=== PATIENT | female | born 1935 | race Caucasian/White ===

== ENCOUNTER 2023-09-04 08:31 | Outpatient (RCR) | payer SELFPAY | END 2023-09-04 23:59 | disposition home or self-care (01) | LOC: ROT 08:31 | PROVIDERS: ATTENDING PHYSICIAN Family Medicine | DX: G20.A1 Parkinson's disease without dyskinesia, without mention of fluctuations (principal) ==

== ENCOUNTER → 2023-11-06 13:23 | Outpatient (REF) | payer OTHER, SELFPAY | LOC: MRI 3T 13:23 | PROVIDERS: ATTENDING PHYSICIAN Physician Assistant; FAMILY PHYSICIAN Family Medicine; REFERRING PHYSICIAN Specialist | DX: G20.A1 Parkinson's disease without dyskinesia, without mention of fluctuations (principal); R26.89 Other abnormalities of gait and mobility | CPT/HCPCS: 70551 ==

== ENCOUNTER 2023-12-07 06:33 | Outpatient (RCR) | payer OTHER, SELFPAY | END 2023-12-07 23:59 | disposition home or self-care (01) | LOC: RPT 06:33 | PROVIDERS: ATTENDING PHYSICIAN Family Medicine | DX: G20.A1 Parkinson's disease without dyskinesia, without mention of fluctuations (principal); R26.89 Other abnormalities of gait and mobility; Z91.81 History of falling; Z73.6 Limitation of activities due to disability | CPT/HCPCS: 97163; 97530 ==

== ENCOUNTER 2024-01-10 12:44 | Outpatient (RCR) | payer OTHER, SELFPAY | END 2024-01-10 23:59 | disposition home or self-care (01) | LOC: RPT 12:44 | PROVIDERS: ATTENDING PHYSICIAN Family Medicine | DX: G20.A1 Parkinson's disease without dyskinesia, without mention of fluctuations (principal); Z91.81 History of falling; Z73.6 Limitation of activities due to disability | CPT/HCPCS: 97110; 97112; 97116; 97530 ==

== ENCOUNTER 2024-02-08 13:01 | Outpatient (RCR) | payer OTHER, SELFPAY | END 2024-02-08 23:59 | disposition home or self-care (01) | LOC: RPT 13:01 | PROVIDERS: ATTENDING PHYSICIAN Family Medicine | DX: G20.A1 Parkinson's disease without dyskinesia, without mention of fluctuations (principal); R26.89 Other abnormalities of gait and mobility; Z73.6 Limitation of activities due to disability; R26.2 Difficulty in walking, not elsewhere classified; Z91.81 History of falling | CPT/HCPCS: 97110; 97112; 97116; 97530 ==

== ENCOUNTER 2024-02-11 15:25 | Outpatient (RCR) | payer OTHER, SELFPAY | END 2024-02-12 07:35 | disposition home or self-care (01) | LOC: RPT 15:25 | PROVIDERS: ATTENDING PHYSICIAN Family Medicine | DX: G20.A1 Parkinson's disease without dyskinesia, without mention of fluctuations (principal); R26.89 Other abnormalities of gait and mobility; Z73.6 Limitation of activities due to disability; R26.2 Difficulty in walking, not elsewhere classified; Z91.81 History of falling | CPT/HCPCS: 97110; 97112; 97530 ==

== ENCOUNTER 2024-03-10 14:16 | Outpatient (RCR) | payer OTHER, SELFPAY | END 2024-03-10 23:59 | disposition home or self-care (01) | LOC: RST 14:16 | PROVIDERS: ATTENDING PHYSICIAN Family Medicine | DX: G20.A1 Parkinson's disease without dyskinesia, without mention of fluctuations (principal); R47.1 Dysarthria and anarthria; R49.8 Other voice and resonance disorders | CPT/HCPCS: 92507; 92522 ==

== ENCOUNTER 2024-03-17 12:04 | Outpatient (RCR) | payer OTHER, SELFPAY | END 2024-04-02 10:16 | disposition home or self-care (01) | LOC: RST 12:04 | PROVIDERS: ATTENDING PHYSICIAN Family Medicine | DX: R47.1 Dysarthria and anarthria (principal); G20.A1 Parkinson's disease without dyskinesia, without mention of fluctuations; R49.8 Other voice and resonance disorders | CPT/HCPCS: 92507 ==

== ENCOUNTER 2024-03-29 13:43 | Inpatient (IN) | payer OTHER, SELFPAY ==
[2024-03-29] VITALS (8 sets, daily range): BP systolic 101–141; BP diastolic 61–102; BMI 22.0
--- NOTE | 2024-03-29 11:00 | ED.GENMED ---
History of Present Illness
General
Chief Complaint: Swelling
Source: patient and spouse
Time Seen by Provider: 03/29/24 10:37
History of Present Illness
History of Present Illness:
This patient is an 88-year-old female who has been having progressive lower extremity edema for the last few weeks such that her notes is difficult to get her shoes on. They saw their primary care doctor this morning and were referred to
the emergency department to rule out bilateral DVT. In further review of systems, patient denies chest pain but notes she has been having mild dyspnea particularly in the morning. She does not specifically report orthopnea or PND. She is
relatively immobile. She has had slightly decreased urinary output without pain or hematuria. She denies fever, chills, abdominal pain, back pain, numbness, tingling, focal weakness, or other complaints. is unclear if she has gained
weight.
Past History
Past History
ED Past Medical History: Arrthythmia (SVT and PVC's), Cancer (Colon, Skin CA), GERD and Other (Parkinson's, Glaucoma, Anemia)
ED Past Surgical History: Bowel resection (Colon resection due to CA) and Gynecological (Hysterectomy due to CA, )
Social History
Tobacco: Non-smoker
Alcohol: None
Drug: None
Personal:
Living: with family
Employment: Retired
Family History
Family History: Negative Diabetes, Hypertension or CAD
Phy Exam
Physical Exam
Physical Exam:
GENERAL: Alert , in no apparent distress
EYE: pupils equal and reactive
NECK: Supple, no significant adenopathy.
ENT: o/p clr, mm dry
CARDIAC: Irregularly irregular
LUNGS: Equal breath sounds bilaterally, no acute respiratory distress, slight Rales noted bibasilar left greater than right
ABDOMEN: Soft, without focal tenderness, no r/g
NEUROLOGICAL: Alert and oriented, baseline Parkinson
SKIN: Warm and dry, skin intact.
MUSCULOSKELETAL: Bilateral 2+ edema lower extremity, well perfused.
PSYCH: Normal and appropriate interaction.
Scores
[id number] Score for Afib Stroke Risk
Age in Years (65=0, 65-74=1, >/=75=2): > or = 75
Sex (Female=+1): Female
Congestive Heart Failure History (Yes=+1): No
Hypertension History (Yes=+1): No
Stroke/TIA/Thromboembolism History (Yes=+2): No
Vascular Disease History (Yes=+1): No
Diabetes Mellitus (Yes=+1): No
Score: 3
Anticoagulation Recommendations: Recommend anticoagulation (as validated in nonvalvular fib)
Heart Failure Risk
Heart Failure Risk Score: Not Applicable
Course
Orders/Labs/Results
Orders:
Orders
03/29/24 10:59
Pulse Ox/cont/shift [RESP] Stat
Quantity: 1
03/29/24 11:00
Electrocardiogram (*1) Stat
Reason for Study: Other
Other Reason for Exam: chest pain
Cardiac Monitoring- Treatment ONCE
EKG- Treatment ONCE
CR Chest - 2 Views Urgent
Comment:
Reason For Exam: sob, leg swelling
03/29/24 11:27
Complete Blood Count/No Diff Urgent
Comprehensive Metabolic Panel Urgent
NT-proBNP Urgent
Troponin I Urgent
03/29/24 12:29
Furosemide [Lasix] 40 mg IV ONCE ONE
03/29/24 12:36
PTT Urgent
Comment: Obtain baseline before beginning heparin infusion if not already collected
03/29/24 12:59
Heparin 3,400 units IV NOW STA
Nursing to Place Non Medication Order As Directed
Physician Order: PTT 6 hours after initial start of Heparin infusion
Above order entered?: Yes
03/29/24 13:00
Heparin 16617 Units/250 ml 25,000 units in 250 ml IV PER PROTOCOL
Weight to be used for heparin protocol in kilograms (kg):: 56.2
Protocol:: Cardiac Tx/Acute Coronary
PTT Goal Range to be used:: PTT 73 to 111 seconds
Order type:: Initial
INITIAL Infusion Dose (UNITS/KG/hr) & then follow protocol:: 12 units/kg/hr
Infusion Dose in UNITS/hr & then follow protocol (UNITS/hr):: 650
INFUSION RATE in mL/hr & then follow protocol (mL/hr):: 6.5
PTT less than or equal to 64 seconds:: Increase rate by 200 units/hr (+ 2 mL/hr)
PTT 64.1 to 72.9 seconds:: Increase rate by 100 units/hr (+ 1 mL/hr)
PTT 73 to 111 seconds:: Target Range. No change in rate.
PTT 111.1 to 130.9 seconds:: Decrease rate by 100 units/hr (- 1 mL/hr)
PTT 131 to 199.9 seconds:: HOLD for 1 hr. Then decrease rate by 200 units/hr (- 2 mL/hr)
PTT greater than or equal to 200 seconds:: HOLD for 2 hrs & Notify Provider. Then decrease by 200 units/hr (-
2 mL/hr)
Lab follow-up:: Each change, PTT q6h until 2 consecutive are therapeutic. Then PTT
daily.
03/29/24 13:16
Metoprolol [Lopressor] 2.5 mg IV NOW STA
03/29/24 13:17
Admit/Transfer Patient As Directed
Co-Sign Provider:
Level of Care: Inpatient admission
Assign to:: Telemetry
Physician / Group: Damián
Transfer to: Telemetry
Diagnosis: CHF/Afib RVR
Patient Condition: Fair
Reason for Telemetry: Acute Heart Failure
Date to Stop Telemetry: 04/01/24
Time to Stop Telemetry: 11:00
Reason for Hospitalization: CHF exacerbation/afibrvr
Expected length of stay greater than two midnights?: Yes
ELOS- Estimated Length of Stay in days: 2
I certify the patient meets the requirements for IP care: Yes
PRN Pain Medication Management As Directed
May give lesser potent ordered pain med per pt: Yes
preference::
Protocol:: Medication orders for pain may be administered in a
manner that supports deferring to patient preference
when the pt is:
- Requesting an ordered lesser potent pain medication.
Least to most potent pain medications are defined
as: acetaminophen < NSAID < tramadol < opioids
(morphine, oxycodone, hydromorphone).
- Requesting a lesser dose of the same medication IF
ORDERED.
- Requesting a less intrusive route of administration
if both routes are prescribed by the provider (PO <
IV).
03/29/24 13:19
Code Status As Directed
Resuscitation Status: Do not resuscitate
Reached after discussion with pt or family/Healthcare POA: Yes
03/29/24 13:20
DNR Bracelet Application ONCE
03/29/24 14:23
Acetaminophen [Tylenol] 650 mg PO Q4HPRN PRN
Bisacodyl [Dulcolax] 10 mg RECTAL [id number] PRN
Docusate W/Senna [Senokot-S] 1 tablet PO BIDPRN PRN
Ondansetron Injectable [Zofran] 4 mg IV Q6HPRN PRN
Polyethylene Glycol Powder [Miralax] 17 grams PO DAILYPRN PRN
03/29/24 14:23
CARDIOLOGY CONSULT Routine
Consulting Provider: Daniel Yan
Was physician already notified: Yes
Reason for consult: chf/new afib
Activity As Directed
Activity Level: Ambulate
Intake/ Output As Directed
Frequency: Per unit guidelines
Comment: strict
Vital Signs As Directed
Frequency: Per unit guidelines
Weight As Directed
Frequency: Daily
03/29/24 Dinner
Cholesterol Lowering
At Your Request: Non-Participating
Fluid Restriction: 1200 mL/day (40 oz)
Cholesterol Lowering: Sodium, 2 Gram
03/29/24 19:58
PTT Urgent
03/29/24 20:00
Acetaminophen [Tylenol] 650 mg PO BID
Carbidopa/Levodopa Cr [Sinemet Cr 25-100 (Extended Release)] 1 tablet PO BID
Metoprolol Xl [Toprol Xl] 50 mg PO BID
03/29/24 22:00
Donepezil [Aricept] 5 mg PO HS
03/30/24 02:28
Basic Metabolic Panel IN AM
Complete Blood Count/No Diff IN AM
Magnesium IN AM
TSH Reflex To Free T4 IN AM
03/30/24 08:00
Aspirin Low Dose EC [Aspir Low (Enteric Coated)] 81 mg PO DAILY
Furosemide [Lasix] 40 mg IV DAILY
Lactobac/Bifidobac [Visbiome] 1 cap PO DAILY
Losartan [Cozaar] 25 mg PO DAILY
Timolol Maleate 0.5% [Timoptic 0.5% Ophthalmic Solution] See Dose Instructions OPHTH DAILY
04/01/24 11:00
DC Protocol for Telemetry ONCE
Abnormal Lab Results
03/29/24
11:27
WBC 3.4 L 10^3/uL
(4.8-10.8)
RBC 3.87 L 10^6/uL
(4.20-5.40)
Hgb 11.7 L g/dL
(12.0-16.0)
Hct 34.8 L %
(37.0-47.0)
Plt Count 109 L 10^3/uL
(130-400)
Sodium 134 L mmol/L
(135-145)
BUN 36 H mg/dl
(7-17)
Total Protein 5.6 L g/dl
(6.3-8.2)
03/29/24 11:27
03/29/24 11:27
Vital Signs
Initial and Last Documented VS:
Initial Vital Signs
Temp Pulse Resp BP Pulse Ox
98.1 F 102 16 113/78 98
03/29/24 10:23 03/29/24 10:23 03/29/24 10:23 03/29/24 10:23 03/29/24 10:23
Last Documented Vital Signs
Temp Pulse Resp BP Pulse Ox
97.6 F 96 16 132/93 96
03/31/24 07:30 03/31/24 08:06 03/31/24 07:30 03/31/24 08:06 03/31/24 07:30
*Critical Care Note
Total Time (30-74mins, 75-104mins- exclusive of procedures): 30
Update Note
Update Note:
Patient presents to the Emergency Department with bilateral leg swelling____
Number and Complexity of Problems Addressed at the Encounter
� Chronic conditions affecting care:
� Acute Exacerbation and/or Progression of Chronic Illness:
� Differential Diagnosis includes: But not limited to DVT, renal disease, heart failure, etc. etc.
Amount and/or Complexity of Data to be Reviewed and Analyzed
� I performed an independent evaluation of and my interpretation is:
EKG:read by me, afib with rvr (101), no acute ischemia noted
CT:
Xrays:read by me, cardiomegaly with suspected pulmonary edema.
Laboratory Studies:mild anemia, bnp elevated
Other:
� Review of other/old records reveals: echo 05/2018-EF 55%, diastolic fililng pattern suggestive of abnl relaxation
� Clinical information was obtained by an independent historian: who is bedside
� Prescriptions/Medications Considered but not given:
� Further testing considered but not performed:
Risk of Complications and/or Morbidity or Mortality of Patient Management
� Social determinants of health affecting care:
� Discussion with other providers (PCP, Hospitalists, Consultants, etc):
� Escalation of care including admission/observation vs risk of discharge considered: 88 yr old feamle with progressive leg edema, intermittent sob, found to be in new onset afib, mild rvr, and suspected assoc hf. Rate well
controlled here. CHads vasc 3 (no documented hx of htn, etc), will begin anticoagulation, lasix, admission.
ED Attending Note
-
Portions of this chart may have been created with voice recognition software.� Occasional wrong word or��sound alike� substitutions may have occurred due to the inherent limitations of voice recognition software.
Discharge Plan
Departure
Patient Disposition: Admit
Date of Disposition: 03/29/24
Time of Disposition: 12:28
Admit to: Telemetry
Presentation/result/management discussed w/ accepting MD/DO: Hospitalist
Condition: Fair
Discharge Problem:
Atrial fibrillation, Heart failure
Interventions
Interventions:
*Risk Screen - Suicide Last Done: 03/29/24 10:23
*General Assessment Last Done: 03/29/24 10:23
*Neglect/Abuse Screening Last Done: 03/29/24 10:23
ED- Fall Risk Assessment Last Done: 03/29/24 14:21
*ED COVID-19 Vaccine History Last Done: 03/29/24 14:21
*Nursing Disposition Last Done: 03/29/24 14:21
ED- Cardiac Assessment Last Done: 03/29/24 12:57
ED- Pulmonary Assessment Last Done: 03/29/24 12:57
ED-Skin Assessment Last Done: 03/29/24 14:21
Discharge Date and Time
Discharge Date/Time: 03/29/24 14:22
[2024-03-29 11:36] LABS: Hematocrit 34.8 % (37.0-47.0); Hemoglobin 11.7 g/dL (12.0-16.0); Mean Corp Hgb Conc. 33.6 g/dL (33.0-37.0); Mean Corpuscular Hgb 30.2 pg (27.0-31.0); Mean Corpuscular Volume 89.9 fL (81.0-99.0); Mean Platelet Volume 10.1 fL (7.4-10.4); Platelet Count 109 10^3/uL (130-400); Red Blood Cell Count 3.87 10^6/uL (4.20-5.40); Red Cell Dist. Width 13.8 % (11.5-14.5); White Blood Cell Count 3.4 10^3/uL (4.8-10.8)
[2024-03-29 11:49] LABS: ALT (SGPT) < 10 U/L (0-35); AST (SGOT) 36 U/L (14-36); Albumin 3.9 g/dl (3.5-5.0); Alkaline Phosphatase 64 U/L (38-126); Blood Urea Nitrogen 36 mg/dl (7-17); Calcium 9.2 mg/dl (8.4-10.2); Carbon Dioxide 24 mmol/L (22-30); Chloride 103 mmol/L (98-107); Glucose 96 mg/dl (70-99); Potassium 4.4 mmol/L (3.5-5.1); Sodium 134 mmol/L (135-145); Total Bilirubin 0.9 mg/dl (0.2-1.3); Total Protein 5.6 g/dl (6.3-8.2); eGFR > 60.00
[2024-03-29 11:59] LABS: NT-proBNP 5270 pg/ml; Troponin I < 0.012 ng/ml
[2024-03-29 12:58] LABS: APTT 24.9 Sec (23.4-35.0)
[2024-03-29] MEDS: HEPARIN 3400 UNITS IV (13:13)
[2024-03-29] MEDS: LASIX 40 MG IV (13:13)
--- NOTE | 2024-03-29 13:28 | HPS.HSE ---
Family Physician
-
Family Physician: Joni Valenzuela
Chief Complaint
-
Lower Extremity Edema x 2 weeks and SOB (sent in by PCP)
History of Present Illness
Pleasant 88yo F wt PMH SVT/PVCs (not followed by general assistant), HTN, Colon Ca s/p Resection, GERD, Chronic Anemia, Glaucoma, Parkinsons Dementia presents to ER with c/o LE edema x 2 weeks with recent SOB. Pt lives at home with her who also
aids in HPI. Reports symmetrical edema without associated chest pain or palpitations with +mild COHEN. Denies recurrence in past or ever being on diuretics/blood thinners or known hx afib. Pt states she went to see her PCP who sent her into ER for DVT
evaluation. Denies fever, chills, dizziness/LH, Palps, wheezing, cough, abd pain, n/v/d/c, dysuria, calf or leg pain/erythema. Only recent med change was donepezil from every other day to daily 2 weeks ago.
ER course: Presents HR 114->98, RR 31->21, Sat 95-98% RA, BP 149/74 with EKG demonstrating New Afib RVR @ 101bpm, PVCs, low voltage, nonspecific TWI, QTC 451ms. Na 134. BUN/Cr 36/0.9. WBC 3.4K, Hgb 11.7 g/dL. PLT 109K. BNP 5270. Trop <0.012. CXR
with left basilar opacity suspicous for small pleural effusions and atelectasis; cardiac enlargement. S/P 40mg IV lasix and heparin bolus/gtt in ER.
Medical History
Past Medical History
Past Medical History: Reports Other (SVT/PVCs (not followed by general assistant), HTN, Colon Ca s/p Resection, GERD, Chronic Anemia, Glaucoma, Parkinsons Dementia)
Past Surgical History: Reports Other (Bowel Resection, Hysterectomy)
Social History
Tobacco: Non-smoker
Alcohol: None
Drug: None
Personal:
Living: With Family
Employment: Retired
Family History
Family History: Other (Denies known pertinent family medical history)
Allergies / Home Medications
Allergies reflects when Allergies were last updated in [facility].
Home Medications with original date entered in [facility]
Allergy/Medication List:
Allergies
Allergy/AdvReac Type Severity Reaction Status Date / Time
morphine Allergy Severe slight rash Verified 03/29/24 10:21
Home Medications
aspirin 81 mg tablet,delayed release 81 mg PO DAILY 05/07/15
Lactobac no.2-Bifidobac no.1-S. thermo 112.5 billion cell capsule (Visbiome) 1 cap PO DAILY 03/29/24
acetaminophen 325 mg tablet (Tylenol) 650 mg PO BID 03/29/24
carbidopa ER 25 mg-levodopa 100 mg tablet,extended release 1 tab PO BID 03/29/24
donepezil 5 mg tablet 5 mg PO HS 03/29/24
losartan 25 mg tablet 25 mg PO DAILY 03/29/24
metoprolol succinate 50 mg tablet,extended release 24 hr (Toprol XL) 50 mg PO DAILY 03/29/24
timolol 0.5 % eye drops 1 drp BOTH EYES DAILY 03/29/24
Review of Systems
-
A 12 point ROS was completed and negative except as noted: Yes
Physical Exam
Vital Signs
Vital Signs
Temp Pulse Resp BP Pulse Ox
98.1 F 98 24 122/92 97
03/29/24 10:23 03/29/24 12:45 03/29/24 12:45 03/29/24 12:32 03/29/24 12:45
Physical Exam
General: Well Developed, Well Nourished and No Apparent Distress
HEENT: NormoCephalic, Moist mucous membranes and Atraumatic
Cardiac: S1/S2, Regular Rhythm and Irregular Rhythm; No Murmur or JVD
GI: Soft, Non Tender, Non Distended and Normal Bowel Sounds; No Organomegaly
Rectal: Deferred by Provider
Genito-urinary: No costovertebral tender; No Riley
Musculoskeletal: No Clubbing, No Cyanosis and Other (2-3+ symmetrical pitting b/l LE edema. No erythema. )
Skin: No Rash
Neuro: Awake, Alert, Oriented, AO x 3, No Motor Deficits and Nonfocal/grossly intact
Psych: Calm
Laboratory Results
-
03/29/24 11:27
03/29/24 11:27
Laboratory Results
APTT 24.9 Sec (23.4-35.0) 03/29/24 12:36
Total Bilirubin 0.9 mg/dl (0.2-1.3) 03/29/24 11:27
AST 36 U/L (14-36) 03/29/24 11:27
ALT < 10 U/L (0-35) 03/29/24 11:27
Alkaline Phosphatase 64 U/L (38-126) 03/29/24 11:27
Troponin I < 0.012 ng/ml 03/29/24 11:27
Data Reviewed
-
Diagnostic Radiology: Image Personally Visualized and interpreted
Medical Tests (Nuc Med, Echo, EKG etc): Image Personally Visualized and interpreted
Lab Data: Labs Reviewed by me
Old Records: Reviewed
Impression/Plan
-
Acute HFpEF
- Presents with 2 weeks+ of LE edema and mild SOB
- CXR with small left effusion, 2-3+ b/l pitting edema on exam. BNP 5270. Trop <0.012, no chest pain
- Last TTE 04/2020 with EF 55-60%, Mild LVH, grade I diastolic dysfunction, PaSP 28mmHg; likely consider repeat
- S/P 40mg IV lasix in ER. Patient is lasix naive, Continue 40mg IV daily with I&O/daily wts and hold parameters
- Increase Metop Succinate from 50mg Daily to 50mg BID
- Continue home ARB
- Cards consulted
New Atrial Fibrillation RVR / hx SVT and PVCs
- [id number] = Atleast 5
- S/P 2.5mg IV lopressor now. Increase Toprol XL from 50mg daily to 50mg BID
- Initiated on heparin gtt. Continue home aspirin.
Hx HTN - Stable on home losartan. Follow trends with diruesis.
Hyponatremia
- Na 134. Likely mild hypoosmotic hypervolemic etiology. Trend with diuresis.
Thrombocytopenia
- PLT 109k on admission. Previously 130-140k. Could be dilutional
- LFTs wnl. Check Coags
- Mild chronic leukopenia also noted. Consider liver ultrasound on nonurgent basis
- Above transfusion thresholds
Chronic Anemia
- Hgb 11.7 g/dL. Chronic/stable
Parkinsons Dementia - Continue home donepezil and sinemet
Glaucoma - Continue home eye drops
Diet: Cardiac, 2gm Na Diet, 1200cc fluid restriction
DVT PPx: Heparin Gtt
Code Status: DNR/DNI
[2024-03-29] MEDS: LOPRESSOR 2.5 MG IV (13:35)
[2024-03-29] MEDS: HEPARIN 25000 UNITS/250 ML IV (13:40)
--- NOTE | 2024-03-29 16:40 | PTCARENOTE ---
Pt arrived to unit via stretcher at 14:30. Pt c/o weakness in legs and difficulty ambulating. Pt pulled over from stretcher to bed w/o incident. Pt assessed, AAOx2, VSS, hep gtt running at 6.5ml/hr, next ptt to be drawn at 19:45. Pt in room,
call sandy and belongings within reach.
[2024-03-29 20:24] LABS: APTT 92.1 Sec (23.4-35.0)
[2024-03-29] MEDS: TYLENOL 650 MG PO (20:56)
[2024-03-29] MEDS: SINEMET CR 25-100 (EXTENDED RELEASE) 1 TABLET PO (20:57)
[2024-03-29] MEDS: ARICEPT 5 MG PO (20:59)
[2024-03-29] MEDS: TOPROL XL 50 MG PO (22:14)
[2024-03-30 02:42] LABS: Hematocrit 35.6 % (37.0-47.0); Mean Corp Hgb Conc. 33.7 g/dL (33.0-37.0); Mean Corpuscular Hgb 29.9 pg (27.0-31.0); Mean Corpuscular Volume 88.8 fL (81.0-99.0); Mean Platelet Volume 10.4 fL (7.4-10.4); Platelet Count 116 10^3/uL (130-400); Red Blood Cell Count 4.01 10^6/uL (4.20-5.40); Red Cell Dist. Width 13.8 % (11.5-14.5); White Blood Cell Count 3.3 10^3/uL (4.8-10.8)
[2024-03-30 02:55] LABS: APTT 72.8 Sec (23.4-35.0)
[2024-03-30 03:11] VITALS: BP 127/80
[2024-03-30 03:14] LABS: Blood Urea Nitrogen 35 mg/dl (7-17); Calcium 9.2 mg/dl (8.4-10.2); Carbon Dioxide 23 mmol/L (22-30); Chloride 105 mmol/L (98-107); Estimated Creatinine Clearance 42 ml/min; Glucose 86 mg/dl (70-99); Magnesium 1.9 mg/dl (1.6-2.3); Potassium 3.7 mmol/L (3.5-5.1); Sodium 135 mmol/L (135-145); eGFR > 60.00
[2024-03-30] MEDS: DESENEX/MITRAZOL/ZEASORB 1 APPLIC TOPICAL ×3 (03:34→20:05)
[2024-03-30 03:41] LABS: TSH Reflex To Free T4 2.26 uIU/ml (0.47-4.68)
[2024-03-30 06:00] VITALS: BMI 20.8
[2024-03-30 07:36] VITALS: BP 117/81
[2024-03-30] MEDS: LASIX 40 MG IV (07:57)
[2024-03-30] MEDS: SINEMET CR 25-100 (EXTENDED RELEASE) 1 TABLET PO ×2 (07:57→20:22)
[2024-03-30] MEDS: TOPROL XL 50 MG PO (07:57)
[2024-03-30] MEDS: COZAAR 25 MG PO (07:57)
[2024-03-30] MEDS: VISBIOME 1 CAP PO (07:57)
[2024-03-30] MEDS: ASPIR LOW (ENTERIC COATED) 81 MG PO (07:57)
[2024-03-30] MEDS: TYLENOL 650 MG PO ×2 (07:57→20:01)
[2024-03-30] MEDS: FLUSH (NSS) 2 FLUSH IV (07:59)
[2024-03-30 08:09] LABS: INR 1.21; PT 15.1 Sec (11.4-14.6)
[2024-03-30] MEDS: TIMOPTIC 0.5% OPHTHALMIC SOLUTION 1 DROP OPHTH (08:24)
[2024-03-30 09:49] LABS: APTT 78.6 Sec (23.4-35.0)
--- NOTE | 2024-03-30 11:06 | W.PN.HOSP.TC ---
Today's Communication/Plan
-
continue IV diuresis
Echo
Cards eval
Assessment / Plan
Assessment / Plan
Assessment:
Acute HFpEF
- IV Lasix - requires intensive monitoring. Monitor I/Os, weights, lytes
- update Echo
- continue BB/ARB
- Cards consulted
New Atrial Fibrillation RVR / hx SVT and PVCs
- [id number] = Atleast 5
- continue Toprol XL from 50 mg BID (from daily)
- Initiated on heparin gtt. Continue home aspirin. eventual OAC switch
Hx Essential HTN - Stable on home losartan. Follow trends with diruesis.
Hyponatremia
- Na 135. Likely mild hypoosmotic hypervolemic etiology. Trend with diuresis.
Thrombocytopenia
- PLT 116k on admission. Previously 130-140k. Could be dilutional
- LFTs wnl. normal Coags
- Mild chronic leukopenia also noted. Consider liver ultrasound on nonurgent basis
- Above transfusion thresholds
Chronic Anemia
- Hgb 11.7 g/dL. Chronic/stable
Parkinsons Dementia - Continue home donepezil and Sinemet
Glaucoma - Continue home eye drops
DVT ppx: IV Heparin
Code: DNR/DNI
Anticipated Discharge: > 48 hours
Subjective/Interval History
-
Date of Service: March 30, 2024
weight down 3kg per scale
feels less edematous, denies SOB
Objective Data
-
Labs:
Laboratory Results
03/30/24 03/30/24 03/30/24
02:28 06:00 07:09
WBC 3.3 L
Hgb 12.0
Hct 35.6 L
Plt Count 116 L
PT 15.1 H
INR 1.21
APTT 72.8 H Cancelled
Sodium 135
Potassium 3.7
Chloride 105
Carbon Dioxide 23
BUN 35 H
Creatinine 0.8
Glucose 86
Calcium 9.2
03/30/24 03/30/24
09:23 15:20
WBC
Hgb
Hct
Plt Count
PT
INR
APTT 78.6 H Pending
Sodium
Potassium
Chloride
Carbon Dioxide
BUN
Creatinine
Glucose
Calcium
Vital Signs:
Vital Signs
Temp Pulse Resp BP Pulse Ox
98.1 F 87 16 117/81 96
03/30/24 07:36 03/30/24 07:57 03/30/24 07:36 03/30/24 07:57 03/30/24 07:36
I&O
03/29/24 03/30/24 03/31/24
06:59 06:59 06:59
Intake Total 100 / 100
Balance 100 / 100
Physical Exam
-
General: No Apparent Distress
HEENT: Normocephalic and Atraumatic
Respiratory: Negative Wheezes
Cardiac: Regular Rhythm and S1/S2
GI: Soft and Nontender
Genito-urinary: No Costovertebral Tender
Musculoskeletal: Edema, Right Lower Extrem and Edema, Left Lower Extrem
Neuro: AO x 3
Hematologic / Lymphatic: No Lymphadenopathy
Psych: Calm
Data Reviewed
-
Total Time Spent with Patient (in minutes): 51
Labs: Labs Reviewed by me
[2024-03-30 11:30] VITALS: BP 141/95
--- NOTE | 2024-03-30 13:53 | CON.CAR ---
Consultation
Consultation Request
Date/Time Consultation Requested: March 30, 2024
Date/Time Consultation Performed: March 30, 2024
Requesting Provider: Hospitalist
Performing Provider: Dr. Daniel Yan
Reason for Consultation: Newly diagnosed atrial fibrillation, rapid rates, acute CHF
Medical History
-
Chief Complaint: Shortness of breath and increasing edema, palpitation
History of Present Illness:
Primary care physician is Dr. Joni Foley
Primary as400 operator is Dr. Angel Merino
Pleasant 88yo F wtih PMH notable for SVT/PVCs (not followed by as400 operator), HTN, Colon Ca s/p Resection, GERD, Chronic Anemia, Glaucoma, Parkinsons Dementia presenting to ER with c/o LE edema x 2 weeks with recent SOB.
Pt states she went to see her PCP who sent her into ER for DVT evaluation.
She reports symmetrical lower extremity edema as well as dyspnea on exertion worsening over the past 1 to 2 weeks. No chest pain.
In the emergency department she is found to be in atrial fibrillation which is a new diagnosis, rates are mildly rapid.
She is also found to be in decompensated heart failure, proBNP 5270, troponin undetectable and chest x-ray with cardiomegaly, small left pleural effusion and vascular markings with cephalization suggestive of CHF
EKG finds atrial fibrillation with ventricular rate of 101 bpm, PVCs, nonspecific ST and T wave abnormalities. Compared to an EKG from April 2015 atrial fibrillation has replaced sinus rhythm.
She was administered 40 mg of Lasix intravenously in the emergency department and she was also started on intravenous heparin. She has been maintained on oral beta-fili.
Recent cardiac testing:
-Echocardiogram April 29, 2020 finds LVEF 55 to 60% with mild LVH, mild mitral regurgitation, mild tricuspid regurgitation.
-Holter monitor from June 23, 2019 finds frequent PACs and short runs of paroxysmal atrial tachycardia. Occasional isolated PVCs.
Past medical history:
Essential hypertension
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
PVCs
Colon cancer, prior resection
Chronic anemia (baseline hemoglobin appears to be about 12
Gastroesophageal reflux disease
Parkinson's disease
Dementia
Glaucoma
Social History
Tobacco: Non-Smoker
Alcohol: None
Drug: None
Personal:
Living: With Family
Family History
Family History: Reviewed & Not Pertinent
Allergies / Home Medications
Allergy/AdvReac Type Severity Reaction Status Date / Time
morphine Allergy Severe slight rash Verified 03/29/24 10:21
�Medication �Instructions �Recorded �Confirmed �Type
aspirin 81 mg tablet,delayed 81 mg PO DAILY Blood Clot 05/07/15 03/29/24 History
release Prevention/Tx
Lactobac no.2-Bifidobac no.1-S. 1 cap PO DAILY Supplement 03/29/24 03/29/24 History
thermo 112.5 billion cell capsule
(Visbiome)
acetaminophen 325 mg tablet 650 mg PO BID Pain 03/29/24 03/29/24 History
(Tylenol)
carbidopa ER 25 mg-levodopa 100 mg 1 tab PO BID Neurological Condition 03/29/24 03/29/24 History
tablet,extended release
donepezil 5 mg tablet 5 mg PO HS Neurological Condition 03/29/24 03/29/24 History
losartan 25 mg tablet 25 mg PO DAILY Blood Pressure 03/29/24 03/29/24 History
metoprolol succinate 50 mg 50 mg PO DAILY Blood Pressure 03/29/24 03/29/24 History
tablet,extended release 24 hr
(Toprol XL)
timolol 0.5 % eye drops 1 drp BOTH EYES DAILY Eye Condition 03/29/24 03/29/24 History
Review of Systems
-
History Source: Patient
All other systems: Negative unless noted
Constitutional: Fatigue
EENT: No Symptoms
Respiratory: Trouble Breathing
Cardiac: Palpitations
Abdomen/GI: No Symptoms
: No Symptoms
Hematologic/Lymphatic: No Symptoms
Physical Exam
Vital Signs
Temp Pulse Resp BP Pulse Ox
98.1 F 87 16 117/81 96
03/30/24 07:36 03/30/24 07:57 03/30/24 07:36 03/30/24 07:57 03/30/24 07:36
Lab Results
03/30/24 02:28
03/30/24 02:28
Troponin I < 0.012 ng/ml 03/29/24 11:27
Syr-S-Tmvvaggtzsl Pept 5270 pg/ml 03/29/24 11:27
Physical Exam
General: Well Developed, Well Nourished, No Apparent Distress and Comfortable
HEENT: Normocephalic, Anicteric and Moist Mucous Membranes
Respiratory: Clear and Non Labored Respirations
Cardiac: S1/S2, Irregular Rhythm and Murmur (No S3 no S4, grade 1/6 apical holosystolic murmur, no rubs)
Breast: Deferred by me
GI: Soft, Non Tender, Non Distended and Normal Bowel Sounds
Rectal: Deferred by Provider
Musculoskeletal: No Clubbing, No Cyanosis and Edema (There is trace pretibial edema bilaterally)
Skin: Warm and Dry
Neuro: Awake, Alert and AO x 3
Psych: Calm
Impression / Plan
-
Primary care physician is Dr. Joni Foley
Primary as400 operator is Dr. Angel Merino
She presents with 1 to 2 weeks of increasing lower extremity edema and is found to be in acute congestive heart failure. She is also found to have new diagnosis of atrial fibrillation, presenting with mildly rapid ventricular rates. It is likely
that her rhythm abnormality as well as a rapid rate are contributing to her decompensated congestive heart failure symptoms.
-No contraindication to oral anticoagulation that I can see. She does have a history of dementia but seems to understand her diagnosis and treatment recommendations. I tried to calling her but could not reach him.
Will stop IV heparin and initiate Eliquis dose adjusted to her age and weight at 2.5 mg twice daily
-Her rates are mostly well-controlled but a little rapid at times. Her blood pressure should tolerate an attempt to uptitrate metoprolol XL therefore we will increase Toprol-XL from 50 mg once daily to 50 mg twice daily
-Check echocardiogram
-Given her diagnosis of dementia although this seems to be mild, we need to try to reach out to her again to discuss diagnoses and treatment recommendations
Total time spent today was 75 minutes in preparing to see the patient, seeing the patient and coordination of care. This included review of recent laboratory evaluations, cardiat testing, imaging studies, primary care records, specialty
consultations, hospital records, as well as personally interviewing and examining the patient, which included discussion of their tests, review/ordering medications, and discussing treatment planning as well as counseling.
Data Reviewed
-
EKG: Tracing Personally Visualized and interpreted and Discussed with Patient
Radiology: Image Personally Visualized and interpreted and Discussed with Patient
Medical Tests (Nuc Med, Echo etc): Report Reviewed by me
Labs: Labs Reviewed by me
Old Records: Reviewed
[2024-03-30] MEDS: LOPRESSOR 25 MG PO (15:30)
[2024-03-30 15:32] LABS: APTT 98.2 Sec (23.4-35.0)
--- NOTE | 2024-03-30 15:36 | CM ---
CM met with pt, her and son at bedside
Pt lives with her and son
Parkinson's Dementia, confused at times, assist with ADL's, ambulates with rolling walker at baseline
DME - chair lift, rolling walker
SNF - denies hx
HH - denies hx
PCP - Dr Joni Valenzuela
Pharm - [facility]
CM will follow for d/c needs
Plan - anticipate home with HH when medically stable
[2024-03-30 15:45] VITALS: BP 125/87
[2024-03-30 19:15] VITALS: BP 103/65
[2024-03-30] MEDS: TOPROL XL 75 MG PO (20:02)
[2024-03-30] MEDS: ELIQUIS 2.5 MG PO (20:04)
[2024-03-30] MEDS: ARICEPT 5 MG PO (22:35)
[2024-03-30 23:37] VITALS: BP 110/79
[2024-03-31 03:20] VITALS: BP 134/91
[2024-03-31 06:00] VITALS: BMI 20.2
[2024-03-31 07:24] LABS: Hematocrit 37.3 % (37.0-47.0); Hemoglobin 12.8 g/dL (12.0-16.0); Mean Corp Hgb Conc. 34.3 g/dL (33.0-37.0); Mean Corpuscular Hgb 30.2 pg (27.0-31.0); Mean Platelet Volume 9.9 fL (7.4-10.4); Platelet Count 128 10^3/uL (130-400); Red Blood Cell Count 4.24 10^6/uL (4.20-5.40); Red Cell Dist. Width 13.7 % (11.5-14.5); White Blood Cell Count 3.8 10^3/uL (4.8-10.8)
[2024-03-31 07:30] VITALS: BP 132/93
[2024-03-31] MEDS: TOPROL XL 75 MG PO ×2 (08:06→21:38)
[2024-03-31] MEDS: SINEMET CR 25-100 (EXTENDED RELEASE) 1 TABLET PO ×2 (08:07→21:40)
[2024-03-31] MEDS: ASPIR LOW (ENTERIC COATED) 81 MG PO (08:07)
[2024-03-31] MEDS: TYLENOL 650 MG PO ×2 (08:08→21:40)
[2024-03-31] MEDS: VISBIOME 1 CAP PO (08:08)
[2024-03-31] MEDS: ELIQUIS 2.5 MG PO ×2 (08:08→21:41)
[2024-03-31] MEDS: COZAAR 25 MG PO (08:08)
[2024-03-31] MEDS: LASIX 40 MG IV (08:08)
[2024-03-31] MEDS: TIMOPTIC 0.5% OPHTHALMIC SOLUTION 1 DROP OPHTH (08:09)
[2024-03-31] MEDS: DESENEX/MITRAZOL/ZEASORB 1 APPLIC TOPICAL ×2 (08:14→21:42)
[2024-03-31 09:06] LABS: Blood Urea Nitrogen 38 mg/dl (7-17); Calcium 9.1 mg/dl (8.4-10.2); Carbon Dioxide 25 mmol/L (22-30); Chloride 103 mmol/L (98-107); Estimated Creatinine Clearance 41 ml/min; Glucose 101 mg/dl (70-99); Potassium 3.9 mmol/L (3.5-5.1); Sodium 136 mmol/L (135-145); eGFR > 60.00
[2024-03-31 10:11] VITALS: BP 103/72; BP 97/67; PULSE 103; PULSE 120; PULSE 97; O2SAT 95
--- NOTE | 2024-03-31 11:44 | W.PN.HOSP.TC ---
Addendum entered and electronically signed by Earl Rodriguez MD 03/31/24 13:35:
Updated spouse over the phone in details.
Original Note:
Today's Communication/Plan
-
ECHO
IV lasix
trend cbc/bmp
monitor HR
Assessment / Plan
Assessment / Plan
Assessment:
Acute HFpEF
- IV Lasix - requires intensive monitoring. Monitor I/Os, weights, lytes
- update Echo
- continue BB/ARB
- Cards consulted
New Atrial Fibrillation RVR / hx SVT and PVCs
- [id number] = Atleast 5
- continue Toprol dose/frequency adjusted 75mg BID
- Heparin gtt and switched to Eliquis 2.5mg BDI
Essential HTN - Stable on home losartan. Follow trends with diuresis.
Hyponatremia
- Na 136. resolved.
Thrombocytopenia
- PLT 116k on admission. Previously 130-140k. Could be dilutional
- LFTs wnl. normal Coags
- Mild chronic leukopenia also noted. Consider liver ultrasound on nonurgent basis
- Above transfusion thresholds
Chronic Anemia
- Hgb 12.8 . Chronic/stable
Parkinsons Dementia - Continue home donepezil and Sinemet
Glaucoma - Continue home eye drops
DVT ppx: Eliquis
Code: DNR/DNI
PT/OT
Anticipated Discharge: > 48 hours
Subjective/Interval History
-
Date of Service: March 31, 2024
remains slight tachy
denies cp or sob
Objective Data
-
Labs:
Laboratory Results
03/31/24
06:56
WBC 3.8 L
Hgb 12.8
Hct 37.3
Plt Count 128 L
Sodium 136
Potassium 3.9
Chloride 103
Carbon Dioxide 25
BUN 38 H
Creatinine 0.8
Glucose 101 H
Calcium 9.1
Vital Signs:
Vital Signs
Temp Pulse Resp BP Pulse Ox
97.6 F 96 16 132/93 96
03/31/24 07:30 03/31/24 08:06 03/31/24 07:30 03/31/24 08:06 03/31/24 07:30
I&O
03/30/24 03/31/24 04/01/24
06:59 06:59 06:59
Intake Total 100 / 100 520 / 520
Balance 100 / 100 520 / 520
Physical Exam
-
General: No Apparent Distress
HEENT: Normocephalic and Atraumatic
Respiratory: Negative Wheezes
Cardiac: S1/S2 and Irregular Rhythm
GI: Soft, Nontender, Nondistended and Normal Bowel Sounds
Genito-urinary: No Costovertebral Tender
Musculoskeletal: Edema, Right Lower Extrem and Edema, Left Lower Extrem
Neuro: Awake
Hematologic / Lymphatic: No Lymphadenopathy
Psych: Calm
Data Reviewed
-
Total Time Spent with Patient (in minutes): 56
--- NOTE | 2024-03-31 12:07 | W.PN.CARDCBS ---
Addendum entered and electronically signed by Torres Wasserman MD 03/31/24 16:40:
I saw and examined the patient.
The CAPPING MACHINE OPERATOR or PA's note was reviewed and I agree with the note.
Comment: General: Well developed, well nourished in NAD.
Neck: Supple, no JVD, HJR, carotids +2 B/L, no bruits bilaterally.
Heart: Non displaced PMI, Irreg, no murmurs, No S3, S4, no rubs.
Lungs: Scattered rhonchi
Extremities: No clubbing, cyanosis or edema bilaterally.
Neuro: Grossly nonfocal, awake, alert and oriented x3.
Remains in rate controlled atrial fibrillation. Appears comfortable on room air. Difficult historian with dementia. Discussed with family in detail who agree with continuing on Eliquis now that she will be a supervised setting on discharge.
Consider change to Lasix po in a.m.
Original Note:
Today's Communication / Plan
-
Check on cost of Eliquis
Cont higher dose Toprol XL
Impression / Plan
-
PCP: Dr. Joni Foley
Primary associate professor of library science: Dr. Angel Merino
Impression:
Acute HFpEF
Newly diagnosed Afib with RVR
New start to chronic Eliquis OAC
Thrombocytopenia
Dementia
Parkinson's disease
Hyponatremia
Hyperglycemia
Echo 04/29/20: EF 55 to 60%, mild concentric LVH, mild MR, aortic sclerosis with mild eccentric aortic regurgitation, mild TR with PAP 28 mmHg
Echo 03/31/24: Report pending
Plan:
-Weight is down 9 lbs this admission with Lasix 40 mg IV daily. Patient was not taking a diuretic prior to admission.
-Echo pending. EF was preserved in 2019
-Afib is a new diagnosis. HRs rapid initially and outpatient dose of Toprol XL increased to 75 mg BID. BP tolerating.
-New to Eliquis 2.5 mg BID (age 88, Cre 0.8 and wt 51.8 kg). Will ask CM for help on checking cost, Rx e-scribed to her local pharmacy to help check cost.
-Pending response to rate control and diuresis plus tolerance of OAC can consider rate control strategy vs rhythm control strategy.
-Platelet count is lower this admission, but has been stable.
Progress Note - Data Entry Technician
Subjective
Date of Service: March 31, 2024
Feeling a bit better
Objective
Labs:
03/31/24 06:56
03/31/24 06:56
Labs
Hgb 12.8 g/dL (12.0-16.0) 03/31/24 06:56
Hct 37.3 % (37.0-47.0) 03/31/24 06:56
Plt Count 128 10^3/uL (130-400) L 03/31/24 06:56
PT 15.1 Sec (11.4-14.6) H 03/30/24 07:09
INR 1.21 03/30/24 07:09
APTT 98.2 Sec (23.4-35.0) H 03/30/24 15:12
Sodium 136 mmol/L (135-145) 03/31/24 06:56
Potassium 3.9 mmol/L (3.5-5.1) 03/31/24 06:56
BUN 38 mg/dl (7-17) H 03/31/24 06:56
Creatinine 0.8 mg/dL (0.6-1.0) 03/31/24 06:56
Glucose 101 mg/dl (70-99) H 03/31/24 06:56
Troponins
03/29/24
11:27
Troponin I < 0.012
Vital Signs and I&O:
Vital Signs
Temp Pulse Resp BP Pulse Ox
97.6 F 96 16 132/93 96
03/31/24 07:30 03/31/24 08:06 03/31/24 07:30 03/31/24 08:06 03/31/24 07:30
Vital Signs
Temp Pulse Resp BP Pulse Ox
97.6 F 96 16 132/93 96
03/31/24 07:30 03/31/24 08:06 03/31/24 07:30 03/31/24 08:06 03/31/24 07:30
Intake & Output
03/29/24 03/30/24 03/31/24 04/01/24
06:59 06:59 06:59 06:59
Intake Total 100 / 100 520 / 520
Balance 100 / 100 520 / 520
Physical Exam
Physical Exam
GEN: NAD
HEENT: mmm
LUNGS: No audible wheeze
CV: Afib on tele
ABD: ND
EXT: No edema
NEURO: Gross non-focal
SKIN: No rash
--- NOTE | 2024-03-31 14:54 | CM ---
Addendum entered by LAZARUS Veras 04/01/24 14:04:
Received notification from Akua at [facility] that patient has a bed.
For obtaining auth NPI: Dr. Kieran Vargas [id number] Facility [id number]
Updated patient's spouse and patient. They would like to explore [facility] and [facility] as well. Will send referral to [facility].
Original Note:
Reviewed chart, spoke with patient's sons and spouse who stated that they feel that patient would benefit from some custodial prior to transition back to home. Patient's spouse was agreeable to referrals being sent to: [facility],
[facility], [facility], [facility]. Will make referrals.
Plan: Case management will continue to follow and assist with discharge planning. SNF when stable. Will make referrals.
[2024-03-31 16:00] VITALS: BP 99/63
[2024-03-31 19:55] VITALS: BP 104/70
[2024-03-31] MEDS: ARICEPT 5 MG PO (21:41)
[2024-03-31 23:12] VITALS: BP 97/65
[2024-04-01] VITALS (7 sets, daily range): BP systolic 103–116; BP diastolic 70–79; O2SAT 94
[2024-04-01 06:58] LABS: Hemoglobin 12.1 g/dL (12.0-16.0); Mean Corp Hgb Conc. 33.6 g/dL (33.0-37.0); Mean Corpuscular Volume 89.1 fL (81.0-99.0); Mean Platelet Volume 9.8 fL (7.4-10.4); Platelet Count 131 10^3/uL (130-400); Red Blood Cell Count 4.04 10^6/uL (4.20-5.40); Red Cell Dist. Width 13.8 % (11.5-14.5); White Blood Cell Count 3.1 10^3/uL (4.8-10.8)
[2024-04-01 07:18] LABS: Blood Urea Nitrogen 38 mg/dl (7-17); Carbon Dioxide 29 mmol/L (22-30); Chloride 101 mmol/L (98-107); Estimated Creatinine Clearance 37 ml/min; Glucose 96 mg/dl (70-99); Potassium 3.6 mmol/L (3.5-5.1); Sodium 134 mmol/L (135-145); eGFR > 60.00
[2024-04-01] MEDS: COZAAR 25 MG PO (07:49)
[2024-04-01] MEDS: TYLENOL 650 MG PO ×2 (07:49→20:02)
[2024-04-01] MEDS: ASPIR LOW (ENTERIC COATED) 81 MG PO (07:50)
[2024-04-01] MEDS: SINEMET CR 25-100 (EXTENDED RELEASE) 1 TABLET PO ×2 (07:50→20:01)
[2024-04-01] MEDS: ELIQUIS 2.5 MG PO ×2 (07:50→20:01)
[2024-04-01] MEDS: VISBIOME 1 CAP PO (07:50)
[2024-04-01] MEDS: TOPROL XL 75 MG PO ×2 (07:50→20:01)
[2024-04-01] MEDS: TIMOPTIC 0.5% OPHTHALMIC SOLUTION 1 DROP OPHTH (07:51)
[2024-04-01] MEDS: LASIX 40 MG IV (07:51)
[2024-04-01] MEDS: DESENEX/MITRAZOL/ZEASORB 1 APPLIC TOPICAL (07:52)
--- NOTE | 2024-04-01 09:29 | W.PN.CARDCBS ---
Addendum entered and electronically signed by Torres Wasserman MD 04/01/24 10:52:
I saw and examined the patient.
The TRAVEL MONEY ADVISOR or PA's note was reviewed and I agree with the note.
Comment: General: Well developed, well nourished in NAD.
Neck: Supple, no JVD, HJR, carotids +2 B/L, no bruits bilaterally.
Heart: Non displaced PMI, Irreg, no murmurs, No S3, S4, no rubs.
Lungs: Scattered rhonchi
Extremities: No clubbing, cyanosis or edema bilaterally.
Neuro: Grossly nonfocal, awake, alert and oriented x3.
Stable cardiology status for discharge to rehab. Changed to p.o. Lasix. Will sign off
Addendum entered and electronically signed by Zo Roberts PA-C 04/01/24 10:40:
aspirin stopped as now on eliquis to reduce bleeding risks.
Addendum entered and electronically signed by Zo Roberts PA-C 04/01/24 09:41:
continue OP losartan. not ideal candidate for SGLT 2 inhibitor given memory issues.
Original Note:
Today's Communication / Plan
-
transition to po lasix 40mg daily
BMP in 1 week
continue toprol 75mg BID and eliquis 2.5mg BID
will arrange OP cardiac follow up
Impression / Plan
-
PCP: Dr. Joni Foley
Primary bank vault clerk: Dr. Angel Merino
Impression:
Acute HFpEF
Newly diagnosed Afib with RVR
New start to chronic Eliquis OAC
Thrombocytopenia
Dementia
Parkinson's disease
Hyponatremia
Hyperglycemia
Echo 04/29/20: EF 55 to 60%, mild concentric LVH, mild MR, aortic sclerosis with mild eccentric aortic regurgitation, mild TR with PAP 28 mmHg
Echo 03/31/24: EF 55%, MAC, moderate MR, mild AR, moderate TR, PAP 30 mmHg, severely dilated right atrium, enlarged RV size, patient now in A-fib with slightly worsened MR
Plan:
-Patient reports she is feeling well
-Weight down additional 3 pounds overnight for total of 12 pounds since admission if accurate. She was not taking diuretic prior to admission. Would plan to transition to p.o. Lasix 40 mg daily for DC
-Creatinine stable. BMP in 1 week upon discharge
-Remains in rate controlled atrial fibrillation on review of telemetry overnight, which is new diagnosis for patient this admission. Continue rate control strategy with Toprol 75 mg twice daily
-Continue Eliquis 2.5 mg twice daily
-platelet count normalized.
-will arrange OP cardiac follow up
Progress Note - Customer Experience Leader
Subjective
Date of Service: April 01, 2024
Feeling well. Slept well overnight. No chest discomfort or shortness of breath
Objective
Labs:
04/01/24 06:25
04/01/24 06:25
Labs
Hgb 12.1 g/dL (12.0-16.0) 04/01/24 06:25
Hct 36.0 % (37.0-47.0) L 04/01/24 06:25
Plt Count 131 10^3/uL (130-400) 04/01/24 06:25
PT 15.1 Sec (11.4-14.6) H 03/30/24 07:09
INR 1.21 03/30/24 07:09
APTT 98.2 Sec (23.4-35.0) H 03/30/24 15:12
Sodium 134 mmol/L (135-145) L 04/01/24 06:25
Potassium 3.6 mmol/L (3.5-5.1) 04/01/24 06:25
BUN 38 mg/dl (7-17) H 04/01/24 06:25
Creatinine 0.9 mg/dL (0.6-1.0) 04/01/24 06:25
Glucose 96 mg/dl (70-99) 04/01/24 06:25
Troponins
03/29/24
11:27
Troponin I < 0.012
Vital Signs and I&O:
Vital Signs
Temp Pulse Resp BP Pulse Ox
97.7 F 90 12 117/79 95
04/01/24 07:00 04/01/24 07:51 04/01/24 07:00 04/01/24 07:51 04/01/24 07:00
Vital Signs
Temp Pulse Resp BP Pulse Ox
97.7 F 90 12 117/79 95
04/01/24 07:00 04/01/24 07:51 04/01/24 07:00 04/01/24 07:51 04/01/24 07:00
Intake & Output
03/30/24 03/31/24 04/01/24 04/02/24
07:59 07:59 07:59 07:59
Intake Total 100 / 100 520 / 520 600 / 600
Balance 100 / 100 520 / 520 600 / 600
Physical Exam
Physical Exam
GEN: No distress, awake, alert, oriented x2
HEENT: supple, anicteric, mmm, eomi
LUNGS: CTA B/L, no wheezes/rales
CV: Irreg, S1/S2, 1/6 murmur
ABD: soft, BS+, NT/ND
EXT: No cyanosis, clubbing, edema
NEURO: Gross non-focal
SKIN: Warm, pink, dry. No rash
--- NOTE | 2024-04-01 09:56 | CM ---
Reviewed chart, received consult for med check on Eliquis. Per patient's plan, Eliquis will be 116.97 for 60 pills. (One month BID).
Plan: Case management will continue to follow and assist with discharge planning. Transfer to SNF when stable.
--- NOTE | 2024-04-01 10:53 | CM ---
Addendum entered by Mariaelena Cook, [facility] 04/01/24 16:55:
Spoke with patient's spouse who stated that he would like to consider [facility] and [facility] as well as [facility], however subsequently stated that he would go with [facility] if patient is medically cleared and that is the only option. Will start auth.
Addendum entered by Mariaelena Cook, [facility] 04/01/24 14:30:
Spoke with Akua from [facility] who stated that she can take patient. NPIs Dr. Kieran Vargas [phone] [facility] [phone].
Updated patient's spouse who requested that [facility] have a referral sent and f/u with [facility].
Original Note:
Kaylynis 2.5 BID-116.97
--- NOTE | 2024-04-01 11:34 | W.PN.HOSP.TC ---
Today's Communication/Plan
-
Continue with p.o. Lasix
P.o. Toprol increased dose
Await placement to SNF
Assessment / Plan
Assessment / Plan
Assessment:
Acute HFpEF
-IV Lasix transition to p.o. 40 mg daily.
- update Echo noted
- continue BB/ARB
- Cards consulted
New Atrial Fibrillation RVR / hx SVT and PVCs
- [id number] = Atleast 5
- continue Toprol dose/frequency adjusted 75mg BID
- Heparin gtt and switched to Eliquis 2.5mg BDI
Essential HTN - Stable on home losartan. Follow trends with diuresis.
Hyponatremia
- Na 136. resolved.
Thrombocytopenia
- PLT 116k on admission. Previously 130-140k. Could be dilutional
- LFTs wnl. normal Coags
- Mild chronic leukopenia also noted. Consider liver ultrasound on nonurgent basis
- Above transfusion thresholds
Chronic Anemia
- Hgb 12.8 . Chronic/stable
Parkinsons Dementia - Continue home donepezil and Sinemet
Glaucoma - Continue home eye drops
DVT ppx: Eliquis
Code: DNR/DNI
Discussed with cardiology
Updated patient spouse of the phone in detail on 03/31
PT/OT rec SNF. Case management aware. Medically stable. Await placement.
Anticipated Discharge: Today
Subjective/Interval History
-
Date of Service: April 01, 2024
Denies chest pain or shortness of breath
Objective Data
-
Labs:
Laboratory Results
04/01/24
06:25
WBC 3.1 L
Hgb 12.1
Hct 36.0 L
Plt Count 131
Sodium 134 L
Potassium 3.6
Chloride 101
Carbon Dioxide 29
BUN 38 H
Creatinine 0.9
Glucose 96
Calcium 9.0
Vital Signs:
Vital Signs
Temp Pulse Resp BP Pulse Ox
97.7 F 93 14 108/79 97
04/01/24 11:00 04/01/24 11:00 04/01/24 11:00 04/01/24 11:00 04/01/24 11:00
I&O
03/31/24 04/01/24 04/02/24
06:59 06:59 06:59
Intake Total 520 / 520 600 / 600
Balance 520 / 520 600 / 600
Physical Exam
-
General: No Apparent Distress
HEENT: Normocephalic and Atraumatic
Respiratory: Negative Wheezes
Cardiac: S1/S2
GI: Soft, Nontender, Nondistended and Normal Bowel Sounds
Genito-urinary: No Costovertebral Tender
Musculoskeletal: Edema, Right Lower Extrem and Edema, Left Lower Extrem
Neuro: Awake
Hematologic / Lymphatic: No Lymphadenopathy
Psych: Calm
[2024-04-01] MEDS: ARICEPT 5 MG PO (22:14)
--- NOTE | 2024-04-02 03:52 | DOWNTIME ---
There was a [employer] Client Guide Downtime on 04/02/2024 from 0100 to 04/02/2024 at 0252. Downtime documentation of patient's care, including medication administrations, has been reconciled in the electronic record per guidelines. Refer to the
patient's paper chart under the miscellaneous tab to see printed paper medication records and downtime forms.
[2024-04-02 03:59] VITALS: BP 124/68
[2024-04-02 04:01] VITALS: BMI 20.8
[2024-04-02] MEDS: DESENEX/MITRAZOL/ZEASORB TOPICAL (06:09)
[2024-04-02 07:00] VITALS: BP 131/96
[2024-04-02 07:23] LABS: Hematocrit 39.3 % (37.0-47.0); Hemoglobin 13.1 g/dL (12.0-16.0); Mean Corp Hgb Conc. 33.3 g/dL (33.0-37.0); Mean Corpuscular Hgb 29.7 pg (27.0-31.0); Mean Corpuscular Volume 89.1 fL (81.0-99.0); Mean Platelet Volume 9.9 fL (7.4-10.4); Platelet Count 149 10^3/uL (130-400); Red Blood Cell Count 4.41 10^6/uL (4.20-5.40); Red Cell Dist. Width 13.8 % (11.5-14.5); White Blood Cell Count 4.2 10^3/uL (4.8-10.8)
[2024-04-02 07:29] LABS: Blood Urea Nitrogen 43 mg/dl (7-17); Calcium 9.4 mg/dl (8.4-10.2); Carbon Dioxide 33 mmol/L (22-30); Chloride 100 mmol/L (98-107); Estimated Creatinine Clearance 37 ml/min; Glucose 106 mg/dl (70-99); Potassium 3.6 mmol/L (3.5-5.1); Sodium 136 mmol/L (135-145); eGFR > 60.00
[2024-04-02] MEDS: SINEMET CR 25-100 (EXTENDED RELEASE) 1 TABLET PO ×2 (07:37→21:01)
[2024-04-02] MEDS: TIMOPTIC 0.5% OPHTHALMIC SOLUTION 1 DROP OPHTH (07:37)
[2024-04-02] MEDS: VISBIOME 1 CAP PO (07:37)
[2024-04-02] MEDS: TYLENOL 650 MG PO ×2 (07:37→20:58)
[2024-04-02] MEDS: ELIQUIS 2.5 MG PO ×2 (07:37→20:59)
[2024-04-02] MEDS: LASIX 40 MG PO (07:41)
[2024-04-02] MEDS: TOPROL XL 75 MG PO ×2 (07:41→21:00)
[2024-04-02] MEDS: COZAAR 25 MG PO (07:41)
[2024-04-02] MEDS: DESENEX/MITRAZOL/ZEASORB 1 APPLIC TOPICAL ×2 (07:42→21:03)
--- NOTE | 2024-04-02 09:50 | CM ---
Addendum entered by LAZARUS Veras 04/02/24 14:40:
Spouse updated that auth is pending. Attending updated as well.
Original Note:
Reviewed chart, provided all clinical to Myesha Mack at [facility]. She provided reference # [id number]. She asked that all clinical be faxed to, .
All clinical faxed to number above. Will await determination.
Plan: Case management will continue to follow and assist with discharge planning. Transfer to [facility] upon obtaining authorization. Patient medically ready for discharge per attending notes.
[2024-04-02 11:00] VITALS: BP 107/74
--- NOTE | 2024-04-02 12:10 | W.PN.HOSP.TC ---
Today's Communication/Plan
-
Pending placement
Assessment / Plan
Assessment / Plan
#Acute HFpEF
-Echocardiogram showed preserved EF, no severe valve abnormality
-Suspect this is related to new A-fib with RVR causing reduced cardiac filling times
-Home regimen includes beta-fili and ARB, remains on those medications
-Plan for possible GDMT with MRA and SGLT2 as outpatient
#New Atrial Fibrillation RVR
#H/O SVT
-[id number] score was high, 5 or greater; nonvalvular origin
-Home medications did include metoprolol, has since been increased to 75 mg twice daily
-Status post heparin drip, now on reduced dose Eliquis 2.5 mg twice daily
-Heart rate WNL this morning
#Essential HTN
-Home medications include beta-fili and ARB
-No known history of hypertensive systemic disease
-BP this morning 131/96 mmHg
#Thrombocytopenia
-Resolved
#Chronic Anemia
-Hgb 12.8
-Chronic/stable
#Parkinsons Dementia
-Continue home donepezil and Sinemet
#Glaucoma
-Continue home eye drops
DVT ppx: Eliquis
Code: DNR/DNI
Discussed with cardiology
Anticipated Discharge: Today
Subjective/Interval History
-
Date of Service: April 02, 2024
Seen and examined at the bedside, no acute events overnight.
She was sleeping though denied any acute complaints at the time of my evaluation. She denies chest pain, shortness of breath, fevers or chills, nausea/vomiting/diarrhea, abnormal bleeding or bruising, urinary issues.
Objective Data
-
Labs:
Laboratory Results
04/02/24
06:44
WBC 4.2 L
Hgb 13.1
Hct 39.3
Plt Count 149
Sodium 136
Potassium 3.6
Chloride 100
Carbon Dioxide 33 H
BUN 43 H
Creatinine 0.9
Glucose 106 H
Calcium 9.4
Vital Signs:
Vital Signs
Temp Pulse Resp BP Pulse Ox
97.3 F 99 17 131/96 95
04/02/24 07:00 04/02/24 07:41 04/02/24 07:00 04/02/24 07:41 04/02/24 07:00
I&O
04/01/24 04/02/24 04/03/24
06:59 06:59 06:59
Intake Total 600 / 600
Balance 600 / 600
Review of Systems
-
History Source: Patient
All other systems: Reviewed and negative
Physical Exam
-
General: No Apparent Distress and Comfortable
HEENT: Normocephalic, Atraumatic and Moist Mucous Membranes
Respiratory: Clear to Auscultation and Non Labored Respirations; Negative Wheezes, Rales or Rhonchi
Cardiac: Regular Rhythm and S1/S2; Negative Murmur, Rub, JVD or Gallop
GI: Soft, Nontender, Nondistended and Normal Bowel Sounds
Musculoskeletal: No Clubbing, No Cyanosis and No Edema
Skin: Warm and Dry; Negative Rash
Neuro: AO x 3, Nonfocal/Grossly Intact and Central Nerve's Intact; Negative Tremors
Data Reviewed
-
Labs: Labs Reviewed by me
[2024-04-02 15:00] VITALS: BP 116/85
[2024-04-02 16:56] VITALS: BP 126/79; PULSE 88; O2SAT 98
[2024-04-02] MEDS: ARICEPT 5 MG PO (20:58)
[2024-04-02 23:34] VITALS: BP 101/61
[2024-04-03 00:58] VITALS: BMI 20.8
[2024-04-03 03:32] VITALS: BP 108/75
[2024-04-03 06:00] VITALS: BMI 19.0
[2024-04-03 07:00] VITALS: BP 126/92
[2024-04-03] MEDS: VISBIOME 1 CAP PO (08:51)
[2024-04-03] MEDS: SINEMET CR 25-100 (EXTENDED RELEASE) 1 TABLET PO (08:51)
[2024-04-03] MEDS: TYLENOL 650 MG PO (08:51)
[2024-04-03] MEDS: ELIQUIS 2.5 MG PO (08:51)
[2024-04-03] MEDS: COZAAR 25 MG PO (08:52)
[2024-04-03] MEDS: TOPROL XL 75 MG PO (08:54)
[2024-04-03] MEDS: LASIX 40 MG PO (08:55)
[2024-04-03] MEDS: TIMOPTIC 0.5% OPHTHALMIC SOLUTION 1 DROP OPHTH (08:55)
[2024-04-03] MEDS: DESENEX/MITRAZOL/ZEASORB 1 APPLIC TOPICAL (08:55)
--- NOTE | 2024-04-03 11:28 | CM ---
Addendum entered by LAZARUS Veras 04/03/24 15:44:
Will have to review IMM as soon as spouse returns call or comes to see patient.
Addendum entered by CLEMENTINA VerasW 04/03/24 15:20:
Called patient's spouse x2. Had to leave a voice mail message. Updated him that patient will be going to [facility] today by ambulance due to her confusion and encouraged him to call with any concerns. Left # for CM dept.
Patient will leave at 18:15 per 3 olivia equal opportunity officer.
Admissions at [facility] updated.
Left message on patient's cell regarding discharge as well.
Addendum entered by LAZARUS Veras 04/03/24 15:08:
Received authorization from Paula at [facility]-[id number] 04/03-04/15 NRD 04/15 Fax clinical to, Paula's number is [phone].
Placed a call to Akua at [facility] who provided # for report [phone] and
Medical necessity and transfer sheet completed for 3olivia equal opportunity officer.
IMM will be reviewed with spouse.
Addendum entered by CLEMENTINA VerasW 04/03/24 13:59:
Clinical uploaded to [employer].
Will await determination. Patient's spouse updated.
Original Note:
Reviewed chart, placed a call to [facility] and spoke with a desk representative named, Chito Guadarrama, who stated that she never received clinical. Clinical was faxed yesterday (verified fax number), received receipt that call went through.
Attempting to use [employer] with computer systems security administrator to determine if clinical can be uploaded that way and possibility of determination can be sent faster.
Plan: Case management will continue to follow and assist with discharge planning. SNF as soon as auth is hopefully approved.
--- NOTE | 2024-04-03 11:43 | W.PN.HOSP.TC ---
Today's Communication/Plan
-
Discharge to SNF
Assessment / Plan
Assessment / Plan
#Acute HFpEF
-Echocardiogram showed preserved EF, no severe valve abnormality
-Suspect this is related to new A-fib with RVR causing reduced cardiac filling times
-Home regimen includes beta-fili and ARB, remains on those medications
-Plan for possible GDMT with MRA and SGLT2 as outpatient
#New Atrial Fibrillation RVR
#H/O SVT
-[id number] score was high, 5 or greater; nonvalvular origin
-Home medications did include metoprolol, has since been increased to 75 mg twice daily
-Status post heparin drip, now on reduced dose Eliquis 2.5 mg twice daily
-Heart rate WNL this morning
#Essential HTN
-Home medications include beta-fili and ARB
-No known history of hypertensive systemic disease
-BP this morning 131/96 mmHg
#Thrombocytopenia
-Resolved
#Chronic Anemia
-Hgb 12.8
-Chronic/stable
#Parkinsons Dementia
-Continue home donepezil and Sinemet
#Glaucoma
-Continue home eye drops
DVT ppx: Eliquis
Code: DNR/DNI
Disposition: Pending insurance authorization for SNF
Anticipated Discharge: Today
Subjective/Interval History
-
Date of Service: April 03, 2024
Seen and examined at the bedside. No acute complaints. No acute events overnight. History limited by dementia
Objective Data
-
Vital Signs:
Vital Signs
Temp Pulse Resp BP Pulse Ox
97.7 F 96 16 126/92 98
04/03/24 07:00 04/03/24 08:55 04/03/24 07:00 04/03/24 08:55 04/03/24 07:00
I&O
04/02/24 04/03/24 04/04/24
06:59 06:59 06:59
Intake Total 660 / 660
Balance 660 / 660
Review of Systems
-
Unable to obtain full review of systems at this time due to: Dementia
Physical Exam
-
General: No Apparent Distress and Comfortable
Respiratory: Clear to Auscultation and Non Labored Respirations; Negative Wheezes, Rales or Rhonchi
Cardiac: Regular Rhythm and S1/S2; Negative Murmur, Rub, JVD or Gallop
GI: Soft, Nontender, Nondistended and Normal Bowel Sounds
Musculoskeletal: No Clubbing, No Cyanosis and No Edema
Skin: Warm and Dry; Negative Rash
Neuro: AO x 3, Nonfocal/Grossly Intact and Central Nerve's Intact; Negative Tremors
Psych: Other (Flat affect)
Data Reviewed
-
Labs: Labs Reviewed by me
[2024-04-03 12:14] VITALS: BMI 18.5
[2024-04-03] MEDS: DULCOLAX 10 MG PO (12:24)
[2024-04-03] MEDS: SENOKOT-S 1 TABLET PO (12:24)
[2024-04-03] MEDS: MIRALAX 17 GRAMS PO (12:25)
[2024-04-03 15:41] VITALS: BP 98/68
--- NOTE | 2024-04-03 17:22 | W.DCSUMMARY ---
Discharge Summary
Discharge Data
Date of Admission: 03/29/24
Date of Discharge: 04/03/24
-
Pending Results: No
Hospital Course
Presented to the hospital with new onset atrial fibrillation with RVR, complicated by decreased filling times and new onset HFpEF. She was uptitrated on her home beta-fili for rate control of atrial fibrillation which was achieved over the first
day of hospitalization. She was then started on DOAC for anticoagulation with Eliquis 2.5 mg twice daily, had no signs or symptoms of bleeding events while in the hospital. Her atrial fibrillation improved and heart rate was persistently with
average normal ventricular response.
She was given IV diuretics for volume overload due to heart failure in the context of rapid atrial fibrillation. Quickly improved from volume standpoint and was transition from IV to oral Lasix at 40 mg daily. Should have BMP taken in 5 days to
assess renal function on new Lasix dose. Will be discharged to SNF where she can be monitored clinically and with labs
Discharge Plan
-
Patient Disposition: Halfway/SNF
Discharge Diagnosis/Procedures: Acute atrial fibrillation with RVR
Acute HFpEF
Condition: Good
Diet: 2 Gram Sodium and Restrict fluids to 48 oz
Activity: As tolerated
Driving Restrictions: No driving
Blood Work: BMP in 1 week
Other Services: PT and OT
Specialty Instructions: Weigh Daily- Call MD for wt gain/loss 3 lbs overnight/5 lbs in 1 week
Instructions: *DCA Heart Failure Instructions
Referrals:
Cheryl Lopes PA-C [Specified Professional Personl] - 04/29/24 2:40 pm (You have a cardiology follow-up appointment at the [place] office. Please call with questions)
Joni Valenzuela MD [Family Provider] -
Additional Discharge Medication Instructions: STOP aspirin
Start Eliquis 2.5 mg twice daily
Start Lasix 40 mg daily
Increased metoprolol succinate to 75 mg twice daily
Start bisacodyl as needed for constipation
Prescriptions:
New
Eliquis 2.5 mg Tablet
2.5 mg PO BID Qty: 60 11RF
bisacodyl 10 mg Suppository
10 mg HI [id number] PRN (Reason: constipation) 30 Days Qty: 30 0RF
metoprolol succinate 50 mg Tablet Extended Release 24 Hr
75 mg PO BID 30 Days Qty: 90 0RF
furosemide 40 mg Tablet
40 mg PO DAILY 30 Days Qty: 30 0RF
Continued
acetaminophen [Tylenol] 325 mg Tablet
650 mg PO BID
donepezil 5 mg Tablet
5 mg PO HS
carbidopa-levodopa 25-100 mg Tablet Extended Release
1 tab PO BID
timolol 0.5 % Drops
1 drp BOTH EYES DAILY
losartan 25 mg Tablet
25 mg PO DAILY
Visbiome 112.5 billion cell Capsule
1 cap PO DAILY
Discontinued
aspirin 81 MG tablet,delayed release (DR/EC)
81 mg PO DAILY
metoprolol succinate [Toprol XL] 50 mg Tablet Extended Release 24 Hr
50 mg PO DAILY
Discharge Orders:
Discharge Patient (As Directed); Ordered 04/03/24
Ordered By: Torres Araujo
Discharge Date and Time
Print Language: VIETNAMESE
== END 2024-04-03 19:01 | DRG 291 ==
LOC: 3 WEST ACU 13:43
PROVIDERS: Internal Medicine; ADMITTING PHYSICIAN Internal Medicine; ATTENDING PHYSICIAN Internal Medicine; CONSULT PHYSICIAN Internal Medicine Cardiovascular Disease; EMERGENCY PHYSICIAN Emergency Medicine; FAMILY PHYSICIAN Family Medicine
DX: I11.0 Hypertensive heart disease with heart failure (principal); I50.31 Acute diastolic (congestive) heart failure; J98.11 Atelectasis; E87.1 Hypo-osmolality and hyponatremia; I48.91 Unspecified atrial fibrillation; D69.6 Thrombocytopenia, unspecified; D64.9 Anemia, unspecified; K21.9 Gastro-esophageal reflux disease without esophagitis; G20.A1 Parkinson's disease without dyskinesia, without mention of fluctuations; R73.9 Hyperglycemia, unspecified; H40.9 Unspecified glaucoma; F02.80 Dementia in other diseases classified elsewhere, unspecified severity, without behavioral disturbance, psychotic disturbance, mood disturbance, and anxiety; I49.3 Ventricular premature depolarization; Z66 Do not resuscitate; Z79.82 Long term (current) use of aspirin; Z90.710 Acquired absence of both cervix and uterus; Z88.5 Allergy status to narcotic agent; Z85.038 Personal history of other malignant neoplasm of large intestine; Z85.828 Personal history of other malignant neoplasm of skin; Z75.1 Person awaiting admission to adequate facility elsewhere
CPT/HCPCS: 71046; 80048; 80053; 83735; 83880; 84443; 84484; 85027; 85610; 85730; 93005; 93306; 93970; 94760; 96365; 96375; 97163; 97167; 97530; 99285

== ENCOUNTER → 2024-04-09 10:05 | Outpatient (REF) | payer OTHER, SELFPAY ==
[2024-04-09 11:40] LABS: Hematocrit 34.8 % (37.0-47.0); Hemoglobin 11.7 g/dL (12.0-16.0); Mean Corp Hgb Conc. 33.6 g/dL (33.0-37.0); Mean Corpuscular Hgb 29.3 pg (27.0-31.0); Mean Corpuscular Volume 87.2 fL (81.0-99.0); Mean Platelet Volume 10.4 fL (7.4-10.4); Platelet Count 174 10^3/uL (130-400); Red Blood Cell Count 3.99 10^6/uL (4.20-5.40); Red Cell Dist. Width 13.9 % (11.5-14.5); White Blood Cell Count 4.2 10^3/uL (4.8-10.8)
[2024-04-09 11:46] LABS: Blood Urea Nitrogen 46 mg/dl (7-17); Calcium 9.1 mg/dl (8.4-10.2); Carbon Dioxide 29 mmol/L (22-30); Chloride 103 mmol/L (98-107); Glucose 98 mg/dl (70-99); Potassium 3.8 mmol/L (3.5-5.1); Sodium 141 mmol/L (135-145); eGFR > 60.00
== END ==
LOC: OLABWHC 10:05
PROVIDERS: ATTENDING PHYSICIAN Internal Medicine
DX: I50.31 Acute diastolic (congestive) heart failure (principal); Z79.01 Long term (current) use of anticoagulants; G20.A1 Parkinson's disease without dyskinesia, without mention of fluctuations
CPT/HCPCS: 36415; 80048; 85027

== ENCOUNTER → 2024-04-17 09:44 | Outpatient (REF) | payer OTHER, SELFPAY ==
[2024-04-17 11:54] LABS: Blood Urea Nitrogen 35 mg/dl (7-17); Calcium 9.1 mg/dl (8.4-10.2); Carbon Dioxide 22 mmol/L (22-30); Chloride 105 mmol/L (98-107); Glucose 94 mg/dl (70-99); Potassium 3.7 mmol/L (3.5-5.1); Sodium 142 mmol/L (135-145); eGFR > 60.00
== END ==
LOC: OLABWHC 09:44
PROVIDERS: ATTENDING PHYSICIAN Internal Medicine
DX: I10 Essential (primary) hypertension (principal); I50.31 Acute diastolic (congestive) heart failure
CPT/HCPCS: 36415; 80048

== ENCOUNTER 2024-06-04 23:13 | Inpatient (IN) | payer OTHER, SELFPAY ==
[2024-06-04 19:17] VITALS: BP 126/81
[2024-06-04 19:21] VITALS: BP 126/81
[2024-06-04 19:37] VITALS: BMI 19.1
[2024-06-04 19:50] LABS: % Basophils 0.1 % (0-2); % Eosinophils 0.1 % (0-6); % Immature Granulocytes 1.6 % (0-0.5); % Monocytes 16.7 % (1.7-9.3); % Neutrophils 71.5 % (42.2-75.2); Absolute Immature Granulocytes 0.2 10^3/uL (0-0.05); Absolute Monocytes 1.7 10^3/uL (0.1-0.6); Absolute Neutrophils 7.2 10^3/uL (1.4-6.5); Hematocrit 37.4 % (37.0-47.0); Hemoglobin 12.6 g/dL (12.0-16.0); Mean Corp Hgb Conc. 33.7 g/dL (33.0-37.0); Mean Corpuscular Hgb 28.9 pg (27.0-31.0); Mean Corpuscular Volume 85.8 fL (81.0-99.0); Mean Platelet Volume 9.7 fL (7.4-10.4); Nucleated Red Blood Cells % 0 %; Platelet Count 146 10^3/uL (130-400); Red Blood Cell Count 4.36 10^6/uL (4.20-5.40); Red Cell Dist. Width 15.1 % (11.5-14.5)
--- NOTE | 2024-06-04 19:51 | ED.GENMED ---
History of Present Illness
General
Chief Complaint: Fever
Source: patient
Time Seen by Provider: 06/04/24 19:38
History of Present Illness
History of Present Illness:
88-year-old female presents to the emergency room due to confusion and weakness. Patient's states that when she awoke this morning she seemed to be at her baseline. He had to go out and run errands so at a aid came to the house to stay
with her. She has an aide with her because she has Parkinson's disease and ambulatory dysfunction. She is not typically confused. At the returned the patient seemed to be very weak and not wanting to ambulate around the house. He was
having difficulty having understand how to get back into the bed and into the bed. Therefore they decided to have her checked out here in the emergency room. Paramedics found the patient be febrile. states the patient has been of a
chronic cough which seems unchanged. No other complaints.
Past History
Past History
ED Past Medical History: Arrthythmia (SVT and PVC's), Cancer (Colon, Skin CA), GERD and Other (Parkinson's, Glaucoma, Anemia)
ED Past Surgical History: Bowel resection (Colon resection due to CA) and Gynecological (Hysterectomy due to CA, )
Social History
Tobacco: Non-smoker
Alcohol: None
Drug: None
Personal:
Living: with family
Employment: Retired
Family History
Family History: Negative Diabetes, Hypertension or CAD
Phy Exam
Physical Exam
Physical Exam:
General: Awake, sleepy but arousable. Patient peers chronically ill
Vitals: Febrile, tachycardic
Head: Atraumatic
Eyes: Pupils equal, EOMI
Throat: Airway intact, no exudates
Neck: Trachea midline
Lungs: Clear and equal b/l
Heart: Regular rate, no murmurs
Abd: Soft, Nontender, No pulsatile mass
Neuro:
Weak but no focal weakness
Skin: Warm, dry, no rash
Extremities: pulses equal b/l, no edema
Sepsis
Sepsis Screening
Sepsis Assessment: Sepsis
Sepsis Screen
Sepsis Screen: Sepsis
Date: 06/05/24
Time: 00:55
Course
Orders/Labs/Results
Orders:
Orders
06/04/24 19:25
Electrocardiogram (*1) Urgent
Reason for Study: Other
Other Reason for Exam: Possible Sepsis
Cardiac Monitoring- Treatment ONCE
EKG- Treatment ONCE
IV Insert/Care/Rem.- Treatment PRN
Straight cath- Treatment ONCE
06/04/24 19:30
Complete Blood Count/With Diff Urgent
Comprehensive Metabolic Panel Urgent
Lactic Acid Q4H
Comment: ON ICE, CANCEL 2ND ORDER IF FIRST LACTIC ACID LEVEL <2
06/04/24 19:50
0.9% Sodium Chloride 500 ml [Nss] 500 ml IV BOLUS
Acetaminophen [Tylenol] 650 mg PO NOW STA
CR Chest - 2 Views Urgent
Comment:
Reason For Exam: fever, cough
06/04/24 19:51
Straight cath- Treatment ONCE
06/04/24 19:58
Urinalysis Reflex To Culture Urgent
Date Specimen was Collected: 06/04/24
Time Specimen was Collected: 19:25
Urine Microscopic Reflex Cult Urgent
Blood Culture Urgent
JOSELUIS Source: Blood/Venous
Specimen Description:
Urine Culture Urgent
JOSELUIS Source: U
Specimen Description:
Date Specimen was Collected: 06/04/24
Time Specimen was Collected: 19:25
06/04/24 20:10
COVID-19 Antigen Urgent
Source: Nasal Swab
Influenza A+B Rapid Molecular Urgent
JOSELUIS Source: Nasal Swab
Specimen Description:
06/04/24 21:48
Azithromycin [Zithromax] 500 mg PO NOW STA
CefTRIAXone [Rocephin] 1,000 mg IV NOW STA
Metoprolol [Lopressor] 5 mg IV NOW STA
06/04/24 22:01
Blood Culture Routine
JOSELUIS Source: Blood/Venous
Specimen Description:
06/04/24 22:44
Admit/Transfer Patient As Directed
Co-Sign Provider:
Level of Care: Inpatient admission
Assign to:: Telemetry
Physician / Group: Ana Mims
Diagnosis: Pneumonia
Reason for Telemetry: Arrhythmia
Date to Stop Telemetry: 06/07/24
Time to Stop Telemetry: 11:00
Reason for Hospitalization: Pneumonia
Expected length of stay greater than two midnights?: Yes
ELOS- Estimated Length of Stay in days: 3
I certify the patient meets the requirements for IP care: Yes
06/04/24 22:45
PRN Pain Medication Management As Directed
May give lesser potent ordered pain med per pt: Yes
preference::
Protocol:: Medication orders for pain may be administered in a
manner that supports deferring to patient preference
when the pt is:
- Requesting an ordered lesser potent pain medication.
Least to most potent pain medications are defined
as: acetaminophen < NSAID < tramadol < opioids
(morphine, oxycodone, hydromorphone).
- Requesting a lesser dose of the same medication IF
ORDERED.
- Requesting a less intrusive route of administration
if both routes are prescribed by the provider (PO <
IV).
06/04/24 22:46
Code Status As Directed
Resuscitation Status: Do not resuscitate
Reached after discussion with pt or family/Healthcare POA: Yes
Decision communicated with: family at bedside
DNR Bracelet Application ONCE
06/05/24 00:19
Bisacodyl [Dulcolax] 10 mg RECTAL [id number] PRN
CefTRIAXone [Rocephin] 1,000 mg IV Q24H
Docusate W/Senna [Senokot-S] 1 tablet PO BIDPRN PRN
Polyethylene Glycol Powder [Miralax] 17 grams PO DAILYPRN PRN
06/05/24 00:19
Activity As Directed
Activity Level: With Assistance
Pneumatic Compression Sleeves As Directed
Type: Knee high
Vital Signs As Directed
Frequency: Per unit guidelines
OT Consult [Ot Eval And Treat] Routine
PT Consult [Pt Eval And Treat] Routine
Activity Level: With Assistance
DX Deep Vein Thrombosis Video Routine
06/05/24 06:00
Basic Metabolic Panel IN AM
Complete Blood Count/No Diff IN AM
06/05/24 08:00
Apixaban [Eliquis] 2.5 mg PO BID@0800,1800
Azithromycin [Zithromax] 500 mg PO DAILY
Carbidopa/Levodopa Cr [Sinemet Cr 25-100 (Extended Release)] 1 tablet PO BID@0800,1800
Docusate Sodium [Colace] 100 mg PO BID@0800,1800
Lactobac/Bifidobac [Visbiome] 1 cap PO DAILY
Metoprolol Xl [Toprol Xl] 50 mg PO BID@0800,1800
timolol 1 drop BOTH EYES DAILY
06/05/24 Dinner
Sodium, 2 Gram
06/05/24 22:00
Donepezil [Aricept] 5 mg PO HS
06/06/24 06:00
Basic Metabolic Panel IN AM
Complete Blood Count/No Diff IN AM
06/07/24 06:00
Basic Metabolic Panel IN AM
Complete Blood Count/No Diff IN AM
06/07/24 11:00
DC Protocol for Telemetry ONCE
Abnormal Lab Results
06/04/24 06/04/24
19:30 19:58
RDW 15.1 H %
(11.5-14.5)
Abs Immat Gran (auto) 0.2 H 10^3/uL
(0-0.05)
Absolute Neuts (auto) 7.2 H 10^3/uL
(1.4-6.5)
Absolute Lymphs (auto) 1.0 L 10^3/uL
(1.2-3.4)
Absolute Monos (auto) 1.7 H 10^3/uL
(0.1-0.6)
Immature Gran % 1.6 H %
(0-0.5)
Lymphocytes % 10.0 L %
(20.5-51.1)
Monocytes % 16.7 H %
(1.7-9.3)
Sodium 134 L mmol/L
(135-145)
Chloride 97 L mmol/L
(98-107)
BUN 37 H mg/dl
(7-17)
Creatinine 1.2 H mg/dL
(0.6-1.0)
Glucose 128 H mg/dl
(70-99)
AST 52 H U/L
(14-36)
Total Protein 6.1 L g/dl
(6.3-8.2)
Urine Ketones Trace A
(Negative)
Urine Nitrite (Reflex) Positive A
(Negative)
Leukocyte Esterase Rfl Trace A
(Negative)
Urine Bacteria (Reflex) Many A
(Negative)
06/04/24 19:30
06/04/24 19:30
Vital Signs
Initial and Last Documented VS:
Initial Vital Signs
Temp Pulse Resp BP Pulse Ox
101.7 F H 76 21 126/81 98
06/04/24 19:17 06/04/24 19:17 06/04/24 19:17 06/04/24 19:17 06/04/24 19:17
Last Documented Vital Signs
Temp Pulse Resp BP Pulse Ox
98.3 F 99 17 115/86 93
06/04/24 23:34 06/05/24 00:15 06/05/24 00:15 06/05/24 00:01 06/04/24 23:45
MDM/Problems Addressed
Differential Diagnosis Includes:
Pneumonia, urinary tract infection, influenza, other viral illness such as COVID, electrolyte abnormality
MDM/Problems Addressed:
Patient presents with weakness and confusion. She had to be febrile. Blood pressure and heart rate have remained essentially normal. Patient treated with a small bolus of normal saline. He does have a history of heart failure so judicious use is
of IV fluids. Chest x-ray shows a right lower lobe infiltrate. Antibiotics started for community-acquired pneumonia. Patient will require hospitalization due to her age, comorbidities, hypoxia and to significant weakness and inability to ambulate.
*Radiology
Radiology exam reviewed: preliminary read by ED provider (Right lower infiltrate)
*Pulse Oximetry
Patient hypoxic: yes
Comment: 87% on room air
*EKG
Interpreted by ED Provider?: Yes
Interpretation: abnormal
Heart Rate: 133
Rate: tachycardiac
Rhythm: a-fib
[place]aly: normal axis
Interval: normal interval
QRS Pattern: normal QRS
Ischemia: non-specific ST changes
*Soaker Hides Interpretation
Rate: tachycardiac
Interpretation: abnormal
Heart Rate: 133
Rhythm: a-fib
*Critical Care Note
Total Time (30-74mins, 75-104mins- exclusive of procedures): Not Applicable
Data Reviewed
Review of Other/Old Records Reveals: Discharge Summary (From April 03, 2024)
ED Attending Note
-
Portions of this chart may have been created with voice recognition software.� Occasional wrong word or��sound alike� substitutions may have occurred due to the inherent limitations of voice recognition software.
Discharge Plan
Departure
Patient Disposition: Admit
Date of Disposition: 06/04/24
Time of Disposition: 21:54
Admit to: Telemetry
Presentation/result/management discussed w/ accepting MD/DO: Hospitalist
Condition: Fair
Discharge Problem:
Pneumonia, Atrial fibrillation with RVR
Interventions
Interventions:
*Risk Screen - Suicide Last Done: 06/04/24 19:39
*General Assessment Last Done: 06/04/24 19:39
*Neglect/Abuse Screening Last Done: 06/04/24 19:39
*ED COVID-19 Vaccine History Last Done: 06/04/24 19:39
ED- Neurological Assessment Last Done: 06/04/24 19:39
ED-Skin Assessment Last Done: 06/04/24 19:39
[2024-06-04 19:55] LABS: ALT (SGPT) 25 U/L (0-35); AST (SGOT) 52 U/L (14-36); Albumin 4.3 g/dl (3.5-5.0); Alkaline Phosphatase 72 U/L (38-126); Blood Urea Nitrogen 37 mg/dl (7-17); Calcium 9.5 mg/dl (8.4-10.2); Carbon Dioxide 25 mmol/L (22-30); Chloride 97 mmol/L (98-107); Estimated Creatinine Clearance 27 ml/min; Glucose 128 mg/dl (70-99); Potassium 4.3 mmol/L (3.5-5.1); Sodium 134 mmol/L (135-145); Total Bilirubin 0.9 mg/dl (0.2-1.3); Total Protein 6.1 g/dl (6.3-8.2); eGFR 44.08
[2024-06-04 20:00] VITALS: BP 99/63
[2024-06-04] MEDS: TYLENOL 650 MG PO (20:03)
[2024-06-04] MEDS: NSS 500 IV (20:07)
[2024-06-04 20:14] LABS: Urine Albumin Trace (Neg - Trace); Urine Bilirubin Negative (Negative); Urine Character Clear (Clear); Urine Color Yellow; Urine Glucose Negative (Negative); Urine Ketone Trace (Negative); Urine Leukocyte Trace (Negative); Urine Nitrite Positive (Negative); Urine Occult Blood Negative (Negative); Urine Urobilinogen Negative (Neg - 1+)
[2024-06-04 20:32] LABS: Urine Bacteria Many (Negative); Urine White Cell 0-2 /HPF (0-5)
[2024-06-04 20:47] LABS: COVID-19 Antigen Negative (Negative)
[2024-06-04 21:00] VITALS: BP 110/80
[2024-06-04] MEDS: LOPRESSOR 5 MG IV (22:01)
[2024-06-04] MEDS: ROCEPHIN 1000 MG IV (22:05)
[2024-06-04] MEDS: ZITHROMAX 500 MG PO (22:07)
[2024-06-04 22:16] VITALS: BP 108/79
--- NOTE | 2024-06-04 22:25 | HPS.HSE ---
Family Physician
-
Family Physician: Joni Valenzuela
Chief Complaint
-
Generalized weakness/change in mental status
History of Present Illness
Patient is a 88-year-old female with past medical history of atrial fibrillation with RVR, hypertension, chronic anemia, Parkinson's dementia who presented to [facility] ED today for evaluation of acute onset confusion and generalized weakness.
Patient and family assisted in providing HPI. Patient woke this morning and seemed to be at baseline, he left the home to do some errands while the patients had an aide present to assist with any needs. After returning to the home the patients
went to get patient up off the couch to walk some like he normally does and patient was too weak to stand up and was significantly confused. Patients and son attempted to get her up and was ineffective related to weakness.
Medical History
Past Medical History
Past Medical History: Reports Other
Additional Past Medical History:
atrial fibrillation with RVR
hypertension
HFpEF
Parkinson's dementia
chronic anemia
Past Surgical History: Reports Other
Additional Past Surgical History:
colon ca with surgery in
Social History
Unable to obtain full social history at this time due to: Dementia (Parkinson's Dementia)
Tobacco: Non-smoker
Alcohol: None
Drug: None
Personal:
Living: With Family
Employment: Retired
Family History
Family History: Not pertinent
Allergies / Home Medications
Allergies reflects when Allergies were last updated in [employer].
Home Medications with original date entered in [employer]
Allergy/Medication List:
Allergies
Allergy/AdvReac Type Severity Reaction Status Date / Time
morphine Allergy Severe slight rash Verified 03/29/24 10:21
Home Medications
carbidopa ER 25 mg-levodopa 100 mg tablet,extended release 1 tab PO BID@0800,1800 Neurological Condition 03/29/24
donepezil 5 mg tablet 5 mg PO HS Neurological Condition 03/29/24
timolol 0.5 % eye drops 1 drp BOTH EYES DAILY Eye Condition 03/29/24
furosemide 40 mg tablet 40 mg PO DAILY Heart Failure 1 month #30 tabs 04/03/24
Bifidobacterium infantis 4 mg capsule (Align) 4 mg PO DAILY 06/04/24
acetaminophen 650 mg tablet,extended release 650 mg PO BID@0800,1800 06/04/24
apixaban 2.5 mg tablet (Eliquis) 2.5 mg PO BID@0800,1800 Blood clot prevention/tx 06/04/24
docusate sodium 100 mg capsule (Colace) 100 mg PO BID@0800,1800 06/04/24
metoprolol succinate 50 mg tablet,extended release 24 hr 50 mg PO BID@0800,1800 06/04/24
Review of Systems
-
History Source: Patient and Family
Constitutional: Reports No Symptoms
EENT: Reports No Symptoms
Respiratory: Reports No Symptoms
Cardiac: Reports No Symptoms
Abdomen/GI: Reports No Symptoms
: Reports No Symptoms
Musculoskeletal: Reports No Symptoms
Skin: Reports No Symptoms
Neurological: Reports Headache, Weakness and Other (acute onset of confusion)
Endocrine: Reports No Symptoms
Hematologic/Lymphatic: Reports No Symptoms
Psych: Reports No Symptoms
Physical Exam
Vital Signs
Vital Signs
Temp Pulse Resp BP Pulse Ox
101.7 F H 120 21 110/80 93
06/04/24 19:17 06/04/24 22:01 06/04/24 21:30 06/04/24 22:01 06/04/24 21:30
Physical Exam
General: Well Developed, No Apparent Distress, Comfortable and Fever
HEENT: NormoCephalic, Moist mucous membranes, Atraumatic and [place] Conjunctivae
Respiratory: Clear, Non Labored Respirations and Decreased Breath Sounds; No Wheezes, Rales, Rhonchi or Crackles
Cardiac: S1/S2 and Regular Rhythm; No Murmur, Rub or Gallop
Breast: Deferred by me
GI: Soft, Non Tender, Non Distended and Normal Bowel Sounds; No Organomegaly
Rectal: Deferred by Provider
Genito-urinary: Deferred by me
Musculoskeletal: No Clubbing, No Cyanosis and No Edema
Skin: Warm, Dry and IV/Catheter Site; No Rash
Neuro: Awake, Alert, AO x 3 and Nonfocal/grossly intact
Hematologic/Lymphatic: No Lymphadenopathy
Psych: Calm
Laboratory Results
-
06/04/24 19:30
06/04/24 19:30
Laboratory Results
Lactic Acid Cancelled 06/04/24 23:30
Total Bilirubin 0.9 mg/dl (0.2-1.3) 06/04/24 19:30
AST 52 U/L (14-36) H 06/04/24 19:30
ALT 25 U/L (0-35) 06/04/24 19:30
Alkaline Phosphatase 72 U/L (38-126) 06/04/24 19:30
Data Reviewed
-
Diagnostic Radiology: Report Reviewed by me (CXR: Right lower lobe pneumonia. Cardiomegaly, similar to prior.)
Lab Data: Labs Reviewed by me (BUN 37, Creat 1.2)
Impression/Plan
-
IMPRESSION/PLAN:
#Sepsis secondary to Right lower lobe pneumonia
- CXR: Right lower lobe pneumonia.
- febrile, T-max: 101.7
- hypotension improvement with IVF bolus
- Admit to telemetry
- continue ceftriaxone and Zithromax
- Consult PT/OT
#Atrial fibrillation with RVR
- monitor telemetry
- continue metoprolol and Eliquis
#Hypertension
- continue metoprolol
#HFpEF
- Last TTE 04/2020 with EF 55-60%, Mild LVH, grade I diastolic dysfunction, PaSP 28mmHg; likely consider repeat
- hold lasix
#Parkinson's dementia
- continue carbidopa-levodopa and donepezil
#chronic anemia
- stable Hgb 12.6
DNR/DNI
DVT Px: SCDs/Eliquis
[2024-06-04 23:00] VITALS: BP 108/75
--- NOTE | 2024-06-04 23:01 | W.PN.UPDATE ---
Update Note
Progress Note Update
This is an addendum to the H&P written by Saniya Reddy on 06/04/2024. Patient seen and examined independently with RENTAL CLERK.
88-year-old female past medical history of paroxysmal atrial fibrillation with RVR, HFpEF, hypertension, Parkinson disease, dementia, glucoma, presenting with confusion and weakness. She is found to be septic with fever of 101, tachycardic with
atrial fibrillation with heart rate up to 140. Source is right lower lobe pneumonia.
COVID and influenza negative. Labs show ANDRES.
Check blood culture. IV fluids. Ceftriaxone/azithromycin. IV metoprolol given for atrial fibrillation. Continue p.o. metoprolol. Hold Lasix.
[2024-06-04 23:13] VITALS: BMI 19.1
[2024-06-05] VITALS (21 sets, daily range): BP systolic 92–135; BP diastolic 51–93; PULSE 94–96; O2SAT 98; BMI 19.2
[2024-06-05 06:44] LABS: Hematocrit 33.6 % (37.0-47.0); Hemoglobin 11.3 g/dL (12.0-16.0); Mean Corp Hgb Conc. 33.6 g/dL (33.0-37.0); Mean Corpuscular Hgb 29.5 pg (27.0-31.0); Mean Corpuscular Volume 87.7 fL (81.0-99.0); Mean Platelet Volume 9.8 fL (7.4-10.4); Platelet Count 106 10^3/uL (130-400); Red Blood Cell Count 3.83 10^6/uL (4.20-5.40); Red Cell Dist. Width 15.2 % (11.5-14.5); White Blood Cell Count 7.3 10^3/uL (4.8-10.8)
[2024-06-05 06:50] LABS: Blood Urea Nitrogen 31 mg/dl (7-17); Carbon Dioxide 26 mmol/L (22-30); Chloride 99 mmol/L (98-107); Estimated Creatinine Clearance 40 ml/min; Glucose 90 mg/dl (70-99); Sodium 137 mmol/L (135-145); eGFR > 60.00
--- NOTE | 2024-06-05 08:12 | VNURNOTE ---
Chart reviewed. [facility], NEWS CLERK, OT. Will continue to follow hospital course and DC plans.
[2024-06-05] MEDS: SINEMET CR 25-100 (EXTENDED RELEASE) 1 TABLET PO ×2 (08:36→17:40)
[2024-06-05] MEDS: ELIQUIS 2.5 MG PO ×2 (08:36→17:40)
[2024-06-05] MEDS: COLACE 100 MG PO ×2 (08:36→17:40)
[2024-06-05] MEDS: TIMOPTIC 0.5% OPHTHALMIC SOLUTION 1 DROP BOTH EYES (08:37)
[2024-06-05] MEDS: TOPROL XL 50 MG PO ×2 (08:37→17:40)
[2024-06-05] MEDS: VISBIOME 1 CAP PO (08:37)
--- NOTE | 2024-06-05 08:41 | W.PN.HOSP.TC ---
Today's Communication/Plan
-
OOB to chair
Continue AB
Sputum Cx
Assessment / Plan
Assessment / Plan
88-year-old female with acute onset of confusion and generalized weakness
EKG-atrial fibrillation with rapid regular rate. Left axis deviation
CVS: S1 S2 irregular
Chest: rales right base
Abdomen: Soft, NT Bowel sounds present
Extremities: No edema
ELECTRICIAN SECOND: Non focal exam
# Right lower lobe pneumonia meets criteria for sepsis
Chest x-ray reviewed by me-right lower lobe pneumonia
Continue ceftriaxone and Zithromax
Check sputum cultures if possible
Speech eval once to R/O Aspiration.
# Atrial fibrillation -continue metoprolol and Eliquis. Rates under goal
# Thrombocytopenia-likely secondary to infection-follow
# Mild uremia-resolved
# Mild ANDRES-resolved
# Hypertension-continue metoprolol
# Chronic heart failure with preserved ejection fraction-continue Lasix, metoprolol
# Parkinson disease-continue Sinemet
# Dementia-continue Aricept
# Chronic anemia
# Glaucoma-continue timolol eyedrops
# History of colon cancer with colon resection
# History of endometrial cancer with hysterectomy
# DVT prophylaxis-Eliquis
# DNR
Spoke to patient's and updated
Discussed with nursing
Anticipated Discharge: Within 24 hours
Subjective/Interval History
-
Date of Service: June 05, 2024
Objective Data
-
Labs:
Laboratory Results
06/05/24
05:39
WBC 7.3
Hgb 11.3 L
Hct 33.6 L
Plt Count 106 L D
Sodium 137
Potassium 4.0
Chloride 99
Carbon Dioxide 26
BUN 31 H
Creatinine 0.8
Glucose 90
Calcium 9.0
Vital Signs:
Vital Signs
Temp Pulse Resp BP Pulse Ox
98.9 F 85 16 119/72 94
06/05/24 05:41 06/05/24 08:37 06/05/24 06:15 06/05/24 08:37 06/05/24 05:41
--- NOTE | 2024-06-05 11:33 | CM ---
CM reviewed medical records. CM lives with and son in a two story home. [facility] with [facility]. Patient has a history of placement at [facility]. Patient is active with her PCP. Patient uses [facility] for medication services.
PLAN: Home with VN vs. SNF
[2024-06-05] MEDS: LIDOCAINE 4% PATCH 1 PATCH TOPICAL (14:28)
[2024-06-05] MEDS: TYLENOL 650 MG PO (14:31)
--- NOTE | 2024-06-05 15:22 | PTOTSP ---
Speech Therapy Evaluation:
Pt presents with mild oral stage dysphagia and suspected mild pharyngeal stage dysphagia as characterized by prolonged mastication/bolus formation, decreased oral coordination, and oral residue. Pt with no overt s/sx of aspiration on evaluation with
thin liquids or regular solids, however pt remains at an increased risk for aspiration due to Parkinson's and Dementia.
Recommend:
1. IDDSI Level 7 (regular) and thin liquid
2. Medications whole in puree
3. General aspiration precautions
4. VSE given right lower lobe PNA and history of Parkinson's/Dementia
5. ST to follow and provide treatment as indicated.
--- NOTE | 2024-06-05 17:09 | PTCARENOTE ---
Patient admitted into room 412-02 from ER. Vital signs stable. Oriented patient and family to room, use of call sandy and bed and TV controls. Reviewed plan of care with family as patient has baseline confusion. Verbalize understanding of teaching.
[2024-06-05] MEDS: ZITHROMAX 500 MG PO (21:14)
[2024-06-05] MEDS: ARICEPT 5 MG PO (21:15)
[2024-06-05] MEDS: ROCEPHIN 1000 MG IV (21:21)
[2024-06-05] MEDS: STERILE WATER FOR INJECTION 10 ML IV (21:21)
[2024-06-06] VITALS (7 sets, daily range): BP systolic 101–125; BP diastolic 60–88; BMI 18.6
[2024-06-06 08:14] LABS: Hematocrit 34.5 % (37.0-47.0); Hemoglobin 11.7 g/dL (12.0-16.0); Mean Corp Hgb Conc. 33.9 g/dL (33.0-37.0); Mean Corpuscular Hgb 30.4 pg (27.0-31.0); Mean Corpuscular Volume 89.6 fL (81.0-99.0); Mean Platelet Volume 9.9 fL (7.4-10.4); Platelet Count 116 10^3/uL (130-400); Red Blood Cell Count 3.85 10^6/uL (4.20-5.40); Red Cell Dist. Width 15.2 % (11.5-14.5); White Blood Cell Count 5.5 10^3/uL (4.8-10.8)
[2024-06-06] MEDS: COLACE 100 MG PO (09:11)
[2024-06-06] MEDS: TOPROL XL 50 MG PO ×2 (09:11→18:40)
[2024-06-06] MEDS: ELIQUIS 2.5 MG PO ×2 (09:11→18:40)
[2024-06-06] MEDS: LIDOCAINE 4% PATCH 1 PATCH TOPICAL (09:11)
[2024-06-06] MEDS: VISBIOME 1 CAP PO (09:11)
[2024-06-06] MEDS: SINEMET CR 25-100 (EXTENDED RELEASE) 1 TABLET PO ×2 (09:11→18:40)
[2024-06-06 09:18] LABS: Blood Urea Nitrogen 29 mg/dl (7-17); Calcium 8.9 mg/dl (8.4-10.2); Carbon Dioxide 23 mmol/L (22-30); Chloride 101 mmol/L (98-107); Estimated Creatinine Clearance 43 ml/min; Glucose 98 mg/dl (70-99); Magnesium 2.2 mg/dl (1.6-2.3); Potassium 4.4 mmol/L (3.5-5.1); Sodium 135 mmol/L (135-145); eGFR > 60.00
[2024-06-06] MEDS: TIMOPTIC 0.5% OPHTHALMIC SOLUTION 1 DROP BOTH EYES (10:10)
--- NOTE | 2024-06-06 10:15 | PTOTSP ---
Speech Language Pathology
VIDEOFLUOROSCOPIC SWALLOWING EXAMINATION (VSE) completed. Overall, mild oral and mild-mod pharyngeal dysphagia noted. Silent aspiration noted with thin liquids. No penetration/aspiration noted with any other textures trialed. Moderate vallecular
residue noted with all consistencies.
Recommend:
(1) Regular solids/mildly thick liquids
(2) Aspiration precautions: sit upright, slow rate
(3) Meds whole in puree or whole with mildly thick liquids
(4) Allow sips of water between meals after oral care given supervision per Aspiration Risk Hydration Protocol (ARHP)
(5) SMALL PRODUCTS I ASSEMBLER to continue to follow
--- NOTE | 2024-06-06 11:07 | CM ---
Addendum entered by Tyler Milton 06/06/24 12:36:
Return call from spouse.
CM discussed SNF rec. Spouse declines SNF at this time and says pt can return home w/ [facility]
Hopsitalist made aware
Original Note:
Chart reviewed. Per PT/OT eval, pt rec. SNF at this time
CM attempted TC to spouse to discuss SNF need, no answer, left VM
CM will cont to f/u w/ spouse re SNF choices as pt is confused
Plan: SNF at d/c
--- NOTE | 2024-06-06 12:44 | PN.CDI ---
CDI
- -
CDI:
Physician Documentation Request
Admit Date: 06/04/24 23:13
Dear Doctor Malina,
Please review the following and provide your response in the progress notes.
Clinical Indicators:
- 06/04 ER Physician 'presents to the emergency room due to confusion...She is not typically confused'
- 06/04 H&P 'sepsis secondary to right lower lobe pneumonia'
- 'Parkinson's dementia'
- Nursing shift assessments indicate disoriented to time and confused
Please clarify in the Progress Notes which, if any of the following, is the most likely etiology of the confusion/altered mental status.
Encephalopathy - indicate type, such as metabolic, toxic, septic, alcoholic, anoxic, hypertensive etc. due to a specific condition such as UTI, CVA, hyponatremia etc.
Dementia with acute delirium - indicate type fo dementia, such as Alzheimer's, senile, vascular, Lewy body etc.
Acute Delirium - indicate known or suspected etiology such as postoperative, due to opioids or other drugs etc. Can also indicate unknown or mixed etiologies.
Acute or subacute confusional state due to __sepsis_ (specify known or suspected etiology)
Other
Use of terms such as suspected, likely, concern for, or probable (associated with a specific diagnosis that is being evaluated, monitored, or treated as if it exists) are acceptable and can be coded in the inpatient setting, when documented at the
time of discharge.
Thank you,
Abdirahman Beard RN
CDI Specialist
Please use your independent medical judgment in providing your response.
--- NOTE | 2024-06-06 12:48 | PN.CDI ---
Addendum entered and electronically signed by Angela Radford MD 06/06/24 17:09:
Documentation is complete at this time.
Original Note:
CDI
- -
CDI:
Physician Documentation Request
Admit Date: 06/04/24 23:13
Dear Doctor Malina,
Please review the following and provide your response in the progress notes.
Clinical Indicators:
Height: 5'3
Weight: 105lbs
BMI: 18.6
If possible, please provide an associated diagnosis related to the abnormal BMI, such as:
Underweight
Cachectic
Other (please specify)
Use of terms such as suspected, likely, concern for, or probable (associated with a specific diagnosis that is being evaluated, monitored, or treated as if it exists) are acceptable and can be coded in the inpatient setting, when documented at the
time of discharge.
Thank you,
Abdirahman Beard RN
CDI Specialist
Please use your independent medical judgment in providing your response.
--- NOTE | 2024-06-06 14:13 | W.PN.HOSP.TC ---
Addendum entered and electronically signed by Angela Radford MD 06/06/24 17:08:
TME from pneumonia resolving. Patient also has date baseline dementia.
Original Note:
Today's Communication/Plan
-
No more fevers
Encourage OOB
Home O2 eval in am and if stable discharge
Assessment / Plan
Assessment / Plan
88-year-old female with acute onset of confusion and generalized weakness
EKG-atrial fibrillation with rapid regular rate. Left axis deviation
CVS: S1 S2 irregular
Chest: rales right base
Abdomen: Soft, NT Bowel sounds present
Extremities: No edema
SHOW WORKER: Non focal exam
# Right lower lobe pneumonia meets criteria for sepsis
Chest x-ray reviewed by me-right lower lobe pneumonia
Continue ceftriaxone and Zithromax
Check sputum cultures if possible
Speech eval noted and video swallow noted. Recommending regular solids with mildly thick liquids
# Atrial fibrillation -continue metoprolol and Eliquis. Rates under goal
# Thrombocytopenia-likely secondary to infection-better.
# Mild uremia-resolved
# Mild ANDRES-resolved
# Hypertension-continue metoprolol
# Chronic heart failure with preserved ejection fraction-continue Lasix, metoprolol
# Parkinson disease-continue Sinemet
# Dementia-continue Aricept
# Chronic anemia
# Glaucoma-continue timolol eyedrops
# History of colon cancer with colon resection
# History of endometrial cancer with hysterectomy
# DVT prophylaxis-Eliquis
# DNR
Spoke to patient's and updated. He does not want her to go to rehab. He would rather have visiting nurses.
Discussed with case management
Discussed with nursing
Anticipated Discharge: Within 24 hours
Subjective/Interval History
-
Date of Service: June 06, 2024
Objective Data
-
Labs:
Laboratory Results
06/06/24
07:31
WBC 5.5
Hgb 11.7 L
Hct 34.5 L
Plt Count 116 L
Sodium 135
Potassium 4.4
Chloride 101
Carbon Dioxide 23
BUN 29 H
Creatinine 0.7
Glucose 98
Calcium 8.9
Vital Signs:
Vital Signs
Temp Pulse Resp BP Pulse Ox
97.7 F 90 16 101/60 98
06/06/24 11:09 06/06/24 11:09 06/06/24 11:09 06/06/24 11:09 06/06/24 11:09
I&O
06/05/24 06/06/24 06/07/24
06:59 06:59 06:59
Intake Total 400 / 400
Output Total 150 / 150
Balance 250 / 250
--- NOTE | 2024-06-06 16:54 | CM ---
[facility] referral via [facility].
[2024-06-06] MEDS: COLACE PO (19:35)
--- NOTE | 2024-06-06 19:40 | PTCARENOTE ---
Patient placed on aspiration risk protocol. Reviewed with and son (Mckinley). Family verbalize understanding of teaching. and son concerned over potential discharge tomorrow. Son (Mckinley) would like a phone call from MD tomorrow to review
updates and plan.
[2024-06-06] MEDS: ARICEPT 5 MG PO (21:45)
[2024-06-06] MEDS: ZITHROMAX 500 MG PO (21:45)
[2024-06-06] MEDS: STERILE WATER FOR INJECTION 10 ML IV (21:46)
[2024-06-06] MEDS: ROCEPHIN 1000 MG IV (21:46)
[2024-06-07 03:45] VITALS: BP 136/81
[2024-06-07 06:00] VITALS: BMI 20.1
--- NOTE | 2024-06-07 06:25 | W.PN.HOSP.TC ---
Today's Communication/Plan
-
cont abx
azithromycin completed
PT/OT
Ok to discontinue case monitor
Assessment / Plan
Assessment / Plan
Physical Exam
General: No acute distress appears comfortable at this time
HEENT: normocephalic atraumatic hard of hearing
CVS: S1 S2 irregular
Chest: rales right base
Abdomen: Soft, NT Bowel sounds present
Extremities: No edema
TECHNICAL SERVICES MANAGER: AOx2 disoriented to time, slow mentation, mild confusion noted, flat affect
Psych: calm
88-year-old female with acute onset of confusion and generalized weakness
EKG-atrial fibrillation with rapid regular rate. Left axis deviation
# Right lower lobe pneumonia meets criteria for sepsis
Chest x-ray appreciated right lower lobe pneumonia
Continue ceftriaxone day 3, completed 3 days Zithromax
Check sputum cultures if possible
Speech eval and video swallow noted. Recommended regular solids with mildly thick liquids
# Atrial fibrillation -continue metoprolol and Eliquis. Rates relatively controlled at this time
# Thrombocytopenia-likely secondary to infection- resolved
# Mild uremia-resolving
# Mild ANDRES-resolved
# Hypertension-continue Lasix metoprolol
# Chronic heart failure with preserved ejection fraction-continue Lasix, metoprolol
# Parkinson disease-continue Sinemet
# Dementia-continue Aricept
# Chronic anemia
# Glaucoma-continue timolol eyedrops
# History of colon cancer with colon resection
# History of endometrial cancer with hysterectomy
# DVT prophylaxis-Eliquis
# DNR
discussed with patient, patient's son Mckinley, and patient's Mika
I spent a total of 40 minutes with the patient or on the floor. More than 50% of this time involved counseling and coordination of care.
Anticipated Discharge: 24 - 48 hours
Subjective/Interval History
-
Date of Service: June 07, 2024
Objective Data
-
Labs:
Laboratory Results
06/07/24
06:00
WBC Pending
Hgb Pending
Hct Pending
Plt Count Pending
Sodium Pending
Potassium Pending
Chloride Pending
Carbon Dioxide Pending
BUN Pending
Creatinine Pending
Glucose Pending
Calcium Pending
Vital Signs:
Vital Signs
Temp Pulse Resp BP Pulse Ox
98.1 F 91 18 136/81 98
06/07/24 03:45 06/07/24 03:45 06/07/24 03:45 06/07/24 03:45 06/07/24 03:45
I&O
06/05/24 06/06/24 06/07/24
06:59 06:59 06:59
Intake Total 400 / 400 600 / 600
Output Total 150 / 150
Balance 250 / 250 600 / 600
[2024-06-07 07:55] VITALS: BP 116/59
[2024-06-07 09:15] LABS: Hemoglobin 12.1 g/dL (12.0-16.0); Mean Corp Hgb Conc. 33.6 g/dL (33.0-37.0); Mean Corpuscular Hgb 30.4 pg (27.0-31.0); Mean Corpuscular Volume 90.5 fL (81.0-99.0); Red Blood Cell Count 3.98 10^6/uL (4.20-5.40); White Blood Cell Count 5.4 10^3/uL (4.8-10.8)
[2024-06-07 09:45] LABS: Blood Urea Nitrogen 27 mg/dl (7-17); Calcium 8.8 mg/dl (8.4-10.2); Carbon Dioxide 26 mmol/L (22-30); Chloride 101 mmol/L (98-107); Estimated Creatinine Clearance 47 ml/min; Glucose 90 mg/dl (70-99); Potassium 4.6 mmol/L (3.5-5.1); Sodium 138 mmol/L (135-145); eGFR > 60.00
[2024-06-07] MEDS: COLACE 100 MG PO ×2 (09:57→18:00)
[2024-06-07] MEDS: SINEMET CR 25-100 (EXTENDED RELEASE) 1 TABLET PO ×2 (09:57→18:00)
[2024-06-07] MEDS: LASIX 40 MG PO (09:57)
[2024-06-07] MEDS: ELIQUIS 2.5 MG PO ×2 (09:57→18:00)
[2024-06-07] MEDS: VISBIOME 1 CAP PO (09:58)
[2024-06-07] MEDS: TIMOPTIC 0.5% OPHTHALMIC SOLUTION 1 DROP BOTH EYES (09:58)
[2024-06-07] MEDS: TOPROL XL 50 MG PO ×2 (09:58→18:00)
[2024-06-07] MEDS: LIDOCAINE 4% PATCH 1 PATCH TOPICAL (09:58)
[2024-06-07] MEDS: FLUSH (NSS) 1 FLUSH IV (09:59)
[2024-06-07 10:06] LABS: Platelet Count 133 10^3/uL (130-400)
[2024-06-07 11:45] VITALS: BP 104/71
[2024-06-07 15:00] VITALS: BP 102/79
--- NOTE | 2024-06-07 16:37 | PTCARENOTE ---
Pt AAO x3, forgetful. KRUEGER weakly; assists with positioning. VSS. HR irreg; no c/o CP/palpitations. On room air- pulse ox97%; no SOB/cough noted. Abd soft, elena PO, appetite fair. Incont urine. Resting in bed at [facility]; no c/o. Will continue
to monitor.
[2024-06-07] MEDS: ROCEPHIN 1000 MG IV (20:56)
[2024-06-07] MEDS: ARICEPT 5 MG PO (20:56)
[2024-06-07] MEDS: STERILE WATER FOR INJECTION 10 ML IV (20:57)
[2024-06-07 23:49] VITALS: BP 130/86
[2024-06-08 06:00] VITALS: BMI 20.2
--- NOTE | 2024-06-08 07:12 | W.PN.HOSP.TC ---
Today's Communication/Plan
-
cont abx
PT/OT
Assessment / Plan
Assessment / Plan
Physical Exam
General: No acute distress appears comfortable at this time
HEENT: normocephalic atraumatic hard of hearing
CVS: S1 S2 irregular
Chest: rales right base
Abdomen: Soft, NT Bowel sounds present
Extremities: No edema
IRRIGATION EQUIPMENT INSTALLER: AOx2 disoriented to time, slow mentation, mild confusion noted, flat affect
Psych: calm
88-year-old female with acute onset of confusion and generalized weakness
EKG-atrial fibrillation with rapid regular rate. Left axis deviation
# Right lower lobe pneumonia meets criteria for sepsis
Chest x-ray appreciated right lower lobe pneumonia
Continue ceftriaxone day 4, completed 3 days Zithromax
Check sputum cultures if possible
Speech eval and video swallow noted. Recommended regular solids with mildly thick liquids
# Atrial fibrillation -continue metoprolol and Eliquis. Rates relatively controlled at this time
# Thrombocytopenia-likely secondary to infection- resolved
# Mild uremia-resolving
# Mild ANDRES-resolved
# Hypertension-continue Lasix metoprolol
# Chronic heart failure with preserved ejection fraction-continue Lasix, metoprolol
# Parkinson disease-continue Sinemet
# Dementia-continue Aricept
# Chronic anemia
# Glaucoma-continue timolol eyedrops
# History of colon cancer with colon resection
# History of endometrial cancer with hysterectomy
# DVT prophylaxis-Eliquis
# DNR
discussed with patient, patient's son Mckinley, and patient's Mika
I spent a total of 40 minutes with the patient or on the floor. More than 50% of this time involved counseling and coordination of care.
Anticipated Discharge: 24 - 48 hours
Subjective/Interval History
-
Date of Service: June 08, 2024
No acute distress appears comfortable. more awake alert conversant coherent compared to yesterday.
Objective Data
-
Labs:
Laboratory Results
06/08/24
06:54
WBC Pending
Hgb Pending
Hct Pending
Plt Count Pending
Sodium Pending
Potassium Pending
Chloride Pending
Carbon Dioxide Pending
BUN Pending
Creatinine Pending
Glucose Pending
Calcium Pending
Vital Signs:
Vital Signs
Temp Pulse Resp BP Pulse Ox
98.6 F 110 18 130/86 96
06/07/24 23:49 06/07/24 23:49 06/07/24 23:49 06/07/24 23:49 06/07/24 23:49
I&O
06/07/24 06/08/24 06/09/24
06:59 06:59 06:59
Intake Total 600 / 600 390 / 390
Balance 600 / 600 390 / 390
[2024-06-08 07:39] LABS: Hematocrit 36.2 % (37.0-47.0); Hemoglobin 12.5 g/dL (12.0-16.0); Mean Corp Hgb Conc. 34.5 g/dL (33.0-37.0); Mean Corpuscular Hgb 30.4 pg (27.0-31.0); Mean Corpuscular Volume 88.1 fL (81.0-99.0); Mean Platelet Volume 9.6 fL (7.4-10.4); Platelet Count 134 10^3/uL (130-400); Red Blood Cell Count 4.11 10^6/uL (4.20-5.40); Red Cell Dist. Width 14.6 % (11.5-14.5); White Blood Cell Count 4.8 10^3/uL (4.8-10.8)
[2024-06-08 07:55] VITALS: BP 115/80
[2024-06-08 08:02] LABS: Blood Urea Nitrogen 22 mg/dl (7-17); Calcium 8.8 mg/dl (8.4-10.2); Carbon Dioxide 28 mmol/L (22-30); Chloride 100 mmol/L (98-107); Estimated Creatinine Clearance 47 ml/min; Glucose 94 mg/dl (70-99); Magnesium 2.2 mg/dl (1.6-2.3); Phosphorus 3.1 mg/dl (2.5-4.5); Potassium 4.2 mmol/L (3.5-5.1); Sodium 135 mmol/L (135-145); eGFR > 60.00
[2024-06-08] MEDS: TOPROL XL 50 MG PO ×2 (10:20→18:00)
[2024-06-08] MEDS: TIMOPTIC 0.5% OPHTHALMIC SOLUTION 1 DROP BOTH EYES (10:20)
[2024-06-08] MEDS: COLACE 100 MG PO ×2 (10:21→17:57)
[2024-06-08] MEDS: SINEMET CR 25-100 (EXTENDED RELEASE) 1 TABLET PO ×2 (10:21→17:56)
[2024-06-08] MEDS: LIDOCAINE 4% PATCH 1 PATCH TOPICAL (10:21)
[2024-06-08] MEDS: LASIX 40 MG PO (10:21)
[2024-06-08] MEDS: ELIQUIS 2.5 MG PO ×2 (10:21→17:56)
[2024-06-08] MEDS: VISBIOME 1 CAP PO (10:21)
--- NOTE | 2024-06-08 14:30 | CM ---
Met with patient and .
now would like SNF as recommended by PT
Options reviewed
Referrals placed in [facility] for [facility] & [facility]
CM willl need to obtain insurance authorization
PLAN: SNF, pending bed availability, ins authorization neeeded
[2024-06-08 15:52] VITALS: BP 108/72
[2024-06-08] MEDS: ARICEPT 5 MG PO (23:09)
[2024-06-08] MEDS: ROCEPHIN 1000 MG IV (23:09)
[2024-06-08] MEDS: STERILE WATER FOR INJECTION 10 ML IV (23:09)
[2024-06-08 23:45] VITALS: BP 116/79
[2024-06-09 06:00] VITALS: BMI 19.9
--- NOTE | 2024-06-09 06:28 | W.PN.HOSP.TC ---
Addendum entered and electronically signed by Rachael Aguirre MD 06/10/24 08:28:
possible aspiration pna
Original Note:
Today's Communication/Plan
-
transitioned ceftriaxone to Augmentin
treatment for Pneumonia completed, continuing w/ 2 more days Augmentin for possible UTI
fluctuating mental status throughout day likely , checking CT head
avoid antipsychotics given Parkinson
can consider prn Ativan if develops significant Agitation but otherwise would manage confusion conservatively
Assessment / Plan
Assessment / Plan
Physical Exam
General: No acute distress appears comfortable at this time
HEENT: normocephalic atraumatic hard of hearing
CVS: S1 S2 irregular
Chest: rales right base
Abdomen: Soft, NT Bowel sounds present
Extremities: No edema
VALUE STREAM COACH: AOx1 oriented to person only though appears more alert conversant less flat affect
Psych: calm
88-year-old female with acute onset of confusion and generalized weakness
EKG-atrial fibrillation with rapid regular rate. Left axis deviation
#RLL PNA meets criteria for sepsis
Chest x-ray appreciated right lower lobe pneumonia
completed 5 days ceftriaxone, completed 3 days Zithromax
Check sputum cultures if possible
Speech eval and video swallow noted. Recommended regular solids with mildly thick liquids
#Possible UTI
Denies dysuria
Urine culture appreciated E. coli pansensitive covered by ceftriaxone as above
will continue with Augmentin for 2 more days to plan total 7 days of abx
#Acute Metabolic Encephalopathy 2/2 infection(s) as above vs Dementia Delirium ing
# Parkinson disease-continue Sinemet
# Dementia-continue Aricept
check CT head for possible alternate etiology
otherwise would manage conservatively
avoid antipsychotics given Parkinson
can consider low dose ativan as needed if develops significant agitation
# Atrial fibrillation -continue metoprolol and Eliquis. Rates relatively controlled at this time
# Thrombocytopenia-likely secondary to infection- resolved
# Mild uremia-resolving
# Mild ANDRES-resolved
# Hypertension-continue Lasix metoprolol
# Chronic heart failure with preserved ejection fraction-continue Lasix, metoprolol
# Chronic anemia
# Glaucoma-continue timolol eyedrops
# History of colon cancer with colon resection
# History of endometrial cancer with hysterectomy
# DVT prophylaxis-Eliquis
# DNR
Discharge planning SNF rehab tomorrow.
discussed with patient, patient's son Mckinley, and patient's Mika
I spent a total of 40 minutes with the patient or on the floor. More than 50% of this time involved counseling and coordination of care.
Anticipated Discharge: Within 24 hours
Subjective/Interval History
-
Date of Service: June 09, 2024
Awake alert conversant. Fluctuating mental status noted throughout day, suspect . Confused regarding location. Otherwise vital signs stable afebrile.
Objective Data
-
Labs:
Laboratory Results
06/09/24
06:00
WBC Pending
Hgb Pending
Hct Pending
Plt Count Pending
Sodium Pending
Potassium Pending
Chloride Pending
Carbon Dioxide Pending
BUN Pending
Creatinine Pending
Glucose Pending
Calcium Pending
Vital Signs:
Vital Signs
Temp Pulse Resp BP Pulse Ox
98.5 F 101 20 116/79 96
06/08/24 23:45 06/08/24 23:45 06/08/24 23:45 06/08/24 23:45 06/08/24 23:45
I&O
06/07/24 06/08/24 06/09/24
06:59 06:59 06:59
Intake Total 600 / 600 390 / 390 720 / 720
Balance 600 / 600 390 / 390 720 / 720
[2024-06-09 07:45] VITALS: BP 108/64
--- NOTE | 2024-06-09 07:58 | PN.CDI ---
CDI
- -
CDI:
Physician Documentation Request
Admit Date: 06/04/24 23:13
Dear Doctor Timothy,
Please review the following and provide your response in the progress notes.
Clinical Indicators:
- 06/08 PN 'Right lower lobe pneumonia meets criteria for sepsis'
- 'Chest x-ray appreciated right lower lobe pneumonia'
- 'Speech eval and video swallow noted. Recommended regular solids with mildly thick liquids'
- 06/06 Swallow study with airway aspiration with thin liquids
- IV abx Azithromycin, Ceftriaxone
Please clarify in the Progress Notes further specificity regarding the known, suspected or likely type of pneumonia you are treating (recognizing the specific organism may not be known)?
Aspiration Pneumonia - indicate substance such as food or vomitus, oils or other solids or liquids
Staph Pneumonia - indicate if MRSA or MSSA
Gram negative Pneumonia - indicate if Pseudomonas, Klebsiella or other
Other organism - specify known or suspected type
Other type (please specify)
Use of terms such as suspected, likely, concern for, or probable (associated with a specific diagnosis that is being evaluated, monitored, or treated as if it exists) are acceptable and can be coded in the inpatient setting, when documented at the
time of discharge.
Thank you,
Abdirahman Beard RN
CDI Specialist
Please use your independent medical judgment in providing your response.
[2024-06-09 08:42] LABS: Hematocrit 35.3 % (37.0-47.0); Hemoglobin 12.4 g/dL (12.0-16.0); Mean Corp Hgb Conc. 35.1 g/dL (33.0-37.0); Mean Corpuscular Hgb 30.7 pg (27.0-31.0); Mean Corpuscular Volume 87.4 fL (81.0-99.0); Mean Platelet Volume 9.9 fL (7.4-10.4); Platelet Count 149 10^3/uL (130-400); Red Blood Cell Count 4.04 10^6/uL (4.20-5.40); Red Cell Dist. Width 14.6 % (11.5-14.5); White Blood Cell Count 4.9 10^3/uL (4.8-10.8)
[2024-06-09] MEDS: COLACE 100 MG PO (08:50)
[2024-06-09] MEDS: LASIX 40 MG PO (08:50)
[2024-06-09] MEDS: ELIQUIS 2.5 MG PO ×2 (08:50→17:03)
[2024-06-09] MEDS: TOPROL XL 50 MG PO ×2 (08:50→17:03)
[2024-06-09] MEDS: SINEMET CR 25-100 (EXTENDED RELEASE) 1 TABLET PO ×2 (08:50→17:03)
[2024-06-09] MEDS: TIMOPTIC 0.5% OPHTHALMIC SOLUTION 1 DROP BOTH EYES (08:51)
[2024-06-09] MEDS: VISBIOME 1 CAP PO (08:51)
[2024-06-09] MEDS: LIDOCAINE 4% PATCH 1 PATCH TOPICAL (08:51)
[2024-06-09 09:11] LABS: Blood Urea Nitrogen 22 mg/dl (7-17); Calcium 8.9 mg/dl (8.4-10.2); Carbon Dioxide 27 mmol/L (22-30); Chloride 97 mmol/L (98-107); Estimated Creatinine Clearance 46 ml/min; Glucose 99 mg/dl (70-99); Magnesium 2.1 mg/dl (1.6-2.3); Phosphorus 3.3 mg/dl (2.5-4.5); Potassium 4.3 mmol/L (3.5-5.1); Sodium 132 mmol/L (135-145); eGFR > 60.00
[2024-06-09 12:04] VITALS: BP 97/60
--- NOTE | 2024-06-09 12:50 | CM ---
CM spoke with Inna' via telephone to discuss SNF options. [facility] is unable to admit due to insurance does not have out of network benefits. [facility] in [place] is able to accept. Will arrange transport in AM via ambulance due to
confusion, need for mod-max assist with transfers and weakness.
[employer] authorization submitted and approved:
Certification Number
[id number]
CERTIFIED IN TOTAL 2024-06-10 - 2024-06-16
Service Type Code 1
[facility] - Assisted Care
[2024-06-09 13:14] VITALS: BP 97/60; PULSE 68
[2024-06-09 15:50] VITALS: BP 118/65
[2024-06-09] MEDS: COLACE PO (17:03)
--- NOTE | 2024-06-09 17:46 | PTCARENOTE ---
pt unable to state where she is at or what year/month. pt more confused than yesterday but calm and cooperative. made aware. non-urgent head CT ordered at this time.
[2024-06-09] MEDS: ARICEPT 5 MG PO (20:14)
[2024-06-09] MEDS: AUGMENTIN 875 MG/125 MG 1 TABLET PO (20:15)
[2024-06-09 23:55] VITALS: BP 118/73
[2024-06-10 06:00] VITALS: BMI 19.5
[2024-06-10 07:30] VITALS: BP 129/88
--- NOTE | 2024-06-10 07:45 | W.PN.HOSP.TC ---
Today's Communication/Plan
-
cont monitoring confusion likely sundowning vs hospital associate delirium
cont abx
if remains stable/improves, discharge to SNF rehab tomorrow.
Assessment / Plan
Assessment / Plan
Physical Exam
General: No acute distress appears comfortable at this time
HEENT: normocephalic atraumatic hard of hearing
CVS: S1 S2 irregular
Chest: rales right base
Abdomen: Soft, NT Bowel sounds present
Extremities: No edema
RODEO CLOWN: AOx1 oriented to person only though appears more alert conversant less flat affect
Psych: calm
88-year-old female with acute onset of confusion and generalized weakness
EKG-atrial fibrillation with rapid regular rate. Left axis deviation
#RLL PNA meets criteria for sepsis
Chest x-ray appreciated right lower lobe pneumonia
completed 5 days ceftriaxone, completed 3 days Zithromax
Check sputum cultures if possible
Speech eval and video swallow noted. Recommended regular solids with mildly thick liquids
#Possible UTI
Denies dysuria
Urine culture appreciated E. coli pansensitive covered by ceftriaxone as above
will continue with Augmentin for 2 more days for total 7 days of abx
#Acute Metabolic Encephalopathy 2/2 infection(s) as above vs Dementia Delirium Sundowning
# Parkinson disease-continue Sinemet
# Dementia-continue Aricept
CT head appreciated no acute abn's
otherwise would manage conservatively
avoid antipsychotics given Parkinson
can consider low dose ativan as needed if develops significant agitation
# Atrial fibrillation -continue metoprolol and Eliquis. Rates relatively controlled at this time
# Thrombocytopenia-likely secondary to infection- resolved
# Mild uremia-resolving
# Mild ANDRES-resolved
# Hypertension-continue Lasix metoprolol
# Chronic heart failure with preserved ejection fraction-continue Lasix, metoprolol
# Chronic anemia
# Glaucoma-continue timolol eyedrops
# History of colon cancer with colon resection
# History of endometrial cancer with hysterectomy
# DVT prophylaxis-Eliquis
# DNR
Hold discharge for now ongoing confusion, discharge SNF rehab tomorrow if remains stable/improves
discussed with patient, patient's son Mckinley, and patient's Jameson (correction to prior documentation)
I spent a total of 40 minutes with the patient or on the floor. More than 50% of this time involved counseling and coordination of care.
Anticipated Discharge: Within 24 hours
Subjective/Interval History
-
Date of Service: June 10, 2024
remains confused lethargic though arousable. no acute distress. Respiratory status remains stable on room air.
Objective Data
-
Labs:
Laboratory Results
06/10/24
07:02
WBC Pending
Hgb Pending
Hct Pending
Plt Count Pending
Sodium Pending
Potassium Pending
Chloride Pending
Carbon Dioxide Pending
BUN Pending
Creatinine Pending
Glucose Pending
Calcium Pending
Vital Signs:
Vital Signs
Temp Pulse Resp BP Pulse Ox
98.4 F 81 17 118/73 96
06/09/24 23:55 06/09/24 23:55 06/09/24 23:55 06/09/24 23:55 06/09/24 23:55
I&O
06/09/24 06/10/24 06/11/24
06:59 06:59 06:59
Intake Total 720 / 720 420 / 420
Balance 720 / 720 420 / 420
[2024-06-10 08:17] LABS: Hematocrit 37.2 % (37.0-47.0); Hemoglobin 12.8 g/dL (12.0-16.0); Mean Corp Hgb Conc. 34.4 g/dL (33.0-37.0); Mean Corpuscular Hgb 30.4 pg (27.0-31.0); Mean Corpuscular Volume 88.4 fL (81.0-99.0); Platelet Count 150 10^3/uL (130-400); Red Blood Cell Count 4.21 10^6/uL (4.20-5.40); Red Cell Dist. Width 14.6 % (11.5-14.5); White Blood Cell Count 6.6 10^3/uL (4.8-10.8)
[2024-06-10 09:10] LABS: Blood Urea Nitrogen 28 mg/dl (7-17); Calcium 8.8 mg/dl (8.4-10.2); Carbon Dioxide 29 mmol/L (22-30); Chloride 94 mmol/L (98-107); Estimated Creatinine Clearance 35 ml/min; Glucose 97 mg/dl (70-99); Magnesium 2.2 mg/dl (1.6-2.3); Phosphorus 3.8 mg/dl (2.5-4.5); Sodium 134 mmol/L (135-145); eGFR > 60.00
[2024-06-10] MEDS: SINEMET CR 25-100 (EXTENDED RELEASE) 1 TABLET PO ×2 (10:02→17:57)
[2024-06-10] MEDS: TOPROL XL 50 MG PO ×2 (10:02→17:57)
[2024-06-10] MEDS: LASIX 40 MG PO (10:02)
[2024-06-10] MEDS: COLACE 100 MG PO ×2 (10:02→17:57)
[2024-06-10] MEDS: AUGMENTIN 875 MG/125 MG 1 TABLET PO ×2 (10:02→20:54)
[2024-06-10] MEDS: VISBIOME 1 CAP PO (10:02)
[2024-06-10] MEDS: LIDOCAINE 4% PATCH 1 PATCH TOPICAL (10:02)
[2024-06-10] MEDS: ELIQUIS 2.5 MG PO ×2 (10:02→17:57)
[2024-06-10] MEDS: TIMOPTIC 0.5% OPHTHALMIC SOLUTION 1 DROP BOTH EYES (10:03)
--- NOTE | 2024-06-10 11:36 | CM ---
CM following for discharge to [facility] at discharge. Authorization obtained yesterday for transfer today. Dr. Aguirre is holding discharge due to confusion. [facility] ([facility]) notified of change in plan for transfer today. CM to follow up tomorrow
for readiness for transfer to [facility].
Plan: Pt approved for SNF at [facility], [place] authorization approved: Certification Number [id number] CERTIFIED IN TOTAL for SNF dates of service 2024-06-10 - 2024-06-16
CM to continue to follow for transfer when medically ready.
[2024-06-10 11:45] LABS: Venous Blood Gas B.E. 4.6 mmol/L (-4 to +4); Venous Blood Gas HCO3 30.4 mmol/L (22-27); Venous Blood Gas O2 Sat % 81.1 %; Venous Blood Gas pCO2 49 mmHg (35-48); Venous Blood Gas pO2 49 mmHg (30-50)
[2024-06-10 15:20] VITALS: BP 105/66
--- NOTE | 2024-06-10 18:29 | PTCARENOTE ---
Patient assisted x2 OOB-chair after dinner. Family at bedside.
[2024-06-10] MEDS: ARICEPT 5 MG PO (21:00)
[2024-06-10 23:00] VITALS: BP 96/59
[2024-06-11 06:00] VITALS: BMI 18.1
[2024-06-11 07:35] VITALS: BP 127/91
[2024-06-11] MEDS: AUGMENTIN 875 MG/125 MG 1 TABLET PO (08:21)
[2024-06-11] MEDS: SINEMET CR 25-100 (EXTENDED RELEASE) 1 TABLET PO ×2 (08:21→17:26)
[2024-06-11] MEDS: COLACE 100 MG PO ×2 (08:22→17:27)
[2024-06-11] MEDS: ELIQUIS 2.5 MG PO ×2 (08:22→17:26)
[2024-06-11] MEDS: LASIX 40 MG PO (08:22)
[2024-06-11] MEDS: TOPROL XL 50 MG PO ×2 (08:22→17:26)
[2024-06-11] MEDS: LIDOCAINE 4% PATCH 1 PATCH TOPICAL (08:23)
[2024-06-11] MEDS: VISBIOME 1 CAP PO (08:23)
[2024-06-11] MEDS: TIMOPTIC 0.5% OPHTHALMIC SOLUTION 1 DROP BOTH EYES (08:32)
--- NOTE | 2024-06-11 09:20 | W.PN.HOSP.TC ---
Today's Communication/Plan
-
discharge
Assessment / Plan
Assessment / Plan
Physical Exam
General: No acute distress appears comfortable at this time
HEENT: normocephalic atraumatic hard of hearing
CVS: S1 S2 irregular
Chest: rales right base
Abdomen: Soft, NT Bowel sounds present
Extremities: No edema
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
Psych: calm
88-year-old female with acute onset of confusion and generalized weakness
EKG-atrial fibrillation with rapid regular rate. Left axis deviation
#RLL PNA meets criteria for sepsis
Chest x-ray appreciated right lower lobe pneumonia
completed 5 days ceftriaxone, completed 3 days Zithromax
Speech eval and video swallow noted. Recommended regular solids with mildly thick liquids
Follow up CXR in 1 month recommended
#Possible UTI
Denies dysuria
Urine culture appreciated E. coli pansensitive covered by ceftriaxone as above
will continue with Augmentin for 2 more days for total 7 days of abx 06/11/24 last day for abx
#Acute Metabolic Encephalopathy 2/2 infection(s) as above vs Dementia Delirium
# Parkinson disease-continue Sinemet
# Dementia-continue Aricept
CT head appreciated no acute abn's
otherwise would manage conservatively
avoid antipsychotics given Parkinson
can consider low dose ativan as needed if develops significant agitation
Patient otherwise appears relatively well, mental status since improved to AOx3, consistently calm and cooperative
# Atrial fibrillation -continue metoprolol and Eliquis. Rates relatively controlled at this time
# Thrombocytopenia-likely secondary to infection- resolved
# Mild uremia-resolving
# Mild ANDRES-resolved
# Hypertension-continue Lasix metoprolol
# Chronic heart failure with preserved ejection fraction-continue Lasix, metoprolol
# Chronic anemia
# Glaucoma-continue timolol eyedrops
# History of colon cancer with colon resection
# History of endometrial cancer with hysterectomy
# DVT prophylaxis-Eliquis
# DNR
Medically stable for discharge SNF rehab with outpatient follow up recommendations
discussed with patient and patient's son Mckinley. Patient's Jameson also called but no answer received, voicemail with brief update regarding plan for discharge and call back number left.
Total Time Preparing Discharge __40 minutes including examination of the patient, summary of the hospital stay, instructions for continuing care to all relevant caregivers; and preparation of discharge records, prescriptions, and referral
forms if necessary.
Anticipated Discharge: Today
Subjective/Interval History
-
Date of Service: June 11, 2024
Seen and examined at bedside in no acute distress sitting up comfortably in chair. Denies new acute issues at this time. AOx3 but still seems mildly confused, low mentation, flat affect.
Objective Data
-
Vital Signs:
Vital Signs
Temp Pulse Resp BP Pulse Ox
98.4 F 84 22 96/59 96
06/11/24 07:35 06/11/24 08:22 06/11/24 07:35 06/11/24 08:22 06/11/24 07:35
I&O
06/10/24 06/11/24 06/12/24
06:59 06:59 06:59
Intake Total 420 / 420 360 / 360
Balance 420 / 420 360 / 360
[2024-06-11 10:50] VITALS: BMI 18.1
--- NOTE | 2024-06-11 13:37 | W.DCSUMMARY ---
Discharge Summary
Discharge Data
Date of Admission: 06/04/24
Date of Discharge: 06/11/24
-
Pending Results: No
Discharge Plan
-
Patient Disposition: Usp/SNF
Discharge Diagnosis/Procedures: Right lower lobe pneumonia
Atrial fibrillation
Acute kidney injury
Hypertension
Chronic heart failure
Parkinson disease
Dementia
Glaucoma
Condition: Fair
Diet: 2 Gram Sodium
Additional Diets:
(1) Regular solids/mildly thick liquids
(2) Aspiration precautions: sit upright, slow rate
(3) Meds whole in puree or whole with mildly thick liquids
(4) Allow sips of water between meals after oral care given supervision
Activity: With assistance and With Walker
Driving Restrictions: No driving
Bathing Restrictions: None
Blood Work: repeat CBC and BMP in 1 week of discharge.
Others Tests: Chest x-ray 4 to 6 weeks.
Other Services: PT, OT and ST
Specialty Instructions: Weigh Daily- Call MD for wt gain/loss 3 lbs overnight/5 lbs in 1 week
Activity Restrictions/Additional Instructions:
Follow up with primary care provider in 1 week of discharge.
Augmentin prescribed for 1 more dose Evening 06/11/24 to complete treatment for suspected urinary tract infection.
Please take medications as prescribed/recommended and follow up with primary care provider and/or other healthcare provider involved in your care for refills and/or further adjustment to your medication regimen as necessary.
Referrals:
Joni Valenzuela MD [Family Provider] - in one week
Prescriptions:
New
amoxicillin-pot clavulanate 875-125 mg Tablet
1 tab PO Q12 Qty: 1 0RF
Rx Instructions:
Last dose evening 06/11 for UTI
lidocaine 4 % Adhesive Patch,Medicated
1 patch topical DAILY 5 Days Qty: 5 0RF
Rx Instructions:
back of neck
Continued
donepezil 5 mg Tablet
5 mg PO HS
carbidopa-levodopa 25-100 mg Tablet Extended Release
1 tab PO BID@0800,1800
timolol 0.5 % Drops
1 drp BOTH EYES DAILY
furosemide 40 mg Tablet
40 mg PO DAILY 30 Days Qty: 30 0RF
acetaminophen 650 mg Tablet Extended Release
650 mg PO BID@0800,1800
Align 4 mg Capsule
4 mg PO DAILY
metoprolol succinate 50 mg tablet extended release 24 hr
50 mg PO BID@0800,1800
Eliquis 2.5 mg tablet
2.5 mg PO BID@0800,1800
docusate sodium [Colace] 100 mg Capsule
100 mg PO BID@0800,1800
Discharge Orders:
Discharge Patient (As Directed); Ordered 06/11/24
Ordered By: Rachael Aguirre
Discharge Date and Time
Print Language: NAURUAN
[2024-06-11 14:00] VITALS: BP 110/62
--- NOTE | 2024-06-11 14:27 | PTCARENOTE ---
Report attempted to be called to [facility]. Left voicemail message with contact information to return call. Ambulance transport set for 1800 today.
[2024-06-11 15:00] VITALS: BP 105/63
--- NOTE | 2024-06-11 15:12 | PTCARENOTE ---
Addendum entered by Ashley Benson RN 06/11/24 19:23:
Patient left via ambulance on stretcher. Discharge packet given to ambulance crew.
Original Note:
Report called to TAMARA Wood at [facility]. Peripheral IV removed. 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
--- NOTE | 2024-06-11 15:57 | CM ---
Inna is cleared for discharge to [facility] today. 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
contacted Inna' to make him aware. IMM reviewed via telephone, as he will be meeting Inna at [facility], rather than coming to the hospital.
Plan: Discharge to [facility] via ambulance today at 6PM.
[place] Report:[phone]
[place]
== END 2024-06-11 18:46 | DRG 871 ==
LOC: 4 EAST ACU 23:13
PROVIDERS: Emergency Medicine; Nurse Practitioner Family; ADMITTING PHYSICIAN Hospitalist; ATTENDING PHYSICIAN Internal Medicine; EMERGENCY PHYSICIAN Emergency Medicine; FAMILY PHYSICIAN Family Medicine
DX: A41.9 Sepsis, unspecified organism (principal); G92.8 Other toxic encephalopathy; J18.9 Pneumonia, unspecified organism; J69.0 Pneumonitis due to inhalation of food and vomit; I50.32 Chronic diastolic (congestive) heart failure; N17.9 Acute kidney failure, unspecified; N39.0 Urinary tract infection, site not specified; I11.0 Hypertensive heart disease with heart failure; G20.A1 Parkinson's disease without dyskinesia, without mention of fluctuations; D64.9 Anemia, unspecified; F02.80 Dementia in other diseases classified elsewhere, unspecified severity, without behavioral disturbance, psychotic disturbance, mood disturbance, and anxiety; B96.20 Unspecified Escherichia coli [E. coli] as the cause of diseases classified elsewhere; H40.9 Unspecified glaucoma; I25.10 Atherosclerotic heart disease of native coronary artery without angina pectoris; I48.91 Unspecified atrial fibrillation; K21.9 Gastro-esophageal reflux disease without esophagitis; Z79.01 Long term (current) use of anticoagulants; Z79.899 Other long term (current) drug therapy; Z86.79 Personal history of other diseases of the circulatory system; Z85.038 Personal history of other malignant neoplasm of large intestine; Z90.710 Acquired absence of both cervix and uterus
CPT/HCPCS: 70450; 71046; 74230; 80048; 80053; 81003; 81015; 82805; 83605; 83735; 84100; 85025; 85027; 87040; 87070; 87077; 87086; 87186; 87502; 87811; 92526; 92610; 92611; 93005; 96374; 96375; 97166; 97530; 97535; 99285

== ENCOUNTER → 2024-07-08 13:39 | Outpatient (REF) | payer OTHER, SELFPAY | LOC: RAD 13:39 | PROVIDERS: ATTENDING PHYSICIAN Family Medicine; FAMILY PHYSICIAN Family Medicine | DX: J18.9 Pneumonia, unspecified organism (principal) | CPT/HCPCS: 71046 ==

== ENCOUNTER 2024-08-26 18:39 | Inpatient (IN) | payer OTHER, SELFPAY ==
[2024-08-26] VITALS (9 sets, daily range): BP systolic 89–139; BP diastolic 59–91; BMI 16.8; BMI 17.9
--- NOTE | 2024-08-26 15:48 | ED.GENMED ---
ED Provider Triage
<Mariaelena Reyes PA-C - Last Filed: 08/26/24 15:51>
-
Patient seen by provider in Triage?: Seen in Triage
A medical screening examination has been initiated by a qualified medical provider. Based on the assessment performed at this time, it has been determined that an emergent medical condition may exist and the patient has been informed that further
medical evaluation and possible additional diagnostic testing may be needed.
HPI: This is a medical evaluation conducted in person to initiate diagnostic evaluation and provide initial therapeutics. Please see further documentation by the treating clinician.
GENERAL: Alert , in no apparent distress
Parkinson's facies
No signs of head trauma
No cervical tenderness
ENT: No visible abnormalities
LUNGS: No acute respiratory distress
NEUROLOGICAL: Alert and oriented
SKIN: Skin intact. No visible changes.
MUSCULOSKELETAL: Patient's left femur is nontender and there is no deformity but she seemingly has difficulty actively flexing her left knee and had some pain in her femur when I passively range the hip
PSYCH: Parkinson's
88-year-old female with history of A-fib on Eliquis, history of Parkinson's, uses a cane or walker at baseline had a fall that was unwitnessed by her . Patient says she got up from seated position and turned and landed on the ground. She
says that she does not believe that she got dizzy but she cannot be sure. She denies that she hit her head. She was complaining of left femur pain and was unable to get up from the floor so her called 911 and they came via EMS. She has no
change to her baseline mental status, no complaints of a headache and no signs of head trauma. She does have some limited painful range of motion of her left hip and complains of pain in her femur but there is no deformity. Will place her in for
labs, head CT, and x-rays
But I do anticipate this fall was mechanical as she did not have her cane with her when she fell
History of Present Illness
<Mariaelena Reyes PA-C - Last Filed: 08/26/24 15:51>
General
Chief Complaint: Fall
Time Seen by Provider: 08/26/24 16:21
<Nader Santiago MD - Last Filed: 08/26/24 20:46>
General
Source: patient, spouse and family
Exam Limitations: none
Nursing documentation reviewed up to this point in time: agreed with
History of Present Illness
History of Present Illness:
88-year-old female with a past medical history of Parkinson's, atrial fibrillation on Eliquis, GERD who presents to the ER with her and son for evaluation after fall. Patient was apparently walking around at home and lost her balance and
fell down and injured her left leg. She has significant pain in her left hip. She is unsure whether she hit her head. She says she did not lose consciousness. She says she has chronic neck pain unchanged. She denies any back pain. She denies
any chest/rib pain or abdominal pain. She denies any pain in her upper extremities. No nausea or vomiting. She is on Eliquis as above.
Past History
<Mariaelena Reyes PA-C - Last Filed: 08/26/24 15:51>
Past History
ED Past Medical History: Arrthythmia (SVT and PVC's), Cancer (Colon, Skin CA), GERD and Other (Parkinson's, Glaucoma, Anemia)
ED Past Surgical History: Bowel resection (Colon resection due to CA) and Gynecological (Hysterectomy due to CA, )
Social History
Tobacco: Non-smoker
Alcohol: None
Drug: None
Personal:
Living: with family
Employment: Retired
Family History
Family History: Negative Diabetes, Hypertension or CAD
Review of Systems
<Nader Santiago MD - Last Filed: 08/26/24 20:46>
Review of Systems
All Other Systems: ROS reviewed and negative except as documented in HPI and ROS
Constitutional: Denies fever
Respiratory: Denies cough or trouble breathing
Cardiac: Denies chest pain
ABD/GI: Denies abdominal pain, nausea or vomiting
: Denies flank pain
Musculoskeletal: Reports joint pain and neck pain (Chronic); Denies back pain
Neurological: Denies dizzy or headache
Phy Exam
<Nader Santiago MD - Last Filed: 08/26/24 20:46>
Physical Exam
Physical Exam:
General: Awake, alert, chronically ill-appearing and cachectic/frail; no acute distress
Head: Normocephalic, atraumatic
Eyes: Conjunctiva normal, pupils equal round and reactive to light bilaterally
Throat: Airway intact, handling secretions
Neck: Trachea midline, no midline cervical spine tender
Back: No signs of trauma to the back or flank, no tenderness in the thoracic or lumbar spine
Lungs: Clear to auscultation bilaterally, no wheezing, rales, rhonchi
Heart: Regular rate and rhythm, no murmurs, gallops, or rubs; no chest wall tenderness
Abd: Soft, non distended, nontender
Neuro: No gross deficit
Skin: no rash
Extremities: Left lower extremity is somewhat shortened, pain with attempts at passive internal/external rotation of the hip; right lower extremity atraumatic, upper extremities atraumatic; she has good pulses in all extremities
Scores
<Nader Santiago MD - Last Filed: 08/26/24 20:46>
Heart Failure Risk
Heart Failure Risk Score: Not Applicable
Heart Score for Chest Pain Patients
STEMI patient?: Not applicable
Withdrawal Assessment of Alcohol
Withdrawal Assessment Completed?: Not applicable
Course
<Mariaelena Reyes PA-C - Last Filed: 08/26/24 15:51>
Orders/Labs/Results
Orders:
Orders
08/26/24 Dinner
Cholesterol Lowering
Cholesterol Lowering: Sodium, 2 Gram
08/26/24 15:44
CR Femur - Left Min 2 Vw Urgent
Comment:
Reason For Exam: left femur pain
Hip, Left 2-3 Views [CR Hip - LT w/wo Pel 2-3 Vw*] Urgent
Comment:
Reason For Exam: left hip pain, fall
Include a pelvis x-ray?: Yes
08/26/24 15:45
CT Head W/o Iv Contrast Urgent
Comment:
Reason For Exam: fall on eliquis,
08/26/24 15:46
Electrocardiogram (*1) Urgent
Reason for Study: Fatigue / Weakness
EKG- Treatment ONCE
08/26/24 16:00
Complete Blood Count/With Diff Urgent
Comprehensive Metabolic Panel Urgent
08/26/24 16:46
CT Cervical Spine W/o Iv Contr Urgent
Comment:
Reason For Exam: unwitnessed fall,neck pain
08/26/24 16:47
Acetaminophen 1000MG/100Ml [Ofirmev] 1,000 mg in 100 ml IV ONCE
Acetaminophen IV Indication:: ED Narcotic Naive Pt-ONCE
08/26/24 16:49
ORTHOPEDIC CONSULT Urgent
Consulting Provider: Samir Somers
Was physician already notified: Yes
08/26/24 17:[address] Pelvis W/o Iv Contrast IN AM
Comment:
Reason For Exam: hip fx, left
08/26/24 18:15
Admit/Transfer Patient As Directed
Co-Sign Provider:
Level of Care: Inpatient admission
Assign to:: Telemetry
Physician / Group: dhaval
Diagnosis: hip fracture
Reason for Telemetry: Arrhythmia
Date to Stop Telemetry: 08/29/24
Time to Stop Telemetry: 11:00
Reason for Hospitalization: hip fracture
Expected length of stay greater than two midnights?: Yes
ELOS- Estimated Length of Stay in days: 2
I certify the patient meets the requirements for IP care: Yes
08/26/24 18:16
Code Status As Directed
Resuscitation Status: Do not resuscitate
Reached after discussion with pt or family/Healthcare POA: Yes
PRN Pain Medication Management As Directed
May give lesser potent ordered pain med per pt: Yes
preference::
Protocol:: Medication orders for pain may be administered in a
manner that supports deferring to patient preference
when the pt is:
- Requesting an ordered lesser potent pain medication.
Least to most potent pain medications are defined
as: acetaminophen < NSAID < tramadol < opioids
(morphine, oxycodone, hydromorphone).
- Requesting a lesser dose of the same medication IF
ORDERED.
- Requesting a less intrusive route of administration
if both routes are prescribed by the provider (PO <
IV).
08/26/24 18:17
DNR Bracelet Application ONCE
08/26/24 20:26
Docusate Sodium [Colace] 100 mg PO BIDPRN PRN
Metoprolol Xl [Toprol Xl] 50 mg PO BID
08/26/24 20:26
Activity As Directed
Activity Level: As Tolerated
Pneumatic Compression Sleeves As Directed
Type: Knee high
Vital Signs As Directed
Frequency: Per unit guidelines
DX Deep Vein Thrombosis Video Routine
08/26/24 22:00
Donepezil [Aricept] 5 mg PO HS
08/26/24 23:00
Acetaminophen [Tylenol] 650 mg PO Q4HPRN PRN
08/27/24 Breakfast
NPO
Allow oral meds: Yes
Allow clear liquids: Sips of Clears
Complete Blood Count/With Diff IN AM
Comprehensive Metabolic Panel IN AM
08/27/24 08:00
Carbidopa/Levodopa Cr [Sinemet Cr 25-100 (Extended Release)] 1 tablet PO BID@0800,1800
Furosemide [Lasix] 40 mg PO DAILY
Lactobac/Bifidobac [Visbiome] 1 cap PO DAILY
Timolol Maleate 0.5% [Timoptic 0.5% Ophthalmic Solution] See Dose Instructions BOTH EYES DAILY
08/29/24 11:00
DC Protocol for Telemetry ONCE
Abnormal Lab Results
08/26/24
16:00
WBC 3.7 L 10^3/uL
(4.8-10.8)
MCHC 32.7 L g/dL
(33.0-37.0)
Abs Immat Gran (auto) 0.1 H 10^3/uL
(0-0.05)
Absolute Lymphs (auto) 1.0 L 10^3/uL
(1.2-3.4)
Immature Gran % 2.2 H %
(0-0.5)
Monocytes % 12.2 H %
(1.7-9.3)
Chloride 97 L mmol/L
(98-107)
Carbon Dioxide 31 H mmol/L
(22-30)
BUN 31 H mg/dl
(7-17)
Glucose 185 H mg/dl
(70-99)
AST 49 H U/L
(14-36)
ALT 39 H U/L
(0-35)
08/26/24 16:00
08/26/24 16:00
Vital Signs
Initial and Last Documented VS:
Initial Vital Signs
Temp Pulse Resp BP Pulse Ox
37.1 C 73 20 91/66 95
08/26/24 15:39 08/26/24 15:39 08/26/24 15:39 08/26/24 15:39 08/26/24 15:39
Last Documented Vital Signs
Temp Pulse Resp BP Pulse Ox
37.1 C 112 22 92/59 96
08/26/24 15:39 08/26/24 19:49 08/26/24 19:45 08/26/24 19:49 08/26/24 19:45
<Nader Santiago MD - Last Filed: 08/26/24 20:46>
Orders/Labs/Results
Orders:
Orders
08/26/24 Dinner
Cholesterol Lowering
Cholesterol Lowering: Sodium, 2 Gram
08/26/24 15:44
CR Femur - Left Min 2 Vw Urgent
Comment:
Reason For Exam: left femur pain
Hip, Left 2-3 Views [CR Hip - LT w/wo Pel 2-3 Vw*] Urgent
Comment:
Reason For Exam: left hip pain, fall
Include a pelvis x-ray?: Yes
08/26/24 15:45
CT Head W/o Iv Contrast Urgent
Comment:
Reason For Exam: fall on eliquis,
08/26/24 15:46
Electrocardiogram (*1) Urgent
Reason for Study: Fatigue / Weakness
EKG- Treatment ONCE
08/26/24 16:00
Complete Blood Count/With Diff Urgent
Comprehensive Metabolic Panel Urgent
08/26/24 16:46
[address] Cervical Spine W/o Iv Contr Urgent
Comment:
Reason For Exam: unwitnessed fall,neck pain
08/26/24 16:47
Acetaminophen 1000MG/100Ml [Ofirmev] 1,000 mg in 100 ml IV ONCE
Acetaminophen IV Indication:: ED Narcotic Naive Pt-ONCE
08/26/24 16:49
ORTHOPEDIC CONSULT Urgent
Consulting Provider: Samir Somers
Was physician already notified: Yes
08/26/24 17:02
CT Pelvis W/o Iv Contrast IN AM
Comment:
Reason For Exam: hip fx, left
08/26/24 18:15
Admit/Transfer Patient As Directed
Co-Sign Provider:
Level of Care: Inpatient admission
Assign to:: Telemetry
Physician / Group: dhaval
Diagnosis: hip fracture
Reason for Telemetry: Arrhythmia
Date to Stop Telemetry: 08/29/24
Time to Stop Telemetry: 11:00
Reason for Hospitalization: hip fracture
Expected length of stay greater than two midnights?: Yes
ELOS- Estimated Length of Stay in days: 2
I certify the patient meets the requirements for IP care: Yes
08/26/24 18:16
Code Status As Directed
Resuscitation Status: Do not resuscitate
Reached after discussion with pt or family/Healthcare POA: Yes
PRN Pain Medication Management As Directed
May give lesser potent ordered pain med per pt: Yes
preference::
Protocol:: Medication orders for pain may be administered in a
manner that supports deferring to patient preference
when the pt is:
- Requesting an ordered lesser potent pain medication.
Least to most potent pain medications are defined
as: acetaminophen < NSAID < tramadol < opioids
(morphine, oxycodone, hydromorphone).
- Requesting a lesser dose of the same medication IF
ORDERED.
- Requesting a less intrusive route of administration
if both routes are prescribed by the provider (PO <
IV).
08/26/24 18:17
DNR Bracelet Application ONCE
08/26/24 20:26
Docusate Sodium [Colace] 100 mg PO BIDPRN PRN
Metoprolol Xl [Toprol Xl] 50 mg PO BID
08/26/24 20:26
Activity As Directed
Activity Level: As Tolerated
Pneumatic Compression Sleeves As Directed
Type: Knee high
Vital Signs As Directed
Frequency: Per unit guidelines
DX Deep Vein Thrombosis Video Routine
08/26/24 22:00
Donepezil [Aricept] 5 mg PO HS
08/26/24 23:00
Acetaminophen [Tylenol] 650 mg PO Q4HPRN PRN
08/27/24 Breakfast
NPO
Allow oral meds: Yes
Allow clear liquids: Sips of Clears
Complete Blood Count/With Diff IN AM
Comprehensive Metabolic Panel IN AM
08/27/24 08:00
Carbidopa/Levodopa Cr [Sinemet Cr 25-100 (Extended Release)] 1 tablet PO BID@0800,1800
Furosemide [Lasix] 40 mg PO DAILY
Lactobac/Bifidobac [Visbiome] 1 cap PO DAILY
Timolol Maleate 0.5% [Timoptic 0.5% Ophthalmic Solution] See Dose Instructions BOTH EYES DAILY
08/29/24 11:00
DC Protocol for Telemetry ONCE
Abnormal Lab Results
08/26/24
16:00
WBC 3.7 L 10^3/uL
(4.8-10.8)
MCHC 32.7 L g/dL
(33.0-37.0)
Abs Immat Gran (auto) 0.1 H 10^3/uL
(0-0.05)
Absolute Lymphs (auto) 1.0 L 10^3/uL
(1.2-3.4)
Immature Gran % 2.2 H %
(0-0.5)
Monocytes % 12.2 H %
(1.7-9.3)
Chloride 97 L mmol/L
(98-107)
Carbon Dioxide 31 H mmol/L
(22-30)
BUN 31 H mg/dl
(7-17)
Glucose 185 H mg/dl
(70-99)
AST 49 H U/L
(14-36)
ALT 39 H U/L
(0-35)
08/26/24 16:00
08/26/24 16:00
Vital Signs
Initial and Last Documented VS:
Initial Vital Signs
Temp Pulse Resp BP Pulse Ox
37.1 C 73 20 91/66 95
08/26/24 15:39 08/26/24 15:39 08/26/24 15:39 08/26/24 15:39 08/26/24 15:39
Last Documented Vital Signs
Temp Pulse Resp BP Pulse Ox
37.1 C 112 22 92/59 96
08/26/24 15:39 08/26/24 19:49 08/26/24 19:45 08/26/24 19:49 08/26/24 19:45
<Nader Santiago MD - Last Filed: 08/26/24 20:46>
MDM/Problems Addressed
Differential Diagnosis Includes:
Hip fracture, hip dislocation; must rule out traumatic head and cervical spine injury as well (C-spine fracture, subdural, subarachnoid, etc)
MDM/Problems Addressed:
88-year-old female presents to the ER after mechanical fall. She said she had minor head strike no LOC. Chronic neck pain unchanged. Main complaint is left hip pain. Vitals and exam as above. Concern based on exam for hip fracture. Will send
labs including a CBC and a CMP. Check x-ray of the hip. Check CT head and cervical spine. Reassess after the above.
Labs reviewed: CBC and CMP show only marginally elevated BUN to creatinine ratio but otherwise unremarkable. X-ray of the hip reviewed by me shows fracture subcapital. CT head and cervical spine negative for any acute pathology. Case discussed
with orthopedics for consultation. Case discussed with hospitalist for admission.
After initial admission I was called by the nurse to check on the patient because her heart rate increased to the 120s and her pulse ox was low normal. Lungs sound clear. She is awake and alert asymptomatic. Called for an EKG which shows A-fib
with RVR rate of 120. Order placed by me for chest x-ray which shows no acute pathology on my review. Blood pressure somewhat soft we will treat with Lopressor and provide some supplemental fluids. Updated hospitalist.
Chronic conditions affecting care:
Atrial fibrillation on Eliquis, Parkinson's and chronic gait dysfunction
Acute Exacerbation and/or Progression of Chronic Illness:
Acute exacerbation of chronic A-fib managed as above
Acute Exacerbation and/or Progression of Chronic Illness: Arrhythmia
<Nader Santiago MD - Last Filed: 08/26/24 20:46>
*Radiology
Radiology exam reviewed: preliminary read by ED provider and radiology read reviewed
*Pulse Oximetry
Patient hypoxic: no
*EKG
Interpreted by ED Provider?: Yes
Heart Rate: 132
Rate: tachycardiac
Rhythm: a-fib
[place]: left axis deviation
QRS Pattern: right bundle branch block (Incomplete)
Ischemia: non-specific ST changes
*Critical Care Note
Total Time (30-74mins, 75-104mins- exclusive of procedures): Not Applicable
Data Reviewed
Review of Other/Old Records Reveals: Labs and Records
Source: patient, records, spouse and family
<Nader Santiago MD - Last Filed: 08/26/24 20:46>
Patient Management
Discussion with other providers: Hospitalist (Discussed with hospitalist), Security System Engineer (Discussed with orthopedist) and Radiologist ( discussed with radiologist)
Escalation/DeEscalation of care consider admission/obs:
Admission indicated
ED Attending Note
<Mariaelena Reyes PA-C - Last Filed: 08/26/24 15:51>
-
Portions of this chart may have been created with voice recognition software.� Occasional wrong word or��sound alike� substitutions may have occurred due to the inherent limitations of voice recognition software.
Discharge Plan
Departure
Patient Disposition: Admit
Date of Disposition: 08/26/24
Time of Disposition: 17:38
Admit to doctor: Dhaval
Presentation/result/management discussed w/ accepting MD/DO: Hospitalist
Discharge Problem:
Fracture of left hip, Atrial fibrillation with RVR
Interventions
Interventions:
*Risk Screen - Suicide Last Done: 08/26/24 15:39
*General Assessment Last Done: 08/26/24 15:39
*Neglect/Abuse Screening Last Done: 08/26/24 15:39
*ED COVID-19 Vaccine History Last Done: 08/26/24 16:47
*Nursing Disposition Last Done: 08/26/24 20:31
ED-Musculoskeletal Assessment Last Done: 08/26/24 17:25
ED- Neurological Assessment Last Done: 08/26/24 17:25
Discharge Date and Time
Discharge Date/Time: 08/26/24 20:32
[2024-08-26 16:20] LABS: % Basophils 0.3 % (0-2); % Immature Granulocytes 2.2 % (0-0.5); % Lymphocytes 27.8 % (20.5-51.1); % Monocytes 12.2 % (1.7-9.3); % Neutrophils 57.5 % (42.2-75.2); Absolute Immature Granulocytes 0.1 10^3/uL (0-0.05); Absolute Monocytes 0.5 10^3/uL (0.1-0.6); Absolute Neutrophils 2.1 10^3/uL (1.4-6.5); Hematocrit 41.3 % (37.0-47.0); Hemoglobin 13.5 g/dL (12.0-16.0); Mean Corp Hgb Conc. 32.7 g/dL (33.0-37.0); Mean Corpuscular Hgb 30.5 pg (27.0-31.0); Mean Corpuscular Volume 93.4 fL (81.0-99.0); Mean Platelet Volume 10.4 fL (7.4-10.4); Nucleated Red Blood Cells % 0 %; Platelet Count 152 10^3/uL (130-400); Red Blood Cell Count 4.42 10^6/uL (4.20-5.40); Red Cell Dist. Width 14.2 % (11.5-14.5); White Blood Cell Count 3.7 10^3/uL (4.8-10.8)
[2024-08-26 16:34] LABS: ALT (SGPT) 39 U/L (0-35); AST (SGOT) 49 U/L (14-36); Albumin 4.5 g/dl (3.5-5.0); Alkaline Phosphatase 77 U/L (38-126); Blood Urea Nitrogen 31 mg/dl (7-17); Calcium 9.6 mg/dl (8.4-10.2); Carbon Dioxide 31 mmol/L (22-30); Chloride 97 mmol/L (98-107); Glucose 185 mg/dl (70-99); Potassium 4.1 mmol/L (3.5-5.1); Sodium 136 mmol/L (135-145); Total Protein 6.5 g/dl (6.3-8.2); eGFR > 60.00
[2024-08-26] MEDS: OFIRMEV 100 IV (17:19)
--- NOTE | 2024-08-26 18:21 | HPS.HSE ---
Addendum entered and electronically signed by Ana Mims MD 08/26/24 20:58:
Checked CXR and EKG due to Hypotension and Afib with RVR.
Chest x-ray shows cardiomegaly. EKG shows atrial fibrillation with heart rate of 123.
Patient given IV fluid bolus and Lopressor dose with improvement in blood pressure 113/74 heart rate down to 107.
Original Note:
Family Physician
-
Family Physician: Joni Valenzuela
Chief Complaint
-
fall
History of Present Illness
88-year-old female past medical history of atrial fibrillation on Eliquis, Parkinson's disease, dementia, hypertension, chronic HFpEF, chronic anemia, glucoma, colon cancer status post colon resection, endometrial cancer status post hysterectomy,
presenting with fall. She uses a cane and walker at baseline and had a fall that was unwitnessed by her . She got up from a seated position turned and landed on the ground. She denies dizziness but not sure. She denies hitting head. She
complains of left hip pain and was unable to get up from the floor. No change in mental status. No headache or head trauma.
Patient saw her security strategist Dr. Merino this morning.
No fevers or chills or cough or urinary symptoms or nausea vomiting or diarrhea at this time. She has recently been in good health.
Her blood pressure normally runs low sometimes below 100 systolic. She denies any recent chest pain or shortness of breath or dizziness. She has been quite functional recently.
Denies smoking or alcohol use.
She last took Eliquis this morning.
Medical History
Past Medical History
Past Medical History: Reports Other (atrial fibrillation on Eliquis, Parkinson's disease, dementia, hypertension, chronic HFpEF, chronic anemia, glucoma, colon cancer status post colon resection, endometrial cancer status post hysterectomy,)
Past Surgical History: Reports Other (owel resection (Colon resection due to CA) and Gynecological (Hysterectomy due to CA, ))
Social History
Tobacco: Non-smoker
Alcohol: None
Drug: None
Family History
Family History: Not pertinent
Allergies / Home Medications
Allergies reflects when Allergies were last updated in [facility].
Home Medications with original date entered in [facility]
Allergy/Medication List:
Allergies
Allergy/AdvReac Type Severity Reaction Status Date / Time
morphine Allergy Severe slight rash Verified 08/26/24 15:44
Home Medications
carbidopa ER 25 mg-levodopa 100 mg tablet,extended release 1 tab PO BID@0800,1800 parkinsons disease 03/29/24
donepezil 5 mg tablet 5 mg PO HS Neurological Condition 03/29/24
timolol 0.5 % eye drops 1 drp BOTH EYES DAILY Eye Condition 03/29/24
furosemide 40 mg tablet 40 mg PO DAILY Heart Failure 1 month #30 tabs 04/03/24
Bifidobacterium infantis 4 mg capsule (Align (B.infantis)) 4 mg PO DAILY probiotic 06/04/24
acetaminophen 650 mg tablet,extended release 650 mg PO BID@0800,1800 pain 06/04/24
apixaban 2.5 mg tablet (Eliquis) 2.5 mg PO BID@0800,1800 Blood clot prevention/tx 06/04/24
docusate sodium 100 mg capsule (Colace) 100 mg PO BIDPRN PRN constipation 06/04/24
metoprolol succinate 50 mg tablet,extended release 24 hr 50 mg PO BID Blood Pressure 06/04/24
Review of Systems
-
History Source: Patient
A 12 point ROS was completed and negative except as noted: Yes
Constitutional: Reports No Symptoms
EENT: Reports No Symptoms
Respiratory: Reports No Symptoms
Cardiac: Reports No Symptoms
Abdomen/GI: Reports No Symptoms
: Reports No Symptoms
Musculoskeletal: Reports No Symptoms
Skin: Reports No Symptoms
Neurological: Reports No Symptoms
Endocrine: Reports No Symptoms
Hematologic/Lymphatic: Reports No Symptoms
Psych: Reports No Symptoms
Physical Exam
Vital Signs
Vital Signs
Temp Pulse Resp BP Pulse Ox
98.7 F 73 20 91/66 95
08/26/24 15:39 08/26/24 15:39 08/26/24 15:39 08/26/24 15:39 08/26/24 15:39
Physical Exam
General: Well Developed, Well Nourished and No Apparent Distress
HEENT: NormoCephalic, Moist mucous membranes and Atraumatic
Respiratory: Clear
Cardiac: S1/S2 and Regular Rhythm; No Murmur or Rub
GI: Soft, Non Tender, Non Distended and Normal Bowel Sounds; No Organomegaly
Rectal: Deferred by Provider
Musculoskeletal: No Clubbing, No Cyanosis and No Edema
Skin: No Rash
Neuro: Nonfocal/grossly intact
Laboratory Results
-
08/26/24 16:00
08/26/24 16:00
Laboratory Results
Total Bilirubin 1.0 mg/dl (0.2-1.3) 08/26/24 16:00
AST 49 U/L (14-36) H 08/26/24 16:00
ALT 39 U/L (0-35) H 08/26/24 16:00
Alkaline Phosphatase 77 U/L (38-126) 08/26/24 16:00
Data Reviewed
-
Lab Data: Labs Reviewed by me
Old Records: Reviewed
Impression/Plan
-
IMPRESSION:
PLAN:
# Mechanical fall resulting in left hip fracture
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
-Patient has neck collar
-Pelvic CT scan pending
-Hold Eliquis
-Ortho consulted
-Tylenol
-Avoid Dilaudid for now given chronic low blood pressure
-N.p.o. past midnight
Permanent atrial fibrillation
-Hold Eliquis
-Continue metoprolol
Chronic hypotension
-Blood pressure 90s
-Monitor blood pressure
Parkinson's disease
-Continue carbidopa-levodopa
Dementia
-Continue donepezil
Essential hypertension
Chronic HFpEF
-Continue Lasix and metoprolol if systolic blood pressure greater than 100
Chronic anemia
Glaucoma
-Continue eyedrops
Colon cancer status post colon resection
Endometrial cancer status post hysterectomy
Chronic mild transaminitis
-Stable
DNR/DNI
DVT prophylaxis-SCDs
N.p.o. past midnight
[2024-08-26] MEDS: LOPRESSOR 5 MG IV (19:49)
[2024-08-26] MEDS: NSS 500 IV (19:50)
[2024-08-26] MEDS: TOPROL XL 50 MG PO (22:04)
[2024-08-26] MEDS: ARICEPT 5 MG PO (22:04)
[2024-08-27 03:00] VITALS: BP 132/89
[2024-08-27 06:00] VITALS: BMI 17.9
[2024-08-27 06:55] LABS: ALT (SGPT) 64 U/L (0-35); AST (SGOT) 58 U/L (14-36); Albumin 3.9 g/dl (3.5-5.0); Alkaline Phosphatase 78 U/L (38-126); Blood Urea Nitrogen 32 mg/dl (7-17); Calcium 9.2 mg/dl (8.4-10.2); Carbon Dioxide 24 mmol/L (22-30); Chloride 102 mmol/L (98-107); Estimated Creatinine Clearance 42 ml/min; Glucose 111 mg/dl (70-99); Sodium 137 mmol/L (135-145); Total Protein 5.8 g/dl (6.3-8.2); eGFR > 60.00
[2024-08-27 06:57] VITALS: BP 128/84
--- NOTE | 2024-08-27 07:21 | CON.CAR ---
Addendum entered and electronically signed by Jamee Yan MD 08/27/24 14:30:
I saw and examined the patient.
The Day Care Attendant's note was reviewed and I agree with the note.
Comment: No complaints. Patient with dementia. Appears comfortable in the bed. Remains with rapid atrial fibrillation. To try to improve rate control Toprol was changed to Lopressor 25 every 6 hours. Continue to follow heart rate and watch
blood pressure which remains on the low side without symptoms. Eliquis 2.5 mg twice daily remains on hold until surgical intervention and then would resume postprocedure once hemostasis is achieved.
-Continue to monitor telemetry
-Lopressor started and Toprol-XL held for now.
-Follow blood pressure and heart rate
-Eliquis on hold, resume postop
-Continue usual care per orthopedics awaiting surgery for fall and left hip fracture
-EKG otherwise without acute abnormality.
Patient is at moderate but acceptable cardiovascular risk to proceed with upcoming hip surgery.
Original Note:
Consultation
Consultation Request
Date/Time Consultation Requested: 08/26/24 at 2341
Date/Time Consultation Performed: 08/27/24 at 0723
Requesting Provider: Dr. Armas
Performing Provider: Dr. Jamee Yan
Reason for Consultation: Permanent Afib with RVR, pre-operative risk factor stratification
Medical History
-
History of Present Illness:
Patient came to ER yesterday after an unwitnessed fall at home while admitted with left hip fracture and cardiology has been consulted for rapid A-fib and preoperative cardiovascular risk factor stratification. Patient knows that she is in and
that she has a broken hip from a fall last night, but cannot remember if she tripped, lost her balance or passed out. The fall was unwitnessed. Patient was found to have a left hip fracture and is now recommended operative repair. Patient was
admitted 03/29/24 until 04/03/24 with new Afib and acute HF. Patient is managed as permanent Afib and HR controlled with Toprol XL 50 mg BID. There was discussion with patient's family during the 03/2024 admission about appropriateness of OAC and it
was felt that patient was in a monitored setting so patient was started on Eliquis Eliquis 2.5 mg BID (age 88, Cre 0.7 and wt 45.8 kg). Patient was seen in the office yesterday, 08/26/2024, and overall appears well and there were no reported falls
at home. There was concern at the OV however that the HRs were not optimally controlled and HR in the office was 114. Her dose of Toprol-XL was not increased due to reported history of difficulty with higher dose of beta-fili, but it is not
clear what that difficulty was. No reports of chest pain at home.
PMH:
Permanent Afib
Chronic Eliquis OAC
Chronic HFpEF
Thrombocytopenia
Dementia
Parkinson's disease
Past Medical History
Past Medical History: Other (in HPI)
Past Surgical History: Bowel Resection (colon cancer) and Gynecological (hysterectomy for endometrial cancer)
Social History
Tobacco: Non-Smoker
Alcohol: None
Drug: None
Personal:
Living: With Family
Family History
Family History: Reviewed & Not Pertinent
Allergies / Home Medications
Allergy/AdvReac Type Severity Reaction Status Date / Time
morphine Allergy Severe slight rash Verified 08/26/24 15:44
�Medication �Instructions �Recorded �Confirmed �Type
carbidopa ER 25 mg-levodopa 100 mg 1 tab PO BID@0800,1800 parkinsons 03/29/24 08/26/24 History
tablet,extended release disease
donepezil 5 mg tablet 5 mg PO HS Neurological Condition 03/29/24 08/26/24 History
timolol 0.5 % eye drops 1 drp BOTH EYES DAILY Eye Condition 03/29/24 08/26/24 History
furosemide 40 mg tablet 40 mg PO DAILY Heart Failure 1 04/03/24 08/26/24 Rx
month #30 tabs
Bifidobacterium infantis 4 mg 4 mg PO DAILY probiotic 06/04/24 08/26/24 History
capsule (Align (B.infantis))
acetaminophen 650 mg 650 mg PO BID@0800,1800 pain 06/04/24 08/26/24 History
tablet,extended release
apixaban 2.5 mg tablet (Eliquis) 2.5 mg PO BID@0800,1800 Blood clot 06/04/24 08/26/24 History
prevention/tx
docusate sodium 100 mg capsule 100 mg PO BIDPRN PRN constipation 06/04/24 08/26/24 History
(Colace)
metoprolol succinate 50 mg 50 mg PO BID Blood Pressure 06/04/24 08/26/24 History
tablet,extended release 24 hr
Review of Systems
-
History Source: Patient
All other systems: Negative unless noted
Physical Exam
Vital Signs
Temp Pulse Resp BP Pulse Ox
98 F 133 16 128/84 96
08/27/24 06:57 08/27/24 06:57 08/27/24 06:57 08/27/24 06:57 08/27/24 06:57
GEN: NAD. AAO to person, place and situation
HEENT: EOMI, MMM
LUNGS: RA. Clear anterolaterally without wheeze
CV: Afib on tele with increased rate. Irreg irreg, 08/18 [facility]
ABD: +BS, ND, NT, soft
EXT: Trace B/L LE edema. No clubbing, cyanosis or lesions B/L
NEURO: Gross non-focal
SKIN: Warm, dry and pink. No rash
Lab Results
08/27/24 04:31
Impression / Plan
-
PCP: Dr. Joni Foley
Primary flattening machine operator: Dr. Angel Merino
Impression:
Admitted with fall and left hip fracture 08/26/24
Unwitnessed fall
Left hip fracture
Afib with RVR
Permanent Afib
Chronic Eliquis OAC
Chronic HFpEF
Thrombocytopenia
Dementia
Parkinson's disease
Hyperglycemia
Echo 04/29/20: EF 55 to 60%, mild concentric LVH, mild MR, aortic sclerosis with mild eccentric aortic regurgitation, mild TR with PAP 28 mmHg
Echo 03/31/24: EF 55%, MAC, moderate MR, mild AR, moderate TR, PAP 30 mmHg, severely dilated right atrium, enlarged RV size, patient now in A-fib with slightly worsened MR
Plan:
-Patient came to ER yesterday after an unwitnessed fall at home while admitted with left hip fracture and cardiology has been consulted for rapid A-fib and preoperative cardiovascular risk factor stratification. Patient knows that she is in
and that she has a broken hip from a fall last night, but cannot remember if she tripped, lost her balance or passed out. The fall was unwitnessed. Patient was found to have a left hip fracture and is now recommended operative repair. Patient was
admitted 03/29/24 until 04/03/24 with new Afib and acute HF. Patient is managed as permanent Afib and HR controlled with Toprol XL 50 mg BID. There was discussion with patient's family during the 03/2024 admission about appropriateness of OAC and it
was felt that patient was in a monitored setting so patient was started on Eliquis Eliquis 2.5 mg BID (age 88, Cre 0.7 and wt 45.8 kg). Patient was seen in the office yesterday, 08/26/2024, and overall appears well and there were no reported falls
at home. There was concern at the OV however that the HRs were not optimally controlled and HR in the office was 114. Her dose of Toprol-XL was not increased due to reported history of difficulty with higher dose of beta-fili, but it is not
clear what that difficulty was. No reports of chest pain at home.
-ECG reviewed by me shows Afib with RVR and no acute ischemic changes.
-Patient needs hip repair surgery to regain mobility. No unstable symptoms. EF was preserved at echo 03/31/24 and no acute ischemic changes on ECG.
-Afib is permanent and HRs were uncontrolled in the office yesterday and worse now in the setting of hip fracture and pain. Change to Lopressor 25 mg q 6 hours and increase dose as needed for better HR control.
-Eliquis on hold, last dose 08/26/24 AM. Resume Eliquis 2.5 mg BID (age 88, Cre 0.7 and wt 45.8 kg) when safe from a surgical standpoint post-op.
-Plt count 119 today, was 152 yesterday. Patient with h/o thrombocytopenia.
-Patient with h/o chronic HFpEF. Patient was not taking a daily diuretic prior to admission. No evidence of acute HF on CXR. Supine in bed on RA without distress. Watch IVFs and check daily weight.
[2024-08-27 07:32] LABS: % Basophils 0.2 % (0-2); % Eosinophils 0.4 % (0-6); % Immature Granulocytes 1.7 % (0-0.5); % Lymphocytes 15.7 % (20.5-51.1); % Monocytes 17.4 % (1.7-9.3); % Neutrophils 64.6 % (42.2-75.2); Absolute Immature Granulocytes 0.1 10^3/uL (0-0.05); Absolute Lymphocytes 0.8 10^3/uL (1.2-3.4); Absolute Monocytes 0.9 10^3/uL (0.1-0.6); Absolute Neutrophils 3.4 10^3/uL (1.4-6.5); Hemoglobin 12.7 g/dL (12.0-16.0); Mean Corp Hgb Conc. 32.6 g/dL (33.0-37.0); Mean Corpuscular Hgb 29.7 pg (27.0-31.0); Mean Corpuscular Volume 91.1 fL (81.0-99.0); Mean Platelet Volume 10.7 fL (7.4-10.4); Nucleated Red Blood Cells % 0 %; Platelet Count 119 10^3/uL (130-400); Red Blood Cell Count 4.28 10^6/uL (4.20-5.40); Red Cell Dist. Width 14.5 % (11.5-14.5); White Blood Cell Count 5.3 10^3/uL (4.8-10.8)
--- NOTE | 2024-08-27 08:07 | W.PN.UPDATE ---
Documented by User: Slime [place] PA-C 08/27/24 08:12
Update Note
Progress Note Update
Full consult to be dictated.
Patient with left hip femoral neck fracture.
-On Eliquis, so recommend 72 hour wash out.
-Scheduled for CT scan for better surgical planning.
-Plan will be for CRPP vs. hemiarthroplasty vs. VIJAY. Earliest time for OR would be Sunday as last dose of Eliquis yesterday.
-May eat today.
-Cardiology consult pending.

Documented by User: Samir Somers MD 08/27/24 08:40
Update Note
Progress Note Update
Patient seen and evaluated by me. Patient with a impacted left hip femoral neck fracture. CT scan pending. Patient is tentatively for left hip pinning possible prosthesis on September 05 or September 08 pending Eliquis washout and
medical/cardiac clearance. Surgical site has been marked.Full consult to be dictated.
Patient with left hip femoral neck fracture.
-On Eliquis, so recommend 72 hour wash out.
-Scheduled for CT scan for better surgical planning.
-Plan will be for CRPP vs. hemiarthroplasty vs. VIJAY. Earliest time for OR would be Sunday as last dose of Eliquis yesterday.
-May eat today.
-Cardiology consult pending.
[2024-08-27] MEDS: TIMOPTIC 0.5% OPHTHALMIC SOLUTION 1 DROP BOTH EYES (09:28)
[2024-08-27] MEDS: SINEMET CR 25-100 (EXTENDED RELEASE) 1 TABLET PO ×2 (09:30→17:00)
[2024-08-27] MEDS: TOPROL XL 50 MG PO (09:30)
[2024-08-27] MEDS: VISBIOME 1 CAP PO (09:30)
[2024-08-27] MEDS: LASIX 40 MG PO (09:32)
--- NOTE | 2024-08-27 09:51 | CON.ORTHO ---
Consultation
-
Date/Time Consultation Requested: 08/26/2024
Date/Time Consultation Performed: 08/27/2024
Performing Provider: Slime Hill PA-C, for Dr. Samir Somers
Reason for Consultation: Left hip femoral neck fracture
Consultation - Orthopedics
History
HPI: Inna is an 88-year-old female who was brought to [facility] emergency department after sustaining a fall onto her left hip while attempting to stand up from a chair. She landed directly on her left hip and was unable to ambulate
following this. X-rays taken in the emergency department showed evidence of an impacted femoral neck fracture. She does have a history of Parkinson's and dementia, so her history was obtained through chart review and in speaking with her ,
who is also her medical power of business attorney. He reports her baseline confusion has been worsening recently. She does endorse some pain in her left hip at this time, but all appeared comfortable on my examination.
Past medical history: Significant for atrial fibrillation, SVT, PVCs, colon cancer, skin cancer, GERD, Parkinson's, glaucoma, anemia, dementia.
Surgical history: Colon resection secondary to colon cancer, hysterectomy.
Social history: Denies tobacco or alcohol use. Lives with family at home.
Family history: Noncontributory.
Review of systems: Unable to be obtained secondary to dementia
Allergies / Home Medications
Allergy/AdvReac Type Severity Reaction Status Date / Time
morphine Allergy Severe slight rash Verified 08/26/24 15:44
�Medication �Instructions �Recorded
carbidopa ER 25 mg-levodopa 100 mg 1 tab PO BID@0800,1800 parkinsons 03/29/24
tablet,extended release disease
donepezil 5 mg tablet 5 mg PO HS Neurological Condition 03/29/24
timolol 0.5 % eye drops 1 drp BOTH EYES DAILY Eye Condition 03/29/24
furosemide 40 mg tablet 40 mg PO DAILY Heart Failure 1 04/03/24
month #30 tabs
Bifidobacterium infantis 4 mg 4 mg PO DAILY probiotic 06/04/24
capsule (Align (B.infantis))
acetaminophen 650 mg 650 mg PO BID@0800,1800 pain 06/04/24
tablet,extended release
apixaban 2.5 mg tablet (Eliquis) 2.5 mg PO BID@0800,1800 Blood clot 06/04/24
prevention/tx
docusate sodium 100 mg capsule 100 mg PO BIDPRN PRN constipation 06/04/24
(Colace)
metoprolol succinate 50 mg 50 mg PO BID Blood Pressure 06/04/24
tablet,extended release 24 hr
Vital Signs / Lab Results
Temp Pulse Resp BP Pulse Ox
98 F 133 16 128/84 96
08/27/24 06:57 08/27/24 09:30 08/27/24 06:57 08/27/24 06:57 08/27/24 06:57
08/27/24 04:31
08/27/24 04:31
Physical examination:
General: Well-developed, well-nourished female in no acute distress at rest. Alert to self.
HEENT: Atraumatic, normocephalic, neck supple.
Heart: Irregular heartbeat.
Lungs: Nonlabored breathing on room air. No audible wheezing.
Left hip: Tenderness to palpation about the hip. Range of motion not tested due to known fracture. Calf is soft and nontender to palpation. Neurovascular intact distally.
X-rays of the left hip from 08/26/2024 shows evidence of an impacted femoral neck/head fracture.
Assessment / Plan
Assessment: Left femoral neck fracture.
Plan: Unfortunately, Ms. Dawson sustained an impacted femoral neck fracture of her left hip during her fall last night. I reached out to her , Dennis, who is her medical power of business attorney to discuss treatment recommendations going forward.
We discussed both surgical and nonsurgical interventions. At this time, recommendation is to proceed with a left hip CRPP versus hemiarthroplasty. We will proceed with the left hip CT scan as ordered through the emergency department for surgical
planning. Tentatively, the plan is to proceed with surgery on 08/29/2024, under the direction of Dr. Leal, pending medical optimization. Cardiology consult is currently pending due to her history of atrial fibrillation. She will remain
nonweightbearing on the left lower extremity. She will be n.p.o. after midnight in preparation for the OR on Sunday. IV antibiotics and irrigation on-call to the OR. Surgical site marked. Mr. Dawson was in agreement with treatment
recommendations going forward. All questions were answered.
*Patient evaluated with Dr. Somers*
[2024-08-27 10:57] VITALS: BP 110/69
[2024-08-27 11:42] VITALS: BMI 17.9
[2024-08-27] MEDS: LOPRESSOR 25 MG PO ×3 (12:20→23:41)
--- NOTE | 2024-08-27 16:03 | CM ---
Patient seen at bedside with physicians. Patient sons and also present. Patient lives with her and has diagnosis of Parkinson and per her they live in a 2 story home with a walker, stair lift and rails for supports. Patient
PCP is Dr. Valenzuela and she uses the [facility] in [place]. Patient has had short stays at [facility] several times and after discussion of options patient indicated that they wanted to have patient go to SNF at [facility] following surgery
currently scheduled for Sunday or Sunday. Patient has also had [facility] for home health in the past. CM will continue to follow for discharge planning needs.
Plan; pending surgery and then SNF as needed.
[2024-08-27 16:14] VITALS: BP 115/80
--- NOTE | 2024-08-27 17:19 | W.PN.HOSP.TC ---
Addendum entered and electronically signed by Elena Armas MD 08/27/24 18:03:
I saw and evaluated the patient independently. I reviewed the resident�s note and agree with findings and plan as documented by Dr. Mendez.
GENERAL: elderly frail female in no apparent distress
HEENT: NC/AT--no O2 requirements
HEART: irreg irreg, tachycardic
LUNGS : clear to auscultation bilaterally
ABDOM: soft, nontender, nondistended, + bowel sounds
EXT: no cyanosis, clubbing, or edema--left leg shortened and externally rotated
NEUROLOGIC: apparent Parkinson's findings, slow to respond
Mechanical fall resulting in left hip fracture--no prodrome--family thinks she was reaching for her cane and fell--head and spine CT neg for fracture--hold Eliquis for washout for surgery Sunday--pain control
Permanent atrial fibrillation--Hold Eliquis--Continue metoprolol--apprec cards
Chronic hypotension--Blood pressure 90s
Parkinson's disease--Continue carbidopa-levodopa
Dementia--Continue donepezil
Essential hypertension--meds with parameters
Chronic HFpEF--Continue Lasix and metoprolol if systolic blood pressure greater than 100--no exacerbation
Chronic anemia
Glaucoma--Continue eyedrops
Chronic mild transaminitis--Stable
DNR/DNI
DVT prophylaxis-SCDs
Original Note:
Today's Communication/Plan
-
Cont. holding Eliquis, pain control as tolerated. pending orthopedic surgery sunday08/29/23
Assessment / Plan
Assessment / Plan
88 year old female with a past medical history of atrial fibrillation (on Eliquis), Parkinson's disease, dementia, HFrEF, hypertension, chronic anemia, glaucoma, colon cancer s/p colon resection, endometrial cancer s/p post hysterectomy who
presented to [facility] room after a mechanical fall
#Mechanical fall with resulting L hip fracture
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 Ortho consulted.
- Planning for left hip CRPP vs. hemiarthroplasty (discussion had between orthopedic surgeon and patient's POA). Patient to remain non-weight bearing, npo after midnight on as Surgery planed for sunday08/29/2023.
- Cardiology consulted for clearance - patient cleared, now on Toprol XL 25 q6
#Afib with RVR
#Permanent Afib
- has been in Afib since arrival, rate still elevated, appreciate card reccs.
#HFpEF - not volume overloaded at this time. Will monitor I/Os and continue with PO lasix
#Essential hypertension - pressures stable
#Parkinson's - stable, continue with home carbidopa-levodopa
#Dementia - stable, continue with donepezil
#Glaucoma - c/w timolol drops qd
Diet - cholesterol lowering diet
DVT Ppx - holding Eliquis for surgery
Code Status - DNR
Anticipated Discharge: > 48 hours
Subjective/Interval History
-
Somnolent this morning but arousable. Says she is having minimal pain in the hip, worse with movement, but otherwise has no symptoms. She speaks softly and is hard of hearing but will respond and answer questions.
Objective Data
-
Labs:
Laboratory Results
08/27/24
04:31
WBC 5.3
Hgb 12.7
Hct 39.0
Plt Count 119 L D
Sodium 137
Potassium 4.0
Chloride 102
Carbon Dioxide 24
BUN 32 H
Creatinine 0.7
Glucose 111 H
Calcium 9.2
Total Bilirubin 1.0
AST 58 H
ALT 64 H
Alkaline Phosphatase 78
Vital Signs:
Vital Signs
Temp Pulse Resp BP Pulse Ox
97.3 F 115 22 115/80 95
08/27/24 16:14 08/27/24 17:01 08/27/24 16:14 08/27/24 17:01 08/27/24 16:14
I&O
08/26/24 08/27/24 08/28/24
06:59 06:59 06:59
Intake Total 120 / 120
Balance 120 / 120
Physical Exam
-
General: Well Developed, Well Nourished and No Apparent Distress
HEENT: Normocephalic, Atraumatic, A[place] Conjunctivae and PERRLA
Respiratory: Clear to Auscultation and Non Labored Respirations; Negative Wheezes, Rales or Rhonchi
Cardiac: S1/S2, Irregular Rhythm and Tachycardic; Negative Murmur or Rub
Breast: Deferred by me
GI: Soft, Nontender, Nondistended and Normal Bowel Sounds
Genito-urinary: Deferred by me
Musculoskeletal: No Clubbing, No Cyanosis, No Edema and Other (Pain in the hip on internal rotation of the leg, palpation of the lateral hip/thigh and passive movement of the leg. Movements kept small so as not to disturb fracture.)
Neuro: Awake; Negative Alert
[2024-08-27 19:10] VITALS: BP 96/61
[2024-08-27] MEDS: ARICEPT 5 MG PO (21:20)
[2024-08-27 23:12] VITALS: BP 118/82
[2024-08-28 03:19] VITALS: BP 111/74
[2024-08-28] MEDS: TYLENOL 650 MG PO (04:06)
[2024-08-28] MEDS: LOPRESSOR 25 MG PO ×4 (05:24→23:26)
[2024-08-28 06:00] VITALS: BMI 18.2
[2024-08-28 06:48] LABS: Hematocrit 38.2 % (37.0-47.0); Hemoglobin 12.7 g/dL (12.0-16.0); Mean Corp Hgb Conc. 33.2 g/dL (33.0-37.0); Mean Corpuscular Hgb 30.1 pg (27.0-31.0); Mean Corpuscular Volume 90.5 fL (81.0-99.0); Mean Platelet Volume 11.2 fL (7.4-10.4); Platelet Count 105 10^3/uL (130-400); Red Blood Cell Count 4.22 10^6/uL (4.20-5.40); Red Cell Dist. Width 14.3 % (11.5-14.5); White Blood Cell Count 5.6 10^3/uL (4.8-10.8)
--- NOTE | 2024-08-28 06:58 | W.PN.UPDATE ---
Update Note
Progress Note Update
Orthopedic update:
Patient to undergo left hip cannulated screws versus hemiarthroplasty likely tomorrow after Eliquis washout (possibly Sunday if operating room too busy tomorrow and cannot accommodate her surgical procedure). I will contact patient (because
of patient's dementia) later this morning to discuss surgical options and obtain consent. Surgical location has been marked. Cleared by medicine and cardiology. NPO after midnight, Yemi on-call to operating room, TXA/antibiotic irrigation to be
sent to the operating room.
[2024-08-28 07:05] VITALS: BP 123/82
[2024-08-28 07:09] LABS: ALT (SGPT) 50 U/L (0-35); AST (SGOT) 53 U/L (14-36); Albumin 3.7 g/dl (3.5-5.0); Alkaline Phosphatase 102 U/L (38-126); Blood Urea Nitrogen 33 mg/dl (7-17); Calcium 8.8 mg/dl (8.4-10.2); Carbon Dioxide 24 mmol/L (22-30); Chloride 100 mmol/L (98-107); Estimated Creatinine Clearance 37 ml/min; Glucose 101 mg/dl (70-99); Potassium 3.8 mmol/L (3.5-5.1); Sodium 136 mmol/L (135-145); Total Bilirubin 1.6 mg/dl (0.2-1.3); Total Protein 5.4 g/dl (6.3-8.2); eGFR > 60.00
[2024-08-28 07:54] LABS: Absolute Neutrophils -Man Diff 3.2 10^3/uL (1.4-6.5); Atypical Lymphocytes 2 %; Band Neutrophils 1 % (0-3); Eosinophils 1 % (0-6); Lymphocytes 22 % (20-51); Monocytes 17 % (2-9); Platelets Checked Yes; Segmented Neutrophils 57 % (42-75)
[2024-08-28 07:55] LABS: Normal RBC Morphology Yes
[2024-08-28 07:56] LABS: Total Cells Counted 100
[2024-08-28] MEDS: VISBIOME 1 CAP PO (09:43)
[2024-08-28] MEDS: TIMOPTIC 0.5% OPHTHALMIC SOLUTION 1 DROP BOTH EYES (09:43)
[2024-08-28] MEDS: LASIX 40 MG PO (09:43)
[2024-08-28] MEDS: SINEMET CR 25-100 (EXTENDED RELEASE) 1 TABLET PO ×2 (09:43→18:16)
--- NOTE | 2024-08-28 10:40 | W.PN.HOSP.TC ---
Addendum entered and electronically signed by Elena Armas MD 08/28/24 18:27:
I saw and evaluated the patient independently. I reviewed the resident�s note and agree with findings and plan as documented by Dr. Mendez.
GENERAL: elderly frail female in no apparent distress
HEENT: NC/AT--no O2 requirements
HEART: irreg irreg, tachycardic
LUNGS : clear to auscultation bilaterally
ABDOM: soft, nontender, nondistended, + bowel sounds
EXT: no cyanosis, clubbing, or edema--left leg shortened and externally rotated
NEUROLOGIC: apparent Parkinson's findings, slow to respond
Mechanical fall resulting in left hip fracture--no prodrome--family thinks she was reaching for her cane and fell--head and spine CT neg for fracture--hold Eliquis for washout for surgery Sunday--pain control
Permanent atrial fibrillation--Hold Eliquis--Continue metoprolol--apprec cards
Chronic hypotension--Blood pressure 90s
Parkinson's disease--Continue carbidopa-levodopa
Dementia--Continue donepezil
Essential hypertension--meds with parameters
Chronic HFpEF--Continue Lasix and metoprolol if systolic blood pressure greater than 100--no exacerbation
Chronic anemia
Glaucoma--Continue eyedrops
Chronic mild transaminitis--Stable
DNR/DNI
DVT prophylaxis-SCDs
Original Note:
Today's Communication/Plan
-
C/w Eliquis washout. Surgery for sunday/sunday. Follow urine output.
Assessment / Plan
Assessment / Plan
88 year old female with a past medical history of atrial fibrillation (on Eliquis), Parkinson's disease, dementia, HFrEF, hypertension, chronic anemia, glaucoma, colon cancer s/p colon resection, endometrial cancer s/p post hysterectomy who
presented to [facility] ER room after a mechanical fall
#Mechanical fall with resulting L hip fracture
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 Ortho consulted.
- Planning for left hip CRPP vs. hemiarthroplasty (discussion had between orthopedic surgeon and patient's POA). Patient to remain non-weight bearing, npo after midnight on as Surgery planed for sunday08/29/2023.
- Cardiology consulted for clearance - patient cleared
- Tylenol ordered for pain, but she has only needed one dose so far.
#Thrombocytopenia - plt on admission 152, now 105. No overt signs of bleeding; on Eliquis washout. Not on heparin. Will go for surgery sunday/sunday. Will monitor plts.
#Afib with RVR
#Permanent Afib
- has been in Afib since arrival, rate still elevated, appreciate card reccs. Now on Toprol XL 25 q6 for rate control
#Urinary incontinence
- Bladder scan for decreased urine output showed residual 331cc. Will follow and observe, can consider straight cath if remains unable to void.
#HFpEF - not volume overloaded at this time. Will monitor I/Os and continue with PO Lasix
#Essential hypertension - pressures stable
#Parkinson's - stable, continue with home carbidopa-levodopa
#Dementia - stable, continue with donepezil
#Glaucoma - c/w timolol drops qd
Diet - cholesterol lowering diet
DVT Ppx - holding Eliquis for surgery
Code Status - DNR
Anticipated Discharge: 24 - 48 hours
Subjective/Interval History
-
Had decreased urine output over night despite being on lasix. Bladder scan showed 319cc; did not urinate overnight and repeat scan showed 331. Otherwise, has not needed pain medication and has no acute complaints.
Objective Data
-
Labs:
Laboratory Results
08/28/24
04:27
WBC 5.6
Hgb 12.7
Hct 38.2
Plt Count 105 L
Sodium 136
Potassium 3.8
Chloride 100
Carbon Dioxide 24
BUN 33 H
Creatinine 0.8
Glucose 101 H
Calcium 8.8
Total Bilirubin 1.6 H
AST 53 H
ALT 50 H
Alkaline Phosphatase 102
Vital Signs:
Vital Signs
Temp Pulse Resp BP Pulse Ox
97.5 F 101 16 123/82 94
08/28/24 07:05 08/28/24 07:05 08/28/24 07:05 08/28/24 07:05 08/28/24 09:30
I&O
08/27/24 08/28/24 08/29/24
06:59 06:59 06:59
Intake Total 120 / 120 310 / 310 240 / 240
Balance 120 / 120 310 / 310 240 / 240
Review of Systems
-
Unable to obtain full review of systems at this time due to: Dementia
History Source: Patient
Constitutional: Reports No Symptoms
EENT: Reports No Symptoms Reported
Respiratory: Reports No Symptoms
Cardiac: Reports No Symptoms
Abdomen/GI: Reports No Symptoms
Genitourinary: Reports No Symptoms
Musculoskeletal: Reports No Symptoms
Neuro: Reports No Symptoms
Physical Exam
-
General: Well Developed, No Apparent Distress and Comfortable; Negative Pain
HEENT: Normocephalic, Atraumatic, Moist Mucous Membranes, Anicteric, [place] Conjunctivae and PERRLA
Respiratory: Non Labored Respirations and Decreased Breath Sounds; Negative Wheezes, Rales or Rhonchi
Cardiac: S1/S2 and Irregular Rhythm; Negative Murmur
GI: Soft, Nontender, Nondistended and Normal Bowel Sounds
Musculoskeletal: No Clubbing, No Cyanosis and No Edema
Neuro: Awake, Alert and Oriented
--- NOTE | 2024-08-28 11:17 | CM ---
Chart reviewed
Eliquis washout - for surgery tomorrow or Sunday for repair of hip fracture
Family requesting [facility] for SNF
Plan - SNF when medically ready
[2024-08-28 12:02] VITALS: BP 97/57
[2024-08-28 15:00] VITALS: BP 130/81
--- NOTE | 2024-08-28 16:35 | PN.CDI ---
CDI
- -
CDI:
Physician Documentation Request
Admit Date: 08/26/24 18:39
Dear Doctor Pawel/Resident,
Please review the following and provide your response in the progress notes.
Clinical Indicators:
Pt admitted with impacted fracture of the neck/head of proximal Left femur
Documented in the record is Cachexia/BMI 18.2
Nutrition consult 08/27, ' Current BW: (08/27) 100 lbs 15.547 oz BMI: 17.9 (underweight). History shows on 06/04/24 she weighed 111 lbs. This is a 10% BW loss over 3 months (significant)Patient meets AND and ASPEN criteria for moderate protein
calorie malnutrition of chronic disease due to >7.5% BW loss over 3 months and moderate loss of muscle in her clavicle region. RD ordered fortified pudding BID to be added to her trays..muscle loss over clavicle Moderate ...'
Based on the above information and your assessment, which of the following most accurately represents the patient's nutritional status?
Moderate Protein Calorie Malnutrition
Other ( please specify)
[place] Criteria (ACP Hospitalist 2017)
2 or more criteria must be present for either
non severe or severe malnutrition
Note that the criteria differs related to the
presence of an acute or chronic illness
Acute Illness Chronic Illness
Energy Intake Non Severe: <75% for >7 days Non Severe: <75% for >1 month
Severe: <50% for >5 days Severe: <75% for >1 month
Weight Loss Non Severe: 1-2% over 1 week Non Severe: 5% over 1 month
5% over 1 month 7.5% over 3 months
7.5% over 3 months 10% over 6 months
1 year N/A 20% over 1 year
Severe: >2% over 1 week Severe: >5% over 1 month
>5% over 1 month >7.5% over 3 months
>7.5% over 3 months >10% over 6 months
1 year N/A >20% over 1 year
Body Fat Non Severe: Mild Decrease Non Severe: Mild Loss
Severe: Moderate Decrease Severe: Severe Loss
Muscle Mass Non Severe: Mild Decrease Non Severe: Mild Loss
Severe: Moderate Decrease Severe: Severe Loss
Fluid Accumulation Non Severe: Mild Accumulation Non Severe: Mild Accumulation
Severe: Moderate to severe Severe: Moderate to severe
accumulation accumulation
Reduced Network Technician Strength Non Severe: N/A Non Severe: N/A
Severe: Measurably reduced Severe: Measurably reduced
Use of terms such as suspected, likely, concern for, or probable (associated with a specific diagnosis that is being evaluated, monitored, or treated as if it exists) are acceptable and can be coded in the inpatient setting, when documented at the
time of discharge.
Thank you,
Telma Caba RN
CDI Specialist
[place] [facility]
Please use your independent medical judgment in providing your response.
--- NOTE | 2024-08-28 17:07 | W.PN.CARDCBS ---
Today's Communication / Plan
-
OR tomorrow with orthopedics for left hip fracture; moderate but stable cardiovascular
Monitor on telemetry; rate controlled permanent atrial fibrillation
Eliquis on hold for OR
Impression / Plan
-
PCP: Dr. Joni Foley
Primary outsole compressor: Dr. Angel Merino
Impression:
Admitted with fall and left hip fracture 08/26/24
Unwitnessed fall
Left hip fracture
Afib with RVR
Permanent Afib
Chronic Eliquis OAC
Chronic HFpEF
Thrombocytopenia
Dementia
Parkinson's disease
Hyperglycemia
Echo 04/29/20: EF 55 to 60%, mild concentric LVH, mild MR, aortic sclerosis with mild eccentric aortic regurgitation, mild TR with PAP 28 mmHg
Echo 03/31/24: EF 55%, MAC, moderate MR, mild AR, moderate TR, PAP 30 mmHg, severely dilated right atrium, enlarged RV size, patient now in A-fib with slightly worsened MR
Plan:
Unwitnessed fall at home while admitted with left hip fracture and cardiology has been consulted for rapid A-fib and preoperative cardiovascular risk factor stratification.
-ORIF left hip with orthopedics tomorrow
-Moderate cardiovascular risk but stable may proceed with surgery as planned
-Continue telemetry monitoring and check postop EKG
Permanent atrial fibrillation
-Continue Lopressor for rate control
-Resume anticoagulation when able. Eliquis 2.5mg BID held as of 08/26/24 in am
History of thrombocytopenia
-Platelet count continues to drift down, today 105
-Monitor closely
Patient with h/o chronic HFpEF.
-Patient was not taking a daily diuretic prior to admission. No evidence of acute HF on CXR. Supine in bed on RA without distress. Watch IVFs and check daily weight.
History of dementia/Parkinson's disease�noted
Progress Note - Clinical Psychology Teacher
Subjective
Date of Service: August 28, 2024
Seen and examined. Patient's recall poor but aware that she is in the hospital. Offers no complaints
Objective
Labs:
08/28/24 04:27
08/28/24 04:27
Labs
Hgb 12.7 g/dL (12.0-16.0) 08/28/24 04:27
Hct 38.2 % (37.0-47.0) 08/28/24 04:27
Plt Count 105 10^3/uL (130-400) L 08/28/24 04:27
Sodium 136 mmol/L (135-145) 08/28/24 04:27
Potassium 3.8 mmol/L (3.5-5.1) 08/28/24 04:27
BUN 33 mg/dl (7-17) H 08/28/24 04:27
Creatinine 0.8 mg/dL (0.6-1.0) 08/28/24 04:27
Glucose 101 mg/dl (70-99) H 08/28/24 04:27
Vital Signs and I&O:
Vital Signs
Temp Pulse Resp BP Pulse Ox
97.7 F 80 20 130/81 94
08/28/24 15:00 08/28/24 15:00 08/28/24 15:00 08/28/24 15:00 08/28/24 09:30
Vital Signs
Temp Pulse Resp BP Pulse Ox
97.7 F 80 20 130/81 94
08/28/24 15:00 08/28/24 15:00 08/28/24 15:00 08/28/24 15:00 08/28/24 09:30
Intake & Output
08/26/24 08/27/24 08/28/24 08/29/24
06:59 06:59 06:59 06:59
Intake Total 120 / 120 310 / 310 240 / 240
Balance 120 / 120 310 / 310 240 / 240
Physical Exam
Physical Exam
GEN: NAD on RA
HEENT: mmm
LUNGS: CTA B/L, no wheezes/rales
CV: Irreg, S1/S2, 1/6 murmur
ABD: soft, BS+, NT/ND
ext- no edema. + left hip fracture
--- NOTE | 2024-08-28 18:10 | W.DCSUMMARY ---
Documented by User: Lisandro Mendez MD, Resident 09/05/24 18:32
Discharge Summary
Discharge Data
Date of Admission: 08/26/24
Date of Discharge: 09/05/24
Total time spent discharging patient (in min): >30min
-
Pending Results: No
Hospital Course
Discharging Physician : Dr. Lisandro Mendez, Dr. Adriana Lucas
Disposition :
Primary care physician : Maycol Ng
Principal Discharge diagnosis : Acute Hypoxic Respiratory Failure secondary to Aspiration Pneumonia, Shock Liver, Hypokalemia, Mechanical Fall
Chronic Discharge diagnosis : ANDRES on CKD, Afib w/ RVR, HFrEF
Hospital Course :
89 year old female who presented to the [facility] after a mechanical fall. She was found to have a hip fracture and was sent for left hip hemiarthroplasty. She became hemodynamically unstable perioperatively and was eventually extubated with difficulty.
She remained hypoxic with increasing oxygen requirements. She remained unresponsive and was put on tube feeding, after which she developed likely aspiration pneumonia. Her prognosis after several days was very poor, and the decision was eventually
made to transition her to comfort care. She passed soon thereafter.
Discharge Plan
-
Patient Disposition:
Date/Time
Date/Time: 09/05/24 15:40
Discharge Date and Time
Discharge Date/Time: 09/05/24 15:40
Print Language: JORDANIAN

Documented by User: Adriana Lucas MD 09/05/24 19:04
Discharge Summary
Discharge Data
Date of Admission: 08/26/24
Date of Discharge: 09/05/24
Hospital Course
Discharging Physician : Dr. Lisandro Mendez, Dr. Adriana Lucas
Disposition :
Primary care physician : Maycol Ng
Principal Discharge diagnosis : Acute Hypoxic Respiratory Failure secondary to Aspiration Pneumonia, Shock Liver, Hypokalemia, Mechanical Fall
Chronic Discharge diagnosis : ANDRES on CKD, Afib w/ RVR, HFrEF
Hospital Course :
89 year old female who presented to the ED after a mechanical fall. She was found to have a hip fracture and was sent for left hip hemiarthroplasty. She became hemodynamically unstable perioperatively and was eventually extubated with
difficulty. She remained hypoxic with increasing oxygen requirements. She remained unresponsive and was put on tube feeding, after which she developed likely aspiration pneumonia. Her prognosis after several days was very poor, and goals of care was
discussed with the family. The decision was eventually made to transition her to comfort care and she passed soon thereafter.
She on 09/05/2024, time of expiration at 15:40. Family was notified in person.
Discharge Plan
-
Patient Disposition:
Date/Time
Date/Time: 09/05/24 15:40
Discharge Date and Time
Discharge Date/Time: 09/05/24 15:40
Print Language: JORDANIAN
[2024-08-28 19:26] VITALS: BP 107/69
[2024-08-28] MEDS: ARICEPT 5 MG PO (22:53)
[2024-08-28 23:12] VITALS: BP 108/59
[2024-08-29] VITALS (18 sets, daily range): BP systolic 96–128; BP diastolic 59–104; BMI 18.3
--- NOTE | 2024-08-29 05:44 | W.PN.UPDATE ---
Update Note
Progress Note Update
88F left impacted femoral neck fx
-planned for OR today hemiarthroplasty
-consent checked, needs signature with POA; no answer; will continue to contact POA given baseline dementia
-ABX OCTOR
-T&S on file
-irrigation products ordered
-NPO
[2024-08-29] MEDS: LOPRESSOR PO (06:03)
[2024-08-29] MEDS: LOPRESSOR 5 MG IV ×2 (06:05→12:26)
--- NOTE | 2024-08-29 06:33 | W.PN.HOSP.TC ---
Addendum entered and electronically signed by Elena Armas MD 08/29/24 17:41:
moderate protein calorie malnutrition--apprec dietary
Addendum entered and electronically signed by Elena Armas MD 08/29/24 17:22:
I saw and evaluated the patient independently. I reviewed the resident�s note and agree with findings and plan as documented by Dr. Mendez.
GENERAL: elderly frail female in no apparent distress
HEENT: NC/AT--no O2 requirements
HEART: irreg irreg, tachycardic
LUNGS : clear to auscultation bilaterally
ABDOM: soft, nontender, nondistended, + bowel sounds
EXT: no cyanosis, clubbing, or edema--left leg shortened and externally rotated
NEUROLOGIC: apparent Parkinson's findings, slow to respond
no changes--waiting for surgery today--likely will need SNF
Mechanical fall resulting in left hip fracture--no prodrome--family thinks she was reaching for her cane and fell--head and spine CT neg for fracture--hold Eliquis for washout for surgery Sunday--spoke with ortho PA, going to resume Eliquis 2.5 mg
daily x 3 dyas then back to 2.5 mg BID thereafter-- due to pt thrombocytopenia prefer not to use asa--pain control
Permanent atrial fibrillation--Hold Eliquis--Continue metoprolol--apprec cards
Chronic hypotension--Blood pressure 90s
Parkinson's disease--Continue carbidopa-levodopa
Dementia--Continue donepezil
Essential hypertension--meds with parameters
Chronic HFpEF--Continue Lasix and metoprolol if systolic blood pressure greater than 100--no exacerbation
Chronic anemia
Glaucoma--Continue eyedrops
Chronic mild transaminitis--Stable
DNR/DNI
DVT prophylaxis-SCDs
Original Note:
Today's Communication/Plan
-
C/w holding Eliquis. Orthopedic surgery planned for either Today or Sunday.
Assessment / Plan
Assessment / Plan
88 year old female with a past medical history of atrial fibrillation (on Eliquis), Parkinson's disease, dementia, HFrEF, hypertension, chronic anemia, glaucoma, colon cancer s/p colon resection, endometrial cancer s/p post hysterectomy who
presented to [place] ER room after a mechanical fall
#Mechanical fall with resulting L hip fracture
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 Ortho consulted.
- Planning for left hip CRPP vs. hemiarthroplasty (discussion had between orthopedic surgeon and patient's POA). Patient to remain non-weight bearing, npo after midnight on as Surgery planed for either Sunday or Sunday.
- Cardiology consulted for clearance - patient cleared
- Tylenol ordered for pain, but she has only needed one dose so far.
#Head pain - nontender on exam, though subjectively painful in R occipital region. CT head ruled out fracture. Likely secondary to fall. Pain meds prn if needed.
#Thrombocytopenia - plt 152, 105, now 128. No overt signs of bleeding; on Eliquis washout. Will go for surgery Sunday/Sunday.
#Afib with RVR
#Permanent Afib
- has been in Afib since arrival, rate still elevated, appreciate card reccs. Now on Toprol XL 25 q6 for rate control; improved to 60s-110s, but still elevated
#Urinary incontinence
- Will follow and observe. Consider cath if PVR volumes >300ccs
#HFpEF - not volume overloaded at this time. Will monitor I/Os and continue with PO Lasix
#Moderate Protein Calorie Malnutrition
- Patient meets AND and ORENEN criteria for moderate protein calorie malnutrition of chronic disease due to >7.5% BW loss over 3 months and moderate loss of muscle in her clavicle region.
#Essential hypertension - pressures stable
#Parkinson's - stable, continue with home carbidopa-levodopa
#Dementia - stable, continue with donepezil
#Glaucoma - c/w timolol drops qd
Diet - cholesterol lowering diet
DVT Ppx - holding Eliquis for surgery
Code Status - DNR
Anticipated Discharge: 24 - 48 hours
Subjective/Interval History
-
Feeling well this morning. She has some head pain, she says due to the fall. She has no hip pain. She has no chest pain, shortness of breath, palpitations or abdominal pain. No fevers or chills.
Objective Data
-
Vital Signs:
Vital Signs
Temp Pulse Resp BP Pulse Ox
98.4 F 74 18 123/74 98
08/29/24 03:16 08/29/24 06:05 08/29/24 03:16 08/29/24 06:05 08/29/24 03:16
I&O
08/27/24 08/28/24 08/29/24
06:59 06:59 06:59
Intake Total 120 / 120 310 / 310 810 / 810
Output Total 200 / 200
Balance 120 / 120 310 / 310 610 / 610
Review of Systems
-
Unable to obtain full review of systems at this time due to: Dementia
History Source: Patient
All other systems: Reviewed and negative
Constitutional: Reports No Symptoms
EENT: Reports No Symptoms Reported
Respiratory: Reports No Symptoms
Cardiac: Reports No Symptoms
Abdomen/GI: Reports No Symptoms
Breast: Reports N/A
Genitourinary: Reports No Symptoms
Musculoskeletal: Reports Other (Pain on the R occipital region of her skull)
Skin: Reports No Symptoms
Neuro: Reports No Symptoms
Physical Exam
-
General: Well Developed, No Apparent Distress, Comfortable, Cachectic and Other (Somnolent); Negative Pain or Fever
HEENT: Normocephalic, Atraumatic, Moist Mucous Membranes, Anicteric, [place] Conjunctivae and PERRLA
Respiratory: Clear to Auscultation; Negative Wheezes, Rales or Rhonchi
Cardiac: S1/S2, Irregular Rhythm and Tachycardic; Negative Murmur
Breast: Deferred by me
GI: Soft, Nontender, Nondistended and Normal Bowel Sounds
Musculoskeletal: No Clubbing, No Cyanosis and No Edema
Skin: Warm and Dry
Neuro: Other (Somnolent, slow to respond, aware she is in the hospital. Fell asleep during exam. )
[2024-08-29 07:09] LABS: Hematocrit 40.9 % (37.0-47.0); Hemoglobin 13.5 g/dL (12.0-16.0); Mean Corpuscular Hgb 29.8 pg (27.0-31.0); Mean Corpuscular Volume 90.3 fL (81.0-99.0); Mean Platelet Volume 10.2 fL (7.4-10.4); Platelet Count 128 10^3/uL (130-400); Red Blood Cell Count 4.53 10^6/uL (4.20-5.40); Red Cell Dist. Width 14.4 % (11.5-14.5); White Blood Cell Count 6.7 10^3/uL (4.8-10.8)
[2024-08-29 07:21] LABS: ALT (SGPT) 38 U/L (0-35); AST (SGOT) 37 U/L (14-36); Albumin 3.8 g/dl (3.5-5.0); Alkaline Phosphatase 118 U/L (38-126); Blood Urea Nitrogen 37 mg/dl (7-17); Calcium 8.9 mg/dl (8.4-10.2); Carbon Dioxide 28 mmol/L (22-30); Chloride 99 mmol/L (98-107); Estimated Creatinine Clearance 30 ml/min; Glucose 112 mg/dl (70-99); Potassium 4.1 mmol/L (3.5-5.1); Sodium 139 mmol/L (135-145); Total Bilirubin 1.3 mg/dl (0.2-1.3); Total Protein 5.7 g/dl (6.3-8.2); eGFR 54.87
[2024-08-29 07:48] LABS: Absolute Neutrophils -Man Diff 4.9 10^3/uL (1.4-6.5); Band Neutrophils 1 % (0-3); Lymphocytes 10 % (20-51); Monocytes 16 % (2-9); Segmented Neutrophils 73 % (42-75)
[2024-08-29 07:49] LABS: Normal RBC Morphology Yes; Platelets Checked Yes; Total Cells Counted 100
[2024-08-29] MEDS: SINEMET CR 25-100 (EXTENDED RELEASE) 1 TABLET PO (08:08)
[2024-08-29] MEDS: VISBIOME 1 CAP PO (08:08)
[2024-08-29] MEDS: LASIX 40 MG PO (08:08)
[2024-08-29] MEDS: TIMOPTIC 0.5% OPHTHALMIC SOLUTION 1 DROP BOTH EYES (08:09)
--- NOTE | 2024-08-29 09:14 | W.PN.CARDCBS ---
Today's Communication / Plan
-
IV Lopressor while NPO
OR today with ortho
Impression / Plan
-
PCP: Dr. Joni Foley
Primary forest fire prevention specialist: Dr. Angel Merino
Impression:
Admitted with fall and left hip fracture 08/26/24
Unwitnessed fall
Left hip fracture
Afib with RVR
Permanent Afib
Chronic Eliquis OAC
Chronic HFpEF
Thrombocytopenia
Dementia
Parkinson's disease
Hyperglycemia
Echo 04/29/20: EF 55 to 60%, mild concentric LVH, mild MR, aortic sclerosis with mild eccentric aortic regurgitation, mild TR with PAP 28 mmHg
Echo 03/31/24: EF 55%, MAC, moderate MR, mild AR, moderate TR, PAP 30 mmHg, severely dilated right atrium, enlarged RV size, patient now in A-fib with slightly worsened MR
Plan:
Unwitnessed fall at home while admitted with left hip fracture
-ORIF left hip with orthopedics today
-Moderate cardiovascular risk but stable may proceed with surgery as planned
-Continue telemetry monitoring and check postop EKG
Permanent atrial fibrillation with rapid rates
-Continue Lopressor for rate control- will change to IV lopressor 5mg IV q6 with hold parameters while NPO
-Resume anticoagulation when able. Eliquis 2.5mg BID held as of 08/26/24 in am
History of thrombocytopenia
-Platelet count stable, preop 128,000 today; Hb 13.5g/dL preop today
-Monitor closely
Patient with h/o chronic HFpEF.
-Appears dry today
-Hold oral Lasix today and monitor post op (was on Lasix 40mg daily)
-Monitor I/O, weights
History of dementia/Parkinson's disease�noted
-Aspiration precautions
Will follow with you post op
Progress Note - Manager [employer]almer Fun[employer] Director
Subjective
Date of Service: August 29, 2024
Seen and examined; reviewed labs/tele and discussed OP plan with staff internist office based only. Patient awake and alert but sleepy- offers no complaints. NPO for OR today
Objective
Labs:
08/29/24 06:47
08/29/24 06:47
Labs
Hgb 13.5 g/dL (12.0-16.0) 08/29/24 06:47
Hct 40.9 % (37.0-47.0) 08/29/24 06:47
Plt Count 128 10^3/uL (130-400) L D 08/29/24 06:47
Sodium 139 mmol/L (135-145) 08/29/24 06:47
Potassium 4.1 mmol/L (3.5-5.1) 08/29/24 06:47
BUN 37 mg/dl (7-17) H 08/29/24 06:47
Creatinine 1.0 mg/dL (0.6-1.0) 08/29/24 06:47
Glucose 112 mg/dl (70-99) H 08/29/24 06:47
Vital Signs and I&O:
Vital Signs
Temp Pulse Resp BP Pulse Ox
97.6 F 112 20 116/79 93
08/29/24 06:55 08/29/24 06:55 08/29/24 06:55 08/29/24 08:08 08/29/24 06:55
Vital Signs
Temp Pulse Resp BP Pulse Ox
97.6 F 112 20 116/79 93
08/29/24 06:55 08/29/24 06:55 08/29/24 06:55 08/29/24 08:08 08/29/24 06:55
Intake & Output
08/27/24 08/28/24 08/29/24 08/30/24
06:59 06:59 06:59 06:59
Intake Total 120 / 120 310 / 310 810 / 810
Output Total 200 / 200
Balance 120 / 120 310 / 310 610 / 610
Physical Exam
Physical Exam
GEN: NAD on RA
HEENT: mouth dry- mouth breather
LUNGS: CTA B/L, no wheezes/rales
CV: Irreg, S1/S2, 1/6 murmur
ABD: soft, BS+, NT/ND
ext- no edema. warm distal feet. + left hip fracture
[2024-08-29] MEDS: FLUSH (NSS) 1 FLUSH IV (12:26)
[2024-08-29] MEDS: LEVOPHED 250 IV (20:00)
[2024-08-29 20:30] LABS: HCO3 20.4 mmol/L (21-28); Ionized Calcium 1.07 mMOL/L (1.15-1.33); O2 Saturation % 99.7 % (94-98); PCO2 25 mmHg (32-35); PO2 147 mmHg (83-108); Potassium 3.6 mMOL/L (3.5-5.1); Sodium 135 mMOL/L (136-145); pH 7.52 (7.35-7.45)
[2024-08-29] MEDS: NEO-SYNEPHRINE 250 IV (20:33)
[2024-08-29] MEDS: CORDARONE 103 MG IV (20:35)
[2024-08-29 20:36] LABS: Hemoglobin 12.8 g/dL (12.0-16.0); Mean Corp Hgb Conc. 33.7 g/dL (33.0-37.0); Mean Corpuscular Hgb 30.1 pg (27.0-31.0); Mean Corpuscular Volume 89.4 fL (81.0-99.0); Mean Platelet Volume 10.5 fL (7.4-10.4); Platelet Count 135 10^3/uL (130-400); Red Blood Cell Count 4.25 10^6/uL (4.20-5.40); Red Cell Dist. Width 14.4 % (11.5-14.5); White Blood Cell Count 7.7 10^3/uL (4.8-10.8)
[2024-08-29 20:42] LABS: APTT 36.2 Sec (23.4-35.0); INR 1.44; PT 17.8 Sec (11.4-14.6)
[2024-08-29 20:43] LABS: Lactic Acid 2.5 mmol/L (0.7-2.0)
[2024-08-29] MEDS: CORDARONE 518 MG IV (20:47)
[2024-08-29 20:49] LABS: Phosphorus 4.9 mg/dl (2.5-4.5)
[2024-08-29 20:50] LABS: Magnesium 2.4 mg/dl (1.6-2.3)
[2024-08-29 20:51] LABS: Blood Urea Nitrogen 40 mg/dl (7-17); Calcium 8.2 mg/dl (8.4-10.2); Carbon Dioxide 20 mmol/L (22-30); Chloride 100 mmol/L (98-107); Estimated Creatinine Clearance 33 ml/min; Glucose 135 mg/dl (70-99); Sodium 133 mmol/L (135-145); eGFR > 60.00
[2024-08-29] MEDS: SUBLIMAZE 50 MCG IV (21:03)
[2024-08-29] MEDS: SUBLIMAZE 100 IV (21:04)
[2024-08-29] MEDS: LOPRESSOR IV (21:55)
[2024-08-29] MEDS: SINEMET CR 25-100 (EXTENDED RELEASE) PO (21:55)
[2024-08-29] MEDS: CALCIUM CHLORIDE 10% SYRINGE 60 MG IV (21:56)
[2024-08-29] MEDS: ARICEPT PO (23:18)
[2024-08-30] VITALS (53 sets, daily range): BP systolic 69–137; BP diastolic 32–91; BMI 18.8
[2024-08-30] MEDS: ANCEF 5 IV ×2 (00:23→07:56)
[2024-08-30] MEDS: NSS 1000 IV ×2 (00:26→12:49)
[2024-08-30] MEDS: LOPRESSOR IV (00:26)
--- NOTE | 2024-08-30 03:03 | PTCARENOTE ---
1999 patient arrived from OR s/p hip repair. vtach runs in OR, epi and chris started. patient arrives in ICU on vent, barely arrousable, blood pressure decreased, on two pressors. patient on CHRIS/LEVO, HR 190, amio started, amio bolus given,
mota placed, R NG inserted, xray verified placement.
fentanyl gtt started as well patient able to open eyes, follow commands, (prior to startiing fent gtt)
levo titrated off, chris remains on at 40, HR remains 90-110 at this time
family all at bedside, stayed until midnight.
--- NOTE | 2024-08-30 03:08 | PTCARENOTE ---
patient stable, 2nd pressor remains off, HR 85-110. Amio decreased to 0.5 at 0300 will run for 180 hrs at this rate. NG clamped , left hip incision has original post op dressing, no increased drainage noted, patient tolerating vent, A line
correlates with cuff pressure, patient remains in restraints for protective intervention
--- NOTE | 2024-08-30 03:21 | W.PN.UPDATE ---
Update Note
Progress Note Update
Transfer to ICU for runs of VT and hypotension during procedure. �Patient arrived on Epi @ 2, Levo @ 10, intubated,�and rapid AFIB 180 Bpm. � In ICU: Amiodarone started for rate control. Eligio ordered, patient weaned off EPI and levophed. �Fentanyl
drip ordered for sedation. �Patient did wake up and followed commands and was moving all extremities.�
[2024-08-30 03:41] LABS: B.E. 0.9 mmol/L; HCO3 22.2 mmol/L (21-28); Ionized Calcium 1.17 mMOL/L (1.15-1.33); O2 Saturation % 99.8 % (94-98); PCO2 26 mmHg (32-35); PO2 164 mmHg (83-108); Potassium 3.3 mMOL/L (3.5-5.1); Sodium 134 mMOL/L (136-145); pH 7.54 (7.35-7.45)
[2024-08-30 03:49] LABS: Hematocrit 36.8 % (37.0-47.0); Hemoglobin 12.6 g/dL (12.0-16.0)
[2024-08-30 03:55] LABS: O2 Therapy 40%
[2024-08-30 04:27] LABS: Blood Urea Nitrogen 39 mg/dl (7-17); Calcium 8.9 mg/dl (8.4-10.2); Carbon Dioxide 21 mmol/L (22-30); Chloride 103 mmol/L (98-107); Estimated Creatinine Clearance 37 ml/min; Glucose 135 mg/dl (70-99); Potassium 3.6 mmol/L (3.5-5.1); Sodium 136 mmol/L (135-145); eGFR > 60.00
[2024-08-30] MEDS: KCL 50 IV (04:55)
--- NOTE | 2024-08-30 06:31 | PTCARENOTE ---
0600 significan drop in bp <70 , electric relay tester at bedside, elevated HR 15, amio back to 1
oliverio increased to 200
--- NOTE | 2024-08-30 07:50 | W.PN.ORTHO ---
Today's Communication / Plan
-
88-year-old female POD #1 Left Hip Hemiarthroplasty 08/29/[address] Leal.
- Appreciate all teams involved with care of this patient.
- When medically stable, patient may be WBAT to LLE with use of assistive device. PT/OT as tolerated when stable.
- Posterior hip precautions.
- Eliquis 2.5mg daily x 3 days, then back to 2.5mg BID thereafter.
- Hemoglobin this AM 12.6. Continue to monitor.
- Skin clip removal at 2 weeks post-op.
- Follow-up Orthopedics 4 weeks post-op.
- Orthopedic surgery will continue to follow.
Assessment
.
Distal Motor Intact: Yes
Dressing:
Aquacel dressing with scant contained bloody drainage.
Assessment:
POD #1 Left Hip Hemiarthroplasty with Dr. Leal
Plan
.
Surgery / Date: 08/29/2024 Left Hip Hemiarthroplasty
DVT Prophylaxis: Other (Eliquis )
Activity:
Out of bed.
PT/OT when medically stable.
WBAT LLE.
Posterior Hip Precautions.
Discharge Plan: SNF
Discharge Information:
Appreciate CM.
Subjective
.
.:
Patient resting comfortably. Transferred to ICU for runs of VT and hypotension during procedure. Currently intubated.
Vital Signs and Labs
.
Vital Signs and Labs:
Lab Results
08/30/24 03:33
Temp Pulse Resp BP Pulse Ox
97.7 F 97 12 113/86 100
08/30/24 03:30 08/30/24 04:45 08/30/24 04:45 08/30/24 04:45 08/30/24 04:24
PT 17.8 Sec (11.4-14.6) H 08/29/24 20:21
INR 1.44 08/29/24 20:21
[2024-08-30] MEDS: NEO-SYNEPHRINE 250 IV ×2 (07:53→12:50)
[2024-08-30 07:54] LABS: B.E. -4.4 mmol/L; HCO3 18.8 mmol/L (21-28); O2 Saturation % 99.9 % (94-98); PCO2 29 mmHg (32-35); PO2 145 mmHg (83-108); pH 7.42 (7.35-7.45)
[2024-08-30] MEDS: NSS (PRESERVATIVE FREE) 10 ML IV (07:55)
[2024-08-30] MEDS: PROTONIX IV 40 MG IV (07:55)
[2024-08-30] MEDS: SINEMET CR 25-100 (EXTENDED RELEASE) PO (07:55)
[2024-08-30] MEDS: VISBIOME PO (07:56)
[2024-08-30] MEDS: TIMOPTIC 0.5% OPHTHALMIC SOLUTION 1 DROP BOTH EYES (08:02)
[2024-08-30 08:18] LABS: Blood Urea Nitrogen 40 mg/dl (7-17); Calcium 8.4 mg/dl (8.4-10.2); Carbon Dioxide 17 mmol/L (22-30); Chloride 104 mmol/L (98-107); Estimated Creatinine Clearance 34 ml/min; Glucose 158 mg/dl (70-99); Potassium 4.9 mmol/L (3.5-5.1); Sodium 136 mmol/L (135-145); eGFR > 60.00
--- NOTE | 2024-08-30 08:26 | W.PN.HOSP.TC ---
Today's Communication/Plan
-
renew pressors
start midodrine
d/w pharmacy Parkinson's meds
Eliquis 2.5 mg daily if able to give through NGT
wean pressors as able (pt with chronic hypotension)
await cards input--cont IV amio
Assessment / Plan
Assessment / Plan
pt is an 88 year old female
permanent afib with RVR and V.tach intraoperatively with post op hypotension--suspect some contribution from Parkinson's and baseline autonomic insufficiency (neurogenic shock)--do not believe septic shock, hemorrhagic, or cardiogenic shock--plan
was for Eliquis 2.5 mg daily x 3 days then 2.5 mg BID, can continue if can give through NGT--now on amio IV--wean pressors--on IV amio drip--await cards--keep K > 4 and Mg > 2--needs better HR control--consider vasopressin as pressor of choice
VDRF--intubated for surgery--pt is DNR but not in perioperative phase--apprec health tech--wean from vent as able
Mechanical fall resulting in left hip fracture--no prodrome--family thinks she was reaching for her cane and fell--head and spine CT neg for fracture--held Eliquis in prep for surgery 08/29/24-- due to pt thrombocytopenia prefer not to use asa--pain
control
Chronic hypotension--Blood pressure 90s at baseline--will add midodrine
Parkinson's disease--Continue carbidopa-levodopa--will discuss with pharmacy best way to get Parkinson's med through NGT
Dementia--Continue donepezil
Essential hypertension--hold meds for now
Chronic HFpEF--Continue Lasix and metoprolol if systolic blood pressure greater than 100--no exacerbation
Chronic anemia--HGB stable mid 12s
Glaucoma--Continue eyedrops
Chronic mild transaminitis--Stable
moderate protein calorie malnutrition--affects healing and rehab potential
code status--DNR/DNI
DVT prophylaxis-SCDs
Total Critical Care Time 35 minutes. I was immediately available to the patient and staff. I personally examined, reviewed labs, diagnostic images/reports, interpretations, treatment plans, discussed patient care with other providers and family
or caregivers (if patient is unable to make decisions), entered orders as appropriate and documented the medical record.
Anticipated Discharge: > 48 hours
Subjective/Interval History
-
Date of Service: August 30, 2024
pt intubated on pressors after surgery with runs of V.tach during surgery
Objective Data
-
Labs:
Laboratory Results
08/29/24 08/30/24 08/30/24
20:21 03:33 07:43
WBC 7.7
Hgb 12.8 12.6
Hct 38.0 36.8 L
Plt Count 135
PT 17.8 H
INR 1.44
APTT 36.2 H
HCO3 20.4 L 22.2 18.8 L
Sodium 133 L 136
Potassium 4.0 3.6
Chloride 100 103
Carbon Dioxide 20 L 21 L
BUN 40 H 39 H
Creatinine 0.9 0.8
Glucose 135 H 135 H
Calcium 8.2 L 8.9
08/30/24
07:44
WBC
Hgb
Hct
Plt Count
PT
INR
APTT
HCO3
Sodium 136
Potassium 4.9 D
Chloride 104
Carbon Dioxide 17 L
BUN 40 H
Creatinine 0.9
Glucose 158 H
Calcium 8.4
Vital Signs:
max temp for 24 hours
08/29/24
14:50
Temp 98.1 F
Vital Signs
Temp Pulse Resp BP Pulse Ox
97.7 F 129 12 104/70 99
08/30/24 03:30 08/30/24 08:15 08/30/24 08:15 08/30/24 08:00 08/30/24 08:00
I&O
08/29/24 08/30/24 08/31/24
06:59 06:59 06:59
Intake Total 810 / 810 1456.5 / 1632.3 356.6 / 356.6
Output Total 200 / 200 420 / 435
Balance 610 / 610 1036.5 / 1197.3 326.6 / 326.6
Review of Systems
-
Unable to obtain full review of systems at this time due to: Patient Intubation
Physical Exam
-
General: Intubated and Appears Chronically Ill (elderly frail female )
HEENT: Normocephalic, Atraumatic and Other (NGT in place)
Respiratory: Clear to Auscultation; Negative Wheezes, Rales, Rhonchi or Crackles
Cardiac: Irregular Rhythm and Tachycardic
GI: Soft, Nontender, Nondistended and Normal Bowel Sounds
Musculoskeletal: No Clubbing, No Edema and Cyanosis (cold bilateral bluish feet/toes)
Neuro: Negative Awake or Alert
Psych: Calm
--- NOTE | 2024-08-30 08:37 | W.PN.CARDCBS ---
Today's Communication / Plan
-
Maintain amiodarone
Will add intravenous digoxin to obtain some better rate control as blood pressure will not tolerate beta-fili or calcium channel fili
Hold diuretic for now
Continue BP support as you are doing
Impression / Plan
-
PCP: Dr. Joni Foley
Primary shellfish sorter: Dr. Angel Merino
Impression:
Admitted with fall and left hip fracture 08/26/24
Unwitnessed fall
Left hip fracture
Afib with RVR
Permanent Afib
Chronic Eliquis OAC
Chronic HFpEF
Thrombocytopenia
Dementia
Parkinson's disease
Hyperglycemia
Echo 04/29/20: EF 55 to 60%, mild concentric LVH, mild MR, aortic sclerosis with mild eccentric aortic regurgitation, mild TR with PAP 28 mmHg
Echo 03/31/24: EF 55%, MAC, moderate MR, mild AR, moderate TR, PAP 30 mmHg, severely dilated right atrium, enlarged RV size, patient now in A-fib with slightly worsened MR
Plan:
Remains critically ill
Unwitnessed fall at home while admitted with left hip fracture (by report, she has end-stage Parkinson's disease)
-ORIF left hip 08/29/24
Postoperative hypotension
-Transferred to ICU for runs of what is described as VT (aberrancy? , ECG AF and VR 180bpm, no ECG documentation of VT), as well as postprocedural hypotension and AF with RVRs.
-Still requiring IV pressors for blood pressure support
-Will order echocardiogram for Sunday
Permanent atrial fibrillation, rapid rates
-IV amiodarone, continue
-Hypotension is limiting beta-fili use, she has order for IV lopressor 5mg IV q6 with hold parameters while NPO then can transition to oral as BP tolerates
-We will add intravenous digoxin at least until we can obtain better rate control
-Resume anticoagulation when able. Eliquis 2.5mg BID held as of 08/26/24 in am
-Ortho recommends: Eliquis 2.5mg daily x 3 days, then back to 2.5mg BID thereafter.
History of thrombocytopenia
-Platelet count stable, preop 128,000 today; Hb 13.5g/dL preop today
-Monitor closely
Patient with h/o chronic HFpEF.
-Appears dry today
-Hold Lasix today and monitor post op (was on Lasix 40mg daily)
-Monitor I/O, weights
History of dementia/Parkinson's disease�noted
-Aspiration precautions
Discussed with ICU nursing
Critical care time 35 minutes
Progress Note - Director Business
Subjective
Date of Service: August 30, 2024
She is intubated and sedated.
Objective
Labs:
08/30/24 03:33
08/30/24 07:44
Labs
Hgb 12.6 g/dL (12.0-16.0) 08/30/24 03:33
Hct 36.8 % (37.0-47.0) L 08/30/24 03:33
Plt Count 135 10^3/uL (130-400) 08/29/24 20:21
PT 17.8 Sec (11.4-14.6) H 08/29/24 20:21
INR 1.44 08/29/24 20:21
APTT 36.2 Sec (23.4-35.0) H 08/29/24 20:21
Sodium 136 mmol/L (135-145) 08/30/24 07:44
Potassium 4.9 mmol/L (3.5-5.1) D 08/30/24 07:44
BUN 40 mg/dl (7-17) H 08/30/24 07:44
Creatinine 0.9 mg/dL (0.6-1.0) 08/30/24 07:44
Glucose 158 mg/dl (70-99) H 08/30/24 07:44
Vital Signs and I&O:
Vital Signs
Temp Pulse Resp BP Pulse Ox
97.7 F 129 12 104/70 99
08/30/24 03:30 08/30/24 08:15 08/30/24 08:15 08/30/24 08:00 08/30/24 08:00
Vital Signs
Temp Pulse Resp BP Pulse Ox
97.7 F 129 12 104/70 99
08/30/24 03:30 08/30/24 08:15 08/30/24 08:15 08/30/24 08:00 08/30/24 08:00
Intake & Output
08/28/24 08/29/24 08/30/24 08/31/24
06:59 06:59 06:59 06:59
Intake Total 310 / 310 810 / 810 1456.5 / 1632.3 356.6 / 356.6
Output Total 200 / 200 420 / 435
Balance 310 / 310 610 / 610 1036.5 / 1197.3 326.6 / 326.6
Physical Exam
Physical Exam
She is intubated and sedated
Appears comfortable
Heart is regular and tachycardic normal S1 and S2, no S3 no S4 there is a grade 1/6 basal systolic and 1/6 apical holosystolic murmur PMI is normally placed
Lungs coarse breath sounds bilaterally anteriorly
Abdomen is soft and nondistended
There is trace pretibial edema bilaterally
--- NOTE | 2024-08-30 08:41 | CON.INTV ---
Consultation
Consultation Request
Date/Time Consultation Requested: 08/29/2024 - 193
Date/Time Consultation Performed: 08/30/2024824
Requesting Provider: ОЛЬГА Henriquez
Performing Provider: Dr. Ponce
Reason for Consultation: Intubated/Shock
Medical History
-
Chief Complaint: Fall
History of Present Illness:
88-year-old female with a past medical history of Parkinson disease, history of SVT, colon cancer s/p right hemicolectomy (1990), history of endometrial carcinoma s/p total hysterectomy, IBS, and mitral valve regurgitation who presents with a trip
and fall. She is complaining of left-sided hip/leg pain. She is on Eliquis for a history of A-fib. She says she got up from a seated position and tripped and fell onto the ground with no head trauma. Her blood pressure usually runs low sometimes
with SBP <100. Initial femur/hip XR showed impacted fracture involving the neck/head of the proximal left femur. CT head/CT C-spine showed no acute osseous abnormalities and no acute intracranial pathology. She was given Ofirmev in the ER and
admitted to telemetry for further management. Of note she is in rate controlled permanent A-fib and cardiology was consulted. Orthopedics also consulted and on the evening of 08/29/2024 she underwent a left hip hemiarthroplasty. During the
procedure she had suspected runs of VT with hypotension. She had remained intubated and arrived to the ICU in rapid A-fib in the 180s and on Levophed at 10mcg/min and epinephrine at 2mcg/min. [employer] Support Worker services consulted for additional
management/recommendations.
Patient was seen and evaluated today at bedside. She remains intubated on AC/CMV at 12/400/40%/5 with PIP: 21 cmH2O, breathing at 12 breaths/minute and VTe 391 mL. Currently sedated on fentanyl 25mcg/hr, and BP supported with Eligio-Synephrine at
120mcg/min and vasopressin at 0.03 units/min. Also on amiodarone at 1 mg/min. Current heart rate 93, BP via A-line: 134/80 and BP via NIBP: 123/45. She does respond to verbal and tactile stimuli. She is in no acute distress.
PMHx: History of skin cancer s/p resection, Parkinson disease, history of SVT, A-fib on Eliquis, dementia, chronic HFpEF, chronic anemia, colon cancer, glaucoma, history of endometrial cancer, IBS, acne rosacea, mitral valve regurgitation
PSHx: Bilateral laser eye surgery, total hysterectomy, cataract extraction, right hemicolectomy (1990)
Past Medical History
Past Medical History: Other (Above as per HPI)
Past Surgical History: Other (Above as per HPI)
Social History
Tobacco: Non-smoker
Alcohol: None
Drug: None
Family History
Family History: Cancer (Mother + paternal aunt: Breast cancer) and Other (Father + brother: Pacemaker; mother: Alzheimer's disease)
Allergies / Home Medications
Allergies
Allergy/AdvReac Type Severity Reaction Status Date / Time
morphine Allergy Severe slight rash Verified 08/26/24 15:44
Home Medications
�Medication �Instructions �Recorded �Confirmed �Last Taken �Type
carbidopa ER 25 mg-levodopa 100 mg 1 tab PO BID@0800,1800 parkinsons 03/29/24 08/26/24 06/04/24 History
tablet,extended release disease
donepezil 5 mg tablet 5 mg PO HS Neurological Condition 03/29/24 08/26/24 06/03/24 History
timolol 0.5 % eye drops 1 drp BOTH EYES DAILY Eye Condition 03/29/24 08/26/24 06/04/24 History
furosemide 40 mg tablet 40 mg PO DAILY Heart Failure 1 04/03/24 08/26/24 06/04/24 Rx
month #30 tabs
Bifidobacterium infantis 4 mg 4 mg PO DAILY probiotic 06/04/24 08/26/24 06/04/24 History
capsule (Align (B.infantis))
acetaminophen 650 mg 650 mg PO BID@0800,1800 pain 06/04/24 08/26/24 06/04/24 History
tablet,extended release
apixaban 2.5 mg tablet (Eliquis) 2.5 mg PO BID@0800,1800 Blood clot 06/04/24 08/26/24 06/04/24 History
prevention/tx
docusate sodium 100 mg capsule 100 mg PO BIDPRN PRN constipation 06/04/24 08/26/24 06/04/24 History
(Colace)
metoprolol succinate 50 mg 50 mg PO BID Blood Pressure 06/04/24 08/26/24 06/04/24 History
tablet,extended release 24 hr
Review of Systems
-
Unable to Obtain full review of systems at this time due to: Patient Intubation
Vitals / Labs / Diagnostic Testing
Vital Signs
Temp Pulse Resp BP Pulse Ox
97.7 F 129 12 104/70 99
08/30/24 03:30 08/30/24 08:15 08/30/24 08:15 08/30/24 08:00 08/30/24 08:00
Lab Data
08/30/24 03:33
08/30/24 07:44
Laboratory Results
08/29/24 08/30/24 08/30/24
20:21 03:33 07:43
PT 17.8 H
INR 1.44
APTT 36.2 H
pH 7.52 H 7.54 H 7.42
pCO2 25 L 26 L 29 L
pO2 147 H 164 H 145 H
HCO3 20.4 L 22.2 18.8 L
O2 Delivery Level 40%
Diagnostic Testing:
Physical Exam
-
HEENT: Normocephalic, Anicteric and Other (ETT in place)
Cardiovascular: Irregular Rhythm, Peripheral Edema (negative) and Other (rate controlled)
Respiratory: Wheeze (n), Rales (n), Rhonchi (n), Accessory Resp Muscle Use (n) and Other (Mechanical breath sounds heard bilaterally)
GI: Soft, Non Distended, Non Tender and Normal Bowel Sounds
Neurology: Tremors (n) and Other (sedated but awakening to verbal and tactile stimuli)
Skin: Other (cool, cyanotic toes bilaterally (R>L))
General: Comfortable, Fever (n) and Chills (n)
Assessment
-
Assessment: 88-year-old female with a past medical history of Parkinson disease, history of SVT, colon cancer s/p right hemicolectomy (1990), history of endometrial carcinoma s/p total hysterectomy, IBS, and mitral valve regurgitation who presents
with a trip and fall. She is complaining of left-sided hip/leg pain. She is on Eliquis for a history of A-fib. She says she got up from a seated position and tripped and fell onto the ground with no head trauma. Her blood pressure usually runs
low sometimes with SBP <100. Initial femur/hip XR showed impacted fracture involving the neck/head of the proximal left femur. CT head/CT C-spine showed no acute osseous abnormalities and no acute intracranial pathology. She was given Ofirmev in
the ER and admitted to telemetry for further management. Of note she is in rate controlled permanent A-fib and cardiology was consulted. Orthopedics also consulted and on the evening of 08/29/2024 she underwent a left hip hemiarthroplasty. During
the procedure she had suspected runs of VT with hypotension. She had remained intubated and arrived to the ICU in rapid A-fib in the 180s and on Levophed at 10mcg/min and epinephrine at 2mcg/min. [employer] Support Worker services consulted for additional
management/recommendations.
Chronic conditions MANAGER MEDIA: History of skin cancer s/p resection, Parkinson disease, history of SVT, A-fib on Eliquis, dementia, chronic HFpEF, chronic anemia, colon cancer, glaucoma, history of endometrial cancer, IBS, acne rosacea, mitral valve
regurgitation
Impression:
#Ventilator dependent respiratory failure
#Shock state likely due to A-fib with RVR in the setting of chronically low BP
#Postoperative hypotension with suspected NSVT (?A-fib with aberrancy)
#A-fib with RVR
#Fall with left hip fracture s/p left hip hemiarthroplasty (08/29/2024)
#Retrocardiac opacification likely due to atelectasis
#Chronic thrombocytopenia
#Metabolic acidosis with increased anion gap likely due to lactic acidosis in the setting of shock
#Chronic hypotension not on midodrine
#Chronic anemia
#History of colon cancer s/p right hemicolectomy (1990)
#History of IBS
#Chronic HFpEF with RV enlargement and mild pulmonary hypertension (per TTE from March 2024)
Plan:
- Continue with mechanical ventilation with daily SAT/SBT if clinically appropriate
- Titrate FiO2 + PEEP to keep SpO2 >90-94%
- Aspiration precautions keeping HOB >30-45�
- Frequent suctioning as needed
- Maintain plateau pressure <30
- prn nebulized bronchodilators - not currently bronchospastic
- Heart rate control is [place] with goal HR <110
- Continue with amiodarone
- Cardiology on board and recommendations appreciated
- Avoid beta agonist as this will only worsen heart rate
- Currently on Eligio-Synephrine + vasopressin ---> titrate to keep MAP >65
- Patient is on Lasix at home, however given her shock state on vasopressors we will continue to hold this for now and resume once her BP normalizes and vasopressors were stopped
- Check echo on Sunday
- Continue telemetry to monitor for any recurrence of VT
- Although CXR shows retrocardiac opacification, this is likely due to atelectasis. Patient has no evidence of leukocytosis and has been afebrile, also nontoxic-appearing. Observe off antibiotics
- Postoperative management as per orthopedic surgery
- Pain control
- Replete electrolytes with K>4, Mg>2
- Maintain euglycemia with goal BG 140-180
- Trend H/H and transfuse if needed to keep Hb>7g/dL; keep plt>50k (given post-operative status)
- DVT ppx: Eliquis
Critical care statement: A total of 40 minutes of critical care time was provided for this patient today. This includes management of unstable vital signs, evaluation of the patient at bedside, reviewing the patient's pertinent medical records
including radiographs, microbiology, laboratory evaluations, and discussion with primary team, consultants, pharmacy, nutrition, physical therapy, case management, charge nurse, critical care nursing, and respiratory therapy.
[2024-08-30] MEDS: LANOXIN 500 MCG IV (10:07)
[2024-08-30] MEDS: SINEMET 25-100 1 TABLET TUBE ×2 (10:08→21:00)
[2024-08-30] MEDS: PITRESSIN 100 IV (10:15)
--- NOTE | 2024-08-30 10:54 | CM ---
Postop 08/29/24 left hemiarthroplasty.
Titrating Neosynephrine and Vasopressors.
PT OT ordered will need evals for dc planning .
NG placed.
Soft limb restraints as needed.
PLAN Will need PT OT evals for dc planning
--- NOTE | 2024-08-30 11:51 | PTCARENOTE ---
pulse ox has been intermittent all day due to cool extremities. when good wave form is obtained, it is 95-96%
[2024-08-30] MEDS: CORDARONE 518 MG IV (12:50)
--- NOTE | 2024-08-30 12:58 | PTCARENOTE ---
Patient back in sinus rhythm. Texted felicitas Waller to titrade amio gtt to 0.5.
--- NOTE | 2024-08-30 13:51 | W.PN.ANS.POP ---
Anesthesia Post Operative
- Anesthesia Post Op Note
Vital Signs Stable-See Nursing Note: Yes (remains on phenylephrine and vasopressin gtts for BP support/ amio gtt)
Airway Patent: Yes (pt remains intubated)
Adequate Pain Control: Yes
Change in Mental Status: No (awake )
Current Postoperative Nausea & Vomiting: No
Anesthesia Complications: No
General Anesthetic Recall: No
Unplanned Admission: No
Post Op Hydration Adequate: Yes
[2024-08-30] MEDS: ARICEPT 5 MG TUBE (21:20)
[2024-08-31] VITALS (17 sets, daily range): BP systolic 81–130; BP diastolic 57–83; BMI 19.6
--- NOTE | 2024-08-31 00:30 | PTCARENOTE ---
Feet remain cool with purple appearance around toes/top of posterior foot bilaterally. Weak palpable pulses. Cap refill <2. Assessment remains unchanged. Will monitor.
[2024-08-31] MEDS: NSS 1000 IV (01:30)
[2024-08-31 04:36] LABS: Hematocrit 37.1 % (37.0-47.0); Hemoglobin 11.8 g/dL (12.0-16.0); Mean Corp Hgb Conc. 31.8 g/dL (33.0-37.0); Mean Corpuscular Hgb 29.6 pg (27.0-31.0); Mean Platelet Volume 10.4 fL (7.4-10.4); Platelet Count 124 10^3/uL (130-400); Red Blood Cell Count 3.99 10^6/uL (4.20-5.40); Red Cell Dist. Width 14.2 % (11.5-14.5); White Blood Cell Count 11.9 10^3/uL (4.8-10.8)
[2024-08-31 05:10] LABS: ALT (SGPT) 285 U/L (0-35); Albumin 2.8 g/dl (3.5-5.0); Alkaline Phosphatase 97 U/L (38-126); Blood Urea Nitrogen 44 mg/dl (7-17); Calcium 8.3 mg/dl (8.4-10.2); Carbon Dioxide 24 mmol/L (22-30); Chloride 105 mmol/L (98-107); Estimated Creatinine Clearance 28 ml/min; Glucose 109 mg/dl (70-99); Magnesium 2.2 mg/dl (1.6-2.3); Sodium 137 mmol/L (135-145); Total Bilirubin 1.1 mg/dl (0.2-1.3); Total Protein 4.6 g/dl (6.3-8.2); eGFR 48.94
[2024-08-31 05:27] LABS: AST (SGOT) 1303 U/L (14-36)
[2024-08-31] MEDS: SUBLIMAZE 100 IV (06:58)
[2024-08-31] MEDS: ELIQUIS 2.5 MG TUBE (07:35)
[2024-08-31] MEDS: NSS (PRESERVATIVE FREE) 10 ML IV (07:35)
[2024-08-31] MEDS: SINEMET 25-100 1 TABLET TUBE ×2 (07:35→21:00)
[2024-08-31] MEDS: PROTONIX IV 40 MG IV (07:35)
--- NOTE | 2024-08-31 07:48 | W.PN.ORTHO ---
Today's Communication / Plan
-
88-year-old female POD #2 Left Hip Hemiarthroplasty 08/29/[address] Leal.
- Appreciate all teams involved with care of this patient.
- When medically stable, patient may be WBAT to LLE with use of assistive device. PT/OT as tolerated when stable.
- Posterior hip precautions.
- Eliquis 2.5mg daily x 3 days, then back to 2.5mg BID thereafter.
- Hemoglobin this AM 11.8. Continue to monitor.
- Skin clip removal at 2 weeks post-op.
- Follow-up Orthopedics 4 weeks post-op.
- Orthopedic surgery will continue to follow.
Assessment
.
Distal Motor Intact: Yes
Dressing:
Aquacel dressing with contained bloody drainage.
Assessment:
POD #2 Left Hip Hemiarthroplasty with Dr. Leal
Plan
.
Surgery / Date: 08/29/2024 Left Hip Hemiarthroplasty
DVT Prophylaxis: Other (Eliquis)
Activity:
Out of bed.
PT/OT when medically stable.
WBAT LLE.
Posterior Hip Precautions.
Discharge Plan: SNF
Discharge Information:
Appreciate CM.
Subjective
.
.:
Patient resting comfortably. Remains intubated. Per nursing staff, signs of improvement overnight.
Vital Signs and Labs
.
Vital Signs and Labs:
Lab Results
08/31/24 04:10
08/31/24 04:10
Temp Pulse Resp BP Pulse Ox
98.7 F 110 12 99/70 100
08/31/24 04:39 08/31/24 04:30 08/31/24 04:30 08/31/24 04:00 08/31/24 04:30
PT 17.8 Sec (11.4-14.6) H 08/29/24 20:21
INR 1.44 08/29/24 20:21
[2024-08-31] MEDS: TIMOPTIC 0.5% OPHTHALMIC SOLUTION 1 DROP BOTH EYES (07:59)
--- NOTE | 2024-08-31 08:18 | W.PN.INTV ---
Today's Communication / Plan
Recommendations
Continue with mechanical ventilation, with daily SAT/SBT
Hopefully can extubate by tomorrow
Avoid sedation to help minimize any additional weakness that may ensue, as she is already physically deconditioned
Maintain MAP >65; currently off pressors today
Heart rate control with goal HR <110; she is in and out of A-fib
Remains on amiodarone drip and now on IV digoxin q48hrs; trend sCr as dig may need to be adjusted if ANDRES worsens
PPI
Trial of IV diuresis today
Recheck CXR tomorrow
Echo tomorrow
Continue ICU level care for this critically ill patient
Assessment
-
Assessment: 88-year-old female with a past medical history of Parkinson disease, history of SVT, colon cancer s/p right hemicolectomy (1990), history of endometrial carcinoma s/p total hysterectomy, IBS, and mitral valve regurgitation who presents
with a trip and fall. She is complaining of left-sided hip/leg pain. She is on Eliquis for a history of A-fib. She says she got up from a seated position and tripped and fell onto the ground with no head trauma. Her blood pressure usually runs
low sometimes with SBP <100. Initial femur/hip XR showed impacted fracture involving the neck/head of the proximal left femur. CT head/CT C-spine showed no acute osseous abnormalities and no acute intracranial pathology. She was given Ofirmev in
the ER and admitted to telemetry for further management. Of note she is in rate controlled permanent A-fib and cardiology was consulted. Orthopedics also consulted and on the evening of 08/29/2024 she underwent a left hip hemiarthroplasty. During
the procedure she had suspected runs of VT with hypotension. She had remained intubated and arrived to the ICU in rapid A-fib in the 180s and on Levophed at 10mcg/min and epinephrine at 2mcg/min. After School Counselor services consulted for additional
management/recommendations.
Chronic conditions MEDICAL NURSE: History of skin cancer s/p resection, Parkinson disease, history of SVT, A-fib on Eliquis, dementia, chronic HFpEF, chronic anemia, colon cancer, glaucoma, history of endometrial cancer, IBS, acne rosacea, mitral valve
regurgitation
Impression:
#Ventilator dependent respiratory failure
#Shock state likely due to A-fib with RVR in the setting of chronically low BP
#Postoperative hypotension with suspected NSVT (?A-fib with aberrancy)
#A-fib with RVR
#Fall with left hip fracture s/p left hip hemiarthroplasty (08/29/2024)
#Retrocardiac opacification likely due to atelectasis
#Chronic thrombocytopenia
#Metabolic acidosis with increased anion gap likely due to lactic acidosis in the setting of shock � acidosis now resolved
#ANDRES
#Chronic hypotension not on midodrine
#Chronic anemia
#History of colon cancer s/p right hemicolectomy (1990)
#History of IBS
#Chronic HFpEF with RV enlargement and mild pulmonary hypertension (per TTE from March 2024)
Plan:
- Continue with mechanical ventilation with daily SAT/SBT if clinically appropriate
- Ideally I would like to extubate her today as blood gas on pressure support looks adequate, however she is very weak, unable to lift head up off pillow, was in rapid A-fib earlier requiring digoxin, and she is not following all commands --> will
keep on pressure support throughout the day to exercise her and then will flip back to AC/CMV tonight and then retry SBT tomorrow morning
- Titrate FiO2 + PEEP to keep SpO2 >90-94%
- Aspiration precautions keeping HOB >30-45�
- Frequent suctioning as needed
- Maintain plateau pressure <30
- prn nebulized bronchodilators - not currently bronchospastic
- Heart rate control is [place] with goal HR <110
- Continue with amiodarone gtt and digoxin started today by cardiology (may need to adjust if sCr continues to rise)
- Cardiology on board and recommendations appreciated
- Avoid beta agonist as this will only worsen heart rate
- Currently off both Eligio-Synephrine + vasopressin ---> keep MAP >65
- Patient is on Lasix at home which was held yesterday (08/30) due to her shock state. Shock state now resolved, and cardiology gave trial of 20 mg IV Lasix today. Continue to diurese based on volume status --> do not feel that she will require
much IV diuresis based on her last CXR from 08/29/2024; re-check CXR tomorrow
- Check echo on Sunday
- Continue telemetry to monitor for any recurrence of VT
- Although CXR shows retrocardiac opacification, this is likely due to atelectasis. Patient has no evidence of leukocytosis and has been afebrile, also nontoxic-appearing. Observe off antibiotics
- Postoperative management as per orthopedic surgery
- Pain control
- Replete electrolytes with K>4, Mg>2
- Maintain euglycemia with goal BG 140-180
- Trend H/H and transfuse if needed to keep Hb>7g/dL; keep plt>50k (given post-operative status)
- Stress ulcer ppx: PPI (can stop by tomorrow if she remains off pressors)
- DVT ppx: Eliquis
Critical care statement: A total of 44 minutes of critical care time was provided for this patient today. This includes management of unstable vital signs, evaluation of the patient at bedside, reviewing the patient's pertinent medical records
including radiographs, microbiology, laboratory evaluations, and discussion with primary team, consultants, pharmacy, nutrition, physical therapy, case management, charge nurse, critical care nursing, and respiratory therapy.
Subjective Dataa
Subjective Data
Date of Service:
Date of Service: August 31, 2024
Chief Complaint: After School Counselor Follow Up
Subjective:
Patient seen and evaluated today at bedside. Currently on pressure support of 8 with PEEP of 5. PIP is 14 cmH2O, VTe 330 and breathing at 15 breaths/minute. She does follow commands intermittently. She does not lift her head up off the pillow
and does not nod her head yes or no for me to my questions. Multiple family members at bedside, including the , and all questions were answered. Patient's heart rate is 82, BP 84/54 (via A-line), and BP via NIBP: 124/37, and saturating 98%
on FiO2 40%. Currently on amiodarone at 0.5mg/min.
Review of Systems
General: Other (Unable to obtain given patient is intubated)
Objective Data
Data Reviewed
Vital Signs / I&O / Oxygen:
Vital Signs
Temp Pulse Resp BP Pulse Ox
100.0 F 111 12 124/77 99
08/31/24 08:17 08/31/24 08:30 08/31/24 08:30 08/31/24 08:00 08/31/24 08:50
Intake and Output
08/30/24 08/31/24 09/01/24
06:59 06:59 06:59
Intake Total 1456.5 / 1632.3 3032.4 / 3143.6 322.6 / 322.6
Output Total 420 / 435 631 / 651 60 / 60
Balance 1036.5 / 1197.3 2401.4 / 2492.6 262.6 / 262.6
SaO2 [A/C] 99
SaO2 99
Nasal Cannula flow liters per 4
minute
Physical Exam
General: Respiratory Distress (negative), Comfortable, Chills (negative) and Sweats (negative)
HEENT: Normocephalic, Anicteric and Other (ETT in place)
Cardiovascular: Irregular Rhythm, Rub (negative) and Peripheral Edema (negative)
Respiratory: Wheeze (negative), Crackles (Left base), Rhonchi (negative), Non-Labored Respirations and ET Tube (Mechanical breath sounds heard bilaterally)
GI: Soft, Non Distended, Non Tender and Normal Bowel Sounds
Neurology: Awake, Tremors (negative) and Other (Slow to respond, generalized weakness, unable to lift head off pillow, occasionally follows commands)
Skin: Dry and Cyanosis (In the toes bilaterally)
Labs/Micro/Reports
Lab Data
08/31/24 04:10
08/31/24 04:10
--- NOTE | 2024-08-31 08:24 | W.PN.HOSP.TC ---
Today's Communication/Plan
-
SBT with possible extubation
HR control
wean pressors to off
follow and replete lytes
renew drips
will need PT/OT/speech (after extubation)
Assessment / Plan
Assessment / Plan
pt is an 88 year old female
drips: amio, fentanyl, phenylephrine
permanent afib with RVR and V.tach intraoperatively with post op hypotension--suspect some contribution from Parkinson's and baseline autonomic insufficiency (neurogenic shock)--do not believe septic shock, hemorrhagic, or cardiogenic shock--plan
was for Eliquis 2.5 mg daily x 3 days then 2.5 BID
VDRF--intubated for surgery--pt is DNR but not in perioperative phase--apprec instructor of spanish--wean from vent as per pulm/instructor of spanish
Mechanical fall resulting in left hip fracture--no prodrome--family thinks she was reaching for her cane and fell--head and spine CT neg for fracture--held Eliquis in prep for surgery 08/29/24-- due to pt thrombocytopenia prefer not to use asa--pain
control--s/p surgical repair 08/29/24--will need PT/OT--staple removal in 2 weeks, ortho f/u at 4 weeks
Chronic hypotension--Blood pressure 90s at baseline--will add midodrine
leukocytosis--likely reactive--no suspicion for infection
ANDRES/elevated AST/ALT--baseline creat 0.8--now 1.1--follow--most likely due to hypotension--AST 1300, ALT 285--also likely due to hypotension
Parkinson's disease--Continue carbidopa-levodopa
Dementia--Continue donepezil
Essential hypertension--hold meds for now
Chronic HFpEF--Continue Lasix and metoprolol if systolic blood pressure greater than 100--no exacerbation
Chronic anemia--HGB stable mid 12s
Glaucoma--Continue eyedrops
Chronic mild transaminitis--Stable
moderate protein calorie malnutrition--affects healing and rehab potential
code status--DNR/DNI
DVT prophylaxis-SCDs
Total Critical Care Time 31 minutes. I was immediately available to the patient and staff. I personally examined, reviewed labs, diagnostic images/reports, interpretations, treatment plans, discussed patient care with other providers and family
or caregivers (if patient is unable to make decisions), entered orders as appropriate and documented the medical record.
Anticipated Discharge: > 48 hours
Subjective/Interval History
-
Date of Service: August 31, 2024
pt awake and nods yes/no
Objective Data
-
Labs:
Laboratory Results
08/31/24
04:10
WBC 11.9 H
Hgb 11.8 L
Hct 37.1
Plt Count 124 L
Sodium 137
Potassium 4.0
Chloride 105
Carbon Dioxide 24
BUN 44 H
Creatinine 1.1 H
Glucose 109 H
Calcium 8.3 L
Total Bilirubin 1.1
AST 1303 H*
ALT 285 H
Alkaline Phosphatase 97
Vital Signs:
max temp for 24 hours
08/30/24
21:00
Temp 99.9 F
Vital Signs
Temp Pulse Resp BP Pulse Ox
100.0 F 110 12 99/70 100
08/31/24 08:17 08/31/24 04:30 08/31/24 04:30 08/31/24 04:00 08/31/24 04:30
I&O
08/30/24 08/31/24 09/01/24
06:59 06:59 06:59
Intake Total 1456.5 / 1632.3 3032.4 / 3143.6 214.4 / 214.4
Output Total 420 / 435 631 / 651 40 / 40
Balance 1036.5 / 1197.3 2401.4 / 2492.6 174.4 / 174.4
Review of Systems
-
Unable to obtain full review of systems at this time due to: Patient Intubation
Physical Exam
-
General: Intubated and Appears Chronically Ill
HEENT: Normocephalic and Atraumatic
Respiratory: Clear to Auscultation; Negative Wheezes or Rhonchi
Cardiac: Irregular Rhythm and Tachycardic
GI: Soft, Nontender, Nondistended and Normal Bowel Sounds
Musculoskeletal: No Clubbing, No Cyanosis and No Edema
Neuro: Awake
Psych: Calm
--- NOTE | 2024-08-31 08:52 | PTCARENOTE ---
Assumed care of pt. Assessment performed-see worklist. Awakens easily to voice, nods y/n. Afib 110-130s with BP supported by oliverio-synephrine gtt. Amio gtt continues. Ventillated on AC12/400/5/40% with SpO2 99%. Night RN stopped fentanyl gtt for SAT
however HR to 130s sustained and fentanyl restarted d/t concerns for pain. Rhonchi throughout with small amt of clear/white sputum oral/ETT. NGT clamped after AM meds. Riley draining clear yellow urine. L hip dressing intact-Ortho to bedside, see
note.
--- NOTE | 2024-08-31 09:04 | W.PN.CARDCBS ---
Today's Communication / Plan
-
Rebolus with digoxin today
IV Lasix today
Agree with primary service recommendation to initiate midodrine
Wean IV pressors as tolerated
Impression / Plan
-
PCP: Dr. Joni Foley
Primary director of cath lab: Dr. Angel Merino
Impression:
Admitted with fall and left hip fracture 08/26/24
Unwitnessed fall
Left hip fracture
Afib with RVR
Permanent Afib
Chronic Eliquis OAC
Chronic HFpEF
Thrombocytopenia
Dementia
Parkinson's disease
Hyperglycemia
Echo 04/29/20: EF 55 to 60%, mild concentric LVH, mild MR, aortic sclerosis with mild eccentric aortic regurgitation, mild TR with PAP 28 mmHg
Echo 03/31/24: EF 55%, MAC, moderate MR, mild AR, moderate TR, PAP 30 mmHg, severely dilated right atrium, enlarged RV size, patient now in A-fib with slightly worsened MR
Plan:
Remains critically ill
Unwitnessed fall at home while admitted with left hip fracture (by report, she has end-stage Parkinson's disease)
-ORIF left hip 08/29/24
Postoperative hypotension
-Transferred to ICU for runs of what is described as VT (aberrancy? , ECG AF and VR 180bpm, no ECG documentation of VT), as well as postprocedural hypotension and AF with RVRs.
-Still requiring IV pressors for blood pressure support but weaning (vasopressin weaned off yesterday, still requiring phenylephrine)
-h/o Chronic hypotension--Blood pressure 90s at baseline
midodrine is planned to be initiated 08/31/2024 by primary service
-Echocardiogram for Sunday
Permanent atrial fibrillation, rapid rates
-IV amiodarone, continue
-Hypotension is limiting beta-fili use, she has order for IV lopressor 5mg IV q6 with hold parameters while NPO then can transition to oral as BP tolerates
-Added digoxin 08/29/24, at least until we can obtain better rate control, will re-bolus today and then maintain 0.125 mg starting tomorrow
Check digoxin level later this week
-She is back on Eliquis 2.5mg BID, continue
History of thrombocytopenia
-Platelet count stable, preop 128,000 today; Hb 13.5g/dL
-Monitor closely
Patient with h/o chronic HFpEF.
-Lasix was held yesterday over concern she was dry and this was contributing to hypotension, but weight is up 4 pounds, fluid balance is +2.2 L and she did not do well with weaning trial for extubation
Will give IV Lasix today, 20 mg for volume overload and dose on an as-needed basis
Keep K between 4 and 5 and magnesium between 2 and 3 particular given use of digoxin
History of dementia/Parkinson's disease�noted
-Aspiration precautions
Discussed with ICU nursing
Also discussed with her and her son who are at bedside
Critical care time 35 minutes
Progress Note - Automotive Metalsmith
Subjective
Date of Service: August 31, 2024
Still intubated, sedated appears comfortable
Objective
Labs:
08/31/24 04:10
08/31/24 04:10
Labs
Hgb 11.8 g/dL (12.0-16.0) L 08/31/24 04:10
Hct 37.1 % (37.0-47.0) 08/31/24 04:10
Plt Count 124 10^3/uL (130-400) L 08/31/24 04:10
PT 17.8 Sec (11.4-14.6) H 08/29/24 20:21
INR 1.44 08/29/24 20:21
APTT 36.2 Sec (23.4-35.0) H 08/29/24 20:21
Sodium 137 mmol/L (135-145) 08/31/24 04:10
Potassium 4.0 mmol/L (3.5-5.1) 08/31/24 04:10
BUN 44 mg/dl (7-17) H 08/31/24 04:10
Creatinine 1.1 mg/dL (0.6-1.0) H 08/31/24 04:10
Glucose 109 mg/dl (70-99) H 08/31/24 04:10
Vital Signs and I&O:
Vital Signs
Temp Pulse Resp BP Pulse Ox
100.0 F 111 12 124/77 99
08/31/24 08:17 08/31/24 08:30 08/31/24 08:30 08/31/24 08:00 08/31/24 08:30
Vital Signs
Temp Pulse Resp BP Pulse Ox
100.0 F 111 12 124/77 99
08/31/24 08:17 08/31/24 08:30 08/31/24 08:30 08/31/24 08:00 08/31/24 08:30
Intake & Output
08/29/24 08/30/24 08/31/24 09/01/24
06:59 06:59 06:59 06:59
Intake Total 810 / 810 1456.5 / 1632.3 3032.4 / 3143.6 214.4 / 214.4
Output Total 200 / 200 420 / 435 631 / 651 40 / 40
Balance 610 / 610 1036.5 / 1197.3 2401.4 / 2492.6 174.4 / 174.4
Physical Exam
Physical Exam
She is intubated and sedated
Appears comfortable
Heart is regular and tachycardic normal S1 and S2, no S3 no S4 there is a grade 1/6 basal systolic and 1/6 apical holosystolic murmur PMI is normally placed
Lungs coarse breath sounds bilaterally anteriorly
Abdomen is soft and nondistended
There is trace pretibial edema bilaterally
[2024-08-31] MEDS: NEO-SYNEPHRINE 250 IV (09:59)
[2024-08-31] MEDS: LANOXIN 500 MCG IV (10:00)
[2024-08-31] MEDS: LASIX 20 MG IV (10:00)
--- NOTE | 2024-08-31 10:10 | PTCARENOTE ---
SBT ongoing. Pt is currently in sinus rhythm. Family at bedside.
[2024-08-31 11:07] LABS: B.E. -1.2 mmol/L; HCO3 22.4 mmol/L (21-28); O2 Saturation % 99.8 % (94-98); PCO2 33 mmHg (32-35); PO2 194 mmHg (83-108); pH 7.44 (7.35-7.45)
--- NOTE | 2024-08-31 11:36 | PTCARENOTE ---
SBT continues. ABG drawn and WNL. However, pt not following commands regularly and unable to lift head. Correspondent inclined to continue on Spont setting and return to A/C tonight. Will reevaluate tomorrow.
--- NOTE | 2024-08-31 14:07 | PTCARENOTE ---
Tube feeding started as ordered with water flushes. IVF stopped. Eligio-synephrine and fentanyl remains off.
[2024-08-31] MEDS: CORDARONE 518 MG IV (17:24)
[2024-08-31] MEDS: ProAmatine 10 MG TUBE (17:24)
--- NOTE | 2024-08-31 20:54 | PTCARENOTE ---
Pt received at 19:00. Opens eyes to voice and tracks, did not follow any commands or nod appropriately. + corneal/cough/gag. #7 ETT @ 23cm, repositioned from center to L. Received on wean, 8/5 40%. Placed back on AC by BENEFITS CONSULTANT, 12/400/40%/+5. Scattered
rhonchi, suctions for thick clear secretions via ETT & orally. R nare NGT in place @ 55cm. TF infusing as ordered, to be increased to goal at 22:00. Riley in place, 30-60ml/hr of clear yellow urine. L hip dressing remains intact, shadowing noted,
unchanged. R brachial a-line correlating with cuff pressure. Safe environment maintained, call sandy within reach, pt repositioned.
[2024-08-31] MEDS: ARICEPT 5 MG TUBE (21:01)
[2024-09-01] VITALS (16 sets, daily range): BP systolic 84–159; BP diastolic 64–98; PULSE 2–103; BMI 19.6
--- NOTE | 2024-09-01 00:43 | PTCARENOTE ---
Pt assessment unchanged. Remains off of sedation and vasopressors. Safe environment maintained, repositioned q2h.
[2024-09-01 03:22] LABS: B.E. 0.2 mmol/L; HCO3 23.3 mmol/L (21-28); O2 Saturation % 99.1 % (94-98); PCO2 32 mmHg (32-35); PO2 95 mmHg (83-108); pH 7.47 (7.35-7.45)
[2024-09-01 03:27] LABS: O2 Therapy 40%
[2024-09-01 03:40] LABS: Hematocrit 36.5 % (37.0-47.0); Hemoglobin 11.9 g/dL (12.0-16.0); Mean Corp Hgb Conc. 32.6 g/dL (33.0-37.0); Mean Corpuscular Hgb 30.3 pg (27.0-31.0); Mean Corpuscular Volume 92.9 fL (81.0-99.0); Mean Platelet Volume 11.4 fL (7.4-10.4); Platelet Count 114 10^3/uL (130-400); Red Blood Cell Count 3.93 10^6/uL (4.20-5.40); Red Cell Dist. Width 14.5 % (11.5-14.5); White Blood Cell Count 11.1 10^3/uL (4.8-10.8)
[2024-09-01 04:06] LABS: ALT (SGPT) 333 U/L (0-35); AST (SGOT) 377 U/L (14-36); Albumin 2.7 g/dl (3.5-5.0); Alkaline Phosphatase 117 U/L (38-126); Blood Urea Nitrogen 46 mg/dl (7-17); Calcium 8.3 mg/dl (8.4-10.2); Carbon Dioxide 24 mmol/L (22-30); Chloride 104 mmol/L (98-107); Estimated Creatinine Clearance 29 ml/min; Glucose 184 mg/dl (70-99); Magnesium 2.2 mg/dl (1.6-2.3); Phosphorus 2.2 mg/dl (2.5-4.5); Potassium 4.2 mmol/L (3.5-5.1); Sodium 136 mmol/L (135-145); Total Bilirubin 1.1 mg/dl (0.2-1.3); Total Protein 4.6 g/dl (6.3-8.2); eGFR 48.94
--- NOTE | 2024-09-01 04:38 | PTCARENOTE ---
Addendum entered by Gilma Harley RN 09/01/24 06:20:
Orthopedics made aware, no further others at this time.
Original Note:
L hip aquacell with moderate amount of serosanguineous drainage, lower portion of dressing saturated and no longer intact. Dressing replaced. Fuentes intact, some small blood clots noted along incision. No further drainage noted.
--- NOTE | 2024-09-01 07:09 | W.PN.HOSP.TC ---
Addendum entered and electronically signed by Elena Armas MD 09/03/24 06:55:
elevated LFTs due to hypotension and shock liver
VDRF due to acute hypoxic resp failure
Addendum entered and electronically signed by Elena Armas MD 09/01/24 17:56:
I saw and evaluated the patient independently . I reviewed the resident�s note and agree with findings and plan as documented by Dr. Mendez.
GENERAL: elderly frail appearing female in no apparent distress
HEENT: NC/AT intubated
HEART: regular rate and rhythm, +S1, +S2
LUNGS : clear to auscultation bilaterally
ABDOM: soft, nontender, nondistended, + bowel sounds
EXT: no cyanosis, clubbing, or edema--left hip post op
NEUROLOGIC: features c/w Parkinson's
permanent afib with RVR and V.tach intraoperatively with post op hypotension--suspect some contribution from Parkinson's and baseline autonomic insufficiency (neurogenic shock)--do not believe septic shock, hemorrhagic, or cardiogenic shock--plan
was for Eliquis 2.5 mg daily x 3 days then 2.5 BID--apprec cards--amio drip/digoxin
VDRF--intubated for surgery--pt is DNR but not in perioperative phase--apprec arborer--extubated with decision not to re-intubate
Mechanical fall resulting in left hip fracture--no prodrome--family thinks she was reaching for her cane and fell--head and spine CT neg for fracture--held Eliquis in prep for surgery 08/29/24-- due to pt thrombocytopenia prefer not to use asa--pain
control--s/p surgical repair 08/29/24--will need PT/OT--staple removal in 2 weeks, ortho f/u at 4 weeks
Chronic hypotension--Blood pressure 90s at baseline--cont midodrine
leukocytosis--likely reactive--no suspicion for infection
ANDRES/elevated AST/ALT--baseline creat 0.8--now 1.1--follow--most likely due to hypotension--AST 1300, ALT 285--also likely due to hypotension
hypophosphatemia--replete as needed--can use neutraphos
Parkinson's disease--Continue carbidopa-levodopa
Dementia--Continue donepezil
Essential hypertension--hold meds for now
Chronic HFpEF--Continue Lasix and metoprolol if systolic blood pressure greater than 100--no exacerbation
Chronic anemia--HGB stable mid 12s
Glaucoma--Continue eyedrops
Chronic mild transaminitis--Stable
moderate protein calorie malnutrition--affects healing and rehab potential
code status--DNR/DNI
DVT prophylaxis-SCDs
Total Critical Care Time 32 minutes. I was immediately available to the patient and staff. I personally examined, reviewed labs, diagnostic images/reports, interpretations, treatment plans, discussed patient care with other providers and family
or caregivers (if patient is unable to make decisions), entered orders as appropriate and documented the medical record.
Original Note:
Today's Communication/Plan
-
C/w midodrine, Extubation per Automation Sales Manager team, rate control per cardio team. Wound care and pain control as needed. Appreciate integration of care teams for this patient.
Assessment / Plan
Assessment / Plan
88 year old female with a past medical history of atrial fibrillation (on Eliquis), Parkinson's disease, dementia, HFrEF, hypertension, chronic anemia, glaucoma, colon cancer s/p colon resection, endometrial cancer s/p post hysterectomy who
presented to [place] ER room after a mechanical fall
#Ventilator Dependent Respiratory Failure - intubated for surgery, still requiring mechanical ventilation post op. Will wean from vent per arborer; likely attempt at extubation today. Discussion to be had with family on details and next steps
should intubation fail as patient is DNR/DNI.
#Chronic Hypotension - Now off pressors, on midodrine 10 TID with map goal >65.
#Vtach
#Afib with RVR
#Permanent Afib
- has been in Afib since arrival, rates persistently elevated. Had episodes of Vtach during surgery and was hypotensive post op. Holding Lopressor in setting of hypotension. On Amiodarone ggt & Digoxin q48. Appreciate cardiology recs
#Mechanical fall with resulting L hip fx. POD3 from Left Hip Hemiarthroplasty
- Currently intubated, off sedation. Will proceed with PT/OT and WBAT per ortho once patient is medically stable.
#HFpEF - Given one 20mg dose IV Lasix yesterday, will reassess today, though patient does not seem volume overloaded. Appreciate cards
#Thrombocytopenia, chronic - plt low but stable. No overt signs of bleeding. Will continue to monitor post op.
#Head pain - nontender on exam, though subjectively painful in R occipital region. CT head ruled out fracture. Likely secondary to fall. Pain meds prn if needed.
#Moderate Protein Calorie Malnutrition - Patient meets AND and ASPEN criteria for moderate protein calorie malnutrition of chronic disease due to >7.5% BW loss over 3 months and moderate loss of muscle in her clavicle region.
#Urinary incontinence
#Parkinson's - stable, continue with home carbidopa-levodopa
#Dementia - stable, continue with donepezil
#Glaucoma - c/w timolol drops qd
Diet - cholesterol lowering diet
DVT Ppx - holding Eliquis for surgery
Code Status - DNR
Anticipated Discharge: > 48 hours
Subjective/Interval History
-
Patient off pressors and off sedation. She does not seem to move her head as I talk, but she attempts to squeeze my hand when asked. She is intubated and has an NG tube placed.
Objective Data
-
Labs:
Laboratory Results
09/01/24
03:15
WBC 11.1 H
Hgb 11.9 L
Hct 36.5 L
Plt Count 114 L
HCO3 23.3
Sodium 136
Potassium 4.2
Chloride 104
Carbon Dioxide 24
BUN 46 H
Creatinine 1.1 H
Glucose 184 H
Calcium 8.3 L
Total Bilirubin 1.1
AST 377 H
ALT 333 H
Alkaline Phosphatase 117
Vital Signs:
Vital Signs
Temp Pulse Resp BP Pulse Ox
98.7 F 111 15 121/73 98
09/01/24 07:07 09/01/24 05:45 09/01/24 05:45 09/01/24 00:00 09/01/24 05:30
I&O
08/31/24 09/01/24 09/02/24
06:59 06:59 06:59
Intake Total 3032.4 / 3143.6 1763.3 / 1763.3
Output Total 631 / 651 1365 / 1365
Balance 2401.4 / 2492.6 398.3 / 398.3
Review of Systems
-
Unable to obtain full review of systems at this time due to: Dementia and Patient Intubation
Physical Exam
-
General: No Apparent Distress and Cachectic
HEENT: Normocephalic, Atraumatic, Moist Mucous Membranes, Anicteric and [place] Conjunctivae
Respiratory: Clear to Auscultation and Chest Tubes (On Mechanical Ventilation); Negative Wheezes, Rales or Rhonchi
Cardiac: S1/S2, Irregular Rhythm and Other; Negative Murmur
Breast: Deferred by me
GI: Soft, Nontender, Nondistended and Other (NG tube w/ tube feeding )
Genito-urinary: Clear Urine and Riley
Musculoskeletal: No Clubbing, No Cyanosis, No Edema and Other (Relative warmth in the L leg compared to R. BL DP pulses 2+ and symmetric. )
Skin: IV Access / Catheter Site (Arterial line, RUE)
Neuro: Awake
--- NOTE | 2024-09-01 08:17 | W.PN.INTV ---
Today's Communication / Plan
Recommendations
Extubated today to nasal cannula
prn fentanyl for dyspnea
NRB vs ventimask for hypoxia
Avoid sedation to help minimize any additional weakness that may ensue, as she is already physically deconditioned
Maintain MAP >65; currently off pressors since 08/31
Heart rate control with goal HR <110; she is in and out of A-fib
Remains on amiodarone drip and now on IV digoxin q48hrs; trend sCr as dig may need to be adjusted if ANDRES worsens
PPI can be stopped now that extubated and off pressors
Echo today
DNR/DNI
Continue ICU level care for this critically ill patient
Assessment
-
Assessment: 88-year-old female with a past medical history of Parkinson disease, history of SVT, colon cancer s/p right hemicolectomy (1990), history of endometrial carcinoma s/p total hysterectomy, IBS, and mitral valve regurgitation who presents
with a trip and fall. She is complaining of left-sided hip/leg pain. She is on Eliquis for a history of A-fib. She says she got up from a seated position and tripped and fell onto the ground with no head trauma. Her blood pressure usually runs
low sometimes with SBP <100. Initial femur/hip XR showed impacted fracture involving the neck/head of the proximal left femur. CT head/CT C-spine showed no acute osseous abnormalities and no acute intracranial pathology. She was given Ofirmev in
the ER and admitted to telemetry for further management. Of note she is in rate controlled permanent A-fib and cardiology was consulted. Orthopedics also consulted and on the evening of 08/29/2024 she underwent a left hip hemiarthroplasty. During
the procedure she had suspected runs of VT with hypotension. She had remained intubated and arrived to the ICU in rapid A-fib in the 180s and on Levophed at 10mcg/min and epinephrine at 2mcg/min. [employer] Cook Head services consulted for additional
management/recommendations.
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
regurgitation
Impression:
#Ventilator dependent respiratory failure - extubated today (09/01/2024)
#Shock state likely due to A-fib with RVR in the setting of chronically low BP - off pressors since 08/31
#Postoperative hypotension with suspected NSVT (?A-fib with aberrancy)
#A-fib with RVR - now rate controlled
#Fall with left hip fracture s/p left hip hemiarthroplasty (08/29/2024)
#Retrocardiac opacification likely due to atelectasis
#Chronic thrombocytopenia
#Metabolic acidosis with increased anion gap likely due to lactic acidosis in the setting of shock � acidosis now resolved
#ANDRES
#Chronic hypotension not on midodrine
#Chronic anemia
#History of colon cancer s/p right hemicolectomy (1990)
#History of IBS
#Chronic HFpEF with RV enlargement and mild pulmonary hypertension (per TTE from March 2024)
Plan:
- Continue with mechanical ventilation with daily SAT/SBT if clinically appropriate --> tolerating SBT this morning and patient extubated to nasal cannula
- She was tachypneic following extubation with mouth breathing, and her work of breathing improved after placing her onto a nonrebreather
- BiPAP as needed with +/- prn fentanyl for work of breathing/dyspnea (apparently patient has a allergy to morphine)
- Keep SpO2 >90-94%
- Aspiration precautions keeping HOB >30-45�
- Frequent suctioning as needed
- prn nebulized bronchodilators - not currently bronchospastic
- Heart rate control is [place] with goal HR <110
- Continue with amiodarone gtt and digoxin started 08/31/2024 by cardiology (may need to adjust if sCr continues to rise) - continue IV dig q48hrs
- Cardiology on board and recommendations appreciated
- Avoid beta agonist as this will only worsen heart rate
- Currently off both Eligio-Synephrine + vasopressin ---> keep MAP >65
- Patient is on Lasix at home which was held on 08/30 due to her shock state. Shock state now resolved, and cardiology gave trial of 20 mg IV Lasix on 08/31. Continue to diurese based on volume status --> do not feel that she will require much IV
diuresis based on her last CXR from 08/29/2024; CXR today shows no evidence of volume overload
- Check echo today
- Continue telemetry to monitor for any recurrence of VT
- Although CXR shows retrocardiac opacification, this is likely due to atelectasis. Patient has no evidence of leukocytosis and has been afebrile, also nontoxic-appearing. Observe off antibiotics
- CXR today shows improvement in retrocardiac opacification
- Postoperative management as per orthopedic surgery
- Pain control
- Replete electrolytes with K>4, Mg>2
- Maintain euglycemia with goal BG 140-180
- Trend H/H and transfuse if needed to keep Hb>7g/dL; keep plt>50k (given post-operative status)
- Continue tube feeds through NGT
- Stress ulcer ppx: PPI can be stopped today given she is now extubated and off pressors
- DVT ppx: Eliquis (through NGT)
GOC discussion: I discussed at bedside patient's clinical status with multiple family numbers, including , Jameson, and answered all of their questions. Patient does have an advanced directive being DNR/DNI. She was extubated today and this
advanced directive will remain in place. She remains exquisitely weak, lethargic and minimally responsive after extubation. I did ask if she did become more short of breath would it be ok to give morphine vs other opiate to make her more
comfortable and they agreed. does not want to transition now to comfort care but if things do not head in the right direction then he would want to discuss this again with his children.
Critical care statement: A total of 41 minutes of critical care time was provided for this patient today. This includes management of unstable vital signs, evaluation of the patient at bedside, reviewing the patient's pertinent medical records
including radiographs, microbiology, laboratory evaluations, and discussion with primary team, consultants, pharmacy, nutrition, physical therapy, case management, charge nurse, critical care nursing, and respiratory therapy.
Subjective Dataa
Subjective Data
Date of Service:
Date of Service: September 01, 2024
Chief Complaint: [employer] Cook [employer] Follow Up
Subjective:
Patient seen and evaluated today at bedside. Remains intubated on pressure support 5/5 at 40% FiO2, with PIP: 12 cmH2O, VTe to 87 mL and breathing at 24 breaths/min.. Afebrile overnight. Minimally responsive which apparently is not her baseline.
CXR this morning shows improved aeration in the left lower lobe with appropriately placed ETT + OGT. Currently her heart rate is 89, BP 121/75 and SpO2 98% on 40% FiO2. Minimal secretions. Off sedation since yesterday. Remains on amiodarone at
0.5 mg/min.
Review of Systems
General: Unobtainable - Pat Unresp
Objective Data
Data Reviewed
Vital Signs / I&O / Oxygen:
Vital Signs
Temp Pulse Resp BP Pulse Ox
99.9 F 109 23 117/69 99
09/01/24 07:07 09/01/24 08:24 09/01/24 08:15 09/01/24 08:27 09/01/24 08:30
Intake and Output
08/31/24 09/01/24 09/02/24
06:59 06:59 06:59
Intake Total 3032.4 / 3143.6 1763.3 / 1780.0 33.4 / 33.4
Output Total 631 / 651 1365 / 1415 100 / 100
Balance 2401.4 / 2492.6 398.3 / 365.0 -66.6 / -66.6
SaO2 [CPAP] 98
SaO2 [A/C] 98
SaO2 99
Nasal Cannula flow liters per 4
minute
Physical Exam
General: Respiratory Distress (negative), Comfortable, Chills (negative) and Sweats (negative)
HEENT: Normocephalic, Anicteric and Other (ETT in place)
Cardiovascular: Irregular Rhythm, Rub (negative) and Peripheral Edema (negative)
Respiratory: Wheeze (negative), Crackles (negative), Rhonchi (negative), Non-Labored Respirations and ET Tube (Mechanical breath sounds heard bilaterally)
GI: Soft, Non Distended, Non Tender and Normal Bowel Sounds
Neurology: Tremors (negative), Unresponsive and Other (Slow to respond with eye opening, generalized weakness, unable to lift head off pillow, not following commands)
Skin: Warm, Dry, Cyanosis (now negative) and Jaundice (negative)
Labs/Micro/Reports
Lab Data
09/01/24 03:15
09/01/24 03:15
Laboratory Results
08/31/24 09/01/24
10:51 03:15
pH 7.44 7.47 H
pCO2 33 32
pO2 194 H 95
HCO3 22.4 23.3
O2 Delivery Level 40%
[2024-09-01] MEDS: PROTONIX IV 40 MG IV (08:23)
[2024-09-01] MEDS: NSS (PRESERVATIVE FREE) 10 ML IV (08:23)
[2024-09-01] MEDS: SINEMET 25-100 1 TABLET TUBE ×2 (08:23→20:29)
[2024-09-01] MEDS: ELIQUIS 2.5 MG TUBE ×2 (08:23→20:29)
[2024-09-01] MEDS: ProAmatine 10 MG TUBE (08:24)
[2024-09-01] MEDS: TIMOPTIC 0.5% OPHTHALMIC SOLUTION 1 DROP BOTH EYES (08:25)
--- NOTE | 2024-09-01 09:02 | W.PN.UPDATE ---
Update Note
Progress Note Update
Ms. Dawson is POD3 following her left hip hemiarthroplasty. She remains intubated on exam today. She is not responsive to questioning at present.
Directed exam of the left lower extremity reveals surgical dressing with blood on the bandage. Thigh soft and compressible. Calf soft and nontender. Patient does wiggle toes. Palpable dp and pt pulses.
Hgb 11.9 this AM.
88-year-old female POD #3 Left Hip Hemiarthroplasty 08/29/[address] Leal.
- Appreciate all teams involved with care of this patient.
- When medically stable, patient may be WBAT to LLE with use of assistive device. PT/OT as tolerated when stable. Posterior hip precautions.
- Eliquis 2.5mg daily x 3 days, then back to 2.5mg BID thereafter.
- Hemoglobin this AM 11.9 Continue to monitor.
- Skin clip removal at 2 weeks post-op. Maintain surgical dressing until 7-10 days post-op. Reinforce or change dressing as needed.
- Follow-up Orthopedics 4 weeks post-op.
- Orthopedic surgery will continue to follow.
--- NOTE | 2024-09-01 09:30 | PTCARENOTE ---
Rec'd care of patient at 0700. Patient lethargic. RASS -2. Briefly opens eyes to verbal and tactile stimuli. Does not follow commands. Sedation off since yesterday. Trace movement in all extremities. Afib on tele monitor. Rate 80-110's. Amio gtt
infusing through RIJ. #7 ett @ 23cm. A/C 12/400/5/40%. Placed on CPAP 8/5 40% by RT around 0715. Lung sounds diminished throughout. +BS. TFs at goal through right henny Riley for critical I/O. Output 30 cc/hr. Left hip aquacell dressing
intact; drainage. Ortho at bedside to assess. VSS. Right brachial juan leveled and zeroed.
--- NOTE | 2024-09-01 10:28 | W.PN.CARDCBS ---
Today's Communication / Plan
-
Observe post extubation
Prognosis very guarded
Impression / Plan
-
PCP: Dr. Joni Foley
Primary heating and refrigeration inspector: Dr. Angel Merino
Impression:
Admitted with fall and left hip fracture 08/26/24
Unwitnessed fall
Left hip fracture
Afib with RVR
Permanent Afib
Chronic Eliquis OAC
Chronic HFpEF
Thrombocytopenia
Dementia
Parkinson's disease
Hyperglycemia
Echo 04/29/20: EF 55 to 60%, mild concentric LVH, mild MR, aortic sclerosis with mild eccentric aortic regurgitation, mild TR with PAP 28 mmHg
Echo 03/31/24: EF 55%, MAC, moderate MR, mild AR, moderate TR, PAP 30 mmHg, severely dilated right atrium, enlarged RV size, patient now in A-fib with slightly worsened MR
Plan:
Patient just extubated, is tachypneic, does not appear to be in distress, a decision has been made not to reintubate.
Heart rate has been well-controlled.
She appears very tenuous, it is unclear whether or not she will again develop respiratory failure and transition to comfort care.
Currently rate in atrial fibrillation is adequately controlled even though she is receiving neither oral or intravenous metoprolol. Phenylephrine is still an active medication as it is fentanyl. She continues to receive digoxin and midodrine.
Would not make any changes at this time, will observe postextubation. Prognosis very guarded.
Progress Note - Mechanical Planner
Subjective
Date of Service: September 01, 2024:
88-year-old woman with hip fracture August 26 with ORIF, now with rapid ventricular response to permanent AF.
PMH/PSH/FH/SH: Reviewed-HFpEF, dementia, Parkinson's
Current meds: Furosemide 40 mg a day on hold, timolol eyedrops, metoprolol tartrate 25 every 6 on hold, 5 mg IV every 6 on hold, Eligio-Synephrine, IV fentanyl, pantoprazole, IV amiodarone, donepezil 5 mg at bedtime, apixaban 2.5 twice daily, Sinemet,
digoxin 0.125 mg every 48 hours, midodrine, insulin, tube in place
121/79, pulse 80, respirate 24, afebrile, O2 sats 98, weight is 50.3 kg, unchanged, tachypneic, borderline responsive, rhonchi, irregular rate and rhythm without obvious murmurs, JVD okay
White count 11.1, hemoglobin 11.9, platelets 114, BUN and creatinine 46 and 1.1, potassium 4.2,
Objective
Labs:
09/01/24 03:15
09/01/24 03:15
Labs
Hgb 11.9 g/dL (12.0-16.0) L 09/01/24 03:15
Hct 36.5 % (37.0-47.0) L 09/01/24 03:15
Plt Count 114 10^3/uL (130-400) L 09/01/24 03:15
PT 17.8 Sec (11.4-14.6) H 08/29/24 20:21
INR 1.44 08/29/24 20:21
APTT 36.2 Sec (23.4-35.0) H 08/29/24 20:21
Sodium 136 mmol/L (135-145) 09/01/24 03:15
Potassium 4.2 mmol/L (3.5-5.1) 09/01/24 03:15
BUN 46 mg/dl (7-17) H 09/01/24 03:15
Creatinine 1.1 mg/dL (0.6-1.0) H 09/01/24 03:15
Glucose 184 mg/dl (70-99) H 09/01/24 03:15
Vital Signs and I&O:
Vital Signs
Temp Pulse Resp BP Pulse Ox
37.7 C 80 24 121/75 98
09/01/24 07:07 09/01/24 10:00 09/01/24 10:00 09/01/24 09:52 09/01/24 09:52
Vital Signs
Temp Pulse Resp BP Pulse Ox
37.7 C 80 24 121/75 98
09/01/24 07:07 09/01/24 10:00 09/01/24 10:00 09/01/24 09:52 09/01/24 09:52
Intake & Output
08/30/24 08/31/24 09/01/24 09/02/24
07:59 07:59 07:59 07:59
Intake Total 1632.3 / 1813.1 2967.8 / 3071.0 1788.8 / 1865.5 230.1 / 230.1
Output Total 435 / 450 636 / 656 1395 / 1445 130 / 130
Balance 1197.3 / 1363.1 2331.8 / 2415.0 393.8 / 420.5 100.1 / 100.1
Physical Exam
Physical Exam
See above
[2024-09-01 11:00] LABS: B.E. 0 mmol/L; HCO3 23.6 mmol/L (21-28); O2 Saturation % 99.6 % (94-98); O2 Therapy 40% SBT; PCO2 34 mmHg (32-35); PO2 117 mmHg (83-108); pH 7.45 (7.35-7.45)
[2024-09-01] MEDS: LANOXIN 125 MCG IV (12:16)
[2024-09-01 12:29] LABS: Glucose - Point of Care 195 mg/dl (70-99)
[2024-09-01] MEDS: NOVOLOG FLEXPEN-MODERATE RESISTANCE 1 UNITS SC (12:42)
[2024-09-01] MEDS: ProAmatine TUBE ×2 (12:49→18:04)
--- NOTE | 2024-09-01 13:00 | PTCARENOTE ---
Patient extubated at 1143 to 4L nc. Pulse ox initially 92-93%. Breathing labored. Around 1200, pulse ox down to 88-90%. Edge Finisher and RT at bedside. Attempted to transition patient to Venti mask. Pulse ox continuing to drop to 85%. Switched to NRB
by RT. Pulse ox up to 97-98%. Patient hypertensive and tachypneic. 0.25mg mcg of Fentanyl administered. Mental status slightly improved post extubation. Opening eyes and tracking. Does not follow commands. Remains in afib on tele monitor. Lung
sounds coarse throughout. TFs remain off d/t respiratory status. No other changes.
[2024-09-01] MEDS: SUBLIMAZE 25 MCG IV ×2 (13:17→20:28)
--- NOTE | 2024-09-01 15:24 | CM ---
Patient seen at bedside, Patient continues intubated this am and patient plan is for SNF when medically appropriate. Family asking for [place] referral when medically appropriate. CM will continue to follow for discharge planning needs.
Plan; SNF when medically appropriate.
--- NOTE | 2024-09-01 16:17 | PTCARENOTE ---
Addendum entered by Julianne Whitehead RN 09/01/24 16:22:
Preparation Supervisor Canning at bedside to remove right brachial juan. Updated on mottled knees and cyanotic toes.
Original Note:
Patient reassessed. Remains nonverbal. Drowsy. Afib on tele. Trace anasarca. Pulses palpable. B/l knee mottled. Pulse ox 94% on NRB. Tachypneic. Lung sounds coarse, audible crackles. Urine output 25-30 cc/hr. No BM. No other changes.
--- NOTE | 2024-09-01 16:37 | PTCARENOTE ---
r brachial juan removed by Dr Ponce at bedside. Pressure held. Good peripheral pulses post removal
--- NOTE | 2024-09-01 17:21 | PTCARENOTE ---
Patient's pulse ox 85-86% on NRB. Licensed Bondsman and RT notified. BiPAP ordered. Pulse ox remains 85% on BiPAP. Plan made to place patient on NIV. Attempted to call patient's and son, no answer.
[2024-09-01 17:24] LABS: Glucose - Point of Care 109 mg/dl (70-99)
[2024-09-01] MEDS: NOVOLOG FLEXPEN-MODERATE RESISTANCE SC ×2 (17:26→23:09)
--- NOTE | 2024-09-01 18:37 | PTCARENOTE ---
Patient's and sons at bedside. Discussing possible transition to comfort care.
[2024-09-01] MEDS: ARICEPT 5 MG TUBE (20:29)
--- NOTE | 2024-09-01 20:48 | PTCARENOTE ---
Received pt from previous RN. Pt is lethargic/drowsy, [place]. neurovascular checks. Afib on the monitor w/ PVCs. Pt on NIV rate 24, IPAP 12, peep 5, FiO2 100%, O2 sat 94%, lungs diminished/coarse/rhonchi. PRN Fentanyl given for dyspnea (see MAR). R
henny curry sump @ 55 cm. TFs off due to respiratory status. Riley in place. SCDs in place. Amio gtt @ 0.5 mg/min 16.7 ml/hr. Family @ bedside. Safe environment maintained.
[2024-09-01] MEDS: LR 500 IV (22:58)
--- NOTE | 2024-09-01 23:04 | PTCARENOTE ---
ICU BIOTECH PRODUCTION SPECIALIST Tk notified about pts decreased urine output, LR ordered 100 ml x 5 hours (see MAR). Systems reviewed. CHG bath provided, mota care provided and mouth care provided. Safe environment maintained.
[2024-09-01 23:21] LABS: Glucose - Point of Care 115 mg/dl (70-99)
[2024-09-02] VITALS (29 sets, daily range): BP systolic 70–128; BP diastolic 40–92; BMI 19.4
[2024-09-02] MEDS: SUBLIMAZE 25 MCG IV ×2 (00:18→04:13)
[2024-09-02] MEDS: CORDARONE 518 MG IV (00:39)
--- NOTE | 2024-09-02 01:59 | PTCARENOTE ---
Pt bladder scanned for decreased urine output. Pt scanned for 14 mls.
--- NOTE | 2024-09-02 04:25 | PTCARENOTE ---
Systems reviewed, no new changes in assessment. AM labs provided. Q2T maintained. Safe environment maintained.
[2024-09-02 04:31] LABS: Hematocrit 37.7 % (37.0-47.0); Hemoglobin 12.2 g/dL (12.0-16.0); Mean Corp Hgb Conc. 32.4 g/dL (33.0-37.0); Mean Corpuscular Hgb 29.8 pg (27.0-31.0); Mean Corpuscular Volume 92.2 fL (81.0-99.0); Mean Platelet Volume 10.7 fL (7.4-10.4); Platelet Count 113 10^3/uL (130-400); Red Blood Cell Count 4.09 10^6/uL (4.20-5.40); Red Cell Dist. Width 14.7 % (11.5-14.5); White Blood Cell Count 11.3 10^3/uL (4.8-10.8)
[2024-09-02 04:59] LABS: ALT (SGPT) 159 U/L (0-35); AST (SGOT) 192 U/L (14-36); Albumin 2.9 g/dl (3.5-5.0); Alkaline Phosphatase 119 U/L (38-126); Blood Urea Nitrogen 50 mg/dl (7-17); Calcium 8.7 mg/dl (8.4-10.2); Carbon Dioxide 24 mmol/L (22-30); Chloride 103 mmol/L (98-107); Estimated Creatinine Clearance 26 ml/min; Glucose 133 mg/dl (70-99); Potassium 4.6 mmol/L (3.5-5.1); Sodium 136 mmol/L (135-145); Total Bilirubin 2.2 mg/dl (0.2-1.3); eGFR 43.81
[2024-09-02] MEDS: NOVOLOG FLEXPEN-MODERATE RESISTANCE SC ×3 (05:22→17:23)
[2024-09-02 05:34] LABS: Glucose - Point of Care 142 mg/dl (70-99)
--- NOTE | 2024-09-02 06:44 | W.PN.ORTHO ---
Today's Communication / Plan
-
89-year-old female POD #4 Left Hip Hemiarthroplasty 08/29/[address] Leal.
- Appreciate all teams involved with care of this patient. Extubated yesterday. Now on NIV.
- When medically stable, patient may be WBAT to LLE with use of assistive device. PT/OT as tolerated when stable.
- Posterior hip precautions.
- Eliquis 2.5mg BID resumed.
- Hemoglobin this AM 12.2.
- Skin clip removal at 2 weeks post-op. Maintain surgical dressing until 7-10 days post-op. Reinforce or change dressing as needed.
- Follow-up Orthopedics 4 weeks post-op.
- Orthopedic surgery will continue to follow.
Assessment
.
Distal Motor Intact: Yes
Dressing:
Aquacel dressing with contained bloody drainage.
Thigh soft and compressible. Calf soft and nontender. Palpable DP and PT pulses.
Assessment:
POD #4 Left Hip Hemiarthroplasty with Dr. Leal
Plan
.
Surgery / Date: 08/29/2024 Left Hip Hemiarthroplasty
DVT Prophylaxis: Other (Eliquis )
Activity:
Out of bed.
PT/OT when medically stable.
WBAT LLE.
Posterior Hip Precautions.
Subjective
.
.:
Patient resting comfortably in bed. Extubated yesterday. Now on NIV.
Vital Signs and Labs
.
Vital Signs and Labs:
Lab Results
09/02/24 04:07
09/02/24 04:07
Temp Pulse Resp BP Pulse Ox
99.3 F 133 31 117/75 97
09/02/24 04:10 09/02/24 06:30 09/02/24 06:30 09/02/24 06:00 09/02/24 06:30
PT 17.8 Sec (11.4-14.6) H 08/29/24 20:21
INR 1.44 08/29/24 20:21
--- NOTE | 2024-09-02 06:57 | W.PN.HOSP.TC ---
Addendum entered and electronically signed by Adriana Lucas MD 09/02/24 13:33:
I personally performed a history and physical exam of the patient and discussed management with the resident. I reviewed the resident's note and agree with the documented findings and plan of care HPI/CC.
A/P:
# Mechanical fall resulting in left hip fracture
head and spine CT neg for fracture
s/p surgery repair 08/29/24
resumed MOLDING CUTTER Eliquis 2.5 mg BID
pain control
PT/OT for SNF dispo
staple removal in 2 weeks, ortho f/u at 4 weeks
# Acute hypoxic resp failure
# intubated for surgery, pt extubated with decision not to re-intubate (code status DNR)
Cont O2 support with BIPAP FIO2 70%
# permanent afib with RVR and V. tach intraoperatively with post op hypotension, suspect 2/2 Parkinson autonomic insufficiency (neurogenic shock)
do not believe septic shock, hemorrhagic, or cardiogenic shock
Off amiodarone drip -> PO amiodarone 400 mg TID
cont Dig per card
Started Lopressor 25 mg Q6H
resumed MOLDING CUTTER Eliquis 2.5 mg BID
apprec cards
# Chronic hypotension
Blood pressure 90s at baseline
cont midodrine 10 mg TID
# Mild leukocytosis likely reactive
no suspicion for infection
# ANDRES, most likely prerenal 2/2 hypotension
SCr 1.2 from baseline 0.8
Monitor SCr
Off lasix
# elevated AST/ALT, improving
most likely due to hypotension
Trend LFT
# hypophosphatemia
replete as needed, can use neutraphos
expect to improve when diet liberalized
# Parkinson's disease
Continue carbidopa-levodopa
# Dementia
Continue donepezil
# Chronic HFpEF
Holding Lasix with increased SCr
cont metoprolol as tolerated
# Chronic anemia
# Glaucoma
Continue eyedrops
code status--DNR/DNI
DVT prophylaxis-SCDs
Prognosis guarded with current clinical deconditioning
Original Note:
Today's Communication/Plan
-
Continue to wean on bipap per tyre finisher and examiner. Appreciate all care teams involved.
Assessment / Plan
Assessment / Plan
88 year old female with a past medical history of atrial fibrillation (on Eliquis), Parkinson's disease, dementia, HFrEF, hypertension, chronic anemia, glaucoma, colon cancer s/p colon resection, endometrial cancer s/p post hysterectomy who
presented to [place] ER room after a mechanical fall
#Ventilator Dependent Acute Hypoxic Respiratory Failure - Extubated, still BIPAP @90% O2. Weaning as tolerated. Family aware and at bedside; possible comfort care depending on how she fares as she is weaned from BIPAP. Appreciate tyre finisher and examiner.
#Chronic Hypotension - Off pressors, on midodrine 10 TID with map goal >65.
#Vtach
#Afib with RVR
#Permanent Afib
- has been in Afib since arrival, rates persistently elevated. Had episodes of Vtach during surgery and was hypotensive post op. Holding Lopressor in setting of hypotension. On Amiodarone ggt & Digoxin q48. Appreciate cardiology recs
#Mechanical fall with resulting L hip fx. POD4 from Left Hip Hemiarthroplasty - Will proceed with PT/OT and WBAT per ortho when/if patient is medically stable.
#HFpEF - s/p one 20mg dose IV Lasix 08/31/2024. Patient does not seem volume overloaded. Holding Lasix for now due concerns for hypotension.
#Thrombocytopenia, chronic - plt low but stable. No overt signs of bleeding. Will continue to monitor post op.
#Shock Liver, likely secondary to hypotension (resolved?)- Elevated liver enzymes post surgery where she was requiring pressors to maintain cardiac output. AST/ALT trending down. Will continue to monitor, seems to have a baseline elevated liver
enzymes as they were elevated-yet stable for several days after admission and prior to surgery.
#Head pain - nontender on exam, though subjectively painful in R occipital region. CT head ruled out fracture. Likely secondary to fall. Pain meds prn if needed.
#Moderate Protein Calorie Malnutrition - Patient meets AND and ORENEN criteria for moderate protein calorie malnutrition of chronic disease due to >7.5% BW loss over 3 months and moderate loss of muscle in her clavicle region.
#Urinary incontinence - Riley
#Parkinson's - stable, continue with home carbidopa-levodopa
#Dementia - stable, continue with donepezil
#Glaucoma - c/w timolol drops qd
Diet - cholesterol lowering diet
DVT Ppx - holding Eliquis for surgery
Code Status - DNR
Anticipated Discharge: 24 - 48 hours
Subjective/Interval History
-
Patient on bipap, minimally responsive, very sleepy, not responding verbally.
Objective Data
-
Labs:
Laboratory Results
09/02/24
04:07
WBC 11.3 H
Hgb 12.2
Hct 37.7
Plt Count 113 L
Sodium 136
Potassium 4.6
Chloride 103
Carbon Dioxide 24
BUN 50 H
Creatinine 1.2 H
Glucose 133 H
Calcium 8.7
Total Bilirubin 2.2 H D
AST 192 H
ALT 159 H
Alkaline Phosphatase 119
Vital Signs:
Vital Signs
Temp Pulse Resp BP Pulse Ox
99.3 F 133 31 117/75 97
09/02/24 04:10 09/02/24 06:30 09/02/24 06:30 09/02/24 06:00 09/02/24 06:30
I&O
08/31/24 09/01/24 09/02/24
06:59 06:59 06:59
Intake Total 3032.4 / 3143.6 1763.3 / 1900.0 1320.8 / 1320.8
Output Total 631 / 651 1365 / 1415 587 / 587
Balance 2401.4 / 2492.6 398.3 / 485.0 733.8 / 733.8
Review of Systems
-
Unable to obtain full review of systems at this time due to: Dementia
Physical Exam
-
General: Well Developed, Appears Chronically Ill and Other
HEENT: Normocephalic, Atraumatic, Moist Mucous Membranes, Nose Appears Normal and Ears Appear Normal
Respiratory: Clear to Auscultation and Other (on BIPAP); Negative Wheezes or Rales
Cardiac: S1/S2, Irregular Rhythm and Tachycardic; Negative Murmur
Breast: N/A
GI: Soft, Nontender, Nondistended and Normal Bowel Sounds
Genito-urinary: Clear Urine and Riley
Musculoskeletal: No Clubbing, No Cyanosis and No Edema
Skin: IV Access / Catheter Site (RIJ, x2 peripheral lines)
Neuro: Awake; Negative Alert or Oriented
Psych: Apparent Dementia
--- NOTE | 2024-09-02 08:20 | W.PN.INTV ---
Today's Communication / Plan
Recommendations
Extubated yesterday to nasal cannula, but became hypoxic ultimately requiring NIV
Wean down FiO2 as tolerated while keeping SpO2 >90%
Avoid sedation to help minimize any additional weakness that may ensue, as she is already physically deconditioned
Maintain MAP >65; currently off pressors since 08/31
Heart rate control with goal HR <110; she is in and out of A-fib
Now off amiodarone drip and on PO amio, continue PO dig; trend sCr as dig may need to be adjusted if ANDRES worsens
PPI stopped now that extubated and off pressors
Echo today shows no significant change compared to prior echo in March 2024
DNR/DNI
Guarded prognosis - family leaning towards comfort care if she is not improved by tomorrow
Continue ICU level care for NIV
Assessment
-
Assessment: 88-year-old female with a past medical history of Parkinson disease, history of SVT, colon cancer s/p right hemicolectomy (1990), history of endometrial carcinoma s/p total hysterectomy, IBS, and mitral valve regurgitation who presents
with a trip and fall. She is complaining of left-sided hip/leg pain. She is on Eliquis for a history of A-fib. She says she got up from a seated position and tripped and fell onto the ground with no head trauma. Her blood pressure usually runs
low sometimes with SBP <100. Initial femur/hip XR showed impacted fracture involving the neck/head of the proximal left femur. CT head/CT C-spine showed no acute osseous abnormalities and no acute intracranial pathology. She was given Ofirmev in
the ER and admitted to telemetry for further management. Of note she is in rate controlled permanent A-fib and cardiology was consulted. Orthopedics also consulted and on the evening of 08/29/2024 she underwent a left hip hemiarthroplasty. During
the procedure she had suspected runs of VT with hypotension. She had remained intubated and arrived to the ICU in rapid A-fib in the 180s and on Levophed at 10mcg/min and epinephrine at 2mcg/min. Sales Intern services consulted for additional
management/recommendations.
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
regurgitation
Impression:
#Ventilator dependent respiratory failure - extubated 09/01/2024
#Shock state likely due to A-fib with RVR in the setting of chronically low BP - off pressors since 08/31
#Postoperative hypotension with suspected NSVT (?A-fib with aberrancy)
#A-fib with RVR - now rate controlled
#Fall with left hip fracture s/p left hip hemiarthroplasty (08/29/2024)
#Retrocardiac opacification likely due to atelectasis
#Chronic thrombocytopenia
#Metabolic acidosis with increased anion gap likely due to lactic acidosis in the setting of shock � acidosis now resolved
#ANDRES
#Chronic hypotension not on midodrine
#Chronic anemia
#History of colon cancer s/p right hemicolectomy (1990)
#History of IBS
#Chronic HFpEF with RV enlargement and mild pulmonary hypertension (per TTE from March 2024)
Plan:
- Extubated on 09/01/2024 and is required noninvasive ventilation with high FiO2, currently on 80% and saturating 90-92%
- Family would like to continue with current medical management and if she remains unresponsive by tomorrow then they will consider transitioning to comfort care at that time
- Patient did get anesthesia recently but I advised the family that by day 4 after anesthesia we should be seeing some more interaction with Inna
- Could consider CT head if she remains minimally responsive by tomorrow
- Keep SpO2 >90-94%
- Aspiration precautions keeping HOB >30-45�
- Frequent suctioning as needed
- prn nebulized bronchodilators - not currently bronchospastic
- Heart rate control is [place] with goal HR <110
- Continue with PO s/p amiodarone gtt and continue digoxin (started 08/31/2024)
- Cardiology on board and recommendations appreciated
- Avoid beta agonist as this will only worsen heart rate
- Currently off both Eligio-Synephrine + vasopressin ---> keep MAP >65
- Patient is on Lasix at home which was held on 08/30 due to her shock state. Shock state now resolved, and cardiology gave trial of 20 mg IV Lasix on 08/31. Continue to diurese based on volume status --> do not feel that she will require much IV
diuresis based on her last CXR from 08/29/2024; CXR from 09/01/2024 shows no evidence of volume overload
- Echo checked on 09/01/2024 showing preserved LVEF at 55 to 60% with moderate MR, mild moderate AI, and moderately elevated PASP at 40 mmHg; no significant change since prior echo in March 2024
- Continue telemetry to monitor for any recurrence of VT
- Although CXR on 08/29/2024 showed retrocardiac opacification, this is likely due to atelectasis. Patient is nontoxic-appearing. Continue to observe off antibiotics
- CXR on 09/01/2024 showed improvement in retrocardiac opacification
- Postoperative management as per orthopedic surgery
- Pain control
- Replete electrolytes with K>4, Mg>2
- Maintain euglycemia with goal BG 140-180
- Trend H/H and transfuse if needed to keep Hb>7g/dL; keep plt>50k (given post-operative status)
- Continue tube feeds through NGT --> change out NGT to dobhoff tube today if tolerates given her hypoxia
- Stress ulcer ppx: PPI stopped given she is now extubated and off pressors
- DVT ppx: Eliquis (through NGT)
GOC discussion: I discussed at bedside patient's clinical status with multiple family numbers, including , Jameson, and answered all of their questions. Patient does have an advanced directive being DNR/DNI. She was extubated today and this
advanced directive will remain in place. She remains exquisitely weak, lethargic and minimally responsive after extubation. I did ask if she did become more short of breath would it be ok to give morphine vs other opiate to make her more
comfortable and they agreed. does not want to transition now to comfort care but if things do not head in the right direction then he would want to discuss this again with his children.
Critical care statement: A total of 36 minutes of critical care time was provided for this patient today. This includes management of unstable vital signs, evaluation of the patient at bedside, reviewing the patient's pertinent medical records
including radiographs, microbiology, laboratory evaluations, and discussion with primary team, consultants, pharmacy, nutrition, physical therapy, case management, charge nurse, critical care nursing, and respiratory therapy.
Subjective Dataa
Subjective Data
Date of Service:
Date of Service: September 02, 2024
Chief Complaint: Sales Intern Follow Up
Subjective:
Patient seen and evaluated this AM. Remains on NIV 12/5cmH2O with FiO2 80% with VTe 436cc and breathing at 26 b/min, saturating 90%, heart rate 112 and BP 113/78. Family at bedside including the , Jameson, and all questions were answered.
Patient not following commands although was following commands earlier this morning. She does open her eyes to my voice. She is in no acute distress.
Review of Systems
General: Unobtainable - Pat Unresp
Objective Data
Data Reviewed
Vital Signs / I&O / Oxygen:
Vital Signs
Temp Pulse Resp BP Pulse Ox
98.3 F 133 31 117/75 97
09/02/24 07:35 09/02/24 06:30 09/02/24 06:30 09/02/24 06:00 09/02/24 06:30
Intake and Output
09/01/24 09/02/24 09/03/24
06:59 06:59 06:59
Intake Total 1763.3 / 1900.0 1320.8 / 1320.8
Output Total 1365 / 1415 587 / 587
Balance 398.3 / 485.0 733.8 / 733.8
SaO2 [NIV (Non Invasive 92
Ventilation)]
SaO2 [CPAP] 98
SaO2 [A/C] 98
SaO2 97
Nasal Cannula flow liters per 5
minute
Physical Exam
General: Respiratory Distress (negative), Comfortable, Chills (negative) and Sweats (negative)
HEENT: Normocephalic, Anicteric and Other (NIV full face mask)
Cardiovascular: Irregular Rhythm, Rub (negative) and Peripheral Edema (negative)
Respiratory: Clear, Wheeze (negative), Crackles (negative), Rhonchi (negative) and Non-Labored Respirations
GI: Soft, Non Distended, Non Tender and Normal Bowel Sounds
Neurology: Tremors (negative), Unresponsive and Other (Slow to respond with eye opening, generalized weakness, unable to lift head off pillow, not following commands)
Skin: Warm, Dry, Cyanosis (now negative) and Jaundice (negative)
Labs/Micro/Reports
Lab Data
09/02/24 04:07
09/02/24 04:07
Laboratory Results
09/01/24
10:46
pH 7.45
pCO2 34
pO2 117 H
HCO3 23.6
O2 Delivery Level 40% sbt
[2024-09-02] MEDS: SINEMET 25-100 1 TABLET TUBE ×2 (08:58→19:25)
[2024-09-02] MEDS: ELIQUIS 2.5 MG TUBE ×2 (08:58→19:25)
[2024-09-02] MEDS: NSS (PRESERVATIVE FREE) 10 ML IV (08:58)
[2024-09-02] MEDS: PROTONIX IV 40 MG IV (08:58)
[2024-09-02] MEDS: ProAmatine TUBE (08:58)
[2024-09-02] MEDS: TIMOPTIC 0.5% OPHTHALMIC SOLUTION 1 DROP BOTH EYES (08:59)
--- NOTE | 2024-09-02 09:30 | W.PN.CARDCBS ---
Today's Communication / Plan
-
start beta fili
amio
consider lasix
Impression / Plan
-
PCP: Dr. Joni Foley
Primary lna: Dr. Angel Merino
Impression:
Admitted with fall and left hip fracture 08/26/24
Unwitnessed fall
Left hip fracture
Afib with RVR
Permanent Afib
Chronic Eliquis OAC
Chronic HFpEF
Thrombocytopenia
Dementia
Parkinson's disease
Hyperglycemia
Echo 04/29/20: EF 55 to 60%, mild concentric LVH, mild MR, aortic sclerosis with mild eccentric aortic regurgitation, mild TR with PAP 28 mmHg
Echo 03/31/24: EF 55%, MAC, moderate MR, mild AR, moderate TR, PAP 30 mmHg, severely dilated right atrium, enlarged RV size, patient now in A-fib with slightly worsened MR
Echo 09/01/2024: EF 55-60%, MAC, moderate MR, dilated LA, aortic sclerosis with mild to moderate regurgitation, pulmonary artery systolic pressure 40 mmHg
Plan:
Will attempt to slow heart rate, prognosis poor
Considering GOC
Progress Note - Bulb Inspector
Subjective
Date of Service: September 02, 2024:
Medications: IV amiodarone, furosemide 40 mg daily on hold, metoprolol p.o. and IV on hold, IV pantoprazole, Aricept, apixaban 2.5 mg daily, Sinemet, digoxin IV every 48, midodrine 10 via tube Q8, insulin
117/75, pulse 133, respirate 31, afebrile, sats 97%, intake and output +600 mL, weight is 49.6 kg which is down 0.7 kg tachypneic, not clearly responsive, rhochi, irreg rhythm and tachycardic, no edema
White count 11.3, hemoglobin 12.2, BUN and creatinine are 15 and 1.2, potassium is 4.6
Objective
Labs:
09/02/24 04:07
09/02/24 04:07
Labs
Hgb 12.2 g/dL (12.0-16.0) 09/02/24 04:07
Hct 37.7 % (37.0-47.0) 09/02/24 04:07
Plt Count 113 10^3/uL (130-400) L 09/02/24 04:07
PT 17.8 Sec (11.4-14.6) H 08/29/24 20:21
INR 1.44 08/29/24 20:21
APTT 36.2 Sec (23.4-35.0) H 08/29/24 20:21
Sodium 136 mmol/L (135-145) 09/02/24 04:07
Potassium 4.6 mmol/L (3.5-5.1) 09/02/24 04:07
BUN 50 mg/dl (7-17) H 09/02/24 04:07
Creatinine 1.2 mg/dL (0.6-1.0) H 09/02/24 04:07
Glucose 133 mg/dl (70-99) H 09/02/24 04:07
Vital Signs and I&O:
Vital Signs
Temp Pulse Resp BP Pulse Ox
36.8 C 133 31 117/75 97
09/02/24 07:35 09/02/24 06:30 09/02/24 06:30 09/02/24 06:00 09/02/24 06:30
Vital Signs
Temp Pulse Resp BP Pulse Ox
36.8 C 133 31 117/75 97
09/02/24 07:35 09/02/24 06:30 09/02/24 06:30 09/02/24 06:00 09/02/24 06:30
Intake & Output
08/31/24 09/01/24 09/02/24 09/03/24
07:59 07:59 07:59 07:59
Intake Total 2967.8 / 3071.0 1788.8 / 1865.5 1184.1 / 1184.1
Output Total 636 / 656 1395 / 1445 537 / 537
Balance 2331.8 / 2415.0 393.8 / 420.5 647.1 / 647.1
--- NOTE | 2024-09-02 09:45 | PN.CDI ---
CDI
- -
CDI:
Physician Documentation Request
Admit Date: 08/26/24 18:39
Dear Doctor Pawel/Resident ,
Please review the following and provide your response in the progress notes.
Clinical Indicators:
Pt admitted with impacted fracture of the neck/head of proximal Left femur
Progress notes 08/31&09/01 ,' ANDRES/elevated AST/ALT--baseline creat 0.8--now 1.1--follow--most likely due to hypotension--AST 1300, ALT 285--also likely due to hypotension...'
Pt now with neurogenic shock was on pressors
Trended Liver functions below
08/29/24 08/31/24 09/01/24
06:47 04:10 03:15
AST 37 H 1303 H* 377 H
ALT 38 H 285 H 333 H
09/02/24
04:07
AST 192 H
ALT 159 H
Based on the above, could you clarify in the progress notes, the appropriate diagnosis, if significant, that supports the above abnormalities and additional evaluation, monitoring and/or treatment rendered:
Shock liver
Elevated AST/ALT only
Other ( please specify)
Use of terms such as suspected, likely, concern for, or probable (associated with a specific diagnosis that is being evaluated, monitored, or treated as if it exists) are acceptable and can be coded in the inpatient setting, when documented at the
time of discharge.
Thank you,
Telma Caba RN
CDI Specialist
[place] [facility]
Please use your independent medical judgment in providing your response.
--- NOTE | 2024-09-02 09:54 | PN.CDI ---
CDI
- -
CDI:
Physician Documentation Request
Admit Date: 08/26/24 18:39
Dear Doctor Pawel/ Resident,
Please review the following and provide your response in the progress notes.
Clinical Indicators:
Pt admitted with impacted fracture of the neck/head of proximal Left femur
Progress notes 08/30-09/01, ' VDRF...wean from vent as able....'
Chronometer Repairer progress note 08/31, ' Ventilator dependent respiratory failure...'
Chronometer Repairer progress note 09/01,' ...NRB vs ventimask for hypoxia....Ventilator dependent respiratory failure - extubated today (09/01/2024).... She was tachypneic following extubation with mouth breathing, and her work of breathing improved after
placing her onto a nonrebreather BiPAP as needed with +/- prn fentanyl for work of breathing/dyspnea (apparently patient has a allergy to morphine) Keep SpO2 >90-94%...'
Please Clarify which of the following accurately represents the acuity of the ( Respiratory failure ).
Acute Hypoxic Respiratory failure
Acute on Chronic Hypoxic Respiratory Failure
Other (please specify
Use of terms such as suspected, likely, concern for, or probable (associated with a specific diagnosis that is being evaluated, monitored, or treated as if it exists) are acceptable and can be coded in the inpatient setting, when documented at the
time of discharge.
Thank you,
Telma Caba RN
CDI Specialist
[place] [facility]
Please use your independent medical judgment in providing your response.
[2024-09-02] MEDS: ProAmatine 10 MG TUBE ×2 (11:09→17:08)
[2024-09-02] MEDS: LOPRESSOR TUBE ×2 (12:00→17:23)
[2024-09-02 12:04] LABS: Glucose - Point of Care 122 mg/dl (70-99)
--- NOTE | 2024-09-02 12:45 | CM ---
CM following re: discharge planning.
Reviewed pt's chart.
Pt is POD #4 Left Hip Hemiarthroplasty, Orthopedic surgery following. Per MD, pt extubated yesterday to Bi-Pap @90% O2, continue supportive care, possible comfort care depending on how pt progresses.
D/C plan: uncertain at this time and will depend on pt's progress.
CM will follow with discharge plan updates as hospitalization progresses
[2024-09-02 12:47] LABS: NT-proBNP > 27000 pg/ml
[2024-09-02] MEDS: LANOXIN 62.5 MCG TUBE (12:51)
--- NOTE | 2024-09-02 16:30 | PTCARENOTE ---
Pt opens eyes. Does not follow commands. Afib. Palpable pedal pulses. Toes cyanotic but appear improved from this am. Off NIV. SpO2 93% on 12L midflow NC at this time. Rhonchi bilaterally with LLL crackles noted. [place] sump d/c'd and placed
DHT. Awaiting xray confirmation for placement then will restart tube feeds. Small soft BM. Radha urine via mota. Poor urine output. Dressing changed to left hip s/t aquacell dressing completely saturated with thin red/brown drainage. Dry ABD
placed. All other assessments unchanged.
[2024-09-02] MEDS: PACERONE 400 MG TUBE ×2 (17:08→21:01)
[2024-09-02] MEDS: TYLENOL ORAL SOLUTION 650 MG TUBE (17:10)
[2024-09-02 17:15] LABS: Glucose - Point of Care 119 mg/dl (70-99)
--- NOTE | 2024-09-02 17:30 | PTCARENOTE ---
Breathing appeared more labored. SpO2 decreased to 90% on 12L. INSPECTOR MACHINE CUT GLASS notified and pt placed back on NIV. Foam dressing placed on nose stage 1. tube feeds started.
--- NOTE | 2024-09-02 20:32 | PTCARENOTE ---
Received pt from previous RN. Pt is lethargic/drowsy. Neurovascular checks per protocol (see worklist). Afib on the monitor. NIV 12/5 70%, O2 sat 95%, lungs coarse/diminished/rhonchi, tachypneic. Left nare dobhoff @ 60, Osmolite @ 20 ml/hr 20 ml
flush. Riley in place for critical I&O. SCDs in place. Mouth care provided. Safe environment maintained.
[2024-09-02] MEDS: ARICEPT 5 MG TUBE (21:01)
[2024-09-02] MEDS: ProAmatine 10 MG PO (22:22)
--- NOTE | 2024-09-02 22:22 | PTCARENOTE ---
ICU PIPE WELDER Tk notified about pts low BP 70/52 (58). Midodrine 10 mg x1 ordered (see MAR).
[2024-09-02] MEDS: NOVOLOG FLEXPEN-MODERATE RESISTANCE 1 UNITS SC (23:04)
[2024-09-02 23:16] LABS: Glucose - Point of Care 163 mg/dl (70-99)
[2024-09-03] VITALS (25 sets, daily range): BP systolic 88–115; BP diastolic 58–78; BMI 19.4
[2024-09-03] MEDS: LOPRESSOR TUBE (00:07)
--- NOTE | 2024-09-03 00:07 | PTCARENOTE ---
Lopressor 25 mg, held per ICU DOG HANDLER OR TRAINER Tk. BP 97/71 (81).
--- NOTE | 2024-09-03 02:23 | DOWNTIME ---
There was a [employer] Client Second Worker Downtime on 09/03/2024 from 0100 to 09/03/2023 at 0205 . Downtime documentation of patient's care, including medication administrations, has been reconciled in the electronic record per guidelines. Refer to the
patient's paper chart under the miscellaneous tab to see printed paper medication records and downtime forms.
[2024-09-03 03:47] LABS: Hematocrit 35.9 % (37.0-47.0); Hemoglobin 11.7 g/dL (12.0-16.0); Mean Corp Hgb Conc. 32.6 g/dL (33.0-37.0); Mean Corpuscular Hgb 29.8 pg (27.0-31.0); Mean Corpuscular Volume 91.6 fL (81.0-99.0); Mean Platelet Volume 11.1 fL (7.4-10.4); Platelet Count 142 10^3/uL (130-400); Red Blood Cell Count 3.92 10^6/uL (4.20-5.40); Red Cell Dist. Width 14.6 % (11.5-14.5); White Blood Cell Count 9.6 10^3/uL (4.8-10.8)
[2024-09-03 04:04] LABS: ALT (SGPT) 150 U/L (0-35); AST (SGOT) 126 U/L (14-36); Albumin 2.5 g/dl (3.5-5.0); Alkaline Phosphatase 104 U/L (38-126); Blood Urea Nitrogen 77 mg/dl (7-17); Calcium 8.6 mg/dl (8.4-10.2); Carbon Dioxide 25 mmol/L (22-30); Chloride 105 mmol/L (98-107); Estimated Creatinine Clearance 22 ml/min; Glucose 169 mg/dl (70-99); Potassium 4.4 mmol/L (3.5-5.1); Sodium 139 mmol/L (135-145); Total Protein 4.4 g/dl (6.3-8.2); eGFR 36.41
--- NOTE | 2024-09-03 04:17 | PTCARENOTE ---
FiO2 weaned to 60%, O2 sat 95%. AM labs provided. Safe environment maintained.
[2024-09-03] MEDS: NOVOLOG FLEXPEN-MODERATE RESISTANCE 1 UNITS SC ×3 (05:29→17:56)
[2024-09-03 05:41] LABS: Glucose - Point of Care 179 mg/dl (70-99)
--- NOTE | 2024-09-03 05:43 | W.PN.ORTHO ---
Today's Communication / Plan
-
89-year-old female POD #5 Left Hip Hemiarthroplasty 08/29/[address] Leal.
- When medically stable, patient may be WBAT to LLE with use of assistive device. PT/OT as tolerated when stable.
- Posterior hip precautions.
- Eliquis 2.5mg BID resumed.
- Skin clip removal at 2 weeks post-op. Maintain surgical dressing until 7-10 days post-op. Reinforce or change dressing as needed.
- Follow-up Orthopedics 4 weeks post-op.
Assessment
.
Dressing:
Clean, dry and intact.
Plan
.
Surgery / Date: 08/29/2024 Left Hip Hemiarthroplasty
Activity:
Out of bed.
PT/OT
Subjective
.
.:
Patient resting comfortably.
Vital Signs and Labs
.
Vital Signs and Labs:
Lab Results
09/03/24 03:24
09/03/24 03:24
Temp Pulse Resp BP Pulse Ox
97.5 F 108 33 98/70 99
09/03/24 03:21 09/03/24 05:30 09/03/24 05:30 09/03/24 05:00 09/03/24 05:30
PT 17.8 Sec (11.4-14.6) H 08/29/24 20:21
INR 1.44 08/29/24 20:21
[2024-09-03] MEDS: LOPRESSOR 25 MG TUBE ×3 (06:06→17:44)
--- NOTE | 2024-09-03 07:18 | W.PN.HOSP.TC ---
Addendum entered and electronically signed by Adriana Lucas MD 09/03/24 15:57:
I saw and evaluated the patient. I reviewed the resident�s note and agree with findings and plan as documented in the resident�s note.
A/P:
# Mechanical fall resulting in left hip fracture
head and spine CT neg for fracture
s/p surgery repair 08/29/24
resumed HAND TAPPER Eliquis 2.5 mg BID
pain control
PT/OT for SNF dispo
staple removal in 2 weeks, ortho f/u at 4 weeks
# Acute hypoxic resp failure
intubated for surgery, pt was extubated with decision not to re-intubate (code status DNR)
Cont O2 support, now off BIPAP on 12L midflow
# permanent afib with RVR, and V. tach intraoperatively with post op hypotension, suspect 2/2 Parkinson autonomic insufficiency (neurogenic shock)
do not believe septic shock, hemorrhagic, or cardiogenic shock
Off amiodarone drip -> PO amiodarone 400 mg TID
cont Dig per card
Started Lopressor 25 mg Q6H
resumed HAND TAPPER Eliquis 2.5 mg BID
apprec cards
# Chronic hypotension
cont midodrine 10 mg TID
# ANDRES, most likely prerenal 2/2 hypotension
SCr 1.4 from baseline 0.8
Monitor SCr
Renal consult
Diuresis per renal
# elevated AST/ALT, improving
most likely due to hypotension
Trend LFT
# hypophosphatemia
replete as needed, can use neutraphos
expect to improve when diet liberalized
# Parkinson's disease
Continue carbidopa-levodopa
# Dementia
Continue donepezil
# Chronic HFpEF
diuresis per renal
metoprolol as tolerated
# Chronic anemia
# Glaucoma
Continue eyedrops
# Severe clinical deconditioning
Prognosis guarded due to severe clinical deconditioning. Goals of care discussion initiated
code status--DNR/DNI
DVT prophylaxis-SCDs
Prognosis guarded with current clinical deconditioning
Discussed with multiple family members at bedside, including and 2 sons. Initiated goals of care discussion due to current severe clinical deconditioning
Original Note:
Today's Communication/Plan
-
continue to wean O2 as tolerated. Appreciate care integration for this patient. pending goals of care discussion with family.
Assessment / Plan
Assessment / Plan
88 year old female with a past medical history of atrial fibrillation (on Eliquis), Parkinson's disease, dementia, HFrEF, hypertension, chronic anemia, glaucoma, colon cancer s/p colon resection, endometrial cancer s/p post hysterectomy who
presented to [facility] ER room after a mechanical fall
#Ventilator Dependent Acute Hypoxic Respiratory Failure - Extubated, still BIPAP. Family aware and at bedside; possible comfort care depending on how she fares as she is weaned from BIPAP. Appreciate pharmacist aide. continue to wean as tolerated; 60%
O2 this am.
#Chronic Hypotension - Off pressors, on midodrine 10 TID with map goal >65. Pressures stable.
#ANDRES on CKD Stage IIIb - rising sCr post-op, currently 1.4, GFR 36, oliguric. Likely pre-renal, consequence of hypotensive episode. Appreciate nephro recs.
#Vtach
#Afib with RVR
#Permanent Afib
- has been in Afib since arrival, rates persistently elevated. Had episodes of Vtach during surgery and was hypotensive post op. Holding Lopressor in setting of hypotension. Off Amio ggt. On PO Amiodarone TID, Lopressor 25 q6 & Digoxin. Appreciate
cardiology recs
#Mechanical fall with resulting L hip fx. from Left Hip Hemiarthroplasty - Will proceed with PT/OT and WBAT per ortho when/if patient is medically stable.
#HFpEF - s/p one 20mg dose IV Lasix 08/31/2024.
#Thrombocytopenia, chronic - plt low but stable. No overt signs of bleeding. Will continue to monitor post op.
#Shock Liver, likely secondary to hypotension (resolved)- Elevated liver enzymes post surgery where she was requiring pressors to maintain cardiac output. AST/ALT trending down. Will continue to monitor, seems to have a baseline elevated liver
enzymes as they were elevated-yet stable for several days after admission and prior to surgery.
#Head pain - nontender on exam, though subjectively painful in R occipital region. CT head ruled out fracture. Likely secondary to fall. Pain meds prn if needed.
#Moderate Protein Calorie Malnutrition - Patient meets AND and ORENEN criteria for moderate protein calorie malnutrition of chronic disease due to >7.5% BW loss over 3 months and moderate loss of muscle in her clavicle region.
#Urinary incontinence - Riley
#Parkinson's - stable, continue with home carbidopa-levodopa
#Dementia - stable, continue with donepezil
#Glaucoma - c/w timolol drops qd
Diet - cholesterol lowering diet
DVT Ppx - holding Eliquis for surgery
Code Status - DNR
Anticipated Discharge: > 48 hours
Subjective/Interval History
-
Seen in the AM. Patient is able to wiggle her toes when asked, but is not able to follow commands other than that.
Objective Data
-
Labs:
Laboratory Results
09/03/24
03:24
WBC 9.6
Hgb 11.7 L
Hct 35.9 L
Plt Count 142 D
Sodium 139
Potassium 4.4
Chloride 105
Carbon Dioxide 25
BUN 77 H
Creatinine 1.4 H
Glucose 169 H
Calcium 8.6
Total Bilirubin 2.0 H
AST 126 H
ALT 150 H
Alkaline Phosphatase 104
Vital Signs:
Vital Signs
Temp Pulse Resp BP Pulse Ox
97.5 F 85 24 100/72 100
09/03/24 03:21 09/03/24 07:00 09/03/24 07:00 09/03/24 07:00 09/03/24 07:00
I&O
09/02/24 09/03/24 09/04/24
06:59 06:59 06:59
Intake Total 1320.8 / 1337.5 793.5 / 793.5
Output Total 587 / 592 499 / 499
Balance 733.8 / 745.5 294.5 / 294.5
Review of Systems
-
Unable to obtain full review of systems at this time due to: Dementia and Other (ON BIPAP w/ NG tube, not vocalizing)
Physical Exam
-
General: Well Developed, No Apparent Distress, Appears Chronically Ill and Other (On BIPAP)
HEENT: Normocephalic, Atraumatic, Moist Mucous Membranes, Anicteric, [place] Conjunctivae, Nose Appears Normal and Ears Appear Normal
Respiratory: Negative Wheezes, Rales or Rhonchi
Cardiac: S1/S2 and Irregular Rhythm; Negative Murmur or Tachycardic
Breast: N/A
GI: Soft, Nontender, Nondistended and Normal Bowel Sounds
Genito-urinary: Deferred by me
Musculoskeletal: No Clubbing, No Cyanosis and No Edema
Skin: IV Access / Catheter Site (RIJ, x2 peripheral lines)
Neuro: Awake and Other (Could not assess due to lack of speaking; patient was however able to follow commands of 'wiggling toes')
Psych: Apparent Dementia
[2024-09-03] MEDS: ELIQUIS 2.5 MG TUBE ×2 (08:13→20:24)
[2024-09-03] MEDS: ProAmatine 10 MG TUBE ×3 (08:13→17:44)
[2024-09-03] MEDS: PACERONE 400 MG TUBE ×3 (08:13→20:23)
[2024-09-03] MEDS: SINEMET 25-100 1 TABLET TUBE ×2 (08:13→20:24)
[2024-09-03] MEDS: TIMOPTIC 0.5% OPHTHALMIC SOLUTION 1 DROP BOTH EYES (08:13)
--- NOTE | 2024-09-03 08:29 | W.PN.INTV ---
Today's Communication / Plan
Recommendations
Extubated 09/01/2024 to nasal cannula - now on midflow nasal cannula after being on NIV for >36 hours
Keep SpO2 >90%
Avoid sedation to help minimize any additional weakness that may ensue, as she is already physically deconditioned
Maintain MAP >65; currently off pressors since 08/31
Heart rate control with goal HR <110; she is in and out of A-fib
PO amio, continue PO dig; trend sCr as dig may need to be adjusted if ANDRES worsens
Echo shows no significant change compared to prior echo in March 2024
DNR/DNI
Guarded prognosis - family leaning towards comfort care if she deteriorates; continue full medical management for now
Patient stable for downgrade out of ICU. Will consider IMU in case she requires high flow nasal cannula. If her saturations remains stable and is >95% on midflow nasal cannula at a rate of <10 L/min then I will downgrade to telemetry instead.
Pulmonary service will continue to briefly follow along.
Assessment
-
Assessment: 88-year-old female with a past medical history of Parkinson disease, history of SVT, colon cancer s/p right hemicolectomy (1990), history of endometrial carcinoma s/p total hysterectomy, IBS, and mitral valve regurgitation who presents
with a trip and fall. She is complaining of left-sided hip/leg pain. She is on Eliquis for a history of A-fib. She says she got up from a seated position and tripped and fell onto the ground with no head trauma. Her blood pressure usually runs
low sometimes with SBP <100. Initial femur/hip XR showed impacted fracture involving the neck/head of the proximal left femur. CT head/CT C-spine showed no acute osseous abnormalities and no acute intracranial pathology. She was given Ofirmev in
the ER and admitted to telemetry for further management. Of note she is in rate controlled permanent A-fib and cardiology was consulted. Orthopedics also consulted and on the evening of 08/29/2024 she underwent a left hip hemiarthroplasty. During
the procedure she had suspected runs of VT with hypotension. She had remained intubated and arrived to the ICU in rapid A-fib in the 180s and on Levophed at 10mcg/min and epinephrine at 2mcg/min. Pharmacy Benefit Manager services consulted for additional
management/recommendations.
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
regurgitation
Impression:
#Ventilator dependent respiratory failure - extubated 09/01/2024
#Shock state likely due to A-fib with RVR in the setting of chronically low BP - off pressors since 08/31
#Postoperative hypotension with suspected NSVT (?A-fib with aberrancy)
#A-fib with RVR - now rate controlled and occasionally in NSR
#Fall with left hip fracture s/p left hip hemiarthroplasty (08/29/2024)
#Retrocardiac opacification likely due to atelectasis
#Chronic thrombocytopenia
#Metabolic acidosis with increased anion gap likely due to lactic acidosis in the setting of shock � acidosis now resolved
#ANDRES
#Chronic hypotension not on midodrine
#Chronic anemia
#History of colon cancer s/p right hemicolectomy (1990)
#History of IBS
#Chronic HFpEF with RV enlargement and mild pulmonary hypertension (per TTE from March 2024)
Plan:
- Extubated on 09/01/2024 and had required noninvasive ventilation with high FiO2, now off NIV and currently on mid flow nasal cannula at 8 L/min with SpO2 98%
- Family would like to continue with current medical management and if she deteriorates further then they will consider transitioning to comfort care at that time
- Patient did get anesthesia recently but I advised the family that by day 4 after anesthesia we should be seeing more interaction with Inna; today she is more interactive
- Keep SpO2 >90-94%
- Aspiration precautions keeping HOB >30-45�
- Frequent suctioning as needed
- prn nebulized bronchodilators (use xopenex if this is needed due to A-fib) - not currently bronchospastic
- Heart rate control is [place] with goal HR <110
- Continue with PO amio s/p amiodarone gtt and continue PO digoxin (started 08/31/2024)
- Cardiology recommendations appreciated
- Avoid beta agonist as this will only worsen heart rate
- Currently off both Eligio-Synephrine + vasopressin ---> keep MAP >65
- On midodrine - try to wean off as BP tolerates
- Patient is on Lasix at home which was held on 08/30 due to her shock state. Shock state now resolved, and cardiology gave trial of 20 mg IV Lasix on 08/31. Continue to diurese based on volume status --> do not feel that she will require much IV
diuresis based on her last CXR from 08/29/2024; CXR from 09/01/2024 shows no evidence of volume overload
- Echo checked on 09/01/2024 showing preserved LVEF at 55 to 60% with moderate MR, mild moderate AI, and moderately elevated PASP at 40 mmHg; no significant change since prior echo in March 2024
- Continue telemetry to monitor for any recurrence of VT
- Although CXR on 08/29/2024 showed retrocardiac opacification, this is likely due to atelectasis. Patient is nontoxic-appearing. Continue to observe off antibiotics
- CXR on 09/01/2024 showed improvement in retrocardiac opacification
- Postoperative management as per orthopedic surgery
- Pain control
- Replete electrolytes with K>4, Mg>2
- Maintain euglycemia with goal BG 140-180
- Trend H/H and transfuse if needed to keep Hb>7g/dL; keep plt>50k (given post-operative status)
- Continue tube feeds through NGT --> on 09/02/2024, bedside RN changed out NGT to dobhoff tube
- Stress ulcer ppx: PPI stopped given she is now extubated and off pressors
- DVT ppx: Eliquis (through NGT)
[facility] discussion from 09/01/[address] Ponce: I discussed at bedside patient's clinical status with multiple family numbers, including , Jameson, and answered all of their questions. Patient does have an advanced directive being DNR/DNI. She
was extubated today and this advanced directive will remain in place. She remains exquisitely weak, lethargic and minimally responsive after extubation. I did ask if she did become more short of breath would it be ok to give morphine vs other
opiate to make her more comfortable and they agreed. does not want to transition now to comfort care but if things do not head in the right direction then he would want to discuss this again with his children.
Patient stable for downgrade out of ICU. Will consider IMU in case she requires high flow nasal cannula. If her saturations remains stable and is >95% on midflow nasal cannula at a rate of <10 L/min then I will downgrade to telemetry instead.
Pulmonary service will continue to briefly follow along.
Total time spent today was 76 minutes for this encounter. Time includes reviewing laboratory test/imaging results, reviewing pertinent medical records, obtaining and reviewing medical history, performing an appropriate exam, ordering medications,
tests and procedures. Time also includes documentation of this encounter, coordinating patient care and communicating with other healthcare professionals. Total time does not include separately billed tests performed on this date of service.
Subjective Dataa
Subjective Data
Date of Service:
Date of Service: September 03, 2024
Chief Complaint: Pharmacy Benefit Manager Follow Up
Subjective:
Patient seen and evaluated today at bedside. This AM was on NIV with FiO2 down to 60%, now on midflow nasal cannula at 8L/min. HR 67, and SpO2 98%. BP currently 104/66. She is more responsive today but with unintelligible/garbled speech.
Remains on tube feeds at 40 cc an hour.
Review of Systems
General: Unobtainable - Pat Unresp
Objective Data
Data Reviewed
Vital Signs / I&O / Oxygen:
Vital Signs
Temp Pulse Resp BP Pulse Ox
98.3 F 86 29 97/73 99
09/03/24 08:00 09/03/24 08:00 09/03/24 08:00 09/03/24 08:00 09/03/24 08:24
Intake and Output
09/02/24 09/03/24 09/04/24
06:59 06:59 06:59
Intake Total 1320.8 / 1337.5 793.5 / 833.5 80 / 80
Output Total 587 / 592 499 / 524 40 / 40
Balance 733.8 / 745.5 294.5 / 309.5 40 / 40
SaO2 [NIV (Non Invasive 94
Ventilation)]
SaO2 [CPAP] 98
SaO2 [A/C] 98
SaO2 99
Nasal Cannula flow liters per 12
minute
Physical Exam
General: Respiratory Distress (negative), Comfortable, Chills (negative) and Sweats (negative)
HEENT: Normocephalic and Anicteric
Cardiovascular: S1-S2, Rub (negative) and Peripheral Edema (Trace lower extremity edema bilaterally)
Respiratory: Clear, Wheeze (negative), Crackles (negative), Rhonchi (negative) and Non-Labored Respirations
GI: Soft, Non Distended, Non Tender and Normal Bowel Sounds
Neurology: Tremors (negative) and Other (Slow to respond with eye opening, generalized weakness, unable to lift head off pillow, not following commands although she is trying to speak)
Skin: Warm, Dry, Cyanosis (now negative) and Jaundice (negative)
Labs/Micro/Reports
Lab Data
09/03/24 03:24
09/03/24 03:24
--- NOTE | 2024-09-03 08:53 | PTOTSP ---
CHART REVIEWED AND SPOKE WITH RN AND ATTENDING, DR. ANDERSON. PATIENT NOT APPROPRIATE FOR THERAPY AT THIS TIME AND ATTENDING STATED THAT THERAPY COULD DISCHARGE FROM THERAPY SERVICES AT THIS TIME. PLEASE RECONSULT IF STATUS CHANGES.
--- NOTE | 2024-09-03 09:28 | W.PN.CARDCBS ---
Today's Communication / Plan
-
Stable cardiology status with rate controlled A-fib
Family considering comfort care
Sign off
Impression / Plan
-
PCP: Dr. Joni Foley
Primary global coordinator: Dr. Angel Merino
Impression:
Admitted with fall and left hip fracture 08/26/24
Unwitnessed fall
Left hip fracture
Afib with RVR
Permanent Afib
Chronic Eliquis OAC
Chronic HFpEF
Thrombocytopenia
Dementia
Parkinson's disease
Hyperglycemia
Echo 04/29/20: EF 55 to 60%, mild concentric LVH, mild MR, aortic sclerosis with mild eccentric aortic regurgitation, mild TR with PAP 28 mmHg
Echo 03/31/24: EF 55%, MAC, moderate MR, mild AR, moderate TR, PAP 30 mmHg, severely dilated right atrium, enlarged RV size, patient now in A-fib with slightly worsened MR
Echo 09/01/2024: EF 55-60%, MAC, moderate MR, dilated LA, aortic sclerosis with mild to moderate regurgitation, pulmonary artery systolic pressure 40 mmHg
Plan:
She is unresponsive at present
Heart rate control remains in A-fib
Family considering comfort care
Discussed with nursing
Will sign off, call with questions
Progress Note - Financial Systems Manager
Subjective
Date of Service: September 03, 2024
Patient unresponsive
Objective
Labs:
09/03/24 03:24
09/03/24 03:24
Labs
Hgb 11.7 g/dL (12.0-16.0) L 09/03/24 03:24
Hct 35.9 % (37.0-47.0) L 09/03/24 03:24
Plt Count 142 10^3/uL (130-400) D 09/03/24 03:24
PT 17.8 Sec (11.4-14.6) H 08/29/24 20:21
INR 1.44 08/29/24 20:21
APTT 36.2 Sec (23.4-35.0) H 08/29/24 20:21
Sodium 139 mmol/L (135-145) 09/03/24 03:24
Potassium 4.4 mmol/L (3.5-5.1) 09/03/24 03:24
BUN 77 mg/dl (7-17) H 09/03/24 03:24
Creatinine 1.4 mg/dL (0.6-1.0) H 09/03/24 03:24
Glucose 169 mg/dl (70-99) H 09/03/24 03:24
Vital Signs and I&O:
Vital Signs
Temp Pulse Resp BP Pulse Ox
98.3 F 86 29 97/73 99
09/03/24 08:00 09/03/24 08:00 09/03/24 08:00 09/03/24 08:00 09/03/24 08:24
Vital Signs
Temp Pulse Resp BP Pulse Ox
98.3 F 86 29 97/73 99
09/03/24 08:00 09/03/24 08:00 09/03/24 08:00 09/03/24 08:00 09/03/24 08:24
Intake & Output
09/01/24 09/02/24 09/03/24 09/04/24
06:59 06:59 06:59 06:59
Intake Total 1763.3 / 1900.0 1320.8 / 1337.5 793.5 / 833.5 200 / 200
Output Total 1365 / 1415 587 / 592 499 / 524 65 / 65
Balance 398.3 / 485.0 733.8 / 745.5 294.5 / 309.5 135 / 135
Physical Exam
Physical Exam
General: Unresponsive
Neck: Supple, no JVD, HJR, carotids +2 B/L, no bruits bilaterally.
Heart: Non displaced PMI, RRR, no murmurs, No S3, S4, no rubs.
Lungs: Poor effort
Extremities: No clubbing, cyanosis or edema bilaterally.
Neuro: Unresponsive
--- NOTE | 2024-09-03 10:34 | W.CON.NEPH ---
Consultation
-
Date/Time Consultation Requested: September 03, 2024 at 9:30 AM
Date/Time Consultation Performed: September 03, 2024 at 10:30 AM
Requesting Provider: Dr. Usha Bailey
Performing Provider: Dr Ronak Alvarado
Reason for Consultation: Acute kidney injury
Medical History
-
Chief Complaint: Acute kidney injury
History of Present Illness:
88-year-old female with a past medical history of Parkinson disease, history of SVT, colon cancer s/p right hemicolectomy (1990), history of endometrial carcinoma s/p total hysterectomy, IBS, and mitral valve regurgitation who presents with a trip
and fall. Status post left hip hemiarthroplasty perioperatively she had suspected runs of VT with hypotension remained intubated in rapid A-fib in the 180s requiring pressor support. She has since been extubated she is on nasal cannula. Blood
pressure was as low as 70 systolic.
Renal consultation for acute kidney injury with a creatinine of 1.4.
Overall positive from a I/O standpoint. She is nonoliguric
Family at the bedside discussed in detail
Past Medical History
Parkinson disease, history of SVT, colon cancer s/p right hemicolectomy (1990), history of endometrial carcinoma s/p total hysterectomy, IBS, and mitral valve regurgitation
Social History
Tobacco: Non-Smoker
Family History
Family History: Not Pertinent
Allergies / Home Medications
Allergy/AdvReac Type Severity Reaction Status Date / Time
morphine Allergy Severe slight rash Verified 08/26/24 15:44
�Medication �Instructions �Recorded �Confirmed �Type
carbidopa ER 25 mg-levodopa 100 mg 1 tab PO BID@0800,1800 parkinsons 03/29/24 08/26/24 History
tablet,extended release disease
donepezil 5 mg tablet 5 mg PO HS Neurological Condition 03/29/24 08/26/24 History
timolol 0.5 % eye drops 1 drp BOTH EYES DAILY Eye Condition 03/29/24 08/26/24 History
furosemide 40 mg tablet 40 mg PO DAILY Heart Failure 1 04/03/24 08/26/24 Rx
month #30 tabs
Bifidobacterium infantis 4 mg 4 mg PO DAILY probiotic 06/04/24 08/26/24 History
capsule (Align (B.infantis))
acetaminophen 650 mg 650 mg PO BID@0800,1800 pain 06/04/24 08/26/24 History
tablet,extended release
apixaban 2.5 mg tablet (Eliquis) 2.5 mg PO BID@0800,1800 Blood clot 06/04/24 08/26/24 History
prevention/tx
docusate sodium 100 mg capsule 100 mg PO BIDPRN PRN constipation 06/04/24 08/26/24 History
(Colace)
metoprolol succinate 50 mg 50 mg PO BID Blood Pressure 06/04/24 08/26/24 History
tablet,extended release 24 hr
Review of Systems
-
Unable to obtain full review of systems at this time due to: Dementia
Physical Exam
Vital Signs
Vital Signs
Temp Pulse Resp BP Pulse Ox
98.3 F 86 29 97/73 99
09/03/24 08:00 09/03/24 08:00 09/03/24 08:00 09/03/24 08:00 09/03/24 08:24
Lab Results
WBC 9.6 10^3/uL (4.8-10.8) 09/03/24 03:24
RBC 3.92 10^6/uL (4.20-5.40) L 09/03/24 03:24
Hgb 11.7 g/dL (12.0-16.0) L 09/03/24 03:24
Hct 35.9 % (37.0-47.0) L 09/03/24 03:24
Plt Count 142 10^3/uL (130-400) D 09/03/24 03:24
Sodium 139 mmol/L (135-145) 09/03/24 03:24
Potassium 4.4 mmol/L (3.5-5.1) 09/03/24 03:24
Chloride 105 mmol/L (98-107) 09/03/24 03:24
Carbon Dioxide 25 mmol/L (22-30) 09/03/24 03:24
BUN 77 mg/dl (7-17) H 09/03/24 03:24
Creatinine 1.4 mg/dL (0.6-1.0) H 09/03/24 03:24
eGFR 36.41 09/03/24 03:24
Glucose 169 mg/dl (70-99) H 09/03/24 03:24
Calcium 8.6 mg/dl (8.4-10.2) 09/03/24 03:24
Phosphorus 2.2 mg/dl (2.5-4.5) L 09/01/24 03:15
Cwc-H-Smxgstbycsv Pept > 36056 pg/ml 09/02/24 12:14
Albumin 2.5 g/dl (3.5-5.0) L 09/03/24 03:24
Physical Exam
General no acute distress
HEENT no cephalic atraumatic extraocular muscle intact no scleral icterus no JVD neck supple
lungs coarse breath sound
heart regular S1-S2 positive with ectopy
abdomen soft nontender positive bowel sounds
extremities no edema pulses present bilateral
Neurologically somnolent responds to tactile stim
Skin no lesions no abrasions no petechiae
Psych no bizarre behavior
Data Reviewed
-
Radiology: Image Personally Visualized and interpreted (No obvious pulmonary edema)
Critical Care Time (in minutes): 35
Assessment/Plan
-
88-year-old female with a past medical history of Parkinson disease, history of SVT, colon cancer s/p right hemicolectomy (1990), history of endometrial carcinoma s/p total hysterectomy, IBS, and mitral valve regurgitation who presents with a trip
and fall. Status post left hip hemiarthroplasty perioperatively she had suspected runs of VT with hypotension remained intubated in rapid A-fib in the 180s requiring pressor support. She has since been extubated she is on nasal cannula. Blood
pressure was as low as 70 systolic.
Renal consultation for acute kidney injury with a creatinine of 1.4.
Impression.
Acute on chronic kidney disease stage IIIb.
Status post hip repair.
Atrial fibrillation with RVR postoperatively requiring pressor support
Transaminitis improving
Plan.
Acuity secondary to hemodynamic instability. Patient is now currently rate controlled off pressors
The patient is oliguric overall positive from a fluid balance of standpoint with elevated pulmonary artery pressures and dilated IVC relatively preserved EF
She is currently off pressors maintaining MAP greater than 65.
Agree with IV diuretics at this time.
Maintain Riley catheter.
Tube feeds initiated.
Total Time Spent with Patient (in minutes): 35
--- NOTE | 2024-09-03 12:00 | PTCARENOTE ---
Pt opens eyes, does not follow commands. Afib HR 70 to 80s. +1-2 generalized edema. Off NIV since 814 this am. Weaning O2 as tolerated. SpO2 98% on 8L NC at this time. Bibasilar crackles noted posteriorly on auscultation. Tolerating tube
feeds (not yet at goal). Multiple small formed BMs. Radha urine per mota. Dressing changed to left hip d/t moderate amount of serosanguineous drainage. DTI noted to sacrum, dressing changed. New stage 1 left ischium, foam applied. Protective
heel and elbow dressings applied. Turning q2hrs. All other assessments unchanged.
[2024-09-03] MEDS: TYLENOL ORAL SOLUTION 650 MG TUBE ×2 (12:38→20:23)
[2024-09-03] MEDS: LANOXIN 62.5 MCG TUBE (12:38)
[2024-09-03 13:15] LABS: Glucose - Point of Care 193 mg/dl (70-99)
[2024-09-03] MEDS: LASIX 40 MG IV (15:02)
--- NOTE | 2024-09-03 17:13 | PTCARENOTE ---
Pt appears to make eye contact. Does not follow commands. Improved urine output after IV Lasix given. (see I & Os) O2 weaned to 6L NC. All other assessments unchanged.
[2024-09-03 18:07] LABS: Glucose - Point of Care 156 mg/dl (70-99)
[2024-09-03] MEDS: ARICEPT 5 MG TUBE (20:24)
--- NOTE | 2024-09-03 21:53 | PTCARENOTE ---
weaned to 2 liters- - downgraded to imu
--- NOTE | 2024-09-03 22:55 | PTCARENOTE ---
still minimally responsive- 2 liters to maintain sats- afebrile bp wnl- afib controlled - remains on turning schedule
[2024-09-03] MEDS: NOVOLOG FLEXPEN-MODERATE RESISTANCE 5 UNITS SC (23:24)
[2024-09-03 23:33] LABS: Glucose - Point of Care 254 mg/dl (70-99)
[2024-09-04] VITALS (23 sets, daily range): BP systolic 87–133; BP diastolic 57–99; BMI 18.9
[2024-09-04] MEDS: LOPRESSOR 25 MG TUBE ×3 (00:08→18:09)
[2024-09-04] MEDS: TYLENOL ORAL SOLUTION 650 MG TUBE (00:11)
--- NOTE | 2024-09-04 01:17 | PTCARENOTE ---
pt with very large loose bm- full bed bath given . left hip dressing was saturated with body fluid- redressed- oxygen requirements back to 6 liters nasal canula
[2024-09-04 04:28] LABS: Hematocrit 34.6 % (37.0-47.0); Mean Corp Hgb Conc. 31.8 g/dL (33.0-37.0); Mean Corpuscular Hgb 29.4 pg (27.0-31.0); Mean Corpuscular Volume 92.5 fL (81.0-99.0); Mean Platelet Volume 11.4 fL (7.4-10.4); Platelet Count 137 10^3/uL (130-400); Red Blood Cell Count 3.74 10^6/uL (4.20-5.40); Red Cell Dist. Width 14.6 % (11.5-14.5); White Blood Cell Count 9.6 10^3/uL (4.8-10.8)
[2024-09-04 04:51] LABS: ALT (SGPT) 94 U/L (0-35); AST (SGOT) 61 U/L (14-36); Albumin 2.3 g/dl (3.5-5.0); Alkaline Phosphatase 127 U/L (38-126); Blood Urea Nitrogen 83 mg/dl (7-17); Calcium 8.1 mg/dl (8.4-10.2); Carbon Dioxide 29 mmol/L (22-30); Chloride 105 mmol/L (98-107); Estimated Creatinine Clearance 22 ml/min; Glucose 135 mg/dl (70-99); Potassium 3.6 mmol/L (3.5-5.1); Sodium 142 mmol/L (135-145); Total Bilirubin 1.2 mg/dl (0.2-1.3); Total Protein 4.2 g/dl (6.3-8.2); eGFR 36.41
--- NOTE | 2024-09-04 05:05 | PTCARENOTE ---
multiple episodes of liquid bm- trumpet placed- bp soft am Lopressor held
[2024-09-04] MEDS: LOPRESSOR TUBE (05:06)
[2024-09-04] MEDS: NOVOLOG FLEXPEN-MODERATE RESISTANCE SC ×2 (05:12→12:31)
[2024-09-04 05:20] LABS: Glucose - Point of Care 138 mg/dl (70-99)
--- NOTE | 2024-09-04 05:57 | PTCARENOTE ---
multiple very large liquid bm's difficult to contain - getting in surgical wound with several dsg changes- trumpet failed- [facility]
[2024-09-04] MEDS: ELIQUIS 2.5 MG TUBE ×2 (07:38→19:27)
[2024-09-04] MEDS: PACERONE 400 MG TUBE ×3 (07:39→19:27)
[2024-09-04] MEDS: ProAmatine 10 MG TUBE ×2 (07:39→12:30)
[2024-09-04] MEDS: TIMOPTIC 0.5% OPHTHALMIC SOLUTION 1 DROP BOTH EYES (07:39)
[2024-09-04] MEDS: SINEMET 25-100 1 TABLET TUBE ×2 (07:39→19:27)
--- NOTE | 2024-09-04 07:44 | W.PN.HOSP.TC ---
Addendum entered and electronically signed by Adriana Lucas MD 09/04/24 10:50:
I saw and evaluated the patient. I reviewed the resident�s note and agree with findings and plan as documented in the resident�s note.
A/P:
# Mechanical fall resulting in left hip fracture
head and spine CT neg for fracture
s/p surgery repair 08/29/24
resumed SERVER Eliquis 2.5 mg BID
pain control
PT/OT for SNF dispo
staple removal in 2 weeks, ortho f/u at 4 weeks
# Acute hypoxic resp failure, improving
intubated for surgery, pt was extubated with decision not to re-intubate (code status DNR)
off BIPAP, weaned from 12L to 5L NC, cont O2 support and cont to wean as tolerated
# permanent afib with RVR, and V. tach intraoperatively with post op hypotension, suspect 2/2 Parkinson autonomic insufficiency (neurogenic shock)
do not believe septic shock, hemorrhagic, or cardiogenic shock
Off amiodarone drip -> PO amiodarone 400 mg TID
cont Dig per card
Started Lopressor 25 mg Q6H
resumed SERVER Eliquis 2.5 mg BID
apprec cards
# Severe clinical deconditioning
# Decreased level of consciousness/hypoactive delirium
Prognosis guarded due to severe clinical deconditioning. Goals of care discussion initiated
Check repeat CT head 09/04
# Chronic hypotension
cont midodrine 10 mg TID
# ANDRES, most likely prerenal 2/2 hypotension
SCr 1.4 from baseline 0.8
Monitor SCr
Renal on board
IV lasix on hold
# elevated AST/ALT, improving
most likely due to hypotension
Trend LFT
# hypophosphatemia
replete as needed, can use neutraphos
expect to improve when diet liberalized
# Parkinson's disease
Continue carbidopa-levodopa
# Dementia
Continue donepezil
# Chronic HFpEF
diuresis per renal
metoprolol as tolerated
# Chronic anemia
# Glaucoma
Continue eyedrops
code status--DNR/DNI
DVT prophylaxis-SERVER Eliquis
Prognosis guarded with current clinical deconditioning
Original Note:
Today's Communication/Plan
-
replete potassium, repeat head CT, continue to wean off O2. Goals of care discussion with family. Appreciate integration of care teams for this patient.
Assessment / Plan
Assessment / Plan
88 year old female with a past medical history of atrial fibrillation (on Eliquis), Parkinson's disease, dementia, HFrEF, hypertension, chronic anemia, glaucoma, colon cancer s/p colon resection, endometrial cancer s/p post hysterectomy who
presented to [place] ER room after a mechanical fall
Patient still minimally arousable on exam. Discussions with family about goals of life care.
#Persistently altered mentation w/o return to baseline cognitive function - will order repeat head CT as she had a mechanical fall and is back on Eliquis.
#Ventilator Dependent Acute Hypoxic Respiratory Failure - s/p extubation. Now on 6L NC.
#Chronic Hypotension - Off pressors, on midodrine 10 TID with map goal >65. Pressures stable.
#ANDRES on CKD Stage IIIb - ANDRES likely pre-renal, consequence of hypotensive episode. S/p x1 dose IV lasix with output 600-900ccs. Appreciate nephro recs on further diuresis.
#Vtach
#Afib with RVR
#Permanent Afib
- has history of Afib, rates elevated pre-op. Had episodes of Vtach during surgery and was hypotensive post op. Holding Lopressor in setting of hypotension. Off Amio ggt. On PO Amiodarone TID, Lopressor 25 q6 & Digoxin. Appreciate cardiology recs.
#Mechanical fall with resulting L hip fx. from Left Hip Hemiarthroplasty - Will proceed with PT/OT and WBAT per ortho when/if patient becomes medically stable.
#HFpEF - s/p one 20mg dose IV Lasix 08/31/2024. Will coordinate with nephrology/cardiology on diuresis if clinically indicated.
#Hypokalemia - will replete to stay at or above 4.
#Thrombocytopenia, chronic - plt low but stable. No overt signs of bleeding. Will continue to monitor.
#Shock Liver, likely secondary to hypotension (resolved)- Elevated liver enzymes post surgery where she was requiring pressors to maintain cardiac output. AST/ALT trending down. Will continue to monitor, seems to have a baseline elevated liver
enzymes as they were elevated-yet stable for several days after admission and prior to surgery.
#Head pain - nontender on exam, though subjectively painful in R occipital region. CT head ruled out fracture. Likely secondary to fall. Pain meds prn if needed.
#Moderate Protein Calorie Malnutrition - Patient meets AND and ASPEN criteria for moderate protein calorie malnutrition of chronic disease due to >7.5% BW loss over 3 months and moderate loss of muscle in her clavicle region.
#Urinary incontinence - Riley, draining clear urine
#Parkinson's - stable, continue with home carbidopa-levodopa
#Dementia - stable, continue with donepezil
#Glaucoma - c/w timolol drops qd
Diet - cholesterol lowering diet
DVT Ppx - Eliquis 2.5 BID
Code Status - DNR
Anticipated Discharge: > 48 hours
Subjective/Interval History
-
Stable overnight. Weaned down to 6L HFNC. Had bowel movements, but has not been very responsive.
Objective Data
-
Labs:
Laboratory Results
09/04/24
03:45
WBC 9.6
Hgb 11.0 L
Hct 34.6 L
Plt Count 137
Sodium 142
Potassium 3.6
Chloride 105
Carbon Dioxide 29
BUN 83 H
Creatinine 1.4 H
Glucose 135 H
Calcium 8.1 L
Total Bilirubin 1.2
AST 61 H
ALT 94 H
Alkaline Phosphatase 127 H
Vital Signs:
Vital Signs
Temp Pulse Resp BP Pulse Ox
98.9 F 90 21 111/76 94
09/04/24 00:00 09/04/24 07:39 09/04/24 07:00 09/04/24 07:39 09/04/24 07:00
I&O
09/03/24 09/04/24 09/05/24
06:59 06:59 06:59
Intake Total 793.5 / 833.5 1675 / 1745
Output Total 499 / 524 1585 / 1585
Balance 294.5 / 309.5 90 / 160
Review of Systems
-
Unable to obtain full review of systems at this time due to: Dementia
History Source: Records
Physical Exam
-
General: Well Developed, Appears Chronically Ill and Cachectic
HEENT: Normocephalic, Atraumatic, Moist Mucous Membranes, Anicteric, [place] Conjunctivae, Oxygen (6L HFNC) and Other (Pupils sluggish but responsive to light)
Respiratory: Clear to Auscultation; Negative Wheezes, Rales or Rhonchi
Cardiac: S1/S2 and Irregular Rhythm; Negative Murmur, Rub or Tachycardic
Breast: Deferred by me
GI: Soft, Nontender, Nondistended, Normal Bowel Sounds and Other (NG Tube)
Genito-urinary: Clear Urine
Musculoskeletal: No Clubbing, No Cyanosis and No Edema
Neuro: Other (Asleep & minimally arousable to sternal rub. Will resist eyes being opened. )
--- NOTE | 2024-09-04 08:10 | PTCARENOTE ---
pt lethargic opens eyes to deep touch. non verbal. pupils 2 reactive. nc6l. afib on monitor. mota draining yellow. left hip dressing intact. tube feeding running via dht. placement checked.
--- NOTE | 2024-09-04 08:31 | W.PN.PUL3 ---
Today's Communication / Plan
-
Extubated 09/01/2024 to nasal cannula - now on midflow nasal cannula after being on NIV for >36 hours
Keep SpO2 >90% and continue weaning down O2 flow rate as tolerated
Maintain MAP >65; currently off pressors since 08/31; continue midodrine and try weaning down to 5mg TID tomorrow if clinically appropriate
Heart rate control with goal HR <110; she is in and out of A-fib
PO amio, continue PO dig + BB; trend sCr as dig may need to be adjusted if ANDRES worsens
Echo shows no significant change compared to prior echo in March 2024
DNR/DNI
Guarded prognosis - family leaning towards comfort care if she deteriorates; continue full medical management for now; seems that the wants to keep giving Inna more time, however at this point we are prolonging her suffering. Family
discussion pending to see if the would be okay to transition her to comfort care/hospice. If he still needs more time then would consult palliative care in that scenario
Assessment
-
Assessment: 88-year-old female with a past medical history of Parkinson disease, history of SVT, colon cancer s/p right hemicolectomy (1990), history of endometrial carcinoma s/p total hysterectomy, IBS, and mitral valve regurgitation who presents
with a trip and fall. She is complaining of left-sided hip/leg pain. She is on Eliquis for a history of A-fib. She says she got up from a seated position and tripped and fell onto the ground with no head trauma. Her blood pressure usually runs
low sometimes with SBP <100. Initial femur/hip XR showed impacted fracture involving the neck/head of the proximal left femur. CT head/CT C-spine showed no acute osseous abnormalities and no acute intracranial pathology. She was given Ofirmev in
the ER and admitted to telemetry for further management. Of note she is in rate controlled permanent A-fib and cardiology was consulted. Orthopedics also consulted and on the evening of 08/29/2024 she underwent a left hip hemiarthroplasty. During
the procedure she had suspected runs of VT with hypotension. She had remained intubated and arrived to the ICU in rapid A-fib in the 180s and on Levophed at 10mcg/min and epinephrine at 2mcg/min. Certified Nursing Attendant services consulted for additional
management/recommendations.
Chronic conditions PRICING LEAD: History of skin cancer s/p resection, Parkinson disease, history of SVT, A-fib on Eliquis, dementia, chronic HFpEF, chronic anemia, colon cancer, glaucoma, history of endometrial cancer, IBS, acne rosacea, mitral valve
regurgitation
Impression:
#Ventilator dependent respiratory failure - extubated 09/01/2024
#Shock state likely due to A-fib with RVR in the setting of chronically low BP - off pressors since 08/31
#Postoperative hypotension with suspected NSVT (?A-fib with aberrancy)
#A-fib with RVR - now rate controlled and occasionally in NSR
#Fall with left hip fracture s/p left hip hemiarthroplasty (08/29/2024)
#Retrocardiac opacification likely due to atelectasis
#Chronic thrombocytopenia
#Metabolic acidosis with increased anion gap likely due to lactic acidosis in the setting of shock � acidosis now resolved
#ANDRES
#Chronic hypotension not on midodrine
#Chronic anemia
#History of colon cancer s/p right hemicolectomy (1990)
#History of IBS
#Chronic HFpEF with RV enlargement and mild pulmonary hypertension (per TTE from March 2024)
Plan:
- Extubated on 09/01/2024 and had required noninvasive ventilation with high FiO2, now off NIV and currently on 6L/min nasal cannula frm midflow nasal cannula with SpO2 90%
- Family would like to continue with current medical management and if she deteriorates further then they will consider transitioning to comfort care at that time
- Patient did get anesthesia on 08/29/2024, and I advised the family that by day 4 after anesthesia we should be seeing more interactions from Inna; on 09/03 she was more interactive; not so much today
- Keep SpO2 >90-94% and wean down supplemental O2 flow rate as tolerated
- Aspiration precautions keeping HOB >30-45�
- Frequent suctioning as needed
- prn nebulized bronchodilators (use xopenex if this is needed due to A-fib) - not currently bronchospastic
- Heart rate control is [place] with goal HR <110
- Continue with PO amio load s/p amiodarone gtt and continue PO digoxin (started 08/31/2024)
- Cardiology recommendations appreciated
- Continue PO lopressor with holding paremeters
- Avoid beta agonist as this will only worsen heart rate
- Currently off both Eligio-Synephrine + vasopressin ---> keep MAP >65
- On midodrine - try to wean off as BP tolerates
- Patient is on Lasix at home which was held on 08/30 due to her shock state. Shock state now resolved, and cardiology gave trial of 20 mg IV Lasix on 08/31. Continue to diurese based on volume status --> do not feel that she will require much IV
diuresis based on her last CXR from 08/29/2024; CXR from 09/01/2024 shows no evidence of volume overload
- Echo checked on 09/01/2024 showing preserved LVEF at 55 to 60% with moderate MR, mild moderate AI, and moderately elevated PASP at 40 mmHg; no significant change since prior echo in March 2024
- Continue telemetry to monitor for any recurrence of VT
- Although CXR on 08/29/2024 showed retrocardiac opacification, this is likely due to atelectasis. Patient is nontoxic-appearing. Continue to observe off antibiotics
- CXR on 09/01/2024 showed improvement in retrocardiac opacification
- Re-check CXR tomorrow to assess volume status
- Postoperative management as per orthopedic surgery
- Pain control
- Continue donepezil and sinemet
- Replete electrolytes with K>4, Mg>2
- Maintain euglycemia with goal BG 140-180
- Trend H/H and transfuse if needed to keep Hb>7g/dL; keep plt>50k (given post-operative status)
- Continue tube feeds through NGT --> on 09/02/2024, bedside RN changed out NGT to dobhoff tube
- Stress ulcer ppx: PPI stopped given she is now extubated and off pressors
- DVT ppx: Eliquis (through NGT)
GOC discussion from 09/01/[address] Ponce: I discussed at bedside patient's clinical status with multiple family numbers, including , Jameson, and answered all of their questions. Patient does have an advanced directive being DNR/DNI. She
was extubated today and this advanced directive will remain in place. She remains exquisitely weak, lethargic and minimally responsive after extubation. I did ask if she did become more short of breath would it be ok to give morphine vs other
opiate to make her more comfortable and they agreed. does not want to transition now to comfort care but if things do not head in the right direction then he would want to discuss this again with his children.
I spoke with the patient's son, Mckinley, today (09/04/2024). I mentioned that we are prolonging suffering, and she should be made comfortable. Mckinley agrees, and he knows that his father will be very difficult to convince to let her go. He said that he
would try speaking with his father and have a 'difficult discussion.' I will have a meeting with the family tomorrow (09/05) and also try to discuss goals of care and see if they are amenable to transitioning to comfort care/hospice.
Pulmonary service will continue to briefly follow along.
Total time spent today was 36 minutes for this encounter. Time includes reviewing laboratory test/imaging results, reviewing pertinent medical records, obtaining and reviewing medical history, performing an appropriate exam, ordering medications,
tests and procedures. Time also includes documentation of this encounter, coordinating patient care and communicating with other healthcare professionals. Total time does not include separately billed tests performed on this date of service.
Subjective Data
-
Date of Service:
Date of Service: September 04, 2024
Chief Complaint: Pulmonary Follow Up
Subjective:
Patient seen and evaluated this morning. She is less responsive today. Patient's son, Mckinley, at bedside. All questions were answered. Currently, patient's heart rate 73, saturating 90% on 6 L/min and BP 133/82. Currently on tube feeds at 50
cc/hr.
Review of Systems
General: Unobtainable - Pat Unresp
Objective Data
Data Reviewed
Vital Signs / I&O / Oxygen:
Vital Signs
Temp Pulse Resp BP Pulse Ox
98.9 F 90 35 111/76 93
09/04/24 00:00 09/04/24 07:39 09/04/24 07:30 09/04/24 07:39 09/04/24 07:30
Intake and Output
09/03/24 09/04/24 09/05/24
06:59 06:59 06:59
Intake Total 793.5 / 833.5 1675 / 1745 140 / 140
Output Total 499 / 524 1585 / 1585 100 / 100
Balance 294.5 / 309.5 90 / 160 40 / 40
SaO2 [NIV (Non Invasive 94
Ventilation)]
SaO2 [CPAP] 98
SaO2 [A/C] 98
SaO2 93
Nasal Cannula flow liters per 6
minute
Physical Exam
General: Respiratory Distress (negative), Chills (negative) and Sweats (negative)
HEENT: Normocephalic and Anicteric
Cardiovascular: S1-S2, Rub (negative) and Peripheral Edema (negative)
Respiratory: Wheeze (negative), Crackles (Bilateral), Rhonchi (negative) and Non-Labored Respirations
GI: Soft, Non Distended, Non Tender and Normal Bowel Sounds
Neurology: Tremors (negative) and Unresponsive
Skin: Warm, Dry, Cyanosis (negative) and Jaundice (negative)
Labs/Micro/Reports
Lab Data
09/04/24 03:45
09/04/24 03:45
--- NOTE | 2024-09-04 10:25 | W.PN.NEPH.PH ---
Today's Communication / Plan
-
Continue supportive care/suggest comfort care as the patient likely becoming uremic
Assessment/Plan
-
88-year-old female with a past medical history of Parkinson disease, history of SVT, colon cancer s/p right hemicolectomy (1990), history of endometrial carcinoma s/p total hysterectomy, IBS, and mitral valve regurgitation who presents with a trip
and fall. Status post left hip hemiarthroplasty perioperatively she had suspected runs of VT with hypotension remained intubated in rapid A-fib in the 180s requiring pressor support. She has since been extubated she is on nasal cannula. Blood
pressure was as low as 70 systolic.
Renal consultation for acute kidney injury with a creatinine of 1.4.
Impression.
Acute on chronic kidney disease stage IIIb.
Status post hip repair.
Atrial fibrillation with RVR postoperatively requiring pressor support
Transaminitis improving
Plan.
Acuity secondary to hemodynamic instability. Patient is now currently rate controlled off pressors
The patient is oliguric overall positive from a fluid balance of standpoint with elevated pulmonary artery pressures and dilated IVC relatively preserved EF
She is currently off pressors maintaining MAP greater than 65.
Agree with IV diuretics at this time.
Maintain Riley catheter.
Tube feeds initiated.
Patient minimally responsive certainly with significant rise in her BUN I am concerned with her minimal muscle mass she is becoming uremic. Despite her EGFR of 22 I expect it is much lower than that.
Suggest comfort care
Total Time Spent with Patient (in minutes): 32
-
-
Date of Service: September 04, 2024
CC / HPI / ROS
-
Chief Complaint:
Status post hip repair
History of Present Illness:
Decompensation clinically requiring ICU pressor support.
Off pressors
Review of Systems:
Patient no response to verbal minimal response to tactile stim
Labs
-
Labs:
WBC 9.6 10^3/uL (4.8-10.8) 09/04/24 03:45
RBC 3.74 10^6/uL (4.20-5.40) L 09/04/24 03:45
Hgb 11.0 g/dL (12.0-16.0) L 09/04/24 03:45
Hct 34.6 % (37.0-47.0) L 09/04/24 03:45
Plt Count 137 10^3/uL (130-400) 09/04/24 03:45
Sodium 142 mmol/L (135-145) 09/04/24 03:45
Potassium 3.6 mmol/L (3.5-5.1) 09/04/24 03:45
Chloride 105 mmol/L (98-107) 09/04/24 03:45
Carbon Dioxide 29 mmol/L (22-30) 09/04/24 03:45
BUN 83 mg/dl (7-17) H 09/04/24 03:45
Creatinine 1.4 mg/dL (0.6-1.0) H 09/04/24 03:45
eGFR 36.41 09/04/24 03:45
Glucose 135 mg/dl (70-99) H 09/04/24 03:45
Calcium 8.1 mg/dl (8.4-10.2) L 09/04/24 03:45
Phosphorus 2.2 mg/dl (2.5-4.5) L 09/01/24 03:15
Gzj-J-Gdxprrkfhej Pept > 26685 pg/ml 09/02/24 12:14
Albumin 2.3 g/dl (3.5-5.0) L 09/04/24 03:45
Physical Exam
-
Vital Signs:
Vital Signs
Temp Pulse Resp BP Pulse Ox
98.4 F 90 35 111/76 93
09/04/24 07:35 09/04/24 07:39 09/04/24 07:30 09/04/24 07:39 09/04/24 07:30
Respiratory:: Bilateral: Coarse
Abdomen:: Soft
Bowel Sounds:: Normal
Extremity Edema:: None: Bilateral:
Riley Catheter: Yes
[2024-09-04] MEDS: KCL 270 MEQ IV (11:46)
[2024-09-04 12:06] LABS: Glucose - Point of Care 143 mg/dl (70-99)
[2024-09-04 12:10] LABS: HCO3 27.1 mmol/L (21-28); O2 Saturation % 99.1 % (94-98); PCO2 39 mmHg (32-35); PO2 92 mmHg (83-108); pH 7.45 (7.35-7.45)
[2024-09-04] MEDS: LANOXIN 62.5 MCG TUBE (12:17)
--- NOTE | 2024-09-04 15:25 | CM ---
CM following re: discharge planning.
Reviewed pt's chart, met with pt and pt's son Juan at bedside. Per chart review, continue supportive care/comfort care suggesting.
CM has a long conversation with pt's son juan. He stated he is aware of his mother current health situation, prognosis. Emotional support offered and provided. Pt's son stated he is awaiting for his father and brother to come and to have a meeting
with MD. Per son, after the meeting with MD and private discussion with all family they will make a decision. Emotional support offered and provided again and again. Pt's son stated that he and all family do not want pt suffering. Per son, family
will need to process it.
D/C plan: possible comfort care when family decides.
CM will follow with discharge plan updates as hospitalization progresses.
[2024-09-04] MEDS: ProAmatine TUBE (17:45)
[2024-09-04] MEDS: NOVOLOG FLEXPEN-MODERATE RESISTANCE 3 UNITS SC (18:09)
[2024-09-04 18:13] LABS: Glucose - Point of Care 207 mg/dl (70-99)
[2024-09-04] MEDS: ARICEPT 5 MG TUBE (19:27)
--- NOTE | 2024-09-04 20:54 | PTCARENOTE ---
oxygen requirements increased to high flow- pt in no distress-afib controlled still unresponsive afib- tube feeding at goal mota and fms- report given and pt transferred to imu.
--- NOTE | 2024-09-04 20:56 | PTCARENOTE ---
Pt rec'd as tx from ICU. Pt transitioned from MF to HF by RT once settled into 3345. Pt continues with unresponsiveness, VSS at this time. 94% on HF NC. HR irregular, continues with afib, rate controlled 80s-90s. TF maintained through L nare
dobhoff. Riley and FMS remain in place. Bed alarm in place for pt safety, however pt unresponsive at this time. Q2T schedule in place to prevent further skin breakdown. Care ongoing.
--- NOTE | 2024-09-04 22:10 | W.PN.UPDATE ---
Update Note
Progress Note Update
Pt more hypoxic tonight. Maxed on 15L oxygen. HFNC ordered. CXR ordered for tomorrow will change to do tonight.
CXR tonight reads: Large dense left lower lobe airspace consolidation and moderate right lower lobe opacity most suggestive SEVERE LEFT LOWER LOBE PNEUMONIA and MODERATE RIGHT LOWER LOBE PNEUMONIA. Atelectasis or alveolar pulmonary edema are
considered less likely.
Will start abx for PNA
[2024-09-04] MEDS: ZOSYN 50 IV (23:08)
[2024-09-04 23:21] LABS: Glucose - Point of Care 177 mg/dl (70-99)
[2024-09-04] MEDS: NOVOLOG FLEXPEN-MODERATE RESISTANCE 1 UNITS SC (23:26)
[2024-09-05] VITALS: BP 111/83
[2024-09-05 00:59] VITALS: BP 111/79
[2024-09-05] MEDS: LOPRESSOR 25 MG TUBE ×3 (00:59→11:34)
[2024-09-05 02:00] VITALS: BP 101/65
[2024-09-05 04:00] VITALS: BP 107/68
[2024-09-05 04:57] LABS: Procalcitonin 5.79 ng/ml (0.0-0.25)
[2024-09-05] MEDS: ZOSYN 50 IV ×2 (05:03→11:34)
[2024-09-05] MEDS: NOVOLOG FLEXPEN-MODERATE RESISTANCE 1 UNITS SC (05:07)
[2024-09-05 05:12] VITALS: BMI 19.8
[2024-09-05 05:23] LABS: Glucose - Point of Care 187 mg/dl (70-99)
[2024-09-05 06:00] VITALS: BP 137/80
--- NOTE | 2024-09-05 07:56 | W.PN.HOSP.TC ---
Addendum entered and electronically signed by Adriana Lucas MD 09/05/24 19:05:
total time spent 50 minutes
Addendum entered and electronically signed by Adriana Lucas MD 09/05/24 14:48:
I saw and evaluated the patient. I reviewed the resident�s note and agree with findings and plan as documented in the resident�s note.
A/P:
# Mechanical fall resulting in left hip fracture
head and spine CT neg for fracture
s/p surgery repair 08/29/24
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
pain control
staple removal in 2 weeks, ortho f/u at 4 weeks
# Acute hypoxic resp failure
intubated for surgery, pt was extubated with decision not to re-intubate (code status DNR)
She was weaned off BiPAP down to 5 L NC, but developed worsening hypoxic respiratory failure 09/04 and is now back on high flow FIO2 100% with nonrebreather use
# Aspiration pneumonia resulting in subsequent hypoxic respiratory failure
Pro-Nehemiah elevated at 5.79
CXR noted Large left lower lobe airspace consolidation and moderate right lower lobe opacity most suggestive SEVERE LEFT LOWER LOBE PNEUMONIA and MODERATE RIGHT LOWER LOBE PNEUMONIA.
Zosyn started, now off with transitioning to comfort measure
# permanent afib with RVR, and V. tach intraoperatively with post op hypotension, suspect 2/2 Parkinson autonomic insufficiency (neurogenic shock)
do not believe septic shock, hemorrhagic, or cardiogenic shock
She was on amiodarone, digoxin and Lopressor, all stopped with transitioning to comfort measure
STRAWHAT BLOCKING OPERATOR Eliquis stopped with transitioning to comfort measure
apprec cards
# Severe clinical deconditioning
# Decreased level of consciousness/hypoactive delirium likely due to progression of dementia
repeat CT head 09/04 without acute intracranial abnormality
Prognosis guarded, goals of care discussed, family agreeable to transition to comfort measures
# Chronic hypotension
midodrine 10 mg TID can be stoppped with comfort measures
# ANDRES, most likely prerenal 2/2 hypotension
SCr 1.4 -> 0.9; baseline SCr 0.8
# elevated AST/ALT, improving
# hypophosphatemia
# Parkinson's disease
Continue carbidopa-levodopa
# Dementia
Continue donepezil
# Chronic HFpEF
# Chronic anemia
# Glaucoma
code status- DNR/DNI
DVT prophylaxis- STRAWHAT BLOCKING OPERATOR Eliquis to be stopped with comfort measures
Discussed goals of care with family. Family agreeable to transition to comfort measures. Provided emotional support to family.
Original Note:
Today's Communication/Plan
-
Transition patient to comfort care.
Assessment / Plan
Assessment / Plan
88 year old female with a past medical history of atrial fibrillation (on Eliquis), Parkinson's disease, dementia, HFrEF, hypertension, chronic anemia, glaucoma, colon cancer s/p colon resection, endometrial cancer s/p post hysterectomy who
presented to [facility] ER room after a mechanical fall
Patient still minimally arousable on exam. decision made for comfort care.
#Pneumonia, more likely bacterial - discontinue IV Abx.
#Persistently altered mentation w/o return to baseline cognitive function
#Ventilator Dependent Acute Hypoxic Respiratory Failure - s/p extubation. Still requiring high flow. Will continue oxygen as needed for patient comfort.
#Chronic Hypotension - d/c antihypertensives
#ANDRES on CKD Stage IIIb - Maintain Riley for end of life comfort care.
#Vtach
#Afib with RVR
#Permanent Afib - D/c anti-arrhythmics.
#Mechanical fall with resulting L hip fx. from Left Hip Hemiarthroplasty
#HFpEF
#Hypokalemia (resolved)
#Thrombocytopenia, chronic
#Shock Liver, likely secondary to hypotension (resolved)
#Head pain
#Moderate Protein Calorie Malnutrition - Patient meets AND and ASPEN criteria for moderate protein calorie malnutrition of chronic disease due to >7.5% BW loss over 3 months and moderate loss of muscle in her clavicle region.
#Urinary incontinence
#Parkinson's
#Dementia
#Glaucoma
Diet - cholesterol lowering diet
DVT Ppx - none
Code Status - DNR
Anticipated Discharge: Within 24 hours
Subjective/Interval History
-
Patient became hypoxic overnight. CXR showing large LLL opacity suggestive for pneumonia. Started on IV zosyn.
Objective Data
-
Labs:
Laboratory Results
09/05/24
07:46
WBC Pending
Hgb Pending
Hct Pending
Plt Count Pending
Sodium Pending
Potassium Pending
Chloride Pending
Carbon Dioxide Pending
BUN Pending
Creatinine Pending
Glucose Pending
Calcium Pending
Total Bilirubin Pending
AST Pending
ALT Pending
Alkaline Phosphatase Pending
Vital Signs:
Vital Signs
Temp Pulse Resp BP Pulse Ox
98.7 F 102 33 137/80 93
09/05/24 03:09 09/05/24 06:04 09/05/24 06:00 09/05/24 06:04 09/05/24 06:00
I&O
09/04/24 09/05/24 09/06/24
06:59 06:59 06:59
Intake Total 1675 / 1745 1250 / 1250
Output Total 1585 / 1585 910 / 910
Balance 90 / 160 340 / 340
Review of Systems
-
Unable to obtain full review of systems at this time due to: Dementia and Other (not responding to verbal commands or calling of her name.)
Physical Exam
-
HEENT: Normocephalic, Atraumatic, Moist Mucous Membranes, [place] Conjunctivae and Other (High Flow oxygen, non-rebreather mask)
Respiratory: Crackles (coarse crackles in the L mid and lower lobes. ); Negative Wheezes or Rhonchi
Cardiac: S1/S2, Irregular Rhythm and Tachycardic; Negative Murmur or Rub
Breast: Deferred by me
GI: Soft, Nontender, Nondistended, Normal Bowel Sounds and Other (NG tube, 50ml/hr)
Genito-urinary: Riley
Musculoskeletal: No Clubbing, No Cyanosis and No Edema
Skin: Warm and Dry
Neuro: Other (Nonresponsive, not talking); Negative Awake, Alert or Oriented
[2024-09-05] MEDS: PACERONE 400 MG TUBE (08:28)
[2024-09-05] MEDS: ELIQUIS 2.5 MG TUBE (08:28)
[2024-09-05] MEDS: SINEMET 25-100 1 TABLET TUBE (08:28)
[2024-09-05] MEDS: ProAmatine TUBE (08:29)
[2024-09-05] MEDS: TIMOPTIC 0.5% OPHTHALMIC SOLUTION 1 DROP BOTH EYES (08:30)
--- NOTE | 2024-09-05 09:31 | W.PN.PUL3 ---
Addendum entered and electronically signed by Margarita Quick DO 09/05/24 15:07:
Patient is formally transitioned to comfort measures, we will sign off at this time
Pls call with questions
Original Note:
Today's Communication / Plan
-
Clinically deteriorating in the past 24 hours, placed on IV abx overnight and HFNC--on max settings
Resumed on IV diuresis, oliguria ongoing
Unresponsive with agonal breathing noted
Family aware her prognosis is poor, they were ok with PRN morphine
notes he was awaiting for renal to see to confirm prognosis and awaiting more family members to arrive
Prognosis is grim
Assessment
-
88-year-old female with a past medical history of Parkinson disease, history of SVT, colon cancer s/p right hemicolectomy (1990), history of endometrial carcinoma s/p total hysterectomy, IBS, and mitral valve regurgitation who presents with a trip
and fall. She is complaining of left-sided hip/leg pain. She is on Eliquis for a history of A-fib. She says she got up from a seated position and tripped and fell onto the ground with no head trauma. Her blood pressure usually runs low sometimes
with SBP <100. Initial femur/hip XR showed impacted fracture involving the neck/head of the proximal left femur. CT head/CT C-spine showed no acute osseous abnormalities and no acute intracranial pathology. She was given Ofirmev in the ER and
admitted to telemetry for further management. Of note she is in rate controlled permanent A-fib and cardiology was consulted. Orthopedics also consulted and on the evening of 08/29/2024 she underwent a left hip hemiarthroplasty. During the
procedure she had suspected runs of VT with hypotension. She had remained intubated and arrived to the ICU in rapid A-fib in the 180s and on Levophed at 10mcg/min and epinephrine at 2mcg/min. Plant Electrical Engineer services consulted for additional
management/recommendations.
Acute decompensated heart failure (w/ preserved EF), proBNP >27,000
Oliguria/ANDRES
Perioperative intubation-Ventilator dependent respiratory failure - extubated 09/01/2024
Acute on chronic hypotension/shock on pressors likely due to hypovolemia/anesthesia - off pressors since 08/31
Postoperative hypotension with suspected NSVT (VT noted intraop)
A-fib with RVR - now rate controlled and occasionally in NSR
Fall with left hip fracture s/p left hip hemiarthroplasty (08/29/2024)
Retrocardiac opacification likely due to atelectasis
Metabolic acidosis with increased anion gap likely due to lactic acidosis in the setting of shock � acidosis now resolved
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
History of skin cancer s/p resection
Parkinson disease
History of SVT
A-fib on Eliquis
Dementia
Glaucoma
History of endometrial cancer
Mitral valve regurgitation
Chronic hypotension not on midodrine
Chronic anemia/thrombocytopenia
History of colon cancer s/p right hemicolectomy (1990)
History of IBS
Chronic HFpEF with RV enlargement and mild pulmonary hypertension (per TTE from March 2024)
Plan:
Extubated on 09/01/2024 and had required noninvasive ventilation with high FiO2, now off NIV and currently on 6L/min nasal cannula frm midflow nasal cannula with SpO2 90%
Clinical deterioration noted overnight, now on HFNC, gasping/air hungry
Family ok with PRN morphine which I will add, they were awaiting renal to see before transitioning to comfort measures
Keep SpO2 >90-94% and wean down supplemental O2 flow rate as tolerated
Aspiration precautions keeping HOB >30-45�
Frequent suctioning as needed
prn nebulized bronchodilators (use xopenex if this is needed due to A-fib) - not currently bronchospastic
Continue with PO amio load s/p amiodarone gtt and continue PO digoxin (started 08/31/2024)
On BB and midodrine, resume on IV lasix
Heart rate control with goal HR <110
Cardiology recommendations appreciated
Currently off both Eligio-Synephrine + vasopressin ---> keep MAP >65
Echo reviewed below
Although CXR on 08/29/2024 showed retrocardiac opacification, this is likely due to atelectasis. Patient is nontoxic-appearing. Continue to observe off antibiotics
CXR on 09/01/2024 showed improvement in retrocardiac opacification
Repeat study showing possible LLL consolidation vs atelectasis, she was placed on IV abx again by overnight team
Postoperative management as per orthopedic surgery
Pain control
Continue donepezil and sinemet
Renal following, not a candidate for HD
Replete electrolytes with K>4, Mg>2
Diuresis
NPO
Continue tube feeds through NGT --> on 09/02/2024, bedside RN changed out NGT to dobhoff tube
- Stress ulcer ppx: PPI stopped given she is now extubated and off pressors
- DVT ppx: Eliquis (through NGT)
Prognosis is poor, awaiting further family decisions
Family Discussions
Kris- Guarded prognosis - family leaning towards comfort care if she deteriorates; continue full medical management for now; seems that the wants to keep giving Inna more time, however at this point we are prolonging her suffering.
Family discussion pending to see if the would be okay to transition her to comfort care/hospice. If he still needs more time then would consult palliative care in that scenario
GOC discussion from 09/01/[address] Ponce: I discussed at bedside patient's clinical status with multiple family numbers, including , Jameson, and answered all of their questions. Patient does have an advanced directive being DNR/DNI. She
was extubated today and this advanced directive will remain in place. She remains exquisitely weak, lethargic and minimally responsive after extubation. I did ask if she did become more short of breath would it be ok to give morphine vs other
opiate to make her more comfortable and they agreed. does not want to transition now to comfort care but if things do not head in the right direction then he would want to discuss this again with his children.
I spoke with the patient's son, Mckinley, today (09/04/2024). I mentioned that we are prolonging suffering, and she should be made comfortable. Mckinley agrees, and he knows that his father will be very difficult to convince to let her go. He said that he
would try speaking with his father and have a 'difficult discussion.' I will have a meeting with the family tomorrow (09/05) and also try to discuss goals of care and see if they are amenable to transitioning to comfort care/hospice.
Diagnostic Data
ECHO 09/01/24- Normal left ventricular size, wall thickness and systolic function. No regional wall motion abnormalities are seen. LV ejection fraction is 55-60% by Mendoza's method of discs. Diastolic function indeterminate due to atrial
fibrillation. Mitral valve opens normally. Thickened mitral valve leaflets. Mitral annular calcification. Mitral sclerosis without stenosis. Moderate mitral regurgitation. Indexed LA volume is mildly abnormal (35-41 mL/m2). Trileaflet aortic valve.
Aortic valve opens normally. Thickened aortic valve with normal leaflet excursion. Aortic sclerosis without stenosis. Mild to moderate aortic regurgitation. Tricuspid valve opens normally. Mild tricuspid regurgitation. Estimated pulmonary artery
pressure of 40 mmHg assuming a right atrial pressure of 15
mmHg. Since echo March 2024, there is no significant change.
CXR 09/04/24- 1. Large dense left lower lobe airspace consolidation and moderate right lower lobe opacity most suggestive SEVERE LEFT LOWER LOBE PNEUMONIA and MODERATE RIGHT LOWER LOBE PNEUMONIA. Atelectasis or alveolar pulmonary edema are
considered less likely.
2. Moderate enlargement of the cardiac silhouette.
3. Nasogastric feeding tube and right IJ central venous catheter in place
08/29/24- The endotracheal and nasogastric tubes are in satisfactory position. Mild cardiomegaly without associated pulmonary edema
08/26/24- Cardiomegaly. No acute pulmonary process.
-----
Total time spent today was 51 minutes for this encounter. Time includes reviewing laboratory test/imaging results, reviewing pertinent medical records, obtaining and reviewing medical history, performing an appropriate exam, ordering medications,
tests and procedures. Time also includes documentation of this encounter, coordinating patient care and communicating with other healthcare professionals. Total time does not include separately billed tests performed on this date of service.
Subjective Data
-
Date of Service:
Date of Service: September 05, 2024
Chief Complaint: Pulmonary Follow Up
Subjective:
Clinically deteriorating, remains on HFNC
Family at bedside, aware of prognosis
Objective Data
Data Reviewed
Vital Signs / I&O / Oxygen:
Vital Signs
Temp Pulse Resp BP Pulse Ox
99.6 F 102 33 137/80 89
09/05/24 08:10 09/05/24 06:04 09/05/24 06:00 09/05/24 06:04 09/05/24 08:27
Intake and Output
09/04/24 09/05/24 09/06/24
06:59 06:59 06:59
Intake Total 1675 / 1745 1250 / 1250
Output Total 1585 / 1585 910 / 910
Balance 90 / 160 340 / 340
SaO2 [NIV (Non Invasive 94
Ventilation)]
SaO2 [CPAP] 98
SaO2 [A/C] 98
SaO2 89
Nasal Cannula flow liters per 55
minute
Physical Exam
General: Respiratory Distress (moderate, gasping noted), Chills (negative), Sweats (negative) and Poor Appetite
HEENT: Normocephalic, Anicteric and Other (dry MM)
Cardiovascular: S1-S2, Regular Rhythm, Rub (negative) and Peripheral Edema (negative)
Respiratory: Wheeze (negative), Crackles (Bilateral), Rhonchi (negative) and Accessory Resp Muscle Use (gasping, air hungry )
GI: Soft, Non Distended, Non Tender and Normal Bowel Sounds
Neurology: Tremors (negative) and Unresponsive
Skin: Warm, Dry, Cyanosis (negative) and Jaundice (negative)
Labs/Micro/Reports
Laboratory Results
09/04/24
11:45
pH 7.45
pCO2 39 H
pO2 92
HCO3 27.1
O2 Delivery Level
[2024-09-05 09:38] LABS: Hematocrit 38.8 % (37.0-47.0); Hemoglobin 12.3 g/dL (12.0-16.0); Mean Corp Hgb Conc. 31.7 g/dL (33.0-37.0); Mean Corpuscular Hgb 29.4 pg (27.0-31.0); Mean Corpuscular Volume 92.6 fL (81.0-99.0); Mean Platelet Volume 11.5 fL (7.4-10.4); Platelet Count 133 10^3/uL (130-400); Red Blood Cell Count 4.19 10^6/uL (4.20-5.40); Red Cell Dist. Width 15.1 % (11.5-14.5); White Blood Cell Count 17.7 10^3/uL (4.8-10.8)
[2024-09-05 10:11] LABS: ALT (SGPT) 46 U/L (0-35); AST (SGOT) 58 U/L (14-36); Albumin 2.6 g/dl (3.5-5.0); Alkaline Phosphatase 206 U/L (38-126); Blood Urea Nitrogen 61 mg/dl (7-17); Calcium 8.5 mg/dl (8.4-10.2); Carbon Dioxide 32 mmol/L (22-30); Chloride 105 mmol/L (98-107); Estimated Creatinine Clearance 35 ml/min; Glucose 201 mg/dl (70-99); Potassium 4.6 mmol/L (3.5-5.1); Sodium 144 mmol/L (135-145); Total Bilirubin 1.2 mg/dl (0.2-1.3); Total Protein 4.6 g/dl (6.3-8.2); eGFR > 60.00
--- NOTE | 2024-09-05 10:13 | W.PN.NEPH.PH ---
Today's Communication / Plan
-
fO she knows MR melba she was seen by me in 2022 for thisLLow BMP
Assessment/Plan
-
88-year-old female with a past medical history of Parkinson disease, history of SVT, colon cancer s/p right hemicolectomy (1990), history of endometrial carcinoma s/p total hysterectomy, IBS, and mitral valve regurgitation who presents with a trip
and fall. Status post left hip hemiarthroplasty perioperatively she had suspected runs of VT with hypotension remained intubated in rapid A-fib in the 180s requiring pressor support. She has since been extubated she is on nasal cannula. Blood
pressure was as low as 70 systolic.
Renal consultation for acute kidney injury with a creatinine of 1.4.
Impression.
Acute on chronic kidney disease stage IIIb.
Status post hip repair.
Atrial fibrillation with RVR postoperatively requiring pressor support
Transaminitis
PNA
hypotension
Plan.
high risk situation
on pressors po
severe hypoxia with PNA, but DNI
continue Abx
can continue IV lasix to maintain I/O
continue mota catheter
prognosis is poor
-
-
Date of Service: September 05, 2024
CC / HPI / ROS
-
Chief Complaint:
Status post hip repair
History of Present Illness:
WBC up to 17
ANDRES/Cr down to 0.9
remains on high O2 requirements
on abx for severe bilateral PNA
LFTs improving
FT in place on TF
BP stable on midodrine
Review of Systems:
unresponsive
Labs
-
Labs:
WBC 17.7 10^3/uL (4.8-10.8) H 09/05/24 09:22
RBC 4.19 10^6/uL (4.20-5.40) L 09/05/24 09:22
Hgb 12.3 g/dL (12.0-16.0) 09/05/24 09:22
Hct 38.8 % (37.0-47.0) 09/05/24 09:22
Plt Count 133 10^3/uL (130-400) 09/05/24 09:22
Sodium 144 mmol/L (135-145) 09/05/24 09:22
Potassium 4.6 mmol/L (3.5-5.1) D 09/05/24 09:22
Chloride 105 mmol/L (98-107) 09/05/24 09:22
Carbon Dioxide 32 mmol/L (22-30) H 09/05/24 09:22
BUN 61 mg/dl (7-17) H 09/05/24 09:22
Creatinine 0.9 mg/dL (0.6-1.0) 09/05/24 09:22
eGFR > 60.00 09/05/24 09:22
Glucose 201 mg/dl (70-99) H 09/05/24 09:22
Calcium 8.5 mg/dl (8.4-10.2) 09/05/24 09:22
Phosphorus 2.2 mg/dl (2.5-4.5) L 09/01/24 03:15
Oxr-Z-Ziundgundfi Pept > 71678 pg/ml 09/02/24 12:14
Albumin 2.6 g/dl (3.5-5.0) L 09/05/24 09:22
Physical Exam
-
Vital Signs:
Vital Signs
Temp Pulse Resp BP Pulse Ox
99.6 F 102 33 137/80 89
09/05/24 08:10 09/05/24 06:04 09/05/24 06:00 09/05/24 06:04 09/05/24 08:27
Cardiovascular:: Regular rate and rhythm
Respiratory:: Bilateral: Rales and Bilateral: Rhonchi
Lung Excursion:: Normal
Abdomen:: Nontender and Soft
Bowel Sounds:: Normal
Extremity Edema:: None: Bilateral:
--- NOTE | 2024-09-05 10:38 | CM ---
Addendum entered by Kaela Espinosa 09/05/24 14:38:
Plan per physician is for comfort care and family with patient.
Original Note:
Patient family in room with patient. Physicians have reviewed comfort care and family is to discuss. CM will continue to follow for discharge planning needs.
Plan; pending family meeting;
[2024-09-05] MEDS: MORPHINE SULFATE 1 MG IV ×2 (11:32→15:00)
[2024-09-05] MEDS: LANOXIN 62.5 MCG TUBE (11:33)
[2024-09-05] MEDS: TYLENOL ORAL SOLUTION 650 MG TUBE (11:34)
[2024-09-05] MEDS: ProAmatine 10 MG TUBE (12:33)
[2024-09-05] MEDS: NOVOLOG FLEXPEN-MODERATE RESISTANCE SC (13:01)
--- NOTE | 2024-09-05 15:57 | W.PN.DEATH ---
Pronouncement of
-
Called to see patient to pronounce.
No spontaneous heart tones or respirations noted.
Patient not responsive to verbal stimuli.
Patient is pronounced .
Time of : 15:40
Date of : 09/05/24
Family Notified: Yes
--- NOTE | 2024-09-05 15:57 | PTCARENOTE ---
this am pt with desat into low 80s. high flow increased to 100 percent/60 liters and nonrebreather. decision made by pts family to transition to comfort care. md discussed with family and orders placed for comfort care. administered prn morphine x 2
for labored respirations. at 1545 pt with asystole on monitor and no respirations. family with patient. md notified.
== END 2024-09-05 15:40 | disposition expired | DRG 521 ==
LOC: IMU 18:39
PROVIDERS: Internal Medicine; Internal Medicine Cardiovascular Disease; Nurse Practitioner Family; Nurse Practitioner Primary Care; Physician Assistant; Radiology Diagnostic Radiology; Specialist; Student in an Organized Health Care Education/Training Program; ADMITTING PHYSICIAN Hospitalist; ATTENDING PHYSICIAN Internal Medicine; CONSULT PHYSICIAN Internal Medicine Nephrology; CONSULT PHYSICIAN Specialist; EMERGENCY PHYSICIAN Emergency Medicine; FAMILY PHYSICIAN Family Medicine; OTHER PHYSICIAN Internal Medicine Cardiovascular Disease; OTHER PHYSICIAN Internal Medicine Critical Care Medicine
PROC: 5A1945Z Respiratory Ventilation, 24-96 Consecutive Hours (ICD-10-PCS; 2024-08-29)
PROC: 0SRS0J9 Replacement of Left Hip Joint, Femoral Surface with Synthetic Substitute, Cemented, Open Approach (ICD-10-PCS; 2024-08-29)
PROC: 0D9670Z Drainage of Stomach with Drainage Device, Via Natural or Artificial Opening (ICD-10-PCS; 2024-08-29)
PROC: 0BH17EZ Insertion of Endotracheal Airway into Trachea, Via Natural or Artificial Opening (ICD-10-PCS; 2024-08-29)
PROC: 0BP1XDZ Removal of Intraluminal Device from Trachea, External Approach (ICD-10-PCS; 2024-09-01)
PROC: 0DH67UZ Insertion of Feeding Device into Stomach, Via Natural or Artificial Opening (ICD-10-PCS; 2024-09-02)
PROC: 5A0935A Assistance with Respiratory Ventilation, Less than 24 Consecutive Hours, High Flow/Velocity Cannula (ICD-10-PCS; 2024-09-04)
DX: S72.002A Fracture of unspecified part of neck of left femur, initial encounter for closed fracture (principal); J69.0 Pneumonitis due to inhalation of food and vomit; J96.01 Acute respiratory failure with hypoxia; K72.00 Acute and subacute hepatic failure without coma; I48.21 Permanent atrial fibrillation; I13.0 Hypertensive heart and chronic kidney disease with heart failure and stage 1 through stage 4 chronic kidney disease, or unspecified chronic kidney disease; I50.32 Chronic diastolic (congestive) heart failure; E44.0 Moderate protein-calorie malnutrition; Z68.1 Body mass index [BMI] 19.9 or less, adult; G90.3 Multi-system degeneration of the autonomic nervous system; N17.9 Acute kidney failure, unspecified; I47.20 Ventricular tachycardia, unspecified; E87.20 Acidosis, unspecified; Z99.11 Dependence on respirator [ventilator] status; J98.11 Atelectasis; F05 Delirium due to known physiological condition; Z51.5 Encounter for palliative care; G20.A1 Parkinson's disease without dyskinesia, without mention of fluctuations; W01.0XXA Fall on same level from slipping, tripping and stumbling without subsequent striking against object, initial encounter; Y93.01 Activity, walking, marching and hiking; Y92.009 Unspecified place in unspecified non-institutional (private) residence as the place of occurrence of the external cause; K21.9 Gastro-esophageal reflux disease without esophagitis; G89.29 Other chronic pain; M54.2 Cervicalgia; I45.10 Unspecified right bundle-branch block; F02.80 Dementia in other diseases classified elsewhere, unspecified severity, without behavioral disturbance, psychotic disturbance, mood disturbance, and anxiety; N18.32 Chronic kidney disease, stage 3b; I95.89 Other hypotension; R74.01 Elevation of levels of liver transaminase levels; D69.6 Thrombocytopenia, unspecified; R73.9 Hyperglycemia, unspecified; H91.90 Unspecified hearing loss, unspecified ear; I95.81 Postprocedural hypotension; R57.8 Other shock; E87.6 Hypokalemia; R32 Unspecified urinary incontinence; R51.9 Headache, unspecified; I08.0 Rheumatic disorders of both mitral and aortic valves; D64.9 Anemia, unspecified; D72.829 Elevated white blood cell count, unspecified; E83.39 Other disorders of phosphorus metabolism; I27.20 Pulmonary hypertension, unspecified; H40.9 Unspecified glaucoma; Z66 Do not resuscitate; Z85.038 Personal history of other malignant neoplasm of large intestine; Z85.828 Personal history of other malignant neoplasm of skin; Z79.01 Long term (current) use of anticoagulants; Z90.710 Acquired absence of both cervix and uterus; Z90.49 Acquired absence of other specified parts of digestive tract; Z85.42 Personal history of malignant neoplasm of other parts of uterus; Z88.5 Allergy status to narcotic agent; Z80.3 Family history of malignant neoplasm of breast; Z82.49 Family history of ischemic heart disease and other diseases of the circulatory system; Z82.0 Family history of epilepsy and other diseases of the nervous system
CPT/HCPCS: 36600; 70450; 71045; 72125; 72192; 73502; 73552; 80048; 80053; 82330; 82805; 82962; 83605; 83735; 83880; 84100; 84132; 84145; 84302; 85014; 85018; 85025; 85027; 85610; 85730; 86850; 86900; 86901; 93005; 93306; 94002; 94003; 94660; 96374; 99285; C1713; C1776; J1160